=== PATIENT | female | born 1980 | race Caucasian/White ===

== ENCOUNTER → 2017-09-12 21:22 | Outpatient (CLI) | payer BC, SELFPAY ==
[2017-09-12 22:13] LABS: Thyroid Stim Hormone (TSH) 0.26 uIU/mL (0.358-3.74)
== END ==
PROVIDERS: Visit Provider Nurse Practitioner
DX: E03.9 Hypothyroidism, unspecified (principal)
CPT/HCPCS: 84443

== ENCOUNTER → 2018-08-18 13:27 | Outpatient (CLI) | payer BC, SELFPAY ==
[2018-06-23 16:24] VITALS: BMI 31.2
--- NOTE | 2018-08-18 13:36 | CT_ITS ---
STUDY: CT SOFT TISSUE NECK WITH CONTRAST REASON FOR EXAM: Female, 38 years old. Enlarged lymph nodes bilaterally. RADIATION DOSAGE (If Supplied By Facility): CTDIvol = ( 20.28 ) mGy, DLP = ( 622.89 ) mGycm TECHNIQUE: The patient was scanned in a multi-detector CT scanner. High resolution transaxial imaging was performed following intravenous administration of 75 IV Isovue 370. Sagittal and coronal images were reconstructed. Individualized dose optimization techniques were used for this CT. COMPARISON: None. FINDINGS: Normal bilateral parotid glands. Normal bilateral segmental wall installer spaces. Normal bilateral parapharyngeal spaces. Normal bilateral carotid spaces. Normal bilateral sublingual and submandibular glands and spaces. Normal visualized nasopharynx. Normal retropharyngeal space. Normal perivertebral space. Normal visualized bilateral faucial tonsils. The visualized tongue, tongue base and oropharynx are normal. Shotty anterior cervical lymph nodes. The largest anterior cervical lymph node on the left is 11 x 17 x 6 mm at the angle of the mandible. The largest right anterior cervical lymph node is 12 x 5 x 5 mm at approximately the same level. Posterior cervical lymph nodes are generally more numerous and larger on the right side the largest posterior right cervical lymph node is 16 x 6 x 6 mm. The largest cervical posterior lymph node on the left is 13 x 5 x 5 mm. Mental and submandibular lymph nodes generally less than 1 cm. Lymph nodes at the base of the neck are generally less than 1 cm in size. There multiple subcentimeter subpectoral lymph nodes of the chest wall bilaterally included in the [id number]. There does not appear to be any celso necrosis or calcifications. There is no abnormal contrast enhancement. Normal epiglottis, bilateral vallecula and hypopharynx. The pre-epiglottic and paraglottic adipose spaces are normal. Normal visualized bilateral piriform sinuses, aryepiglottic folds, vocal cords, and arytenoid-cricoid articulations. Normal subglottic trachea. Minimal or no remaining thyroid tissue. Normal visualized pulmonary apices. Normal visualized paranasal sinuses. Mild degenerative changes of the cervical spine. CT/Soft Tissue Neck WITH Contrast IMPRESSION: Generalized shotty cervical adenopathy as described above including subcentimeter bilateral lymph nodes of the subpectoral chest wall included in the biacl-oa-tecu. Negative for evidence of celso calcification, cavitation or necrosis. Negative for other mass density of the soft tissues of the neck. Little or no remaining thyroid tissue. Electronically Signed: Jessica Bedoya MD at 19:27 EDT , Service support ,
== END ==
PROVIDERS: Family Provider Nurse Practitioner; PCP Nurse Practitioner; Referring Provider Otolaryngology; Visit Provider Otolaryngology
DX: R22.1 Localized swelling, mass and lump, neck (principal)
CPT/HCPCS: 70491; Q9967

== ENCOUNTER → 2018-09-05 09:49 | Outpatient (CLI) | payer BC, SELFPAY ==
[2018-06-23 16:24] VITALS: BMI 31.2
--- NOTE | 2018-09-05 | ASPOS_PTH ---
PATIENT: NADIA PRICE LOC: [facility] U#:[id number] AGE/SX: 44/F ROOM: RE09/05/[address]: Dr. 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 AM:sp 09/11/18 COMMENT Cytometric analysis of aspirate material supports the above diagnosis. There is no evidence of lymphoma. Case has been reviewed in consultation with Dr. Simental who concurs with the above diagnosis. IDC:SJ CYTOLOGY STUDY Slides are reviewed. CYTOLOGY GROSS Received is 0.2 ml of reddish fluid labeled with the patient's name, and designated FNA right posterior neck lymph node. 1 imprints and 1 paps are made from the submitted fluid. Submitted for cytology study. /AM:cc 09/05/18 TC: 5 CPT: 48066,35937, 44982
== END ==
PROVIDERS: Family Provider Nurse Practitioner; PCP Nurse Practitioner; Referring Provider Otolaryngology; Visit Provider Otolaryngology
DX: R22.1 Localized swelling, mass and lump, neck (principal)
CPT/HCPCS: 10021; 88161; 88305

== ENCOUNTER → 2019-09-03 20:35 | Outpatient (CLI) | payer BC, SELFPAY ==
[2019-08-31 19:17] VITALS: BMI 35.6
[2019-09-03 20:56] LABS: ALB/GLOB Ratio 1.1 RATIO (0.9-2.4); AST(SGOT) 33 U/L (15-37); Alanine Aminotransfer ALT/SGPT 26 U/L (13-56); Albumin, Serum 4.3 g/dL (3.2-5.0); Alkaline Phosphatase 68 U/L (45-117); Anion Gap 7 (5-15); BUN 9 mg/dL (7-18); BUN/Creat Ratio 8.8 RATIO (10-20); Calcium,Total 8.6 mg/dL (8.5-10.1); Chloride 107 mmol/L (98-107); Creatinine, Serum 1.02 mg/dL (0.55-1.02); EST Glomerular Filtration Rate 64 mL/min (>60); Est Glom Filt Rate - Afr Amer 77 mL/min (>60); Globulin 3.8 g/dL (2.2-4.2); Glucose 88 mg/dL (74-106); Luteinizing Hormone 6.9 mIU/mL; Potassium 3.8 mmol/L (3.5-5.1); Protein, Total 8.1 g/dL (6.4-8.2); Sodium Level 138 mmol/L (136-145)
[2019-09-03 21:00] LABS: Absolute Neutrophil Count 5.3 X10^3/uL (2.0-7.7); Basophil# 0.05 X10^3/uL; Basophil% 0.6 % (0-1); Eosinophil# 0.09 X10^3/uL; Eosinophils% 1.2 % (0-5); Hematocrit 34.7 % (37-47); Hemoglobin 11.2 g/dL (12.0-15.0); Lymphocyte % 24.3 % (19-41); Mean Corp Hgb Conc 32.3 g/dL (32-36); Mean Corpuscular Hgb 28.3 pg (27.0-32.0); Mean Corpuscular Volume 87.6 fL (81-99); Mean Platelet Vol. 10.9 fl (6.2-12.0); Monocyte# 0.44 X10^3/uL; Monocyte% 5.6 % (0-10); NRBC Flagged by Analyzer 0 % (0-5); Neutrophil # 5.27 X10^3/uL (2.7-7.7); Neutrophil % 67.4 % (47-70); Platelet Count 334 K/mm3 (150-450); RBC Distribution Width SD 60.7 fl (35.1-43.9); Red Blood Count 3.96 M/mm3 (4.2-5.4); White Blood Count 7.8 K/mm3 (4.4-11.0)
== END ==
PROVIDERS: PCP Nurse Practitioner; Referring Provider Nurse Practitioner; Visit Provider Nurse Practitioner
DX: N93.9 Abnormal uterine and vaginal bleeding, unspecified (principal)
CPT/HCPCS: 80053; 83001; 83002; 85025

== ENCOUNTER → 2020-12-02 | Outpatient (CLI) | payer BC, SELFPAY ==
[2020-12-02 22:34] LABS: Absolute Lymphocyte Count 2.16 X10^3/uL (0.83-4.51); Absolute Neutrophil Count 6.2 X10^3/uL (2.0-7.7); Basophil# 0.04 X10^3/uL; Basophil% 0.4 % (0-1); Eosinophil# 0.11 X10^3/uL; Eosinophils% 1.2 % (0-5); Hematocrit 36.8 % (37-47); Lymphocyte # 2.16 X10^3/ul (0.83-4.51); Lymphocyte % 23.8 % (19-41); Mean Corp Hgb Conc 32.6 g/dL (32-36); Mean Corpuscular Hgb 27.6 pg (27.0-32.0); Mean Corpuscular Volume 84.6 fL (81-99); Mean Platelet Vol. 12.2 fl (6.2-12.0); Monocyte# 0.51 X10^3/uL; Monocyte% 5.6 % (0-10); NRBC Flagged by Analyzer 0 % (0-5); Neutrophil # 6.23 X10^3/uL (2.7-7.7); Neutrophil % 68.8 % (47-70); Platelet Count 341 K/mm3 (150-450); RBC Distribution Width SD 46.3 fl (35.1-43.9); Red Blood Count 4.35 M/mm3 (4.2-5.4); White Blood Count 9.1 K/mm3 (4.4-11.0)
== END | disposition home or self-care (01) ==
PROVIDERS: Visit Provider Nurse Practitioner
DX: K46.0 Unspecified abdominal hernia with obstruction, without gangrene (principal)
CPT/HCPCS: 85025

== ENCOUNTER → 2021-11-06 | Outpatient (CLI) | payer BC, SELFPAY ==
[2021-11-06 21:40] LABS: Absolute Lymphocyte Count 1.13 X10^3/uL (0.83-4.51); Absolute Neutrophil Count 4.9 X10^3/uL (2.0-7.7); Basophil# 0.03 X10^3/uL; Basophil% 0.4 % (0-1); Eosinophils% 1.5 % (0-5); Hematocrit 39.3 % (37-47); Hemoglobin 13.2 g/dL (12.0-15.0); Lymphocyte # 1.13 X10^3/ul (0.83-4.51); Lymphocyte % 16.9 % (19-41); Mean Corp Hgb Conc 33.6 g/dL (32-36); Mean Corpuscular Hgb 27.9 pg (27.0-32.0); Mean Corpuscular Volume 83.1 fL (81-99); Mean Platelet Vol. 11.4 fl (6.2-12.0); Monocyte# 0.51 X10^3/uL; Monocyte% 7.6 % (0-10); NRBC Flagged by Analyzer 0 % (0-5); Neutrophil # 4.89 X10^3/uL (2.7-7.7); Neutrophil % 73.5 % (47-70); Platelet Count 304 K/mm3 (150-450); RBC Distribution Width CV 16.3 % (11.6-14.6); RBC Distribution Width SD 49.3 fl (35.1-43.9); Red Blood Count 4.73 M/mm3 (4.2-5.4); White Blood Count 6.7 K/mm3 (4.4-11.0)
[2021-11-06 22:08] LABS: ALB/GLOB Ratio 0.8 RATIO (0.9-2.4); AST(SGOT) 15 U/L (15-37); Alanine Aminotransfer ALT/SGPT 20 U/L (13-56); Albumin, Serum 3.8 g/dL (3.2-5.0); Alkaline Phosphatase 78 U/L (45-117); Anion Gap 10 (5-15); BUN 12 mg/dL (7-18); BUN/Creat Ratio 13.2 RATIO (10-20); Calcium,Total 9.4 mg/dL (8.5-10.1); Chloride 102 mmol/L (98-107); Cholesterol 208 mg/dL (200); Creatinine, Serum 0.91 mg/dL (0.55-1.02); EST Glomerular Filtration Rate 72 mL/min (>60); Est Glom Filt Rate - Afr Amer 87 mL/min (>60); Globulin 4.5 g/dL (2.2-4.2); Glucose 122 mg/dL (74-106); High Density Lipoprotein 47 mg/dL; Potassium 3.1 mmol/L (3.5-5.1); Protein, Total 8.3 g/dL (6.4-8.2); Sodium Level 136 mmol/L (136-145); Thyroid Stim Hormone (TSH) 0.35 uIU/mL (0.358-3.74); Triglycerides 111 mg/dL; Very Low Density Lipoprotein 22 mg/dL (5-40)
== END | disposition home or self-care (01) ==
PROVIDERS: Referring Provider Nurse Practitioner; Visit Provider Nurse Practitioner
DX: I10 Essential (primary) hypertension (principal); E03.9 Hypothyroidism, unspecified
CPT/HCPCS: 80053; 80061; 84443; 85025

== ENCOUNTER → 2022-09-01 | Outpatient (CLI) | payer BC, SELFPAY ==
[2022-09-01 21:15] LABS: Absolute Lymphocyte Count 1.82 X10^3/uL (0.83-4.51); Absolute Neutrophil Count 4.3 X10^3/uL (2.0-7.7); Basophil# 0.06 X10^3/uL; Basophil% 0.9 % (0-1); Eosinophil# 0.13 X10^3/uL; Eosinophils% 1.9 % (0-5); Lymphocyte # 1.82 X10^3/ul (0.83-4.51); Lymphocyte % 26.6 % (19-41); Mean Corp Hgb Conc 32.4 g/dL (32-36); Mean Corpuscular Hgb 26.8 pg (27.0-32.0); Mean Corpuscular Volume 82.6 fL (81-99); Mean Platelet Vol. 11.2 fl (6.2-12.0); Monocyte# 0.51 X10^3/uL; Monocyte% 7.4 % (0-10); NRBC Flagged by Analyzer 0 % (0-5); Neutrophil # 4.31 X10^3/uL (2.7-7.7); Neutrophil % 62.9 % (47-70); Platelet Count 337 K/mm3 (150-450); RBC Distribution Width CV 15.8 % (11.6-14.6); RBC Distribution Width SD 47.7 fl (35.1-43.9); Red Blood Count 4.48 M/mm3 (4.2-5.4); White Blood Count 6.9 K/mm3 (4.4-11.0)
[2022-09-01 21:36] LABS: ALB/GLOB Ratio 0.9 RATIO (0.9-2.4); AST(SGOT) 16 U/L (15-37); Alanine Aminotransfer ALT/SGPT 22 U/L (13-56); Albumin, Serum 3.6 g/dL (3.2-5.0); Alkaline Phosphatase 77 U/L (45-117); Anion Gap 8 (5-15); BUN 9 mg/dL (7-18); BUN/Creat Ratio 10.7 RATIO (10-20); CRP, High Sensitivity Cardiac 7.85 mg/L; Calcium,Total 8.8 mg/dL (8.5-10.1); Chloride 104 mmol/L (98-107); Cholesterol 193 mg/dL (200); Creatinine, Serum 0.84 mg/dL (0.55-1.02); EST Glomerular Filtration Rate 79 mL/min (>60); Est Glom Filt Rate - Afr Amer 95 mL/min (>60); Globulin 4.2 g/dL (2.2-4.2); Glucose 89 mg/dL (74-106); High Density Lipoprotein 51 mg/dL; Potassium 3.2 mmol/L (3.5-5.1); Protein, Total 7.8 g/dL (6.4-8.2); Sodium Level 138 mmol/L (136-145); T4 Free Direct 1.31 ng/dL (0.76-1.46); Thyroid Stim Hormone (TSH) 1.24 uIU/mL (0.358-3.74); Triglycerides 162 mg/dL; Very Low Density Lipoprotein 32 mg/dL (5-40)
[2022-09-01 21:55] LABS: Hemoglobin A1c 5.7 % (3.8-5.6)
== END | disposition home or self-care (01) ==
PROVIDERS: Visit Provider Nurse Practitioner
DX: I10 Essential (primary) hypertension (principal); F32.A Depression, unspecified; E03.9 Hypothyroidism, unspecified; R51.9 Headache, unspecified; R07.9 Chest pain, unspecified
CPT/HCPCS: 80053; 80061; 83036; 84439; 84443; 85025; 86141

== ENCOUNTER → 2022-11-03 | Outpatient (CLI) | payer BC, SELFPAY | END | disposition home or self-care (01) | PROVIDERS: Visit Provider Nurse Practitioner | DX: N30.90 Cystitis, unspecified without hematuria (principal); R10.9 Unspecified abdominal pain | CPT/HCPCS: 87077; 87086; 87088; 87186 ==

== ENCOUNTER → 2023-02-23 | Outpatient (CLI) | payer BC, SELFPAY ==
--- OUTSIDE RECORDS SUMMARY | 2023-02-23 22:14 | XMS RPT_ITS | CCD ---
Author Name Unknown Address [address] [place] [address] Organization [facility] Care Team Providers Care Brand Representative Name Role Phone Reddy VILLEGAS, Alessandro Murillo Unavailable [phone] Dawson Dougherty Primary Care Provider Samuel Sánchez Primary Care Provider Esdras Morton Primary Care Provider Dawson Dougherty Primary Care Provider [phone] Personal Health Record, Admin Unavailable Unavailable Sylvia Simpson Unavailable Unavailable Update Needed Unavailable Unavailable Ladonna Dawson Primary Care Provider LADONNA DAWSON Primary Care Unavailable DOUGHERTY, DAWSON Primary Care Unavailable DOUGHERTY, DAWSON Primary Care Unavailable DOUGHERTY, DAWSON Primary Care Unavailable Dougherty EDGER MACHINE OPERATOR.Dawson HOWE L Primary Care Provide r Ladonna Dawson Primary Care Provider NATALY CISNEROS Attending Unavailable TOY BURCH Referring Unavailable DOUGHERTY, DAWSON Primary Care Unavailable NATALY CISNEROS Attending Unavailable TOY BURCH Referring Unavailable DOUGHERTY, DAWSON Primary Care Unavailable TOY BURCH Attending Unavailable BERONICA TOY Referring Unavailable DOUGHERTY, DAWSON Primary Care Unavailable TOY BURCH Attending Unavailable BERONICA TOY Referring Unavailable DOUGHERTY, DAWSON Primary Care Unavailable TOY BURCH Attending Unavailable DOUGHERTY, DAWSON Primary Care Unavailable Allergies Allergy Classification Reported Allergen(s) Allergy Type Date of Onset Reaction(s) Facility (1 source) gabapentin Drug Allergy 4 [facility] Work Phone: (2 sources) Seasonal allergy; Translations: [SEASONAL] allergy to substance 4 [facility] Work Phone: (13 sources) gabapentin; Translations: [GABAPENTIN] Drug Allergy 4 Nausea And Vomiting, Dermatitis, Dizziness, Headache, Nausea Only, Other: See Comments, [facility] [place] [facility] topiramate; Translations: [TOPIRAMATE] Drug Allergy 8 Intolerance [place], [place] (3 sources) Acetaminophen / HYDROcodone [facility] (6 sources) Topiramate Allergy to substance 8 [facility] Medications Current Medications Medication Drug Class(es) Dates Sig (Normalized) Sig (Original) amitriptyline hydrochloride 50 mg oral tablet (1 source) Tricyclic Antidepressant Start: 08-03-2016 take 1 tablet by mouth once daily amitriptyline (ELAVIL) 50 MG tablet Take 1 tablet by mouth nightly 30 tablet 3 08/03/2016 Active amphetamine aspartate 7.5 mg / amphetamine sulfate 7.5 mg / dextroamphetamine saccharate 7.5 mg / dextroamphetamine sulfate 7.5 mg oral tablet (1 source) Central Nervous System Stimulant amphetamine-dextr oamphetamine (ADDERALL, 30MG,) 30 MG tablet Take 30 mg by mouth daily.. 0 Active 24 hr buPROPion hydrochloride 300 mg extended release oral tablet (13 sources) Aminoketone Start: 08-03-2016 take 1 tablet by mouth once daily buPROPion (WELLBUTRIN XL) 150 MG extended release tablet TAKE ONE TABLET BY MOUTH ONCE DAILY 12 08/03/2016 Active Completed/Discontinued Medications Medication Drug Class(es) Dates Sig (Normalized) Sig (Original) acetaminophen 250 mg / aspirin 250 mg / caffeine 65 mg oral tablet (3 sources) Platelet Aggregation Inhibitor, Nonsteroidal Anti-inflammatory Drug, Central Nervous System Stimulant, Methylxanthine Start: 08-08-2002 EXCEDRIN TABLET as directed 0 08/08/2002 Active Problems Active Problems Problem Classification Problem Date Documented Da te Episodic/Chronic Complication of device; implant or graft (1 source) Pain due to any device, implant AND/OR graft; Translations: [Pain due to internal orthopedic prosthetic devices, implants and grafts, initial encounter] Onset: 12-19-2017 12-19-2017 Episodic Headache; including migraine (6 sources) Migraine with aura; Translations: [Migraine with aura] Onset: 08-08-2002 09-13-2005 Chronic Mood disorders (6 sources) Dysthymia; Translations: [Dysthymic disorder] Onset: 03-04-2003 06-03-2003 Chronic Other and unspecified benign neoplasm (1 source) Neuroma; Translations: [Benign neoplasm of peripheral nerves and autonomic nervous system, unspecified] Onset: 12-19-2017 12-19-2017 Episodic Other bone disease and musculoskeletal deformities (1 source) Somatic dysfunction of sacroiliac joint; Translations: [Somatic dysfunction of sacroiliac joint] Episodic Other female genital disorders (6 sources) Vulvodynia; Translations: [Vulvodynia, unspecified] Onset: 08-03-2016 11-19-2021 Chronic Other lower respiratory disease (1 source) Cough; Translations: [Cough] Episodic Other non-traumatic joint disorders (1 source) Sacroiliac disorder; Translations: [Sacroiliac strain] Episodic Other screening for suspected conditions (not mental disorders or infectious disease) (7 sources) Patient encounter status; Translations: [Encounter for other screening for genetic and chromosomal anomalies] Onset: 05-21-2022 Episodic Residual codes; unclassified (3 sources) Family history of breast cancer; Translations: [Family history of malignant neoplasm of breast] Episodic Residual codes; unclassified (2 sources) Family history of malignant neoplasm of ovary; Translations: [Family history of malignant neoplasm of ovary] Episodic Residual codes; unclassified (1 source) Family history of prostate cancer; Translations: [Family history of malignant neoplasm of prostate] 12-13-2022 Episodic Spondylosis; intervertebral disc disorders; other back problems (1 source) Cervicalgia; Translations: [Cervicalgia] Onset: 06-08-2022 Episodic Thyroid disorders (7 sources) Hypothyroidism; Translations: [Hypothyroidism, unspecified] Onset: 01-27-2010 01-27-2010 Chronic Past or Other Problems Problem Classification Problem Date Documented Da te Episodic/Chronic Abdominal pain (8 sources) Left lower quadrant pain; Translations: [Left flank pain] Onset: 10-22-2019 11-19-2021 Episodic Gastritis and duodenitis (6 sources) Acute gastritis; Translations: [Acute gastritis] Onset: 08-08-2002 06-03-2003 Episodic Nonmalignant breast conditions (8 sources) Mastodynia; Translations: [Mastodynia] Onset: 05-21-2022 Episodic Other female genital disorders (2 sources) Vulvodynia; Translations: [Vulvodynia] Onset: 06-15-2016 08-03-2016 Episodic Other non-traumatic joint disorders (1 source) Disorder of wrist joint; Translations: [Other specified joint disorders, right wrist] Onset: 12-20-2016 12-20-2016 Episodic Other non-traumatic joint disorders (1 source) Pain in wrist; Translations: [Pain in right wrist] Onset: 12-20-2016 12-20-2016 Episodic Residual codes; unclassified (2 sources) Family history of malignant neoplasm of breast; Translations: [Family history of malignant neoplasm of breast] Onset: 05-21-2022 Episodic Residual codes; unclassified (2 sources) Family history of malignant neoplasm of ovary; Translations: [Family history of malignant neoplasm of ovary] Onset: 05-21-2022 Episodic Unclassified (1 source) Problem Results Test Name Value Interpretation Reference Range Facil ity Vital Signs Date Time Vital Sign Value Performing Clinician Faci lity 12-13-2022 14:03-0500 Body height 162.6 cm Nataly Brunson CNP Work Phone: [facility] 12-13-2022 14:03-0500 Body mass index (BMI) [Ratio] 32.44 kg/m2 Nataly Brunson CNP Work Phone: [facility] 12-13-2022 14:03-0500 Body temperature 98.01 [degF] Nataly Brunson CNP Work Phone: [facility] 12-13-2022 14:03-0500 Body weight 85.73 kg Nataly Brunson CNP Work Phone: [facility] 12-13-2022 14:03-0500 Diastolic blood pressure 90 mm[Hg] Nataly Brunson CNP Work Phone: [facility] 12-13-2022 14:03-0500 Heart rate 83 /min Nataly Brunson CNP Work Phone: [facility] 12-13-2022 14:03-0500 Respiratory rate 12 /min Nataly Cisneros EDGER MACHINE OPERATOR - [employer] Work Phone: [facility] 12-13-2022 14:03-0500 Systolic blood pressure 141 mm[Hg] Nataly Cisneros EDGER MACHINE OPERATOR - [employer] Work Phone: [facility] 05-21-2022 14:55-0400 Diastolic blood pressure 93 mm[Hg] Nataly Cisneros EDGER MACHINE OPERATOR - [employer] Work Phone: [facility] 05-21-2022 14:55-0400 Systolic blood pressure 141 mm[Hg] Nataly Cisneros EDGER MACHINE OPERATOR - [employer] Work Phone: [facility] 05-21-2022 14:04-0400 Body height 162.6 cm Nataly Cisneros EDGER MACHINE OPERATOR - [employer] Work Phone: [facility] 05-21-2022 14:04-0400 Body mass index (BMI) [Ratio] 33.81 kg/m2 Nataly Cisneros EDGER MACHINE OPERATOR - [employer] Work Phone: [facility] 05-21-2022 14:04-0400 Body temperature 98.6 [degF] Nataly Cisneros EDGER MACHINE OPERATOR - [employer] Work Phone: [facility] 05-21-2022 14:04-0400 Body weight 89.36 kg Nataly Cisneros EDGER MACHINE OPERATOR - [employer] Work Phone: [facility] 05-21-2022 14:04-0400 Heart rate 89 /min Natalypuneet Cisneros EDGER MACHINE OPERATOR - [employer] Work Phone: [facility] 05-21-2022 14:04-0400 Respiratory rate 12 /min Nataly Bernabew EDGER MACHINE OPERATOR - [employer] Work Phone: [facility] 04-27-2022 11:20-0400 Body height 162.6 cm Toy Burch MD Work Phone: [facility] 04-27-2022 11:20-0400 Body mass index (BMI) [Ratio] 33.64 kg/m2 Toy Burch MD Work Phone: [facility] 04-27-2022 11:20-0400 Body weight 88.91 kg Toy Burch MD Work Phone: [facility] 04-27-2022 11:20-0400 Diastolic blood pressure 110 mm[Hg] Toy Burch MD Work Phone: [facility] 04-27-2022 11:20-0400 Systolic blood pressure 160 mm[Hg] Toy Burch MD Work Phone: [facility] 01-01-2020 19:15-0500 BMI (Body Mass Index) 37.12 kg/m2 Admin Personal Health Record [facility] Work Phone: 01-01-2020 19:15-0500 Body Temperature 98.1 [degF] Admin Personal Health Record [facility] Work Phone: 01-01-2020 19:15-0500 Body weight 98.1 kg Admin Personal Health Record [facility] Work Phone: 01-01-2020 19:15-0500 BP Diastolic 99 mm[Hg] Admin Personal Health Record [facility] Work Phone: 01-01-2020 19:15-0500 BP Systolic 144 mm[Hg] Admin Personal Health Record [facility] Work Phone: 01-01-2020 19:15-0500 BSA (Body Surface Area) 2.02 m2 Admin Personal Health Record [facility] Work Phone: 01-01-2020 19:15-0500 Height 162.56 cm Admin Personal Health Record [facility] Work Phone: 01-01-2020 19:15-0500 Pulse (Heart Rate) 92 /min Admin Personal Health Record [facility] Work Phone: 01-01-2020 19:15-0500 Pulse Oximetry 97 % Admin Personal Health Record [facility] Work Phone: 01-01-2020 19:15-0500 Respiratory Rate 16 /min Admin Personal Health Record [facility] Work Phone: 01-01-2020 19:15-0500 5 1 Admin Personal Health Record [facility] Work Phone: Encounters Encounter Date Encounter Type Care Provider Facility Start: 12-13-2022 End: 12-13-2022 ambulatory NATALYPUNEET BERNABEW [facility] Start: 12-13-2022 End: 12-13-2022 Office outpatient visit 15 minutes Nataly Cisneros EDGER MACHINE OPERATOR - [employer] Work Phone: [facility] [place] Procedures Date Procedure Procedure Detail Performing Clinician Start: 06-08-2022 Radex spine cervical 2 or 3 views Dawson Dougherty EDGER MACHINE OPERATOR.[employer] Work Phone: Start: 05-17-2022 Us breast uni real t odin with image limited Toy Burch MD Work Phone: Start: 05-17-2022 End: 05-17-2022 Diagnostic mammography computer-aided detcj bi Toy Burch MD Work Phone: Start: 02-26-2022 Thyrotropin [Units/v olume] in Serum or Plasma Toy Burch MD Work Phone: Start: 01-01-2020 Follow-up visit Start: 01-01-2020 Coronavirus 2019 RNA by PCR, Symptomatic Admin Personal Health Record Start: 09-07-2019 Us abdominal real ti me w/image documentation Dawson Dougherty Work Phone: Start: 09-07-2019 Us pelvic nonobstetr ic real-time image complete Dawson Dougherty Work Phone: Start: 02-08-2018 End: 02-08-2018 Blood pressure outside of normal parameters - follow-up documented Alessandro Blakely MD Work Phone: Start: 02-08-2018 End: 02-08-2018 BMI documented as above normal parameters - follow-up documented Alessandro Blakely MD Work Phone: Start: 02-08-2018 End: 02-08-2018 Documentation of current medications Alessandro Blakely MD Work Phone: Start: 02-08-2018 End: 02-08-2018 Pain assessment documented as positive - follow-up documented Alessandro Blakely MD Work Phone: Start: 02-08-2018 End: 02-08-2018 Pt tobacco screen rcvd tlk Alessandro simmons MD Work Phone: Start: 02-08-2018 End: 02-08-2018 Radex wrist complete minimum 3 views Alessandro Blakely MD Work Phone: Start: 07-12-2011 CONVERTED SURGICAL PATHOLOGY Zaina Powell Work Phone: Start: 02-25-2009 CONVERTED SURGICAL PATHOLOGY Samuel Geovanni Ralph Work Phone: Start: 07-18-2007 CONVERTED SURGICAL PATHOLOGY Héctor Finch Work Phone: Plan of Treatment Date Care Activity Detail Author Start: 2029 Zoster Vaccines (1 o f 2) Zoster Vaccines (1 of 2) [facility] Start: 12-13-2023 End: 12-13-2023 Patient encounter procedure 12/13/2023 10:30 AM EST Office Visit [facility] [address] [place] [address] Nataly Cisneros, EDGER MACHINE OPERATOR - [employer] [address] [place], [place] [id number] [facility] Start: 06-13-2023 End: 02-13-2024 DBT Breast - bilateral screening Bilateral screening mammogram with tomosynthesis Imaging Routine Encounter for screening mammogram for breast cancer Expected: 06/13/2023 (Approximate), Expires: 02/13/2024 [facility] Work Phone: Immunizations Immunization Date Immunization Notes Care Provider Fa cilihari 02-10-2021 Pfizer SARS-CoV-2 Vaccination Toy Burch MD Work Phone: [facility] 06-07-2020 Pfizer SARS-CoV-2 Vaccination Toy Burch MD Work Phone: [facility] 05-17-2020 Pfizer SARS-CoV-2 Vaccination Toy Burch MD Work Phone: [facility] 05-10-2005 hepatitis B vaccine, adult dosage [facility] 05-10-2005 hepatitis B vaccine, unspecified formulation [facility] 11-18-2004 hepatitis B vaccine, adult dosage [facility] 08-07-1997 tetanus and diphther ia toxoids, adsorbed, preservative free, for adult use (2 Lf of tetanus toxoid and 2 Lf of diphtheria toxoid) [facility] No information available. Iona Brenner BALLISTICIAN [facility] Work Phone: Payers Date Payer Category Payer Unknown [id number] 2022 Unknown [id number] 2016 Unknown BCBS [place] PO [id number] 2016-Present [address] [place] [address] [id number] 2016 Unknown [place] PO [id number] 2016-Present [address] [place] [address] [id number] 2001 Unknown MMO [employer] SU[employer] PLUS [id number] 2001-2018 PPO [id number] 2001 Unknown MMO ZZZM[employer] SUPER MED PLUS [id number] 2001-2017 PPO [id number] Social History Date Type Detail Facility Start: 02-08-2018 End: 02-08-2018 Assertion Unknown if ever smoked [facility] Work Phone: Start: 08-30-2017 End: 12-05-2020 Tobacco smoking status [facility] Current every day smoker [facility] History of tobacco use Cigarette Smoker [place] Start: 08-30-2017 End: 05-21-2022 Cigarettes smoked current (pack per day) - Reported [place] Start: 08-30-2017 End: 12-05-2020 Tobacco use and exposure Never used [place] Start: 08-30-2017 End: 12-13-2022 Alcohol intake Current drinker of alcohol (finding) [place] Start: 04-27-2016 Alcohol Comment rarely [place], [place] Sex Assigned At Not on file [place] Start: 05-07-2022 End: 05-21-2022 Exposure to SARS-CoV-2 (event) Not sure [place], [place] Start: 1980 Sex Assigned At Female [facility] Start: 05-21-2022 Alcohol Comment occ [facility] Start: 05-21-2022 Tobacco use panel [facility] Start: 11-26-2021 Gender identity Identifies as female gender (finding) [facility] Start: 11-26-2021 Sexual orientation Heterosexual (fin ding) [facility] NEGATED: Highlighted rowStart: 02-08-2018 End: 02-08-2018 Tobacco use and exposure Smokes tobacco daily (finding) [facility] Work Phone: NEGATED: Highlighted row - - [facility] Work Phone: Functional Status Date Assessment Result Facility NEGATED: Highlighted row Functional performance Functional status health issues are not documented Disease [facility] Work Phone: Mental Status Date Assessment Result Facility NEGATED: Highlighted row Cognitive function [Interpretation] Cognitive status health issues are not documented Disease [facility] Work Phone: History of Present illness Narrative 12-13-2022 Nataly Cisneros, EDGER MACHINE OPERATOR - [employer] - 12/13/2022 2:00 PM EST Note Date & Type Note Facility 12-13-2022 History of Presen t illness Narrative Formatting of this note is different fro m the original. Images from the original note were not included. Chief Complaint Patient presents with 6 Month Follow-up Still having left breast pain. Describes it as an achy feeling. Feeling it in a new spot to the left of the nipple. 2/10 pain that comes and goes. HPI: Nadia Gonzalez is a 42 y.o. female who presents for follow up left breast pain. She was first seen here at the breast center 05/21/2022 for left breast pain that she noted approximately 1 month prior. At this visit, she noted no prior breast trauma but did note a medication change from Adderall to Focalin about 1 month before the breast pain started. Bilateral diagnostic mammogram and left breast ultrasound 05/17/2022 were negative (BI-RADS 1). At this visit, we discussed conservative measures for breast pain including OTC analgesics, heat/ice, and wearing a supportive bra. Today, she still notes intermittent left breast pain. She does not feel it is cyclic in nature. She describes the pain as twinges that last for a short time. We again reviewed different etiologies for breast pain. We did discuss re-imaging the left breast versus monitoring this area. Patient is comfortable with monitoring the area since the pain comes and goes and has not changed. We discussed she should call with any new/worsening symptoms. We also again reviewed conservative measures for breast pain including OTC analgesics, heat/ice, and wearing a supportive bra. She has a history of a left breast biopsy 5-6 years ago. These results are unavailable to me today but she states that this was benign. She has no additional breast history. She does have a significant family history of cancer. See family history section of this note. She had [employer] [facility] panel genetic testing 05/2022 which was negative for deleterious mutation. Results scanned into media dated 06/01/2022. Her lifetime risk of breast cancer estimated by Tyrer-Cuzick V8 model (recalculated, adding in negative genetic testing) is 11.28%. Today, she notes she forgot to mention at her last visit that her father has metastatic prostate cancer. Risk Factors Menarche: 11 Age of first : 24; Menopause: Pre; She had hysterectomy age 32 but retains both ovaries Smoking: Current; 1/2 PPD. No interest in quitting at this time ETOH: Rare Breast Imaging: Bilateral diagnostic mammogram/left breast ultrasound 05/17/2022 Tissue Density: BIRADS B - There are scattered fibroglandular densities. Images were reviewed with CAD. Presentation: The patient presents for intermittent left nipple pain for the past month. Baseline mammogram. Findings: No suspicious masses, architectural distortions or suspiciously clustered microcalcifications are identified bilaterally. BREAST ULTRASOUND: Findings: Ultrasound imaging of the left breast was performed by a registered line decorator with Doppler. Extensive scanning of the subareolar region of the left breast demonstrates no focal abnormality or suspicious findings. IMPRESSION: No mammographic or targeted sonographic correlate for patient's left breast pain. Clinical follow-up is recommended. No mammographic evidence of malignancy in either breast. Patient to return to annual screening. Markings on images: BB's = Nipples; skin lesions Open zuni = Palpable Line = Scar ASSESSMENT: Category 1 Negative RECOMMENDATION: Clinical correlation Left Routine screening mammogram in 1 year. Bilateral Family history includes: Father with metastatic prostate cancer Maternal grandmother with colon cancer age 70 and breast cancer Maternal aunt with ovarian cancer age 44 Maternal great aunt with breast cancer age 35 Maternal great aunt with breast cancer age 39 Maternal great aunt with breast cancer age 60 Maternal great aunt with breast cancer age 65 Maternal great uncle with lung cancer age 40 Maternal great uncle with lung cancer age 45 Past Medical History: Diagnosis Date Depression High blood pressure Hypothyroidism IBS (irritable bowel syndrome) Migraines Vulvodynia Past Surgical History: Procedure Laterality Date APPENDECTOMY 06/2012 ARM SURGERY (HISTORICAL) 2013 BREAST BIOPSY Left 2012 benign HYSTERECTOMY 04/19/2012 adenomyosis Robotic LAVH Allergies Allergen Reactions Gabapentin Dermatitis, Dizziness, Headache, Nausea And Vomiting and Nausea Only Other reaction(s): causes h/a, Intolerance, Other: See Comments Topiramate Other reaction(s): Intolerance, Other, totally out of it Other reaction(s): totally out of it Other reaction(s): totally out of it Current Outpatient Medications on File Prior to Visit Medication Sig Dispense Refill buPROPion XL (Wellbutrin XL) 300 MG 24 hr tablet daily. kchrgkawmz-dlxvhkzrpgeku-ydmkxipa (Fioricet) 50-300-40 MG capsule TAKE 1 CAPSULE BY MOUTH EVERY 4 HOURS NEEDED for headaches clonazePAM (KlonoPIN) 0.5 MG tablet Take 0.5 mg by mouth 2 times daily. dexmethylphenidate (Focalin) 5 MG tablet hydroCHLOROthiazide (HYDRODiuril) 25 MG tablet Take 25 mg by mouth every morning. levothyroxine (Synthroid, Levoxyl) 175 MCG tablet Take 175 mcg by mouth in the morning. metFORMIN (Glucophage) 500 MG tablet Take 500 mg by mouth 2 times daily. risperiDONE (RisperDAL) 1 MG tablet tiZANidine (Zanaflex) 4 MG tablet Take 4 mg by mouth every 8 hours as needed. No current facility-administered medications on file prior to visit. Review of Systems: Review of Systems Constitutional: Negative. HENT: Negative. Eyes: Negative. Respiratory: Negative. Cardiovascular: Negative. Gastrointestinal: Negative. Endocrine: Negative. Genitourinary: Negative. Musculoskeletal: Negative. Skin: Negative. Allergic/Immunologic: Negative. Neurological: Negative. Hematological: Negative. Psychiatric/Behavioral: Negative. BP (!) 141/90 (BP Location: Left arm, Patient Position: Sitting) Pulse 83 Temp 36.7 C (98 F) (Temporal) Resp 12 Ht 5' 4 (1.626 m) Wt 189 lb (85.7 kg) BMI 32.44 kg/m Physical Exam Constitutional: General: She is not in acute distress. Appearance: Normal appearance. She is obese. She is not ill-appearing. HENT: Head: Normocephalic and atraumatic. Pulmonary: Effort: Pulmonary effort is normal. No respiratory distress. Chest: Breasts: Breasts are symmetrical. Right: No inverted nipple, mass, nipple discharge, skin change or tenderness. Left: Tenderness present. No inverted nipple, mass, nipple discharge or skin change. Abdominal: Palpations: Abdomen is soft. Musculoskeletal: Cervical back: Normal range of motion and neck supple. Lymphadenopathy: Cervical: No cervical adenopathy. Upper Body: Right upper body: No axillary adenopathy. Left upper body: No axillary adenopathy. Skin: General: Skin is warm and dry. Neurological: General: No focal deficit present. Mental Status: She is alert and oriented to person, place, and time. Psychiatric: Mood and Affect: Mood normal. Behavior: Behavior normal. Assessment/Plan: 1. Encounter for screening mammogram for breast cancer - Bilateral screening mammogram with tomosynthesis; Future -Due 05/2023 -She would prefer to follow here at the breast center for annual clinical breast exams 2. Breast pain, left -She has had negative diagnostic imaging -We reviewed conservative measures for breast pain including OTC analgesics, heat/ice, and wearing a supportive bra -Follow-up 1 year or sooner with any new/worsening symptoms 3. Family history of breast cancer -She has had negative genetic testing 4. Family history of prostate cancer She has had negative genetic testing Call with any breast concerns or questions TRUNG Hampton CNP Please disregard any typographical errors. This note was dictated using voice recognition software. documented in this encounter [facility] History of Present illness Narrative 05-21-2022 TRUNG Hampton CNP - 05/21/2022 2:00 PM EDT Note Date & Type Note Facility 05-21-2022 History of Presen t illness Narrative Formatting of this note is different fro m the original. Images from the original note were not included. Chief Complaint Patient presents with New Patient Left breast, denies any swelling or nipple discharge. HPI: Nadia Gonzalez is a 42 y.o. female who presents for left breast pain. She first noted this left breast pain approximately 1 month ago. The pain is located behind her left nipple. The pain comes and goes. Sometimes, wearing a bra aggravates the pain. She has taken Advil and used heat at this area which did help with the pain. She denies recent breast trauma. She did have a medication change approximately 2 months ago. She switched from Adderall to Focalin. She had a hysterectomy at age 32 but retains her ovaries. She did have a bilateral diagnostic mammogram and left breast ultrasound 05/17/2022 which was negative (BI-RADS 1). We discussed conservative measures for breast pain including OTC analgesics, heat/ice, and wearing a supportive bra. We also discussed short-term follow-up to reassess and she is agreeable. We also discussed today the difference between chest pain and breast pain. We discussed that if she experiences any chest pain/pressure, she should go to the Emergency Department immediately. We also discussed following up with her primary care provider given her breast imaging was negative, and her blood pressure was mildly elevated today (it did come down on recheck). She will call her primary care provider to make an appointment. She has a history of a left breast biopsy 5-6 years ago. These results are unavailable to me today but she states that this was benign. She has no additional breast history. She has no additional breast concerns today. She denies breast mass, skin change, nipple change, nipple discharge. No prior breast surgery. Breast Imaging: Bilateral diagnostic mammogram/left breast ultrasound 05/17/2022 Tissue Density: BIRADS B - There are scattered fibroglandular densities. Images were reviewed with CAD. Presentation: The patient presents for intermittent left nipple pain for the past month. Baseline mammogram. Findings: No suspicious masses, architectural distortions or suspiciously clustered microcalcifications are identified bilaterally. BREAST ULTRASOUND: Findings: Ultrasound imaging of the left breast was performed by a registered line decorator with Doppler. Extensive scanning of the subareolar region of the left breast demonstrates no focal abnormality or suspicious findings. IMPRESSION: No mammographic or targeted sonographic correlate for patient's left breast pain. Clinical follow-up is recommended. No mammographic evidence of malignancy in either breast. Patient to return to annual screening. Markings on images: BB's = Nipples; skin lesions Open zuni = Palpable Line = Scar ASSESSMENT: Category 1 Negative RECOMMENDATION: Clinical correlation Left Routine screening mammogram in 1 year. Bilateral Risk Factors Menarche: 11 Age of first : 24; Menopause: Pre; She had hysterectomy age 32 but retains both ovaries Smoking: Current; 1/2 PPD. No interest in quitting at this time ETOH: Rare Family history includes: Maternal grandmother with colon cancer age 70 and breast cancer Maternal aunt with ovarian cancer age 44 Maternal great aunt with breast cancer age 35 Maternal great aunt with breast cancer age 39 Maternal great aunt with breast cancer age 60 Maternal great aunt with breast cancer age 65 Maternal great uncle with lung cancer age 40 Maternal great uncle with lung cancer age 45 The lifetime risk of breast cancer estimated by the Tyrer Cuzick v8 model is 11.28%. The estimated risk of a BRCA 1/2 mutation predicted by BRCAPRO is 19.24%. The estimated risk of a mutation in an HNPCC related gene is 0.26%. The patient does meet NCCN criteria for genetic testing for hereditary cancer. An extended visit was carried out for analysis of family history, pedigree construction, discussion of genetic principles and familial cancer patterns. We discussed the risks, benefits, and limitations of genetic analysis. We reviewed options for management of increased cancer risk including high risk surveillance, surgical intervention, and chemo prevention options. We discussed the process of testing, which genes are tested, possible results and their implications for management, [place] law, notifying relatives if a pathogenic mutation is found, cascade testing for blood relatives, and post counseling if a pathogenic mutation was found. We discussed that the maximum out of pocket cost for genetic testing done here at [facility] through [facility] is $250. [facility] will reach out to patient if out of pocket cost is more than $100. Patient verbalized understanding. The patient expressed understanding of the information provided and decided to proceed with genetic testing. She signed consent for genetic testing. Her blood was drawn from her left antecubital vein using a 23-gauge butterfly needle. Gauze and Coban was applied. She tolerated well. Past Medical History: Diagnosis Date Depression High blood pressure Hypothyroidism IBS (irritable bowel syndrome) Migraines Vulvodynia Past Surgical History: Procedure Laterality Date APPENDECTOMY 06/2012 ARM SURGERY (HISTORICAL) 2012 BREAST BIOPSY Left 2012 benign HYSTERECTOMY 04/19/2012 adenomyosis Robotic LAVH Allergies Allergen Reactions Gabapentin Dermatitis, Dizziness, Headache, Nausea And Vomiting and Nausea Only Other reaction(s): causes h/a, Intolerance, Other: See Comments Topiramate Other reaction(s): Intolerance, Other, totally out of it Other reaction(s): totally out of it Other reaction(s): totally out of it Current Outpatient Medications on File Prior to Visit Medication Sig Dispense Refill buPROPion XL (Wellbutrin XL) 300 MG 24 hr tablet daily. txvpamwjul-zimnncframxsa-liwxuwcx (Fioricet) 50-300-40 MG capsule TAKE 1 CAPSULE BY MOUTH EVERY 4 HOURS NEEDED for headaches dexmethylphenidate (Focalin) 5 MG tablet hydroCHLOROthiazide (HYDRODiuril) 25 MG tablet Take 25 mg by mouth every morning. levothyroxine (Synthroid, Levoxyl) 175 MCG tablet Take 175 mcg by mouth in the morning. tiZANidine (Zanaflex) 4 MG tablet Take 4 mg by mouth every 8 hours as needed. No current facility-administered medications on file prior to visit. Review of Systems: Review of Systems Constitutional: Negative. HENT: Negative. Eyes: Negative. Respiratory: Negative. Cardiovascular: Negative. Gastrointestinal: Negative. Endocrine: Negative. Genitourinary: Negative. Musculoskeletal: Negative. Skin: Negative. Allergic/Immunologic: Negative. Neurological: Negative. Hematological: Negative. Psychiatric/Behavioral: Negative. BP (!) 144/97 (BP Location: Left arm, Patient Position: Sitting, BP Cuff Size: Adult) Pulse 89 Temp 37 C (98.6 F) Resp 12 Ht 5' 4 (1.626 m) Wt 197 lb (89.4 kg) BMI 33.81 kg/m Physical Exam Constitutional: General: She is not in acute distress. Appearance: Normal appearance. She is obese. She is not ill-appearing. HENT: Head: Normocephalic and atraumatic. Pulmonary: Effort: Pulmonary effort is normal. No respiratory distress. Chest: Breasts: Breasts are symmetrical. Right: No inverted nipple, mass, nipple discharge, skin change or tenderness. Left: No inverted nipple, mass, nipple discharge, skin change or tenderness. Abdominal: Palpations: Abdomen is soft. Musculoskeletal: Cervical back: Normal range of motion and neck supple. Lymphadenopathy: Cervical: No cervical adenopathy. Upper Body: Right upper body: No axillary adenopathy. Left upper body: No axillary adenopathy. Skin: General: Skin is warm and dry. Neurological: General: No focal deficit present. Mental Status: She is alert and oriented to person, place, and time. Psychiatric: Mood and Affect: Mood normal. Behavior: Behavior normal. Assessment/Plan: 1. Breast pain, left -Negative diagnostic imaging -We discussed conservative measures for breast pain including OTC analgesics, heat/ice, and wearing a supportive bra. -Follow-up 6 months or sooner with any new/worsening symptoms. 2. Family history of breast cancer -Her blood was drawn today for genetic testing -Call with results 3. Family history of ovarian cancer -Her blood was drawn today for genetic testing -Call with results 4. Genetic testing -Call with results Call with any breast concerns or questions TRUNG Hampton CNP Please disregard any typographical errors. This note was dictated using voice recognition software. documented in this encounter [facility] History of Present illness Narrative 04-27-2022 Shyam Stallworth MA - 04/27/2022 11:30 AM Roula Burch MD - 04/27/2022 11:30 AM EDT Note Date & Type Note Facility 04-27-2022 History of Presen t illness Narrative A pipe coverer and insulator was offered to be present during her exam. The patient: declined Nadia Gonzalez 42 y.o. HPI Pt c/o L breast pain x 1mo. BP (!) 160/110 Ht 5' 4 (1.626 m) Wt 196 lb (88.9 kg) BMI 33.64 kg/m Past Medical History: Diagnosis Date Depression High blood pressure Hypothyroidism IBS (irritable bowel syndrome) Migraines Vulvodynia Past Surgical History: Procedure Laterality Date APPENDECTOMY 06/2012 ARM SURGERY (HISTORICAL) 2012 HYSTERECTOMY 04/19/2012 adenomyosis Robotic LAVH Review of Systems Constitutional: - fever and - unexpected weight change. Respiratory: - for shortness of breath. Cardiovascular: - for chest pain. Gastrointestinal: - abdominal pain, - constipation and - diarrhea. Endocrine: - cold intolerance - heat intolerance. Genitourinary: - dyspareunia, - dysuria, - flank pain, - frequency, - menstrual problem, - pelvic pain, - vaginal discharge, - incontinence Musculoskeletal: - or back pain. Neurological: - for weakness. Psychiatric/Behavioral: - for sleep disturbance. Objective: Physical Exam Constitutional: She is oriented to person, place, and time. She appears well-developed and well-nourished. Head: Normocephalic and atraumatic. Neck: Neck supple. No thyromegaly present. Cardiovascular: Normal rate. Pulmonary/Chest: Effort normal. Right breast exhibits no inverted nipple, no mass, no nipple discharge, no skin change and no tenderness. Left breast exhibits no inverted nipple, no mass, no nipple discharge, no skin change and + tenderness just beneath the nipple. . Breasts are symmetrical. Abdominal: Soft. She exhibits no distension and no mass. There is no hepatosplenomegaly. There is no tenderness. No hernia. Genitourinary: Right Labia: There is no rash or lesion. Left Labia: There is no rash or lesion. Vagina normal. Cervix: Sugically Absent. Uterus: Surgically Absent. Right Adnexum displays no mass, no tenderness and no fullness. Left Adnexum displays no mass, no tenderness and no fullness. Urethral Meatus: Normal in appearance. Urerthra: Nontender. Bladder: Nontender. Anus and Perineum: Normal in appearance No lesions. Rectal: shows no external hemorrhoid. Musculoskeletal: Right lower leg: She exhibits no swelling and no edema. Left lower leg: She exhibits no swelling and no edema. Cervical Lymph Nodes: No adenopathy present. Right Axillary Lymph Nodes: No adenopathy present. Left Axillary Lymph Nodes: No adenopathy present. Right Inguinal Lymph Nodes: No adenopathy present. Left Inguinal Lymph Nodes: No adenopathy present. Neurological: She is alert and oriented to person, place, and time. Skin: Skin is warm and dry. Psychiatric: She has a normal mood and affect. Her speech is normal and behavior is normal. Assessment: Diagnosis Plan 1. Encounter for gynecological examination without abnormal finding 2. Breast pain, left Bilateral diagnostic mammogram Left breast US limited Ambulatory referral to Breast Clinic Plan: 1. Perform monthly self breast exam. Exercise at least 30min three times per week. Take a daily multivitamin or 1000 Units of Vit D. 2. Get Dx Mammogram and US. Referral placed. documented in this encounter [facility] Progress note 12-31-2020 Note Date & Type Note Facility 12-31-2020 Note HNO ID: [id number] Author: Jayden Lassiter MD Service: ? Author Type: Physician Type: Progress Notes Filed: 12/31/2020 1:31 PM Note Text: PROGRESS NOTES PATIENT NAME: Nadia Gonzalez Assessment ASSESSMENT AND PLAN The patient is a 40-year-old female status post a recent umbilical hernia repair surgery. She is doing well postoperatively. Follow-up will be as needed. SUBJECTIVE CHIEF COMPLAINT: Patient presents with: Post Op Follow Up: Umbilical hernia repair. INTERVAL HISTORY OF PRESENT ILLNESS: The patient is a 40-year-old female who presents today for evaluation after a recent umbilical hernia repair. She states that overall she is doing well. She denies any significant issues or complaints. HISTORIES: PAST MEDICAL HISTORY Diagnosis Date - Acute gastritis - Migraine with aura PAST SURGICAL HISTORY Procedure Laterality Date - APPENDECTOMY 2012 - LIGATE FALLOPIAN TUBE 2010 - PAST SURGICAL HISTORY OF 2006 bladder repair, and sling removed in 2007 - PAST SURGICAL HISTORY OF 2013 incisional hernia repair - PAST SURGICAL HISTORY OF Right 2013 radius and ulna and in 2018 hardware removed - TOOTH EXTRACTION wisdom teeth - TOTAL ABDOM HYSTERECTOMY 2012 - UMBILICAL HERNIA REPAIR 5 OR OLDER 12/16/2020 Dr. Lassiter ALLERGIES: Gabapentin and Topiramate MEDICATIONS: Current Outpatient Medications Medication Sig - levothyroxine (SYNTHROID) 175 mcg tablet Take 175 mcg by mouth once daily. - tiZANidine (ZANAFLEX) 4 mg tablet Take 4 mg by mouth three times daily as needed. Take 4 mg by mouth three times daily as needed. - SUMAtriptan (IMITREX) 100 mg tablet TAKE 1 TABLET BY MOUTH at onset of headache, if no relief may repeat in 2 (TWO) HOURS. - ibuprofen (MOTRIN) 800 mg tablet Take by mouth as directed. - FLUoxetine HCl (PROZAC) 40 mg capsule once daily. - hydroCHLOROthiazide (HYDRODIURIL, ESIDRIX) 25 mg tablet Take 25 mg by mouth every morning. - acetaminophen 300 mg-caffeine 40 mg-butalbital 50 mg (FIORICET) per capsule TAKE 1 CAPSULE BY MOUTH EVERY 4 HOURS NEEDED for headaches - buPROPion XL (WELLBUTRIN XL) 300 mg 24 hr tablet once daily. No current facility-administered medications for this visit. FAMILY HISTORY Problem Relation Age of Onset - Hypertension Mother - Thyroid Mother Overactive thyroid - GI Sister Social History Tobacco Use - Smoking status: Current Every Day Smoker Packs/day: 0.50 Years: 6.00 Pack years: 3.00 - Smokeless tobacco: Never Used - Tobacco comment: Pt advised to quit Vaping Use - Vaping Use: Never used Substance Use Topics - Alcohol use: Yes Comment: A couple of drinks per month - Drug use: No OBJECTIVE PHYSICAL EXAM: There were no vitals taken for this visit. GENERAL: Alert, no distress, cooperative SKIN: Incision is healing well. No signs of erythema or infection. DATA: Diagnostic tests reviewed for today's visit: No new labs Jayden Lassiter MD [facility] Progress note 12-05-2020 Note Date & Type Note Facility 12-05-2020 Note HNO ID: [id number] Author: Jayden Lassiter MD Service: ? Author Type: Physician Type: Progress Notes Filed: 12/05/2020 3:37 PM Note Text: PROGRESS NOTES PATIENT NAME: Nadia Gonzalez Assessment ASSESSMENT AND PLAN The patient is a 40-year-old female with an umbilical hernia. I recommended open repair. I recommended that she try to obtain the operative record to determine if mesh was indeed placed at that time. We discussed details of the planned procedure and she wishes to proceed. This will be scheduled in a timely manner. SUBJECTIVE CHIEF COMPLAINT: Patient presents with: Consult: abdominal pains (worsened over past week) INTERVAL HISTORY OF PRESENT ILLNESS: The patient is a 40-year-old female who is being seen today for a possible umbilical hernia. She has been having pain for some time however this is gotten worse in the past week. She states she had a previous surgery back in 2012 in which her appendix as well as umbilical hernia was repaired. She believes that this repair was performed with mesh but she is not certain of this. There is no operative record to review to determine this as of today's visit. She states that she notices her umbilicus is less deep as it usually is. She notices pain with manipulation. GENERAL:No weight loss, malaise or fevers., See HPI HEENT:Negative for frequent or significant headaches, No changes in hearing or vision, no nose bleeds or other nasal problems CARDIOVASCULAR: Negative for chest pain, Negative for leg swelling, Negative for palpitaions SKIN:Negative for lesions, rash, and itching. RESPIRATORY: Negative for cough, wheezing or shortness of breath . GASTROINTESTINAL: Positive for:, Nausea or vomiting and Abdominal pain GENITOURINARY: Postivie for:,stress Incontinence ENDOCRINE: Positive for:, Hormone problem and Heat/cold intolerance MUSCULOSKELETAL: Positive for:, back pain NEUROLOGIC:Negative for focal numbness or weakness, headaches and dizziness or syncope. HEMATOLOGIC/LYMPHATIC/IMMUNOLOGIC:Positiv e for:, Bleeding or bruising tendancy, Past transfussion and swollen lymph nodes I have reviewed and agree with the Review of Systems. Jayden Lassiter MD HISTORIES: PAST MEDICAL HISTORY Diagnosis Date - ACUTE GASTRITIS - CLASSICAL MIGRAINE No past surgical history on file. ALLERGIES: Gabapentin and Topiramate MEDICATIONS: Current Outpatient Medications Medication Sig - ibuprofen (MOTRIN) 800 mg tablet Take by mouth as directed. - levothyroxine (SYNTHROID) 175 mcg tablet Take 175 mcg by mouth once daily. - tiZANidine (ZANAFLEX) 4 mg tablet Take 4 mg by mouth three times daily as needed. Take 4 mg by mouth three times daily as needed. - SUMAtriptan (IMITREX) 100 mg tablet TAKE 1 TABLET BY MOUTH at onset of headache, if no relief may repeat in 2 (TWO) HOURS. - FLUoxetine HCl (PROZAC) 40 mg capsule once daily. - hydroCHLOROthiazide (HYDRODIURIL, ESIDRIX) 25 mg tablet Take 25 mg by mouth every morning. - acetaminophen 300 mg-caffeine 40 mg-butalbital 50 mg (FIORICET) per capsule TAKE 1 CAPSULE BY MOUTH EVERY 4 HOURS NEEDED for headaches - buPROPion XL (WELLBUTRIN XL) 300 mg 24 hr tablet once daily. No current facility-administered medications for this visit. FAMILY HISTORY Problem Relation Age of Onset - Hypertension Mother - GI Sister - Thyroid Mother Overactive thyroid Social History Tobacco Use - Smoking status: Current Every Day Smoker Packs/day: 0.50 Years: 6.00 Pack years: 3.00 - Tobacco comment: Pt advised to quit Substance Use Topics - Alcohol use: Yes Comment: A couple of drinks per month - Drug use: No OBJECTIVE PHYSICAL EXAM: There were no vitals taken for this visit. GENERAL: Alert, no distress, cooperative EYES: PERRLA, EOMI LUNGS: Lungs clear to auscultation, Good diaphragmatic excursion CARDIAC: Normal S1 and S2; no rubs, murmurs, or gallops ABDOMEN: Abdomen soft, non-tender, BS normal, No masses or organomegaly examination of the umbilical region does reveal what seems to be a small umbilical hernia just above the umbilicus. Palpation does reproduce her pain DATA: Diagnostic tests reviewed for today's visit: Most recent labs and imaging results. Jayden Lassiter MD [facility] Evaluation note Note Date & Type Note Facility documented in this encounter [facility] Evaluation note Note Date & Type Note Facility documented in this encounter [facility] Evaluation note Note Date & Type Note Facility documented in this encounter [facility] Evaluation note Note Date & Type Note Facility documented in this encounter [facility] Reason for referral (narrative) Consultation (Routine) - Pending Review Note Date & Type Note Facility Referral ID Status Reason Start Date Expiration Date Visits Requested Visits Authorized [id number] Pending Review Specialty Services Required 04/27/2022 04/27/2023 1 1 [facility] Chief Complaint Chief Complaint Description Start Date right wrist post Removal of hardware and right forearm ulnar shortening osteotomy hardware on 01/27/2018 Preliminary chief co mplaint data, not yet signed by the author as of Instructions Instruction Description Start Date Please follow-up with Primar y Care Physician or Investigator Fraud for treatment or adjustment of medication regarding elevated blood pressure.Patient advised to follow-up with Primary Care Physician for BMI management. Name Dates Details Instructions not documented Advance Directives No Advanced Directives Records FoundDocuments on File Type Date Recorded Patient Revenue Cycle Manager Expl anation Advance Directives and Living Will Power of Floor Broker Documents on File Type Date Recorded Patient Revenue Cycle Manager Expl anation ACP-Advance Directive ACP-Power of Floor Broker Assessments Diagnosis LLQ pain Abdominal pain, left lower quadrant Lt flank pain Abdominal pain, unspecified site Review of System There may be information available, but it has not been provided by the sender. Family History There may be information available, but it has not been provided by the sender.No Family History Records FoundNo Family History Records FoundNo Family History Records FoundNo Family History Records FoundNo Family History Records FoundNo Family History Records FoundNo Family History Records FoundNo Family History Records FoundNo Family History Records Found History of Present Illness There may be information available, but it has not been provided by the sender. Summary Purpose Reason for Referral Status Reason Specialty Diagnoses / Procedures Referred By Contact Referred To Contact Not Required - [facility] Diagnoses LLQ pain Lt flank pain Procedures CT Abdomen Pelvis Wo Contrast Toy Burch MD [facility] [address] [place] [address] Additional Source Comments Reason for Visit (unrecogniz ed section and content) Reason Comments Gynecologic Exam Reason Comments New Patient Left breast, denies any swelling or nipple discharge. Specialty Diagnoses / Procedures Referred By Contac t Referred To Contact Breast Surgery / Breast Clinic / Breast Center Diagnoses Breast pain, left Procedures [place] OFFICE/OUTPATIENT NEW HIGH MDM 60-74 MINUTES Toy Burch MD [facility] [address] [place] [address] [facility] [address] [place] [address] Referral ID Status Reason Start Date Expiration Date Visits Requested Visits Authorized [id number] Pending Review Specialty Services Required 04/27/2022 04/27/2023 1 1 Reason Comments 6 Month Follow-up Still having left br east pain. Describes it as an achy feeling. Feeling it in a new spot to the left of the nipple. 2/10 pain that comes and goes. INFORMATION SOURCE (unrecogn ized section and content) DATE CREATED AUTHOR AUTHOR'S ORGANIZ ATION 09/12/2019 [facility] DATE CREATED AUTHOR AUTHOR'S ORGANIZ ATION 10/04/2019 [facility] [employer] DATE CREATED AUTHOR AUTHOR'S ORGANIZ ATION 01/02/2020 [facility] DATE CREATED AUTHOR AUTHOR'S ORGANIZ ATION 01/02/2020 [employer] DATE CREATED AUTHOR AUTHOR'S ORGANIZ ATION 12/19/2020 [facility] DATE CREATED AUTHOR AUTHOR'S ORGANIZ ATION 03/03/[address] [facility] DATE CREATED AUTHOR AUTHOR'S ORGANIZ ATION 06/09/2022 [facility] DATE CREATED AUTHOR AUTHOR'S ORGANIZ ATION 12/14/2022 [facility] [employer] Source Comments (unrecognize d section and content) In the event this informatio n is protected by the Federal Confidentiality of Alcohol and Drug Abuse Patient Records regulations: The Federal rules restrict any use of the information to criminally investigate or prosecute any alcohol or drug abuse patient.[facility] Hospital[facility] the event this information is protected by the Federal Confidentiality of Alcohol and Drug Abuse Patient Records regulations: The Federal rules restrict any use of the information to criminally investigate or prosecute any alcohol or drug abuse patient.[facility] Hospital[facility] the event this information is protected by the Federal Confidentiality of Alcohol and Drug Abuse Patient Records regulations: The Federal rules restrict any use of the information to criminally investigate or prosecute any alcohol or drug abuse patient.[facility] Hospital[facility] the event this information is protected by the Federal Confidentiality of Alcohol and Drug Abuse Patient Records regulations: The Federal rules restrict any use of the information to criminally investigate or prosecute any alcohol or drug abuse patient.[facility] Care Teams (unrecognized sec tion and content) Brand Representative Relationship Specialty Start Date End Date Dawson Dougherty [address] [place], [place] [id number] PCP - General 01/14/15 Brand Representative Relationship Specialty Start Date End Date Dawson Dougherty [address] [place], [place] [phone] PCP - [facility] 01/14/15 Brand Representative Relationship Specialty Start Date End Date Dawson Dougherty [place], EDGER MACHINE OPERATOR[employer] [address] [place], [place] [id number] PCP - [facility] Family Medicine 06/28/18 Brand Representative Relationship Specialty Start Date End Date Guicho Doughertyisrael Haque EDGER MACHINE OPERATOR[employer] [address] [place] [address] PCP - General Family Medicine 06/28/18 Brand Representative Relationship Specialty Start Date End Date Dawson Dougherty [address] [place], [place] [phone] [facility] 01/14/15 FOR RECORDS PERTAINING TO PATIENTS WHO ARE OR HAVE BEEN ENROLLED IN A CHEMICAL DEPENDENCY/SUBSTANCEABUSE PROGRAM, SOME INFORMATION MAY BE OMITTED. This clinical summary was aggregated from multiple sources. Caution should be exercised in using it in the provision of clinical care. This summary normalizes information from multiple sources, and as a consequence, information in this document may materially change the coding, format and clinical context of patient data. In addition, data may be omitted in some cases. CLINICAL DECISIONS SHOULD BE BASED ON THE PRIMARY CLINICAL RECORDS. [facility] [employer] [facility]. provides no warranty or guarantee of the accuracy or completeness of information in this document.
[2023-02-23 22:48] LABS: ALB/GLOB Ratio 0.9 RATIO (0.9-2.4); AST(SGOT) 24 U/L (15-37); Alanine Aminotransfer ALT/SGPT 25 U/L (13-56); Albumin, Serum 3.7 g/dL (3.2-5.0); Alkaline Phosphatase 74 U/L (45-117); Anion Gap 8 (5-15); BUN 9 mg/dL (7-18); BUN/Creat Ratio 11.3 RATIO (10-20); CRP, High Sensitivity Cardiac 4.68 mg/L; Chloride 106 mmol/L (98-107); EST Glomerular Filtration Rate 83 mL/min (>60); Est Glom Filt Rate - Afr Amer 100 mL/min (>60); Globulin 3.9 g/dL (2.2-4.2); Glucose 118 mg/dL (74-106); Protein, Total 7.6 g/dL (6.4-8.2); Sodium Level 138 mmol/L (136-145); Thyroid Stim Hormone (TSH) 2.31 uIU/mL (0.358-3.74)
== END | disposition home or self-care (01) ==
PROVIDERS: PCP Nurse Practitioner; Visit Provider Nurse Practitioner
DX: R73.9 Hyperglycemia, unspecified (principal); I10 Essential (primary) hypertension; E03.9 Hypothyroidism, unspecified
CPT/HCPCS: 80053; 83036; 84443; 86141

== ENCOUNTER → 2023-08-24 | Outpatient (CLI) | payer BC, SELFPAY ==
[2023-08-24 22:25] LABS: Absolute Lymphocyte Count 1.83 X10^3/uL (0.83-4.51); Absolute Neutrophil Count 3.5 X10^3/uL (2.0-7.7); Basophil# 0.03 X10^3/uL; Basophil% 0.5 % (0-1); Eosinophil# 0.09 X10^3/uL; Eosinophils% 1.5 % (0-5); Hematocrit 35.4 % (37-47); Hemoglobin 11.8 g/dL (12.0-15.0); Lymphocyte # 1.83 X10^3/ul (0.83-4.51); Lymphocyte % 30.6 % (19-41); Mean Corp Hgb Conc 33.3 g/dL (32-36); Mean Corpuscular Hgb 27.2 pg (27.0-32.0); Mean Corpuscular Volume 81.6 fL (81-99); Mean Platelet Vol. 11.2 fl (6.2-12.0); Monocyte# 0.51 X10^3/uL; Monocyte% 8.5 % (0-10); NRBC Flagged by Analyzer 0 % (0-5); Neutrophil % 58.6 % (47-70); Platelet Count 325 K/mm3 (150-450); RBC Distribution Width CV 16.7 % (11.6-14.6); RBC Distribution Width SD 49.5 fl (35.1-43.9); Red Blood Count 4.34 M/mm3 (4.2-5.4)
[2023-08-24 22:51] LABS: ALB/GLOB Ratio 0.9 RATIO (0.9-2.4); AST(SGOT) 15 U/L (15-37); Alanine Aminotransfer ALT/SGPT 19 U/L (13-56); Albumin, Serum 3.6 g/dL (3.2-5.0); Alkaline Phosphatase 63 U/L (45-117); Anion Gap 7 (5-15); BUN 9 mg/dL (7-18); BUN/Creat Ratio 13.1 RATIO (10-20); Calcium,Total 8.8 mg/dL (8.5-10.1); Chloride 102 mmol/L (98-107); Cholesterol 184 mg/dL (200); Creatinine, Serum 0.69 mg/dL (0.55-1.02); EST Glomerular Filtration Rate 98 mL/min (>60); Est Glom Filt Rate - Afr Amer 119 mL/min (>60); Globulin 3.9 g/dL (2.2-4.2); Glucose 91 mg/dL (74-106); High Density Lipoprotein 53 mg/dL; Potassium 3.1 mmol/L (3.5-5.1); Protein, Total 7.5 g/dL (6.4-8.2); Sodium Level 135 mmol/L (136-145); Thyroid Stim Hormone (TSH) 0.47 uIU/mL (0.358-3.74); Triglycerides 105 mg/dL; Very Low Density Lipoprotein 21 mg/dL (5-40)
[2023-08-24 22:52] LABS: Hemoglobin A1c 5.1 % (3.8-5.6)
== END | disposition home or self-care (01) ==
PROVIDERS: PCP Nurse Practitioner; Referring Provider Nurse Practitioner; Visit Provider Nurse Practitioner
DX: E11.65 Type 2 diabetes mellitus with hyperglycemia (principal); I10 Essential (primary) hypertension; E03.9 Hypothyroidism, unspecified; R51.9 Headache, unspecified
CPT/HCPCS: 80053; 80061; 83036; 84443; 85025

== ENCOUNTER → 2024-05-24 | Outpatient (CLI) | payer BC, SELFPAY ==
[2024-05-24 22:53] LABS: Absolute Lymphocyte Count 1.85 X10^3/uL (0.83-4.51); Absolute Neutrophil Count 3.6 X10^3/uL (2.0-7.7); Basophil# 0.04 X10^3/uL; Basophil% 0.7 % (0-1); Eosinophil# 0.14 X10^3/uL; Eosinophils% 2.3 % (0-5); Hematocrit 31.2 % (37-47); Hemoglobin 10.7 g/dL (12.0-15.0); Lymphocyte # 1.85 X10^3/ul (0.83-4.51); Lymphocyte % 30.1 % (19-41); Mean Corp Hgb Conc 34.3 g/dL (32-36); Mean Corpuscular Hgb 28.4 pg (27.0-32.0); Mean Corpuscular Volume 82.8 fL (81-99); Mean Platelet Vol. 11.2 fl (6.2-12.0); Monocyte# 0.52 X10^3/uL; Monocyte% 8.5 % (0-10); NRBC Flagged by Analyzer 0 % (0-5); Neutrophil # 3.58 X10^3/uL (2.7-7.7); Neutrophil % 58.1 % (47-70); Platelet Count 323 K/mm3 (150-450); RBC Distribution Width CV 15.3 % (11.6-14.6); RBC Distribution Width SD 46.4 fl (35.1-43.9); Red Blood Count 3.77 M/mm3 (4.2-5.4); White Blood Count 6.2 K/mm3 (4.4-11.0)
[2024-05-24 23:22] LABS: ALB/GLOB Ratio 1.4 RATIO (0.9-2.4); AST(SGOT) 18 U/L (<=31); Alanine Aminotransfer ALT/SGPT 12 U/L (<=34); Albumin, Serum 4.1 g/dL (3.5-5.0); Alkaline Phosphatase 68 U/L (35-104); Anion Gap 13 (5-15); BUN 13 mg/dL (4-19); BUN/Creat Ratio 16.8 RATIO (10-20); Calcium,Total 9.3 mg/dL (7.6-11.0); Chloride 101 mmol/L (98-108); Creatinine, Serum 0.76 mg/dL (0.70-1.20); EST Glomerular Filtration Rate 98 (>60); Globulin 2.9 g/dL (2.2-4.2); Glucose 73 mg/dL (70-99); Potassium 3.3 mmol/L (3.3-5.1); Sodium Level 136 mmol/L (133-145); Total Bilirubin < 0.15 mg/dL (0.00-1.30)
[2024-05-24 23:41] LABS: Hemoglobin A1c 5.4 % (<=5.6)
[2024-05-29 07:07] LABS: Deamidated Gliadin IgA 3 units (0-19); Deamidated Gliadin IgG <1 units (0-19); Endomysial Antibody IgA Negative (Negative); Immunoglobulin A 246 mg/dL (87-352); t-Transglutaminase IgA <2 U/mL (0-3)
== END | disposition home or self-care (01) ==
PROVIDERS: PCP Nurse Practitioner; Referring Provider Nurse Practitioner; Visit Provider Nurse Practitioner
DX: R19.7 Diarrhea, unspecified (principal); E11.65 Type 2 diabetes mellitus with hyperglycemia; R74.8 Abnormal levels of other serum enzymes; R73.9 Hyperglycemia, unspecified; E03.9 Hypothyroidism, unspecified
CPT/HCPCS: 80053; 82784; 83036; 83516; 84443; 85025; 86255

== ENCOUNTER → 2024-11-27 | Outpatient (CLI) | payer BC, SELFPAY ==
--- OUTSIDE RECORDS SUMMARY | 2024-11-27 21:32 | XMS RPT_ITS | CCD ---
Author Organization [facility] Care Team Providers Care Manager Lighting Name Role Phone Reddy VILLEGAS, Alessandro Murillo Unavailable Dawson Luciano Primary Care Provider Jennifer Sánchez Primary Care Provider [phone] Esdras Morton Primary Care Provider [phone] Dawson Luciano Primary Care Provider [phone] Personal Health Record, Admin Unavailable Unavailable Sylvia Simpson Unavailable Unavailable Update Needed Unavailable Unavailable Mustapha Dawson Primary Care Provider [phone] Luciano DESK SERGEANT.TRACK WELDER Dawson L Primary Care Provide r Mustapha Dawson Primary Care Provider [phone] Luciano DESK SERGEANT.TRACK WELDER, Dawson L Primary Care Provide r Luciano SAP 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-C, Dawson Primary Care Provider [phone] Luciano SAP 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-C, Dawson Attending Provider Luciano SAP 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-C, Dawson Referring Provider Luciano SAP 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, Dawson Referring Unavailable Luciano SAP 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, Dawson Primary Care Unavailable Luciano SAP 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, Dawson Attending Unavailable Luciano SAP 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, Dawson Referring Unavailable Luciano SAP 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, Dawson Primary Care Unavailable Luciano SAP 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, Dawson Attending Unavailable TOY BURCH Referring Unavailable NATALY CISNEROS Attending Unavailable LUCIANO, DAWSON Primary Care Unavailable LUNDBERG, ABEL Referring Unavailable LUNDBERG, ABEL Attending Unavailable LUCIANO, DAWSON Primary Care Unavailable LUNDBERG, ABEL Attending Unavailable LUNDBERG, ABEL Referring Unavailable LUCIANO, DAWSON Primary Care Unavailable LUCIANO, DAWSON Primary Care Unavailable NATALY CISNEROS Attending Unavailable NATALY CISNEROS Referring Unavailable FINELLI, ELIZABETH C Referring Unavailable LUCIANO, DAWSON L Primary Care Unavailable FINELLI, ELIZABETH C Referring Unavailable LUCIANO, DAWSON L Primary Care Unavailable FINELLI, ELIZABETH C Admitting Unavailable FINELLI, ELIZABETH C Attending Unavailable LUCIANO, DAWSON L Primary Care Unavailable FINELLI, ELIZABETH C Admitting Unavailable FINELLI, ELIZABETH C Attending Unavailable LUCIANO, DAWSON L Primary Care Unavailable FINELLI, ELIZABETH C Attending Unavailable LUCIANO, DAWSON L Primary Care Unavailable FINELLI, ELIZABETH C Attending Unavailable LUCIANO, DAWSON L Primary Care Unavailable FINELLI, ELIZABETH C Attending Unavailable LUCIANO, DAWSON L Primary Care Unavailable FINELLI, ELIZABETH C Attending Unavailable LUCIANO, DAWSON L Primary Care Unavailable FINELLI, ELIZABETH C Attending Unavailable LUCIANO, DAWSON L Primary Care Unavailable FINELLI, ELIZABETH C Attending Unavailable LUCIANO, DAWSON L Primary Care Unavailable FINELLI, ELIZABETH C Attending Unavailable LUCIANO, DAWSON L Primary Care Unavailable LUCIANO, DAWSON L Primary Care Unavailable FINELLI, ELIZABETH C Referring Unavailable LUCIANO, DAWSON L Primary Care Unavailable LI ORR Attending Unavailable LUCIANO, DAWSON L Primary Care Unavailable FINELLI, ELIZABETH C Attending Unavailable LUCIANO, DAWSON L Primary Care Unavailable FINELLI, ELIZABETH C Referring Unavailable LUCIANO, DAWSON L Primary Care Unavailable LUCIANO, DAWSON L Primary Care Unavailable LUCIANO, DAWSON L Referring Unavailable LUCIANO, DAWSON L Primary Care Unavailable LUCIANO, DAWSON L Referring Unavailable LUCIANO, DAWSON L Primary Care Unavailable LUCIANO, DAWSON L Primary Care Unavailable ROSEMARIE DEL RIO Referring Unavailable Allergies Allergy Classification Reported Allergen(s) Allergy Type Date of Onset Reaction(s) Facility (1 source) gabapentin Drug Allergy 4 [facility] Work Phone: (4 sources) Seasonal allergy; Translations: [SEASONAL] allergy to substance 4 [facility] Work Phone: (20 sources) gabapentin; Translations: [GABAPENTIN] Drug Allergy 4 Nausea And Vomiting, Dermatitis, Dizziness, Headache, Nausea Only, Other: See Comments, [facility]; Translations: [TOPIRAMATE] Drug All[facility] Comment on above: TOTALLY OUT OF IT (3 sources) Acetaminophen / HYDROcodone Drug Allergy 7 [facility] (18 sources) Topiramate Allergy to substance 8 [facility] (1 source) gabapentin Drug Allergy 8 [facility] (1 source) topiramate Drug Allergy 2 [facility] Medications Current Medications Medication Drug Class(es) Dates Sig (Normalized) Sig (Original) acetaminophen 500 mg oral tablet (6 sources) take 2 tablets by mouth every eight hours as needed acetaminophen (TYLENOL EXTRA STRENGTH) 500 mg tablet Take 1,000 mg by mouth every 8 hours as needed. Active acetaminophen 300 mg / butalbital 50 mg / caffeine 40 mg oral capsule (20 sources) Barbiturate, Central Nervous System Stimulant, Methylxanthine Start: 07-01-2016 take 1 tablet by mouth twice daily as needed butalbital-acetami nophen-caffeine (FIORICET, ESGIC) 50-325-40 MG per tablet Take 1 Tablet by mouth 2 times a day as needed 1 07/01/2016 Active Start: 09-12-2013 FIORICET 50-30 0-40 MG CAPS 1 tablet at the onset of headache [id number] Alessandro Blakely MD Start: 07-14-2009 End: 01-30-2024 take 1 capsule by mouth every four hours as needed for headache acetaminophen 300 mg-caffeine 40 mg-butalbital 50 mg (FIORICET) per capsule TAKE 1 CAPSULE BY MOUTH EVERY 4 HOURS NEEDED for headaches 11/25/2020 Active Fioricet 50-325- 40 MG TABS Refills: 0 Active Comment on above: TAKE 1 CAPSULE BY MO [facility] EVERY 4 HOURS NEEDED for headaches amitriptyline hydrochloride 50 mg oral tablet (1 source) Tricyclic Antidepressant Start: 017 take 1 tablet by mouth once daily amitriptyline (ELAVIL) 50 MG tablet Take 1 tablet by mouth nightly 30 tablet 3 08/03/2016 Active amphetamine aspartate 7.5 mg / amphetamine sulfate 7.5 mg / dextroamphetamine saccharate 7.5 mg / dextroamphetamine sulfate 7.5 mg oral tablet (1 source) Central Nervous System Stimulant amphetamine-dextroa mphetamine (ADDERALL, 30MG,) 30 MG tablet Take 30 mg by mouth daily.. 0 Active baclofen 5 mg oral tablet (17 sources) gamma-Aminobutyric Acid-ergic Agonist Start: 022 End: Baclofen 5 mg tablet Active 5 mg PO THREE TIMES A DAY as needed for muscle spasm May 24, 2024 6:16pm 1-2 up to 3 x a day 24 hr buPROPion hydrochloride 300 mg extended release oral tablet (20 sources) Aminoketone Start: 017 End: 019 take 1 tablet by mouth once daily in the morning Bupropion Hcl (Wellbutrin Xl) 150 mg tablet extended release 24 hr Discontinued 150 mg PO EVERY MORNING September 20, 2017 1:47pm October 30, 2018 3:10pm Start: 09-12-2013 End: 11-06-2021 buPROPion XL (WELLBUTRIN XL) 300 mg 24 hr tablet once daily. 12/02/2020 Active take 1 tablet by lily th every twenty-four hours Wellbutrin XL 300 MG Oral Tablet Extended Release 24 Hour Refills: 0 Active Comment on above: once daily. CBD (4 sources) Start: 2020 CBD Active PO December 04, 2020 12:00am chlordiazePOXIDE hydrochloride 5 mg / clidinium bromide 2.5 mg oral capsule (1 source) Anticholinergic, Benzodiazepine Start: 2016 chlordiazePOXIDE-clidin ium (LIBRAX) 5-2.5 MG per capsule clonazePAM 0.5 mg oral tablet (20 sources) Benzodiazepine take 1 tablet by mouth every twelve hours as needed clonazePAM (KLONOPIN) 0.5 mg tablet Take 0.5 mg by mouth two times a day as needed. Active 24 hr dexmethylphenidate hydrochloride 20 mg extended release oral capsule (20 sources) Central Nervous System Stimulant Start: 2023 Dexmethylphenidate (Focalin Xr) 20 mg capsule,ER biphasic 50-50 Active 20 mg PO DAILY August 24, 2023 12:00am Start: 06-02-2022 End: 08-24-2023 Dexmethylphenidate (Focalin Xr) 15 mg capsule,ER biphasic 50-50 Discontinued 15 mg PO DAILY June 02, 2022 12:00am August 24, 2023 3:08pm Start: 02-24-2022 dexmethylpheni date (Focalin) 5 MG tablet 02/24/2022 Active dicyclomine hydrochloride 20 mg oral tablet (20 sources) Anticholinergic Start: 05-24-2024 take 1 tablet by mouth three times daily Dicyclomine 20 mg tablet Active 20 mg PO THREE TIMES A DAY 90 May 24, 2024 12:00am Start: 09-12-2017 End: 04-11-2019 take 1 tablet by mouth four times daily Dicyclomine 20 mg tablet Discontinued 20 mg PO .qid 120 March 01, 2018 6:23pm April 11, 2019 4:34pm Start: 09-12-2013 End: 03-01-2018 Dicyclomine 20 mg tablet Discontinued 20 mg PO .four September 12, 2017 12:00am March 01, 2018 6:25pm take 2 capsules by m out once daily in the morning dicyclomine (BENTYL) 20 mg tablet Take 20 mg by mouth before meals and at bedtime. Take 2 cap. In PM & AM daily Active take 1 tablet by lily th every six hours dicyclomine (BENTYL) 20 MG tablet Take 20 mg by mouth every 6 hours 0 Active hydroCHLOROthiazide 25 mg oral tablet (20 sources) Thiazide Diuretic Start: 03-16-2018 End: 08-24-2023 take 1 tablet by mouth once daily in the morning hydroCHLOROthiazide (HYDRODIURIL, ESIDRIX) 25 mg tablet Take 25 mg by mouth every morning. 11/25/2020 Active Comment on above: Take 25 mg by mouth every morning. levothyroxine sodium 0.175 mg oral tablet (20 sources) l-Thyroxine Start: 03-16-2016 End: 01-30-2024 take 1 tablet by mouth once daily levothyroxine (SYNTHROID) 175 mcg tablet Take 175 mcg by mouth once daily. 11/25/2020 Active Start: 09-12-2013 take 1 tablet by lily th once daily SYNTHROID 175 MCG ORAL TABLET (LEVOTHYROXINE SODIUM) once daily Alessandro Blakely MD Start: 05-11-2010 take 2 tablets by mo [facility] once daily levothyroxine 112 mcg ORAL tablet Indications: Hypothyroidism Take 2 tablets by mouth once daily. None on Sundays. 180 tablet 3 05/11/2010 Active Synthroid 200 MC G Oral Tablet Refills: 0 Active Comment on above: Take 2 tablets by mo uth once daily. None on Sundays. Take 175 mcg by mout h once daily. lidocaine 0.05 mg/mg topical ointment (1 source) Antiarrhythmic, Amide Local Anesthetic Start: 7 lidocaine (XYLOCAINE) 5 % ointment Indications: Vulvodynia Apply topically as needed; or, 30 minutes prior to intercourse using a cotton tipped applicator 30 g 0 06/15/2016 Active metFORMIN hydrochloride 500 mg oral tablet (20 sources) Biguanide Start: 3 End: 4 take 1 tablet by mouth twice daily metFORMIN (Glucophage) 500 MG tablet Take 500 mg by mouth 2 times daily. 11/28/2022 Active omeprazole 40 mg delayed release oral capsule (13 sources) Proton Pump Inhibitor take 1 capsule by mouth once daily omeprazole (PRILOSEC) 40 mg capsule Take 40 mg by mouth once daily. Active ondansetron 8 mg oral tablet (18 sources) Serotonin-3 Receptor Antagonist Start: 5 take 1 tablet by mouth every eight hours Ondansetron Hcl 8 mg tablet Active 8 mg PO Q8H 60 May 24, 2024 12:00am Start: 02-10-2024 End: 03-22-2024 take 1 tablet by mouth every eight hours as needed for nausea ondansetron (ZOFRAN) 4 mg tablet Indications: Post-operative nausea and vomiting Take 1 tablet by mouth every 8 hours as needed for nausea/vomiting. 20 tablet 03/22/2024 Active oxyCODONE hydrochloride 5 mg oral tablet (4 sources) Opioid Agonist Start: 08-07-2024 End: 08-18-2024 take 1 tablet by mouth every six hours as needed oxyCODONE IR (ROXICODONE) 5 mg immediate release tablet Indications: Acute post-operative pain Take 1 tablet by mouth every 6 hours as needed for up to 5 days. 15 tablet 08/13/2024 08/18/2024 Active Start: 03-29-2024 End: 04-08-2024 take 1 tablet by mouth at bedtime as needed for pain oxyCODONE IR (ROXICODONE) 5 mg immediate release tablet Indications: Acute post-operative pain Take 1 tablet by mouth at bedtime as needed for pain for up to 10 days. 10 tablet 03/29/2024 04/08/2024 Active Start: 03-22-2024 End: 03-27-2024 take 1 tablet by mouth every six hours as needed for pain oxyCODONE IR (ROXICODONE) 5 mg immediate release tablet Indications: S/P laparoscopic cholecystectomy Take 1 tablet by mouth every 6 hours as needed for pain for up to 5 days. 10 tablet 03/22/2024 03/27/2024 Active potassium chloride 20 meq extended release oral tablet (3 sources) Start: 05-24-2024 take 1 tablet by mouth once daily Potassium Chloride 20 mEq tablet extended release Active 20 meq PO daily May 24, 2024 12:00am Start: 02-24-2023 End: 08-24-2023 take 20 mEq by mouth once daily Potassium Chloride 20 mEq packet Active 20 meq PO DAILY August 24, 2023 3:12pm promethazine hydrochloride 12.5 mg oral tablet (4 sources) Phenothiazine Start: 01-30-2024 take 1 tablet by mouth three times daily as needed for nausea and vomiting Promethazine 12.5 mg tablet Active 12.5 mg PO THREE TIMES A DAY as needed for nausea and vomiting 45 January 30, 2024 1:00am Start: 05-10-2005 PHENERGAN 25 M G TAB Indications: Migraine with aura Take one (1) tablet three(3) times daily as needed. 30 0 05/10/2005 Active Comment on above: Take one (1) tablet three(3) times daily as needed. propranolol hydrochloride 40 mg oral tablet (1 source) beta-Adrenergic Renee take 1 tablet by mouth three times daily propranolol (INDERAL) 40 MG tablet Take 40 mg by mouth 3 times daily 0 Active risperiDONE 1 mg oral tablet (20 sources) Atypical Antipsychotic Start: 05-25-19 take 0.5 mg by mouth once daily Risperidone (Risperdal) 1 mg tablet Active 0.5 mg PO DAILY May 24, 2024 6:17pm Start: 06-02-2022 End: 05-24-2024 risperiDONE (RisperDAL) 1 MG tablet 10/20/2022 Active SUMAtriptan 100 mg oral tablet (20 sources) Serotonin-1b and Serotonin-1d Receptor Agonist Start: 11-25-2020 take 1 tablet by mouth every two hours SUMAtriptan (IMITREX) 100 mg tablet TAKE 1 TABLET BY MOUTH at onset of headache, if no relief may repeat in 2 (TWO) HOURS. 11/25/2020 Active Start: 04-20-2018 End: 11-03-2022 take 1 tablet by mouth every hour Sumatriptan Succinate 100 mg tablet Discontinued 0 PO .COMPLEX September 30, 2021 5:24pm November 03, 2022 8:15pm take 1 tab at onset of headache; if no relief may repeat 1 tab in 2hr; max = 2 tabs/24 hrs PO Comment on above: TAKE 1 TABLET BY LILY TH at onset of headache, if no relief may repeat in 2 (TWO) HOURS. tiZANidine 4 mg oral tablet (20 sources) Central alpha-2 Adrenergic Agonist Start: 09-30-2021 End: 11-03-2022 take 1 tablet by mouth twice daily as needed Tizanidine 4 mg tablet Active 4 mg PO TWICE A DAY as needed for muscle spasticity 60 November 03, 2022 8:14pm Start: 11-25-2020 take 1 tablet by lily th every eight hours as needed tiZANidine (Zanaflex) 4 MG tablet Take 4 mg by mouth every 8 hours as needed. 11/25/2020 Active Start: 08-13-2020 End: 09-30-2021 take 1 tablet by mouth every eight hours as needed tiZANidine (ZANAFLEX) 4 mg tablet Take 4 mg by mouth three times daily as needed. Take 4 mg by mouth three times daily as needed. 11/25/2020 Active Start: 09-12-2017 End: 09-03-2019 take 1 capsule by mouth three times daily as needed Tizanidine 4 mg capsule Discontinued 4 mg PO THREE TIMES A DAY as needed for muscle spasticity 90 October 30, 2018 3:20pm September 03, 2019 5:10pm Start: 08-03-2016 take 1 tablet by lily th four times daily as needed tiZANidine (ZANAFLEX) 4 MG tablet TAKE ONE TABLET BY MOUTH FOUR TIMES DAILY NEEDED 6 08/03/2016 Active Comment on above: Take 4 mg by mouth t hree times daily as needed. Take 4 mg by mouth three times daily as needed. Completed/Discontinued Medications Medication Drug Class(es) Dates Sig (Normalized) Sig (Original) acetaminophen 250 mg / aspirin 250 mg / caffeine 65 mg oral tablet (3 sources) Platelet Aggregation Inhibitor, Nonsteroidal Anti-inflammatory Drug, Central Nervous System Stimulant, Methylxanthine Start: 08-08-2002 EXCEDRIN TABLET as directed 0 08/08/2002 Active Comment on above: as directed acetaminophen 325 mg / dichloralphenazone 100 mg / isometheptene 65 mg oral capsule (3 sources) Start: 05-10-2005 MIDRIN 325 MG-65 MG-100 MG CAP Indications: Migraine with aura 1 - 2 every 4 hrs as necessary 30 2 05/10/2005 Active Comment on above: 1 - 2 every 4 hrs as necessary acetaminophen 325 mg / HYDROcodone bitartrate 5 mg oral tablet (1 source) Opioid Agonist [place] 5-325 MG Oral Tablet Refills: 0 Active acetaminophen 325 mg / oxyCODONE hydrochloride 5 mg oral tablet (2 sources) Opioid Agonist Start: 02-08-2018 End: 02-14-2018 take 1 tablet by mouth every four to six hours as needed for pain PERCOCET 5-325 MG TABS Take 1 tablet by mouth every 4 - 6 hours as needed for pain OXYCODONE-ACETAM INOPHEN [id number] Alessandro Blakely MD Start: 02-08-2018 PERCOCET 5-325 MG TABS one tablet 2-3 times daily as needed OXYCODONE-ACETAMINOPHEN [id number] Alessandro Blakely MD 200 actuat albuterol 0.09 mg/actuat metered dose inhaler (2 sources) beta2-Adrenergic Agonist Start: 01-01-2020 Neela stan HFA 108 (90 Base) MCG/ACT Inhalation Aerosol Solution 2 puffs 3-4 times a day for the next 3 days THEN Q4HR NEEDED FOR PERSISTENT COUGH, SOB OR WHEEZE Quantity: 1 Refills: 0 Simpson DO, Sylvia Start : 01-Jan-2020 Active 18 GM Inhaler Start: 04-23-2016 PROAIR HFA 108 (90 BASE) MCG/ACT inhaler amoxicillin 875 mg / clavulanate 125 mg oral tablet (12 sources) Penicillin-class Antibacterial Start: 08-13-2020 End: 04-24-2021 Amoxicillin-Pot Clavulanate 875-125 mg tablet Discontinued 1 {tbl} PO TWICE A DAY August 13, 2020 3:36pm April 24, 2021 4:59pm Start: 08-13-2020 End: 04-24-2021 take 1 tablet by mouth twice daily Amoxicillin-Pot Clavulanate Discontinued 1 TABLET PO TWICE A DAY August 13, 2020 3:36pm April 24, 2021 4:59pm Start: 02-09-2019 End: 09-03-2019 Amoxicillin-Pot Clavulanate 875-125 mg tablet Discontinued 1 {tbl} PO TWICE A DAY April 11, 2019 1:00am September 03, 2019 5:10pm Start: 02-09-2019 End: 09-03-2019 take 1 tablet by mouth twice daily Amoxicillin-Pot Clavulanate Discontinued 1 TABLET PO TWICE A DAY April 11, 2019 1:00am September 03, 2019 5:10pm cetirizine hydrochloride 10 mg oral capsule (5 sources) Histamine-1 Receptor Antagonist Start: 09-12-2017 End: 10-30-2018 take 1 capsule by mouth once daily Cetirizine (Zyrtec) 10 mg capsule Discontinued 10 mg PO daily September 12, 2017 12:00am October 30, 2018 3:10pm Start: 09-12-2013 ZYRTEC ALLERGY CAPS daily CETIRIZINE HCL CAPS [id number] Alessandro Blakely MD ciprofloxacin 500 mg oral tablet (2 sources) Quinolone Antimicrobial Start: 11-03-2022 End: 08-24-2023 take 1 tablet by mouth twice daily Ciprofloxacin Hcl (Cipro) 500 mg tablet Discontinued 500 mg PO TWICE A DAY November 03, 2022 12:00am August 24, 2023 3:07pm cyclobenzaprine hydrochloride 10 mg oral tablet (1 source) Muscle Relaxant Cyclobenzaprine HCl - 10 MG Oral Tablet Refills: 0 Active diazePAM 5 mg oral tablet (5 sources) Benzodiazepine Start: 09-24-2024 End: 10-01-2024 take 1 tablet by mouth every six hours as needed for pain diazePAM (VALIUM) 5 mg tablet Indications: Acute post-operative pain , Muscle spasm Take 1 tablet by mouth every 6 hours as needed for muscle spasm or pain for up to 7 days. Patient should start on September 24, 2024. 20 tablet 09/24/2024 10/01/2024 Start: 09-13-2024 End: 09-20-2024 take 1 tablet by mouth every six hours as needed for pain diazePAM (VALIUM) 5 mg tablet Indications: Acute post-operative pain , Muscle spasm Take 1 tablet by mouth every 6 hours as needed for muscle spasm or pain for up to 10 days. 20 tablet 09/13/2024 09/20/2024 Discontinued Start: 08-07-2024 End: 08-21-2024 take 1 tablet by mouth every twelve hours as needed for pain diazePAM (VALIUM) 5 mg tablet Indications: Acute post-operative pain , Muscle spasm Take 1 tablet by mouth every 12 hours as needed for muscle spasm or pain for up to 14 days. 28 tablet 08/07/2024 10:02 AM EDT 08/07/2024 08/21/2024 Active fluconazole 150 mg oral tablet (6 sources) Azole Antifungal Start: 11-03-2022 End: 08-24-2023 Fluconazole 150 mg tablet Discontinued 150 mg PO Every 3 Days 2 0 November 03, 2022 8:12pm August 24, 2023 3:08pm may repeat second dose 72 hrs after first dose if symptoms persist Start: 04-11-2019 End: 09-03-2019 Fluconazole 150 mg tablet Di scontinued 150 mg PO Every 3 Days 2 0 April 11, 2019 1:00am September 03, 2019 5:10pm may repeat second dose 72 hrs after first dose if symptoms persist FLUoxetine 40 mg oral capsule (17 sources) Serotonin Reuptake Inhibitor Start: 08-13-2020 End: 04-05-2024 take 1 capsule by mouth once daily Fluoxetine 40 mg capsule Discontinued 40 mg PO DAILY December 02, 2020 5:25pm September 30, 2021 5:22pm take 1 capsule by mouth once juanita ly FLUoxetine (PROZAC) 10 MG capsule Take 10 mg by mouth daily 0 Active Comment on above: once daily. 1 ml galcanezumab-gnlm 120 mg/ml auto-injector (4 sources) Start: 10-30-2018 End: 02-09-2019 Galcanezumab-Gnlm (Emgality Pen) 120 mg/mL pen injector Discontinued 120 mg SC EVERY MONTH October 30, 2018 12:00am February 09, 2019 5:59pm ibuprofen 800 mg oral tablet (10 sources) Nonsteroidal Anti-inflammatory Drug Start: 09-12-2013 End: 04-05-2024 ibuprofen (MOTRIN) 800 mg tablet Take by mouth as directed. 09/12/2013 04/05/2024 Discontinued (Discontinued by Patient) Start: 09-12-2013 IBUPROFEN 800 MG TABS three times daily IBUPROFEN [id number] Graciela Ulrich Comment on above: Take by mouth as dir ected. iv contrast (will be provided with radiology test) (2 sources) Start: 09-20-2024 End: 09-21-2024 iv contrast (will be provided with radiology test) CT ABD/PEL -Inject, intravenously, once for 1 dose.No IV access, insert saline lock prior to the beginning of sedation, infusion, injection of imaging exam. Discontinue saline lock post exam. If Pt. has a central line or IVAD, may access for administration according to line specific nursing protocol. Once exam is complete flush line and de-access according to line specific nursing protocol in the CT contrast administration guidelines link. 1 each 09/20/2024 09/21/2024 Start: 06-14-2024 End: 06-15-2024 iv contrast (will be provide d with radiology test) CT ABD/PEL -Inject, intravenously, once for 1 dose.No IV access, insert saline lock prior to the beginning of sedation, infusion, injection of imaging exam. Discontinue saline lock post exam. If Pt. has a central line or IVAD, may access for administration according to line specific nursing protocol. Once exam is complete flush line and de-access according to line specific nursing protocol in the CT contrast administration guidelines link. 1 each 06/14/2024 06/15/2024 Active ketorolac tromethamine 10 mg oral tablet (2 sources) Nonsteroidal Anti-inflammatory Drug, Cyclooxygenase Inhibitor Start: 09-13-2024 End: 09-18-2024 take 1 tablet by mouth every six hours as needed for pain keTORolac (TORADOL) 10 mg tablet Indications: Acute post-operative pain Take 1 tablet by mouth every 6 hours as needed for pain for up to 5 days. 20 tablet 09/13/2024 09/18/2024 Start: 03-29-2024 End: 04-08-2024 take 1 tablet by mouth every six hours as needed for pain keTORolac (TORADOL) 10 mg tablet Indications: Acute post-operative pain Take 1 tablet by mouth every 6 hours as needed for pain for up to 10 days. 20 tablet 1 03/29/2024 04/08/2024 Active MULTIVITAMIN TABLET (3 sources) Start: 08-08-2002 MULTIVITAMIN TABLET Take one(1) tablet daily. 0 08/08/2002 Active Comment on above: Take one(1) tablet d aily. nabumetone 500 mg oral tablet (4 sources) Nonsteroidal Anti-inflammatory Drug Start: 09-03-2019 End: 08-13-2020 take 1 tablet by mouth twice daily Nabumetone 500 mg tablet Discontinued 500 mg PO TWICE A DAY 60 September 03, 2019 12:00am August 13, 2020 3:27pm predniSONE 20 mg oral tablet (8 sources) Start: 04-24-2021 End: 09-30-2021 take 2 tablets by mouth once daily Prednisone 20 mg tablet Discontinued 40 mg PO DAILY April 24, 2021 12:00am September 30, 2021 5:22pm Start: 04-24-2021 End: 09-30-2021 take 40 mg by mouth once daily Prednisone Discontinued 40 MG PO DAILY April 24, 2021 12:00am September 30, 2021 5:22pm Start: 03-01-2018 End: 03-08-2018 take 2 tablets by mouth once daily Prednisone 10 mg tablet Discontinued 20 mg PO DAILY 14 7 March 01, 2018 1:00am March 07, 2018 1:00am March 08, 2018 1:07am Start: 03-01-2018 End: 03-08-2018 take 20 mg by mouth once daily Prednisone Discontinued 20 MG PO DAILY 14 March 01, 2018 1:00am March 08, 2018 1:07am pregabalin 75 mg oral capsule (1 source) Lyrica 75 MG Ora l Capsule Refills: 0 Active rizatriptan 10 mg oral tablet (3 sources) Serotonin-1b and Serotonin-1d Receptor Agonist Start: 05-10-2005 MAXALT 10 MG TAB Indications: Migraine with aura take one at onset of AMATO, can repeat in 2 hrs if no better 6 1 05/10/2005 Active Comment on above: take one at onset of AMATO, can repeat in 2 hrs if no better sertraline 50 mg oral tablet (3 sources) Serotonin Reuptake Inhibitor Start: 02-08-2006 ZOLOFT 50 MG TAB Indications: Dysthymic disorder Take one(1) tablet daily. 90 1 02/08/2006 Active Comment on above: Take one(1) tablet d aily. sincalide (Kinevac) 1.6 mcg in sodium chloride 0.9 % 100 mL infusion (2 sources) Start: 01-26-2024 End: 01-26-2024 1.6 mcg (rounded from 1.632 mcg = 0.02 mcg/kg 81.6 kg Order-specific weight), IntraVENous, at 200 mL/hr, Administer over 30 Minutes, Once, On Roya 01/26/24 at 1215, For 1 dose Spacer for Metered Dose Inhaler (1 source) Start: 01-01-2020 Spacer for Metered Dose Inhaler Use with inhaler to get the medication down into your lungs. Pharmacy: Please have patient demonstrate appropriate use. Thx. Quantity: 1 Refills: 0 Simpson DO, Sylvia Start : 01-Jan-2020 Active technetium Tc-99m mebrofenin (Choletec) radio-isotope injection 3.1 millicurie (2 sources) Start: 01-26-2024 End: 01-26-2024 3.1 millicurie, IntraVENous, Once, On Roya 01/26/24 at 1115, For 1 dose Problems Active Problems Problem Classification Problem Date Documented Da te Episodic/Chronic Abdominal pain (20 sources) Left lower quadrant pain; Translations: [Left flank pain] Onset: 0 11-19-2021 Episodic Anal and rectal conditions (1 source) Anal spasm; Translations: [Anal spasm] Onset: 5 Episodic Anxiety disorders (9 sources) Mixed anxiety and depressive disorder; Translations: [Anxiety disorder, unspecified] Onset: 5 07-30-2024 Chronic Attention-deficit, conduct, and disruptive behavior disorders (8 sources) Attention deficit hyperactivity disorder; Translations: [Attention-deficit hyperactivity disorder, unspecified type] Onset: 5 07-30-2024 Chronic Attention-deficit, conduct, and disruptive behavior disorders (1 source) Attention-deficit hyperactivity disorder, unspecified type; Translations: [Attention deficit hyperactivity disorder (ADHD), unspecified ADHD type] Onset: 5 Chronic Chronic obstructive pulmonary disease and bronchiectasis (4 sources) Bronchitis; Translations: [Bronchitis, not specified as acute or chronic] 02-09-2019 Episodic Complication of device; implant or graft (1 source) Pain due to any device, implant AND/OR graft; Translations: [Pain due to internal orthopedic prosthetic devices, implants and grafts, initial encounter] Onset: 8 12-19-2017 Episodic Diabetes mellitus with complications (2 sources) Hyperglycemia due to type 2 diabetes mellitus; Translations: [Type 2 diabetes mellitus with hyperglycemia] Onset: 4 08-28-2023 Chronic Diabetes mellitus without complication (10 sources) Hyperglycemia; Translations: [Hyperglycemia, unspecified] Onset: 5 02-23-2023 Episodic Esophageal disorders (9 sources) Gastroesophageal reflux disease; Translations: [Gastro-esophageal reflux disease without esophagitis] Onset: 5 07-30-2024 Chronic Essential hypertension (13 sources) Hypertensive disorder; Translations: [Essential (primary) hypertension] Onset: 5 09-01-2022 Chronic Fever of unknown origin (4 sources) Fever; Translations: [Fever, unspecified] 04-11-2019 Episodic Headache; including migraine (20 sources) Migraine with aura; Translations: [Tension-type headache] Onset: 3 09-13-2005 Chronic Headache; including migraine (4 sources) Frequent headache; Translations: [Frequent headaches] 09-12-2017 Episodic Lymphadenitis (4 sources) Cervical lymphadenopathy; Translations: [Localized enlarged lymph nodes] 06-23-2018 Episodic Malaise and fatigue (4 sources) Fatigue; Translations: [Other fatigue] 04-20-2018 Episodic Mood disorders (20 sources) Dysthymia; Translations: [Depressive disorder] Onset: 4 06-03-2003 Chronic Mood disorders (1 source) Mood disorders; Translations: [Anxiety and depression] Onset: 5 Nausea and vomiting (20 sources) Nausea and vomiting; Translations: [Nausea with vomiting, unspecified] Onset: 4 10-30-2018 Episodic Nonmalignant breast conditions (8 sources) Mastodynia; Translations: [Mastodynia] Onset: 5 Episodic Nonspecific chest pain (3 sources) Left sided chest pain; Translations: [Chest pain, unspecified] 09-01-2022 Episodic Other aftercare (2 sources) Surgical follow-up; Translations: [Encounter for surgical aftercare following surgery on the digestive system] 06-14-2024 Episodic Other and unspecified benign neoplasm (1 source) Neuroma; Translations: [Benign neoplasm of peripheral nerves and autonomic nervous system, unspecified] Onset: 8 12-19-2017 Episodic Other bone disease and musculoskeletal deformities (1 source) Somatic dysfunction of sacroiliac joint; Translations: [Somatic dysfunction of sacroiliac joint] Episodic Other connective tissue disease (2 sources) Other muscle spasm; Translations: [Muscle spasm] Onset: 5 Episodic Other connective tissue disease (2 sources) Spasm; Translations: [Other muscle spasm] 09-13-2024 Episodic Other endocrine disorders (1 source) Adrenomedullary hyperfunction; 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)] Onset: 5 Chronic Other female genital disorders (4 sources) Abnormal vaginal bleeding; Translations: [Abnormal uterine and vaginal bleeding, unspecified] 09-03-2019 Chronic Other female genital disorders (18 sources) Vulvodynia; Translations: [Vulvodynia, unspecified] Onset: 7 11-19-2021 Chronic Other gastrointestinal disorders (2 sources) Diarrhea; Translations: [Diarrhea, unspecified] 05-24-2024 Episodic Other gastrointestinal disorders (1 source) Constipation; Translations: [Constipation, unspecified] 06-14-2024 Episodic Other gastrointestinal disorders (1 source) Other specified symptoms and signs involving the digestive system and abdomen; Translations: [Other specified symptoms and signs involving the digestive system and abdomen] Onset: 5 Episodic Other gastrointestinal disorders (1 source) Full incontinence of feces; Translations: [Full incontinence of feces] Onset: 5 Episodic Other liver diseases (1 source) Elevated liver enzymes level; Translations: [Abnormal levels of other serum enzymes] 01-25-2024 Episodic Other liver diseases (1 source) Large liver; Translations: [Hepatomegaly, not elsewhere classified] 01-25-2024 Episodic Other lower respiratory disease (1 source) Cough; Translations: [Cough] Episodic Other nervous system disorders (4 sources) Acute postoperative pain; Translations: [Other acute postprocedural pain] 03-29-2024 Episodic Other nervous system disorders (2 sources) Other acute postprocedural pain; Translations: [Acute post-operative pain] Onset: 5 Episodic Other non-traumatic joint disorders (1 source) Sacroiliac disorder; Translations: [Sacroiliac strain] Episodic Other nutritional; endocrine; and metabolic disorders (3 sources) Weight gain; Translations: [Abnormal weight gain] 09-03-2019 Episodic Other nutritional; endocrine; and metabolic disorders (1 source) Weight increased; Translations: [Abnormal weight gain] 09-03-2019 Episodic Other screening for suspected conditions (not mental disorders or infectious disease) (10 sources) Patient encounter status; Translations: [Encounter for other screening for genetic and chromosomal anomalies] Onset: Episodic Other upper respiratory infections (4 sources) Maxillary sinusitis; Translations: [Chronic maxillary sinusitis] 02-09-2019 Chronic Residual codes; unclassified (3 sources) Family history of breast cancer; Translations: [Family history of malignant neoplasm of breast] Episodic Residual codes; unclassified (2 sources) Family history of malignant neoplasm of ovary; Translations: [Family history of malignant neoplasm of ovary] Episodic Residual codes; unclassified (1 source) Family history of prostate cancer; Translations: [Family history of malignant neoplasm of prostate] 12-13-2022 Episodic Residual codes; unclassified (2 sources) Family history of malignant neoplasm of breast; Translations: [Family history of malignant neoplasm of breast] Onset: Episodic Residual codes; unclassified (2 sources) Other specified postprocedural states; Translations: [Post-operative nausea and vomiting] Onset: Episodic Residual codes; unclassified (1 source) History of hernia repair; Translations: [Other specified postprocedural states] 08-25-2024 Episodic Residual codes; unclassified (1 source) Early satiety; Translations: [Early satiety] Onset: 5 Episodic Spondylosis; intervertebral disc disorders; other back problems (15 sources) Sciatica; Translations: [Sciatica, right side] 04-24-2021 Episodic Substance-related disorders (9 sources) Cigarette smoker ; Translations: [Nicotine dependence, cigarettes, uncomplicated] Onset: 5 07-30-2024 Chronic Substance-related disorders (9 sources) Marijuana user; Translations: [Cannabis use, unspecified, uncomplicated] Onset: 5 07-30-2024 Episodic Thyroid disorders (20 sources) Hypothyroidism; Translations: [Hypothyroidism, unspecified] Onset: 0 01-27-2010 Chronic Unclassified (1 source) Post-Op Visit Onset: 5 Urinary tract infections (2 sources) Cystitis; Translations: [Cystitis, unspecified without hematuria] 11-03-2022 Episodic Past or Other Problems Problem Classification Problem Date Documented Da te Episodic/Chronic Abdominal hernia (10 sources) Obstruction co-occurrent and due to internal hernia of abdomen; Translations: [Unspecified abdominal hernia with obstruction, without gangrene] Onset: 06-14-2024 12-02-2020 Episodic Biliary tract disease (3 sources) Biliary dyskinesia; Translations: [Other specified diseases of gallbladder] Onset: 03-06-2024 02-23-2024 Episodic Deficiency and other anemia (1 source) Anemia, unspecified; Translations: [Relative anemia] Onset: 08-01-2024 Episodic Gastritis and duodenitis (20 sources) Acute gastritis; Translations: [Acute gastritis] Onset: 08-08-2002 06-03-2003 Episodic Other aftercare (1 source) Encounter for surgical aftercare following surgery on the digestive system; Translations: [Encounter for surgical aftercare following surgery on the digestive system] Onset: 06-14-2024 Episodic Other female genital disorders (2 sources) Vulvodynia; Translations: [Vulvodynia] Onset: 06-15-2016 08-03-2016 Episodic Other gastrointestinal disorders (2 sources) Diarrhea, unspecified; Translations: [Diarrhea, unspecified] Onset: 05-29-2024 Episodic Other gastrointestinal disorders (1 source) Constipation, unspecified; Translations: [Constipation, unspecified constipation type] Onset: 05-08-2025 Episodic Other liver diseases (1 source) Hepatomegaly, not elsewhere classified; Translations: [Enlarged liver] Onset: 01-26-2024 Episodic Other non-traumatic joint disorders (1 source) Disorder of wrist joint; Translations: [Other specified joint disorders, right wrist] Onset: 12-20-2016 12-20-2016 Episodic Other non-traumatic joint disorders (1 source) Pain in wrist; Translations: [Pain in right wrist] Onset: 12-20-2016 12-20-2016 Episodic Unclassified (1 source) Problem Unclassified (4 sources) BLADDER SLING 09-07-2021 Unclassified (4 sources) EPISIOTOMY REPAIR 09-07-2021 Unclassified (4 sources) TOTAL ABDOMINAL HYSTERECTOMY HEAVY BLEEDING 09-07-2021 Results Test Name Value Interpretation Reference Range Facility NM GASTRIC EMPTYING SOLIDon 11-21-2024 NM GASTRIC EMPTYING SOLID * * *Final Report* * * DATE OF EXAM: Nov 21 2024 12:19PM [facility] 0017 - [place] GASTRIC EMPTYING SOLID / PROCEDURE REASON: R11.0, R10.13, R68.81, R19.8, R15.9, K59.4 * * * * Physician Interpretation * * * * EXAM: SOLID MEAL GASTRIC EMPTYING STUDY HISTORY: R11.0, R10.13, R68.81, R19.8, R15.9, K59.4 . Nausea and vomiting. Assess for abnormal gastric emptying of a solid meal. TECHNIQUE: 1.18 millicuries of Tc-99m sulfur colloid was administered PO in a meal consisting of 4 oz Egg Beaters, 2 slices of toast, and 8 oz water, consumed over 5 to 10 minutes. Planar anterior and posterior images of the gastric region were obtained at 0, 1, 2, and 4 hours after ingestion. RESULTS: Solid meal gastric retention values: * 93% retention at 1 hour (normal range, 37-90%; accelerated emptying defined as <30% at 1 hour) * 75% retention at 2 hours (normal range, 30-60%) * 53% retention at 4 hours (normal range, 0-10%) IMPRESSION: Delayed gastric emptying rate for the solid meal. Very severe gastroparesis (>50% gastric retention at 4 hours). Channel Cementer: TANISHA Transcribe Date/Time: Nov 21 2024 12:36P Dictated by : ALEXA PACHECO MD This examination was interpreted and the report reviewed and electronically signed by: ALEXA PACHECO MD on Nov 21 2024 12:37PM EST [id number] Normal [facility] CT ABD/PEL W IVCONon 025 CT ABD/PEL W IVCON * * *Final Report* * * DATE OF EXAM: Oct 05 2024 1:58PM [facility] 0530 - CT ABD/PEL W IVCON / PROCEDURE REASON: Acute abdomen * * * * Physician Interpretation * * * * EXAMINATION: CT ABDOMEN AND PELVIS WITH IV CONTRAST CLINICAL HISTORY: Postoperative pain. Patient had hernia repair approximately one month prior and is having worsening abdominal pain. TECHNIQUE: CT of the abdomen and pelvis was performed using standard technique, scanning from just above the dome of the diaphragm to the upper thighs. Contrast: IV: 100 ml of Omnipaque 350 CT Radiation dose: Integrated Dose-length product (DLP) for this visit = 557.76 mGy*cm. CT Dose Reduction Employed: Automated exposure control(AEC) and iterative recon COMPARISON: CT abdomen pelvis 07/06/2024 FINDINGS: LOWER CHEST: No significant abnormality. HEPATOBILIARY: The liver is normal in appearance. The gallbladder is absent. No biliary ductal dilatation. SPLEEN, PANCREAS, ADRENAL GLANDS: Stable 12 mm left adrenal nodule. Otherwise, within normal limits. KIDNEYS, URETERS, BLADDER: Symmetric parenchymal enhancement with no obstructing calculus or hydronephrosis. Ureters and bladder within normal limits. UTERUS, ADNEXA: The uterus is absent. No adnexal mass. BOWEL: No evidence of obstruction. PERITONEAL/EXTRAPERITONEA L SPACE: No free air or free fluid. LYMPH NODES: No adenopathy. A 10 mm left external iliac chain node is stable and likely reactive. VASCULAR: Grossly unremarkable. ABDOMINAL WALL: Postsurgical changes from interval hernia repair of the anterior abdominal wall are noted. No acute abnormality or recurrent hernia seen. MUSCULOSKELETAL: No acute osseous abnormality. IMPRESSION: Interval ventral hernia repair. No recurrent hernia or other acute abnormality in the abdomen or pelvis is seen Channel Cementer: TANISHA Transcribe Date/Time: Oct 11 2024 5:41P Dictated by : NORBERTO VILLEGAS MD This examination was interpreted and the report reviewed and electronically signed by: NORBERTO VILLEGAS MD on Oct 11 2024 5:49PM EST [id number] [facility] Creatinine and Glomerular fi ltration rate.predicted panel (S/P/Bld)on 10-05-2024 Creatinine [Mass/Vol] 0.71 mg/dL Normal 0.58-0.96 [facility] Comment on above: Order Comment: Speci men Type: BLOOD SPECIMEN Ordering Facility: [facility] Address: [address] [place] [address] Performed By: #### [id number] #### [facility] CLIA [id number] [address] [place], [place] [id number] [facility] eGFRcr SerPlBld CKD-EPI 2020 107 mL/min/1.73m??? Normal >=60 [facility] Comment on above: Order Comment: Specashley zuñiga Type: BLOOD SPECIMEN Ordering Facility: [facility] Address: [address] [place] [address] Result Comment: Mary mated Glomerular Filtration Rate (eGFR) is calculated using the 2020 CKD-EPI creatinine equation. This equation utilizes serum creatinine, sex, and age as parameters. The creatinine assay has traceable calibration to isotope dilution-mass spectrometry. Refer to KDIGO guidelines for clinical interpretation. In patients with unstable renal function, e.g. those with acute kidney injury, the eGFR may not accurately reflect actual GFR. Performed By: #### 4 [id number] #### [facility] CLIA [id number] [address] [id number] [facility] CNOVjaylan 09-13-2024 CNOV Office Visit (GENSME ) ----- NADIA GONZALEZ ([id number]) 1980 F Date Time Provider Department 09/13/24 1:15 PM ELIZABETH RICHARDSON During your visit today, we recorded the following information about you: Elizabeth Richardson DO 09/13/2024 1:30 PM Signed We discussed your post-operative abdominal pain following laparoscopic incisional hernia repair with mesh placement: - Your pain is likely due to post-operative inflammation and the healing process, which is normal for this type of surgery. The mesh needs time to incorporate into the tissues, and the dissection area is still inflamed. - I did not find any signs of hernia recurrence or other concerning issues during the exam. - If your pain persists or worsens in the next two weeks, we will consider ordering a CT scan to evaluate further. - Muscle spasms may also be contributing to your discomfort. I have prescribed Valium, which can help with both muscle spasms and sleep. This has been sent to your preferred pharmacy. - I have also prescribed a 5-day course of Toradol to help with pain and inflammation. Please take this as directed and do not exceed the 5-day course, as prolonged use can stress the kidneys. Follow-up instructions: - If your pain continues next week, please call our office to discuss further. At that time, we can decide whether to proceed with a CT scan. - We can schedule a follow-up appointment or phone call next week to check on your progress. Medications: - Valium: Take as prescribed to help with muscle spasms and sleep. - Toradol: Take as prescribed for 5 days to manage pain and inflammation. Do not exceed the 5-day course. Your prescriptions have been sent to your preferred pharmacy at [facility]. Please let us know if you have any questions or concerns. Elizabeth Richardson DO 09/25/2024 8:18 AM Signed GENERAL SURGERY FOLLOW UP Recording using [employer] software for draft documentation of the visit was discussed with the patient/authorized insurance service representative; all questions welcomed and answered. Patient/authorized insurance service representative agreed to proceed Nadia Gonzalez is a 44-year-old female presenting for follow-up due to worsening abdominal pain following a laparoscopic incisional hernia repair with mesh placement on 08/18/24. Nadia was seen on 08/24/24 for a routine post-operative follow-up, during which she reported incisional discomfort and a sensation of feeling raw internally. She was advised that she could return to normal activities with lifting restrictions for an additional 2 weeks. Yesterday, she contacted the office reporting increasing pain over the past few days, which has been waking her up at night. Today, she describes the pain as worsening and localized primarily above the umbilicus. She denies pain at the external incision sites. She reports a decrease in appetite and occasional nausea, particularly when the pain intensifies. She denies any changes in bowel habits and reports normal stools. She has been taking Zanaflex, initially prescribed for headaches, occasionally for the pain but does not notice much difference. She notes that it helps her fall asleep at night. She has previously taken Valium post-operatively, which provided some relief, and has also tried Flexeril for headaches, which she reports as ineffective. Constitutional: (+) sleep disturbance Gastrointestinal: (+) abdominal pain zakiya-umbilical, (+) decreased appetite, (+) nausea, (-) change in bowel habits Skin: (-) incisional site pain 10 point review of systems completed and is otherwise negative On exam: There were no vitals filed for this visit. Gen: NAD, well-nourished Lungs: unlabored breathing, bilateral chest rise Abd: Postoperative incisions with some firmness, tenderness to palpation above the umbilicus, evidence of inflammation, no signs of hernia recurrence. Assessment ASSESSMENT Acute post-operative pain (primary encounter diagnosis) Muscle spasm RECOMMENDATION 1. Acute post-operative pain (G89.18) 2. Muscle spasm (M62.838) - Worsening abdominal pain and muscle spasm following laparoscopic incisional hernia repair with mesh placement on 08/07/24; seen for routine post-op follow-up on 08/24/24. - Exam reveals post-op inflammation and fluid around the incision and dissection site; no evidence of hernia recurrence. - Start Toradol PO for 5 days for pain and inflammation. - Start Valium for muscle spasms and to aid sleep. - Educated patient on expected post-op pain duration and inflammation; advised to call if pain persists or worsens in 2 weeks. - Follow-up next week via in-person appointment or phone call; if pain persists, will order CT scan. Elizabeth Richardson DO September 25, 2024 8:17 AM Allergies As of Date: 09/13/2024 Noted Allergy Reaction GABAPENTIN 09/12/2013 14 - Other: See (more content not included)... Normal [facility] CNOVon 08-24-2024 CNOV Office Visit (GENSME ) ----- NADIA GONZALEZ ([id number]) 1980 F Date Time Provider Department 08/24/24 2:00 PM LI ORR During your visit today, we recorded the following information about you: Li Orr APRN.CNP 08/25/2024 9:34 AM Signed IMPRESSION: Patient is s/p Laparoscopic incisional hernia repair with intraperitoneal mesh placement Laparoscopic bilateral transversus abdominus plane block. PLAN: Post-op patient instructions were reviewed with the patient. I have explained to Ms. Gonzalez that she may return to normal activity with the following restrictions: no lifting over 20 lbs, no pulling, and no pushing. I have encouraged her to contact me at any time with any questions or concerns that may arise. Follow up: PRN SUBJECTIVE: On 08/07/2024 she underwent Laparoscopic incisional hernia repair with intraperitoneal mesh placement Laparoscopic bilateral transversus abdominus plane block with Dr. Elizabeth Richardson. Patient presents now for follow up. Patient complaints: having incisional discomfort - she states sometimes raw feeling inside - Patient denies: Nausea, Vomiting, Diarrhea, Constipation, Fever, Chills, Redness around wound, Drainage from incision/s, and Bulges or mass OBJECTIVE: General Appearance: alert, oriented and in no acute distress Abdomen: soft and non-tender Li Orr APRN.TRACK WELDER 08/24/2024 Allergies As of Date: 08/24/2024 Noted Allergy Reaction GABAPENTIN 09/12/2013 14 - Other: See Comments 5 - Intolerance TOPIRAMATE 09/12/2017 5 - Intolerance Comments: Other reaction(s): totally out of it Date Reviewed: 08/24/2024 Reviewed by: Leah Griffin MA - Fully Assessed Reason for Visit: Post-Op Visit [1236] Cmt: 01JUL Incarcerated hernia repair w/ mesh by Dr. Richardson Primary Visit Diagnosis:S/P hernia repair [Z98.890, Z87.19] Prescriptions as of 08/25/2024 - acetaminophen (TYLENOL EXTRA STRENGTH) 500 mg tablet Take 1,000 mg by mouth every 8 hours as needed. - dicyclomine (BENTYL) 20 mg tablet Take 20 mg by mouth before meals and at bedtime. Take 2 cap. In PM AND AM daily - ondansetron (ZOFRAN) 4 mg tablet Take 1 tablet by mouth every 8 hours as needed for nausea/vomiting. - metFORMIN (GLUCOPHAGE) 500 mg tablet Take 500 mg by mouth two times a day. - clonazePAM (KLONOPIN) 0.5 mg tablet Take 0.5 mg by mouth two times a day as needed. - risperiDONE (RISPERDAL) 1 mg tablet Take 1 mg by mouth once daily. - omeprazole (PRILOSEC) 40 mg capsule Take 40 mg by mouth once daily. - dexmethylphenidate HCl (FOCALIN) 5 mg tablet Take 5 mg by mouth once daily. - levothyroxine (SYNTHROID) 175 mcg tablet Take [...] may repeat in 2 (TWO) HOURS. - hydroCHLOROthiazide (HYDRODIURIL, ESIDRIX) 25 mg tablet Take 25 mg by mouth every morning. - acetaminophen 300 mg-caffeine 40 mg-butalbital 50 mg (FIORICET) per capsule TAKE 1 CAPSULE BY MOUTH EVERY 4 HOURS NEEDED for headaches - buPROPion XL (WELLBUTRIN XL) 300 mg 24 hr tablet once daily. Problem List As Of Date 08/24/2024 Noted Resolved Migraine [G43.909] 08/08/2002 ACUTE GASTRITIS [535.0] 08/08/2002 NEUROTIC DEPRESSION [F34.1] 03/04/2003 Hypothyroidism [E03.9] 01/27/2010 Cigarette smoker [F17.210] 07/30/2024 Marijuana use [F12.90] 07/30/2024 Anxiety and depression [F41.9, F32.A] 07/30/2024 ADHD [F90.9] 07/30/2024 Primary hypertension [I10] 07/30/2024 GERD (gastroesophageal reflux disease) [K21.9] 07/30/2024 Prediabetes [R73.03] 07/30/2024 PONV (postoperative nausea and vomiting) [R11.2*07/30/2024 Encounter Status:Closed by LI ORR on 08/25/24 Normal [facility] ANES POSTPROC EVALon 025 ANES POSTPROC EVAL HNO ID: [id number] Author: CYNTHIA ELLIS MD Service: Anesthesiology Author Type: Anesthesiologist Type: Anesthesia Postprocedure Evaluation Filed: 08/07/2024 10:32 Note Text: POST ANESTHESIA EVALUATION NOTE : 1980 Procedure Summary Date: 08/07/24 Room / Location: [place] [address] / [place] Anesthesia Start: 732 Anesthesia Stop: 950 Procedure: LAPAROSCOPIC HERNIA REPAIR INCISIONAL INITIAL REDUCIBLE W/MESH 3cm-10cm, supraumbilical incisional hernia (Abdomen) Diagnosis: Incisional hernia, without obstruction or gangrene (Incisional hernia, without obstruction or gangrene [K43.2]) Surgeons: Elizabeth Richardson DO Responsible Provider: Cynthia Ellis MD Anesthesia Type: general ASA Status: 2 Anesthesia Type: general Airway Type: ETT Last Vitals Vitals Value Taken Time BP 123/74 08/07/24 1015 Temp 36.3 ?C (97.3 ?F) 08/07/24 0948 Pulse 79 08/07/24 1017 Resp 13 08/07/24 1017 SpO2 99 % 08/07/24 1017 Vitals shown include unfiled device data. Post Anesthesia Patient Status Patient Evaluation: PACU. PACU/ICU Patient Condition: stable. Anticipated Disposition: phase 2 then home. Neurological Status: aware and responsive. Pulmonary Status: breathing comfortably on room air Airway Control: returned to baseline unsupported. Cardiovascular Status: stable. Pain Management: clinically adequate - multimodal analgesia pain management approach Postoperative Hydration: acceptable. Intraoperative Events: no significant anesthesia events Post Operative Nausea/Vomiting Status: no significant post operative nausea or vomiting Recommendation: continue current plan of care. Anesthesia Observations No Documentation SIGNATURE: Cynthia Ellis MD PATIENT NAME: Nadia Gonzalez DATE: August 07, 2024 TIME: 10:32 AM CSN: [id number] [facility] ANES PRE-OPon 08-07-2024 ANES PRE-OP HNO ID: [id number] Author: CYNTHIA ELLIS MD Service: Anesthesiology Author Type: Anesthesiologist Type: Anesthesia Preprocedure Evaluation Filed: 08/07/2024 06:54 Note Text: ANESTHESIOLOGY DAY OF SURGERY NOTE : 1980 Procedure Information Date/Time: 08/07/24729 Procedure: LAPAROSCOPIC HERNIA REPAIR INCISIONAL INITIAL REDUCIBLE W/MESH 3cm-10cm, supraumbilical incisional hernia (Abdomen) - LAPAROSCOPIC HERNIA REPAIR INCISIONAL INITIAL REDUCIBLE W/MESH 3cm-10cm, supraumbilical incisional hernia Location: [place]01 [place] Surgeons: Elizabeth Richardson DO Estimated body mass index is 27.46 kg/m? as calculated from the following: Height as of this encounter: 162.6 cm (5' 4). Weight as of this encounter: 72.6 kg (160 lb). Most recent hematocrit and potassium results: Hematocrit 39.5 08/01/2024 Potassium 4.0 08/01/2024 Relevant Problems ANESTHESIA (+) PONV (postoperative nausea and vomiting) CARDIO (+) Migraine (+) Primary hypertension ENDO (+) Hypothyroidism GI (+) GERD (gastroesophageal reflux disease) NEURO-PSYCH (+) Migraine I - PHYSICAL EVALUATION AIRWAY Patient intubated: No. Tracheostomy tube not present Mallampati: II. TM distance: >3 FB. Neck ROM: full ROM without neurological symptoms. Mouth opening: adequate. Short neck: no. Thick neck: no DENTAL Dental findings: teeth intact. Additional exam findings: yes. CARDIOVASCULAR Rhythm: regular Rate: normal PULMONARY Breath sounds clear to auscultation. II - ANESTHESIA PLAN ASA Score: 2 Anesthetic Plan: general Airway type: ETT The patient is a current smoker. NPO Status: adequate Beta Renee Monitoring Plan Monitoring plan: Standard ASA. Post Procedure Analgesic Plan Postoperative analgesic plan: parenteral or oral opioids and multimodal analgesia. Informed Consent Anesthetic risks, benefits, alternatives, personnel and consent discussed: yes. Patient / Responsible Democrat agrees to proceed: yes Patient / Surrogate agrees to blood products: yes DNR status not reviewed with patient and/or family prior to surgery. Significant changes in the patient condition since the History and Physical, not otherwise documented in primary service progress note: no. Potential Anesthesia issues that may suggest increased risk of complications or contraindication to planned procedure: none. Vitals Value Taken Time BP 134/86 08/07/2440 Pulse 81 08/07/24639 Resp 16 08/07/24639 Temp 36.6 ?C (97.9 ?F) 08/07/24639 SpO2 100 % 08/07/24639 Facility-Administered Medications as of 08/07/2024 Medication Dose Route Frequency lidocaine (PF) 10 mg/mL (1 %) 1-2 mg injection (XYLOCAINE) 0.1-0.2 mL INTRADERMAL PRN lactated ringers iv infusion 5-30 mL/hr INTRAVENOUS CONTINUOUS NaCl 0.9% iv flush bag 20 mL INTRAVENOUS PRN ceFAZolin iv piggyback 2 g in D5W (iso-osmotic) 100 mL (ANCEF) 2 g INTRAVENOUS Pre-Op Once acetaminophen 1,000 mg tab(s) (TYLENOL) 1,000 mg ORAL Pre-Op Once promethazine 12.5 mg tab(s) (PHENERGAN) 12.5 mg ORAL Pre-Op Once lactated ringers iv infusion 30 mL/hr INTRAVENOUS CONTINUOUS scopolamine (delivers 1 mg over 3 days) 1 patch (TRANSDERM-SCOP) 1 patch TRANSDERMAL ONCE scopolamine - VERIFY patch OTHER q 8 H [START ON 08/08/2024] scopolamine - REMOVE PATCH OTHER ONCE famotidine 20 mg injection (PEPCID) 20 mg INTRAVENOUS ONCE Outpatient Medications as of 08/07/2024 Medication Sig acetaminophen (TYLENOL EXTRA STRENGTH) 500 mg tablet Take 1,000 mg by mouth every 8 hours as needed. dicyclomine (BENTYL) 20 mg tablet Take 20 mg by mouth before meals and at bedtime. Take 2 cap. In PM AND AM daily metFORMIN (GLUCOPHAGE) 500 mg tablet Take 500 mg by mouth two times a day. clonazePAM (KLONOPIN) 0.5 mg tablet Take 0.5 mg by mouth two times a day as needed. risperiDONE (RISPERDAL) 1 mg tablet Take 1 mg by mouth once daily. omeprazole (PRILOSEC) 40 mg capsule Take 40 mg by mouth once daily. dexmethylphenidate HCl (FOCALIN) 5 mg tablet Take 5 mg by mouth once daily. levothyroxine (SYNTHROID) 175 mcg tablet Take 175 mcg by mouth once daily. hydroCHLOROthiazide (HYDRODIURIL, ESIDRIX) 25 mg tablet Take 25 mg by mouth every morning. buPROPion XL (WELLBUTRIN XL) 300 mg 24 hr tablet once daily. ondansetron (ZOFRAN) 4 mg tablet Take 1 tablet by mouth every 8 hours as needed for nausea/vomiting. tiZANidine (ZANAFLEX) 4 mg tablet Take 4 mg by mouth three times daily as needed. Take 4 mg by mouth three times daily as needed. SUMAtriptan (IMITREX) 100 mg tablet TAKE 1 TABLET BY MOUTH at onset of headache, if no relief may repeat in 2 (TWO) HOURS. acetaminophen 300 mg-caffeine 40 mg-butalbital 50 mg (FIORICET) per capsule TAKE 1 CAPSULE BY MOUTH EVERY 4 HOURS NEEDED for headaches I have interviewed and examined the patient. I have reviewed the medical record and/or the pre-anesthesia evaluation, pertinent labs, and test results. This contains updat (more content not included)... [facility] OPERATIVE NOon 08-07-2024 OPERATIVE NO HNO ID: [id number] Author: ELIZABETH RICHARDSON DO Service: General Surgery Author Type: Physician Type: Operative Report Filed: 08/10/2024 22:53 Note Text: OPERATIVE/PROCEDURE REPORT LOG ID: [id number] SURGERY/PROCEDURE DATE: 08/07/2024 INCISION/PROCEDURE START TIME: 8:04 AM INCISION CLOSE/PROCEDURE END TIME: 9:36 AM SURGEON(S)/PROCEDURALIST( S) AND HAND MODEL(S): Surgeons and Role: * Elizabeth Richardson DO - Primary Physician Patternmaker Bench: Rosemarie Garnica PA-C SURGERY/PROCEDURE(S): Laparoscopic incisional hernia repair with intraperitoneal mesh placement Laparoscopic bilateral transversus abdominus plane block ANESTHESIA: General INDICATION: 44 year old female with a history of multiple umbilical hernia repairs presented to office on 06/14/24 with intermittent pain around her umbilical incision site. She had undergone a laparoscopic cholecystectomy on 03/06. Prior umbilical hernia repairs included a primary repair in 2012 in combination with a hysterectomy and a primary repair in 2020. A CT Ab/P was obtained which showed a recurrent incisional hernia at the umbilical incision site with associated diastasis recti. We discussed laparoscopic repair with mesh placement and she presents today for surgery. SURGERY/PROCEDURE DETAILS: The patient was identified in the pre-operative area and informed consent was obtained for a laparoscopic incisional hernia repair with mesh placement. A sign [facility] was performed. The patient was transported to the operating room and transferred to the OR table in the supine position. General anesthesia was induced without difficulty. The abdomen was prepped and draped in usual sterile fashion. A final timeout was performed. We began by placing a 5 mm port in the left upper quadrant at Su's point via an Optiview approach. The abdomen was insufflated to 15 mmHg and well-tolerated. There were no injuries identified upon entry. A bilateral laparoscopic transversus abdominis plane block was performed with 20 cc of Exparel mixed with 20 cc of 0.25% bupivacaine with epinephrine. 2 additional 5 mm ports were placed under visualization; 1 in the left lower quadrant and 1 in the mid right abdomen. There is a small amount of omentum that was adherent to the hernia sac and this was sharply lysed with hot scissors. The fascial defect measured approximately 8 cm x 6 cm. Therefore a 12 cm round parietene coated surgical mesh was chosen for the laparoscopic repair. The mesh was inserted into the peritoneal cavity. and transfascial sutures were used to secure the mesh to the anterior abdominal wall in 4 quadrants peripherally and from 1 central transfascial suture. The fascial defect was then approximated using 0 Vicryl suture in multiple ewekns-bc-rbvyu interrupted fashion utilizing a laparoscopic suture passer. The transfascial sutures were then secured and the mesh laid flat and nicely approximated to the anterior abdominal wall. It was further secured in a double crown formation using absorbable tacks. The abdomen was desufflated and the incisions were closed in layers with 3-0 Vicryl and 5-0 Vicryl and dressed with skin glue. An abdominal binder was placed. Patient awoken general anesthesia difficulty was transported the PACU in stable condition All instrument, needle, and sponge counts were correct. PRE-OP/PRE-PROCEDURE DIAGNOSIS: Incisional hernia POST-OP/POST-PROCEDURE DIAGNOSIS: Same as Preop ESTIMATED BLOOD LOSS: 5 mls SPECIMENS: None IMPLANTABLE DEVICES: Implant Name Type Inv. Item Serial No. Plant Operations Worker Lot No. LRB No. Used Action MESH SURGICAL PARIETENE DS 12CM ROUND - [id number] Mesh MESH SURGICAL PARIETENE DS 12CM ROUND [employer] [id number] N/A 1 Implanted DRAINS: None COMPLICATIONS: None CLOSURE TECHNIQUE: Primary PARTICIPATION IN SURGERY/PROCEDURE: I/primary surgeon/proceduralist performed the procedure with assistance from Rosemarie Garnica PA-C who assisted with retraction, camera driving, and wound closure. No qualified resident/fellow was available. SIGNATURE: Elizabeth Richardson DO PATIENT NAME: Nadia Gonzalez DATE: August 07, 2024 TIME: 9:27 AM Normal [facility] CBC W Auto Differential pane l (Bld)on 08-01-2024 Basophils (Bld) [#/Vol] 0.03 10*3/uL Normal <0.11 [facility] Comment on above: Order Comment: Speci men Type: BLOOD SPECIMEN Ordering Facility: [facility] Address: [address] [place] [address] Performed By: #### 5 7021-8 #### [facility] [place] [facility] CLIA [id number] [address] [place] [address] STATES [facility] Basophils/100 WBC (Bld) 0.4 % Normal [facility] Comment on above: Order Comment: Speci men Type: BLOOD SPECIMEN Ordering Facility: [facility] Address: [address] [place] [address] Performed By: #### 5 7021-8 #### [facility] [place] [facility] CLIA [id number] [address] [place] [id number] [place] [facility] Differential cell count method Nom (Bld) Auto Normal [facility] Comment on above: Order Comment: Speci men Type: BLOOD SPECIMEN Ordering Facility: [facility] Address: [address] [place] [address] Performed By: #### 5 7021-8 #### [facility] [place] [facility] CLIA [id number] [address] [place] [address] [place] Eosinophils (Bld) [#/Vol] 0.09 10*3/uL Normal <0.46 [facility] Comment on above: Order Comment: Speci men Type: BLOOD SPECIMEN Ordering Facility: [facility] Address: [address] [place] [address] Performed By: #### 5 7021-8 #### [facility] [place] [facility] CLIA [id number] [address] [place] [address] [place] Eosinophils/100 WBC (Bld) 1.3 % Normal [facility] Comment on above: Order Comment: Speci men Type: BLOOD SPECIMEN Ordering Facility: [facility] Address: [address] [place] [address] Performed By: #### 5 7021-8 #### [facility] [place] [facility] CLIA [id number] [address] [place] [address] [place] Erythrocyte distribution width (RBC) [Ratio] 15.6 % High 11.5-15.0 [facility] Comment on above: Order Comment: Speci men Type: BLOOD SPECIMEN Ordering Facility: [facility] Address: [address] [place] [address] Performed By: #### 5 7021-8 #### [facility] [place] [facility] CLIA [id number] [address] [place] [id number] [place] Hematocrit (Bld) [Volume fraction] 39.5 % Normal 36.0-46.0 [facility] Comment on above: Order Comment: Speci men Type: BLOOD SPECIMEN Ordering Facility: [facility] Address: [address] [place] [address] Performed By: #### 5 7021-8 #### [facility] [place] [facility] CLIA [id number] [address] [place] [id number] [place] Hemoglobin (Bld) [Mass/Vol] 12.9 g/dL Normal 11.5-15.5 [facility] Comment on above: Order Comment: Speci men Type: BLOOD SPECIMEN Ordering Facility: [facility] Address: [address] [place] [address] Performed By: #### 5 7021-8 #### [facility] [place] [facility] CLIA [id number] [address] [place] [address] [place] Immature granulocytes (Bld) [#/Vol] 10*3/uL Normal <0.10 [facility] Comment on above: Order Comment: Speci men Type: BLOOD SPECIMEN Ordering Facility: [facility] Address: [address] [place] [address] Performed By: #### 5 7021-8 #### [facility] [place] [facility] CLIA [id number] [address] [place] [address] [place] Immature granulocytes/100 WBC (Bld) 0.3 % Normal [facility] Comment on above: Order Comment: Speci men Type: BLOOD SPECIMEN Ordering Facility: [facility] Address: [address] [place] [address] Performed By: #### 5 7021-8 #### [facility] [place] [facility] CLIA [id number] [address] [place] [address] [place] Lymphocytes (Bld) [#/Vol] 1.66 10*3/uL Normal 1.00-4.00 [facility] Comment on above: Order Comment: Speci men Type: BLOOD SPECIMEN Ordering Facility: [facility] Address: [address] [place] [address] Performed By: #### 5 7021-8 #### [facility] [place] [facility] CLIA [id number] [address] [place] [address] [place] Lymphocytes/100 WBC (Bld) 23.7 % Normal [facility] Comment on above: Order Comment: Speci men Type: BLOOD SPECIMEN Ordering Facility: [facility] Address: [address] [place] [address] Performed By: #### 5 7021-8 #### [facility] [place] [facility] CLIA [id number] [address] [place] [address] [place] MCH (RBC) [Entitic mass] 28.7 pg Normal 26.0-34.0 [facility] Comment on above: Order Comment: Speci men Type: BLOOD SPECIMEN Ordering Facility: [facility] Address: [address] [place] [address] Performed By: #### 5 7021-8 #### [facility] [place] [facility] CLIA [id number] [address] [place], [place] [id number] [place] [address] MCHC (RBC) [Mass/Vol] 32.7 g/dL Normal 30.5-36.0 [facility] Comment on above: Order Comment: Speci men Type: BLOOD SPECIMEN Ordering Facility: [facility] Address: [address] [place] [address] Performed By: #### 5 7021-8 #### [facility] [place] [facility] CLIA [id number] [address] [place] MCV (RBC) [Entitic vol] 88.0 fL Normal 80.0-100.0 [facility] Comment on above: Order Comment: Speci men Type: BLOOD SPECIMEN Ordering Facility: [facility] Address: [address] [place] [address] Performed By: #### 5 7021-8 #### [facility] [place] [facility] CLIA [id number] [address] Monocytes (Bld) [#/Vol] 0.66 10*3/uL Normal <0.87 [facility] Comment on above: Order Comment: Speci men Type: BLOOD SPECIMEN Ordering Facility: [facility] Address: [address] [place] [address] Performed By: #### 5 7021-8 #### [facility] [place] [facility] CLIA [id number] [address] Monocytes/100 WBC (Bld) 9.4 % Normal [facility] Comment on above: Order Comment: Speci men Type: BLOOD SPECIMEN Ordering Facility: [facility] Address: [address] [place] [address] Performed By: #### 5 7021-8 #### [facility] [place] [facility] CLIA [id number] [address] [place] [address] [place] Neutrophils (Bld) [#/Vol] 4.53 10*3/uL Normal 1.45-7.50 [facility] Comment on above: Order Comment: Speci men Type: BLOOD SPECIMEN Ordering Facility: [facility] Address: [address] [place] [address] Performed By: #### 5 7021-8 #### [facility] [place] [facility] CLIA [id number] [address] [place] [address] [place] Neutrophils/100 WBC (Bld) 64.9 % Normal [facility] Comment on above: Order Comment: Speci men Type: BLOOD SPECIMEN Ordering Facility: [facility] Address: [address] [place] [address] Performed By: #### 5 7021-8 #### [facility] [place] [facility] CLIA [id number] [address] [place] [address] [place] Nucleated RBC (Bld) [#/Vol] Normal [facility] Comment on above: Order Comment: Speci men Type: BLOOD SPECIMEN Ordering Facility: [facility] Address: [address] [place] [address] Performed By: #### 5 7021-8 #### [facility] [place] [facility] CLIA [id number] [address] [place] [address] [place] Nucleated RBC/100 WBC (Bld) [Ratio] Normal [facility] Comment on above: Order Comment: Speci men Type: BLOOD SPECIMEN Ordering Facility: [facility] Address: [address] [place] [address] Performed By: #### 5 7021-8 #### [facility] [place] [facility] CLIA [id number] [address] [place] [address] [place] Platelet mean volume (Bld) [Entitic vol] 10.8 fL Normal 9.0-12.7 [facility] Comment on above: Order Comment: Speci men Type: BLOOD SPECIMEN Ordering Facility: [facility] Address: [address] [place] [address] Performed By: #### 5 7021-8 #### [facility] [place] [facility] CLIA [id number] [address] [facility] [place] [address] [place] Platelets (Bld) [#/Vol] 352 10*3/uL Normal 150-400 [facility] Comment on above: Order Comment: Speci men Type: BLOOD SPECIMEN Ordering Facility: [facility] Address: [address] [place] [address] Performed By: #### 5 7021-8 #### [facility] [place] [facility] CLIA [id number] [address] [place] [address] [place] RBC (Bld) [#/Vol] 4.49 10*6/uL Normal 3.90-5.20 [facility] Comment on above: Order Comment: Speci men Type: BLOOD SPECIMEN Ordering Facility: [facility] Address: [address] [place] [address] Performed By: #### 5 7021-8 #### [facility] [place] [facility] CLIA [id number] [address] [place], [place] [address] [place] [address] [place] [facility] WBC (Bld) [#/Vol] 6.99 10*3/uL Normal 3.70-11.00 [facility] Comment on above: Order Comment: Speci men Type: BLOOD SPECIMEN Ordering Facility: [facility] Address: [address] [place] [address] Performed By: #### 5 7021-8 #### [facility] [place] [facility] CLIA [id number] [address] [place] [address] [facility] Comprehensive metabolic 2000 panelon 08-01-2024 Albumin [Mass/Vol] 4.6 g/dL Normal 3.9-4.9 [facility] Comment on above: Order Comment: Speci men Type: BLOOD SPECIMEN Ordering Facility: [facility] Address: [address] [place] [address] Performed By: #### 3 016-3, 31090-9 #### [facility] [place] [facility] CLIA [id number] [address] [place] [address] [place] ALP [Catalytic activity/Vol] 69 U/L Normal 34-123 [facility] Comment on above: Order Comment: Speci men Type: BLOOD SPECIMEN Ordering Facility: [facility] Address: [address] [place] [address] Performed By: #### 3 016-3, #### [facility] [place] [facility] CLIA [id number] [address] [place] [address] [place] [facility] ALT With P-5'-P [Catalytic activity/Vol] 10 U/L Normal 7-38 [facility] Comment on above: Order Comment: Speci men Type: BLOOD SPECIMEN Ordering Facility: [facility] Address: [address] [place] [address] Performed By: #### 3 016-3, #### [facility] [place] [facility] CLIA [id number] [address] [place] [address] [facility] [place] Anion gap [Moles/Vol] 12 mmol/L Normal 8-15 [facility] Comment on above: Order Comment: Speci men Type: BLOOD SPECIMEN Ordering Facility: [facility] Address: [address] [place] [address] Performed By: #### 3 016-3, 37328-8 #### [facility] [place] [facility] CLIA [id number] [address] [place] [address] [facility] [place] AST With P-5'-P [Catalytic activity/Vol] 15 U/L Normal 13-35 [facility] Comment on above: Order Comment: Speci men Type: BLOOD SPECIMEN Ordering Facility: [facility] Address: [address] [place] [address] Performed By: #### 3 016-3, 97221-6 #### [facility] [place] [facility] CLIA [id number] [address] [place] [address] [place] Bilirubin [Mass/Vol] mg/dL Low 0.2-1.3 [facility] Comment on above: Order Comment: Speci men Type: BLOOD SPECIMEN Ordering Facility: [facility] Address: [address] [place] [address] Performed By: #### 3 016-3, 19581-1 #### [facility] [place] [facility] CLIA [id number] [address] [facility] [place] [address] [place] Calcium [Mass/Vol] 9.8 mg/dL Normal 8.5-10.2 [facility] Comment on above: Order Comment: Speci men Type: BLOOD SPECIMEN Ordering Facility: [facility] Address: [address] [place] [address] Performed By: #### 3 016-3, 17687-7 #### [facility] [place] [facility] CLIA [id number] [address] [facility] [place] [address] [place] Chloride [Moles/Vol] 100 mmol/L Normal 98-107 [facility] Comment on above: Order Comment: Speci men Type: BLOOD SPECIMEN Ordering Facility: [facility] Address: [address] [place] [address] Performed By: #### 3 016-3, 04520-9 #### [facility] [place] [facility] CLIA [id number] [address] [place] [address] [place] CO2 [Moles/Vol] 25 mmol/L Normal 22-30 [facility] Comment on above: Order Comment: Speci men Type: BLOOD SPECIMEN Ordering Facility: [facility] Address: [address] [place] [address] Performed By: #### 3 016-3, 16922-0 #### [facility] [place] [facility] CLIA [id number] [address] [place] [address] [place] Creatinine [Mass/Vol] 0.74 mg/dL Normal 0.58-0.96 [facility] Comment on above: Order Comment: Speci men Type: BLOOD SPECIMEN Ordering Facility: [facility] Address: [address] [place] [address] Performed By: #### 3 016-3, 78565-0 #### [facility] [place] [facility] CLIA [id number] [address] [place] [address] [place] Creatinine and Glomerular filtration rate.predicted panel (S/P/Bld) 102 mL/min/1.73m??? Normal >=60 [facility] Comment on above: Order Comment: Livan zuñiga Type: BLOOD SPECIMEN [facility] [facility] Address: [address] [place] [address] Result Comment: Mary mated Glomerular Filtration Rate (eGFR) is calculated using the 2020 CKD-EPI creatinine equation. This equation utilizes serum creatinine, sex, and age as parameters. The creatinine assay has traceable calibration to isotope dilution-mass spectrometry. Refer to KDIGO guidelines for clinical interpretation. In patients with unstable renal function, e.g. those with acute kidney injury, the eGFR may not accurately reflect actual GFR. Performed By: #### 3 016-3, 23397-8 #### [facility] CLIA [id number] [address] [place] [address] [place] Glucose [Mass/Vol] 96 mg/dL Normal 74-99 [facility] Comment on above: Order Comment: Livan zuñiga Type: BLOOD SPECIMEN Ordering Facility: [facility] Address: [address] [place] [address] Result Comment: The [place] Diabetes Association (ADA) provides guidance for cutoff values for fasting glucose and random glucose. The ADA defines fasting as no caloric intake for at least 8 hours. Fasting plasma glucose results between 100 to 125 mg/dL indicate increased risk for diabetes (prediabetes). Fasting plasma glucose results greater than or equal to 126 mg/dL meet the criteria for diagnosis of diabetes. In the absence of unequivocal hyperglycemia, results should be confirmed by repeat testing. In a patient with classic symptoms of hyperglycemia or hyperglycemic crisis, random plasma glucose results greater than or equal to 200 mg/dL meet the criteria for diagnosis of diabetes. Reference: Standards of Medical Care in Diabetes 2016, [place] Diabetes Association. Diabetes Care. 2016.39(Suppl 1). Performed By: #### 3 016-3, 73479-6 #### [facility] CLIA [id number] [address] [place] [address] [place] Potassium [Moles/Vol] 4.0 mmol/L Normal 3.7-5.1 [facility] Comment on above: Order Comment: Livan zuñiga Type: BLOOD SPECIMEN Ordering Facility: [facility] Address: [address] [place] [address] Performed By: #### 3 016-3, 82570-7 #### [facility] CLIA [id number] [address] [place] [address] [place] Protein [Mass/Vol] 7.9 g/dL Normal 6.3-8.0 [facility] Comment on above: Order Comment: Speci men Type: BLOOD SPECIMEN Ordering Facility: [facility] Address: [address] [place] [address] Performed By: #### 3 016-3, 77905-5 #### [facility] CLIA [id number] [address] [place] [address] [place] Sodium [Moles/Vol] 137 mmol/L Normal 136-144 [facility] Comment on above: Order Comment: Speci men Type: BLOOD SPECIMEN Ordering Facility: [facility] Address: [address] [place] [address] Performed By: #### 3 016-3, 62944-4 #### [facility] CLIA [id number] [address] [place] [id number] [place] Urea nitrogen [Mass/Vol] 10 mg/dL Normal 7-21 [facility] Comment on above: Order Comment: Speci men Type: BLOOD SPECIMEN Ordering Facility: [facility] Address: [address] [place] [address] Performed By: #### 3 016-3, 03920-6 #### [facility] CLIA [id number] [address] [place] [address] [place] Cortjake Hornl-Jeffreyon 08-02-19 25 Cortisol [Mass/Vol] 8.1 ug/dL Normal 4.8-19.5 [facility] Comment on above: Order Comment: Speci men Type: BLOOD SPECIMEN Ordering Facility: [facility] Address: [address] [place], [place] [id number] Result Comment: Prov ided reference range is from 6-10 AM sample collection time. Cortisol Reference Range: 6-10 AM = 4.8-19.5 ug/dL, 4-8 PM = 2.5-11.9 ug/dL Performed By: #### 2 143-6 #### [facility] CLIA [id number] [address] [place] Ferritin SerPl-mCncon 2024 Ferritin [Mass/Vol] 28.3 ng/mL Normal 14.7-205.1 [facility] Comment on above: Order Comment: Speci men Type: BLOOD SPECIMEN Ordering Facility: [facility] Address: [address] [place] [address] Performed By: #### 2 276-4, 37153-9, 3033-6 #### [facility] CLIA [id number] [address] [place] Iron and Iron binding capaci ty panelon 08-01-2024 Iron [Mass/Vol] 73 ug/dL Normal 41-186 [facility] Comment on above: Order Comment: Speci men Type: BLOOD SPECIMEN Ordering Facility: [facility] Address: [address] [place] [address] Performed By: #### 2 276-4, 11648-6, 3033-6 #### [facility] CLIA [id number] [address] Iron binding capacity [Mass/Vol] 339 ug/dL Normal 232-386 [facility] Comment on above: Order Comment: Speci men Type: BLOOD SPECIMEN Ordering Facility: [facility] Address: [address] [place] [address] Performed By: #### 2 276-4, 62792-2, 3033-6 #### [facility] CLIA [id number] [address] Iron saturation [Mass fraction] 21.5 % Normal 15.0-57.0 [facility] Comment on above: Order Comment: Speci men Type: BLOOD SPECIMEN Ordering Facility: [facility] Address: [address] [place] [address] Performed By: #### 2 276-4, 75300-4, 3033-6 #### [facility] CLIA [id number] [address] [place] TSH SerPl-aCncon 08-01-2024 TSH Qn 2.920 m[IU]/L Normal 0.270-4.20 0 [facility] Comment on above: Order Comment: Livan zuñiga Type: BLOOD SPECIMEN Ordering Facility: [facility] Address: [address] [place] [address] Result Comment: If t he patient is , TSH reference range varies by gestational period: First Trimester (weeks 9-12): 0.180-2.990 mIU/L Second Trimester: 0.110-3.980 mIU/L Third Trimester: 0.480-4.710 mIU/L Peter Haque et al. A Practical Approach for the Verifications and Determination of Site- and Trimester-Specific Reference Intervals for Thyroid Function tests in . Thyroid, 2019:29:3:412-420. Manohar Schmitz, et al. 2017 Guidelines of the [place] Thyroid Association for the Diagnosis and Management of Thyroid Disease during and the . Thyroid, 2017:27:3:315-389. Performed By: #### 3 016-3, 02476-6 #### [facility] CLIA [id number] [address] [place] [address] [place] Transferrin SerPl-ncon Transferrin [Mass/Vol] 295 mg/dL Normal 200-360 [facility] Comment on above: Order Comment: Livan zuñiga Type: BLOOD SPECIMEN Ordering Facility: [facility] Address: [address] [place] [address] Performed By: #### 2 276-4, 18184-1, 3034-6 #### [facility] CLIA [id number] [address] [facility] HISTORY PHYSICALon HISTORY PHYSICAL HNO ID: [id number] Author: ARELY MCGOWAN APRN.CNP Service: ? Author Type: Nurse Practitioner Type: H&P Filed: 08/02/2024 07:13 Note Text: [facility] HISTORY AND PHYSICAL EXAMINATION SERVICE DATE: 07/30/2024 SERVICE TIME: 7:13 AM PRIMARY CARE PHYSICIAN: Dawson Luciano APRN.TRACK WELDER Assessment Patient has the following medical conditions which may affect zakiya-operative course: Cigarette smoker Assessment: - Smoking 0.5ppd - Encouraged cessation Marijuana use Assessment: - Taking gummies BID - Advised to avoid prior to surgery Anxiety and depression Assessment: - Follows with psychiatry - Stable with current Rx ADHD Assessment: - Managed with Focalin Primary hypertension Assessment: - Managed on HCTZ - Follows with PCP - Last 3 Encounter BP Readings: Date: BP: 06/14/2024 119/82 03/06/2024 178/100 02/23/2024 136/85 Migraine Assessment: - Managed with prn Imitrex and Fioricet GERD (gastroesophageal reflux disease) Assessment: - Managed with Omeprazole Prediabetes Assessment: - On Metformin Hypothyroidism Assessment: - Managed with Synthroid - Follows with PCP TSH Date Value Ref Range Status 01/26/2024 2.340 0.270 - 4.200 mIU/L Final Comment: If the patient is , TSH reference range varies by gestational period: First Trimester (weeks 9-12): 0.180-2.990 mIU/L Second Trimester: 0.110-3.980 mIU/L Third Trimester: 0.480-4.710 mIU/L Peter Haque et al. A Practical Approach for the Verifications and Determination of Site- and Trimester-Specific Reference Intervals for Thyroid Function tests in . Thyroid, 2019:29:3:412-420. Manohar Schmitz, et al. 2017 Guidelines of the [place] Thyroid Association for the Diagnosis and Management of Thyroid Disease during and the . Thyroid, 2017:27:3:315-389. PONV (postoperative nausea and vomiting) Assessment: . ANESTHESIA FINDINGS: Intubation History: No history of difficult intubation Significant Anesthesia Considerations: potential postop nausea/vomiting Airway History: No history of difficult airway Laura Activity Status Index: METS: Walk indoors, such as around the house (1.75 METs) Do light work around the house, such as dusting or washing dishes (2.70 METs) Take care of self; that is eating, dressing, bathing, using the toilet (2.75 METs) Walk a block or two on level ground (2.75 METs) Do moderate work around the house, such as vacuuming, sweeping floors, or carrying in groceries (3.50 METs) Do yardwork, such as raking leaves, weeding, or pushing a power mower (4.50 METs) Climb a flight of stairs or walk up a hill (5.50 METs) Do heavy work around the house, such as scrubbing floors, lifting or moving heavy furniture (8.00 METs) DASI Score: 31.45 Patient denies any chest pain or undue shortness of breath with the above physical activity. Clinical Frailty Scale: 3. Well, with treated comorbid disease STOP-Bang Score: Snores loudly Has or is being treated for high blood pressure Denies feeling tired, fatigued, or sleepy during the daytime Has not been observed to stop breathing or choking/gasping during sleep BMI less than or equal to 35 kg/m2 Patient 50 years old or younger Does not have a large neck Non-male patient STOP-Bang Score: 2 I - PHYSICAL EVALUATION AIRWAY Patient intubated: No. Tracheostomy tube not present Mallampati: III. TM distance: >3 FB. Neck ROM: full ROM without neurological symptoms. Mouth opening: adequate. Short neck: no. Thick neck: no Lip Bite Test: II Microretrognathia/Microna gthia/Recessed Chin: No DENTAL Dental findings: teeth intact. Additional comments: +crowns . II - ANESTHESIA PLAN Anesthetic plan additional comments: *PACC/TCI - anesthesia choice. Beta Renee Monitoring Plan Post Procedure Analgesic Plan Prepared for Surgery: optimally prepared for surgery. EKG not indicated for scheduled procedure. Labs pending. ---ADDENDUM August 02, 2024 : Labs reviewed and accepted. CONSULTS: Patient does not require consults for optimization at this time Planned Anesthetic: anesthesia choice The Following Tests/Procedures Have Been Initiated: Orders Placed This Encounter Complete Blood Count and Differential Standing Status: Future Number of Occurrences: 1 Expected Date: 07/30/2024 Expiration Date: 10/29/2024 CMP Standing Status: Future Number of Occurrences: 1 Expected Date: 07/30/2024 Expiration Date: 10/29/2024 This is a virtual visit using [facility] video visit. It required patient-provider interaction for the medical decision making as documented below. REASON FOR VISIT: Nadia Gonzalez is a 44 year old female who is scheduled for Procedure(s) with comments: LAPAROSCOPIC HERNIA REPAIR INCISIONAL INITIAL REDUCIBLE W/MESH 3cm-10cm, supraumbilical incisional hernia (N/A) - LAPAROSCOPI (more content not included)... [facility] HNO ID: [id number] Author: DEE ALFARO CT Service: Radiology Author Type: Technologist Type: Allied Health Filed: 07/06/2024 13:38 Note Text: Radiology Service Progress Note PATIENT NAME: Nadia Gonzalez DATE OF SERVICE: July 06, 2024 TIME: 1:37 PM PATIENT IDENTITY VERIFICATION COMPLETED USING TWO (2) IDENTIFIERS: Name and Date of confirmed by patient verbally. FALL SCREENING: Has the patient had 2 falls in the last year or 1 fall with injury or currently using an Ambulatory Assistive Device (Walker, Cane, Wheelchair, Crutches, etc.)? No PATIENT GENDER DATA: Assigned female at . status: : No status: NO. PATIENT RELEVANT IMPLANT DATA REVIEWED: Not Applicable PATIENT PRESENTS WITH AN IMPLANTABLE OR ATTACHED DANCE DIRECTOR: No RADIOLOGY DEPARTMENT: CT; Exam(s) Completed: Abdomen/Pelvis PERIPHERAL IV DATA: Site assessment: Clean,Dry and Intact, Site disposition Discontinued SIGNED BY: SILVIA Cheung July 06, 2024 1:[address] [facility] [address] ABD/PEL W IVCONon 025 CT ABD/PEL W IVCON * * *Final Report* * * DATE OF EXAM: Jul 06 2024 1:39PM [facility] 529 - CT ABD/PEL W IVCON / PROCEDURE REASON: K43.2-Incisional hernia, without obstruction or gangrene * * * * Physician Interpretation * * * * EXAMINATION: CT ABDOMEN AND PELVIS WITH IV CONTRAST CLINICAL HISTORY: Incisional hernia. TECHNIQUE: CT of the abdomen and pelvis was performed using standard technique, scanning from just above the dome of the diaphragm to the symphysis pubis. MQ: CTAP_3 Contrast: IV: 100 ml of Omnipaque 350 CT Radiation dose: Integrated Dose-length product (DLP) for this visit = 254 mGy*cm. CT Dose Reduction Employed: Automated exposure control(AEC) and iterative recon RESULT: Liver: Focal fatty change is seen within liver, adjacent to the falciform ligament. There is no focal discrete hepatic mass. Biliary: Patient is status post cholecystectomy. No biliary dilation. Spleen: No mass. No splenomegaly. Pancreas: There is no obvious focal discrete pancreatic mass or pancreatic ductal dilation. Adrenals: The right adrenal gland is normal. There is an approximately 1.1 cm left adrenal nodule (series 2, image #28). Kidneys: There is no hydronephrosis or perinephric fluid collection. GI tract: Nonspecific wall thickening of the stomach likely relates to underdistention. There is wall thickening seen involving multiple loops of colon, most likely related to underdistention; however, colitis cannot be completely excluded on this examination. There is colonic diverticulosis. Lymph nodes: There are prominent, less than 1 cm abdominal lymph nodes, likely reactive. Mesentery/Peritoneum: No abdominal ascites. Retroperitoneum: No mass. Vasculature: There is no abdominal aortic aneurysm. Atherosclerotic disease. Pelvis: Although urinary bladder wall thickening may relate to underdistention, cystitis is not excluded on this examination. Phleboliths are seen within the pelvis. There are prominent, less than 1 cm pelvic lymph nodes, likely reactive. There is no pelvic mass or pelvic ascites. Bones/Soft Tissues: There is a small supraumbilical ventral hernia, containing omental fat. Opening for this hernia measures approximately 1.7 cm (series 2, image #60). Diastases of the rectus abdominis musculature. Vacuum phenomena is seen involving the sacroiliac joint spaces, bilaterally. No destructive bony lesion. Lower thorax: Lung bases are grossly clear. IMPRESSION: Small supraumbilical ventral hernia, containing omental fat. Diastases of the rectus abdominis musculature. Incidentally noted is an approximately 1.1 cm left adrenal nodule. Wall thickening is seen involving multiple loops of colon, most likely related to underdistention; however, colitis cannot be completely excluded on this examination. Colonic diverticulosis. Although urinary bladder wall thickening may relate to underdistention, cystitis is not excluded. Channel Cementer: PSCB Transcribe Date/Time: Jul 07 2024 9:11A Dictated by : KORI JADE MD This examination was interpreted and the report reviewed and electronically signed by: KORI JADE MD on Jul 07 2024 9:20AM EST [id number] [facility] NURSING PROGon 07-06-2024 NURSING PROG HNO ID: [id number] Author: SUMAYA LOONEY RN Service: Radiology Author Type: Registered Nurse Type: Nursing Progress Note Filed: 07/06/2024 13:28 Note Text: Radiology Service Progress Note DATE OF SERVICE: July 06, 2024 TIME: 1:27 PM PATIENT WEIGHT: 136LBS PATIENT IDENTITY VERIFICATION COMPLETED USING TWO (2) STANDARD IDENTIFIERS: Name and Date of confirmed by patient verbally and Name and Date of confirmed by identification band. FALL SCREENING: Has the patient had 2 falls in the last year or 1 fall with injury or currently using an Ambulatory Assistive Device (Walker, Cane, Wheelchair, Crutches, etc.)? No PATIENT GENDER DATA: ALLERGIES: Reviewed and unchanged CONTRAST ALLERGY: No EXAM: CT -CONTRAST INDUCED NEPHROPATHY RISK FACTORS: Not applicable CREATININE: Creatinine Date Value Ref Range Status 01/26/2024 0.70 0.58 - 0.96 mg/dL Final 07/25/2012 0.56 0.51 - 0.95 mg/dL Final Estimated Glomerular Filtration Rate Date Value Ref Range Status 01/26/2024 110 >=60 mL/min/1.73m? Final Comment: Estimated Glomerular Filtration Rate (eGFR) is calculated using the 2020 CKD-EPI creatinine equation. This equation utilizes serum creatinine, sex, and age as parameters. The creatinine assay has traceable calibration to isotope dilution-mass spectrometry. Refer to KDIGO guidelines for clinical interpretation. In patients with unstable renal function, e.g. those with acute kidney injury, the eGFR may not accurately reflect actual GFR. P.O.C.T. RESULTS: N/A July 06, 2024 TREATMENT: N/A IV SITE: Ambulatory: A peripheral IV was started in the Right with a Angio cath: 22 gauge. IV SITE APPEARANCE: Clean,Dry and Intact SIGNATURE: Sumaya Looney RN PATIENT NAME: Nadia Gonzalez DATE: July 06, 2024 TIME: 1:27 PM Normal [facility] Office Visiton 06-29-2024 Follow-up visit [id number] Christine Gonzalez 1980 F Date Provider Department Center 06/29/2024 [id number] [facility] BRS None Family History Problem Relation Age of Onset High Blood Pressure Mother Prostate cancer Father 63 Ovarian cancer Mother's Sister 44 Colon cancer Maternal Grandmother 70 Breast cancer Maternal Grandmother 70 Family Status - Relation Status Age at Mother Alive Father Alive Mother's Sister Maternal Grandmother Level of Service:27956 [place] OFFICE/OUTPATIENT ESTABLISHED LOW MDM 20 MIN Reason for Visit and Comments: 1 Year Follow-up [670] - HR follow up [facility] Progress Noteon 06-29-2024 Progress Note Chief Complaint Patient presents with 1 Year Follow-up HR follow up HPI: Nadia Gonzalez is a 44 y.o. female who presents for annual clinical breast exam. Breast history: -05/17/2022: Bilateral diagnostic mammogram/left breast ultrasound negative (BIRADS 1) -05/21/2022: She was seen at the breast center for left breast pain. Conservative measures for breast pain discussed -12/13/2022: She was seen for follow up at the breast center, still noting intermittent left breast pain. -06/13/2023: Screening mammogram benign (BIRADS 2) -06/25/2024: Screening mammogram negative (BIRADS 1) She has a history of a left breast biopsy 10+ years ago. These results are unavailable to me today but she states that this was benign. She has no additional breast history. Today, she still notes intermittent left breast pain. She does think this is cyclic because even though she does not have menstrual cycles due to having a hysterectomy, she notices the pain typically follows a pattern. The pain has been unchanged for her a few years now. We did discuss if she notices a change to the pain or has any new symptoms, she should call to evaluated. No additional concerns today. She denies breast mass, skin change, nipple change, nipple discharge. No prior breast surgery. She does have a significant family history of cancer. See family history section of this note. She had [employer] expanded panel genetic testing 05/2022 which was negative for deleterious mutation. Results scanned into media dated 06/01/2022. Her lifetime risk of breast cancer estimated by Tyrer-Cuzick V8 model (recalculated, adding in negative genetic testing) is 11.28%. Given her risk score and breast density, breast MRI not indicated at this time per NCCN guidelines. Risk Factors: Menarche: 11 Age of first : 24; Menopause: Pre; She had hysterectomy age 32 but retains both ovaries Physical Activity: She walks. We discussed the [place] Cancer Society recommends that adults get at least 150 minutes of moderate intensity or 75 minutes of vigorous intensity activity each week Nutrition: She tries to follow a healthy diet with plenty of fruits and vegetables. We discussed a plant based diet and limiting added hormones in her meat and dairy. Weight: BMI 26.78 Smoking: Current; 1/2 PPD. We did discuss smoking cessation modalities ETOH: Rare Breast Imaging: Screening mammogram 06/25/2024 TISSUE DENSITY: BIRADS B - There are scattered areas of fibroglandular density. FINDINGS: No suspicious masses, architectural distortions or suspiciously clustered microcalcifications are identified. There is no evidence of skin thickening or nipple retraction. There are no significant changes when compared with prior studies. IMPRESSION: No mammographic evidence of malignancy. ASSESSMENT: Category 1 Negative RECOMMENDATION: Routine screening mammogram in 1 year. Bilateral Family Cancer history includes: Father with metastatic prostate cancer [...] great uncle with lung cancer age 45 Medical History[1] Surgical History[2] Allergies[3] Current Medications[4] Review of Systems: Review of Systems Constitutional: Negative. HENT: Negative. Eyes: Negative. Respiratory: Negative. Cardiovascular: Negative. Gastrointestinal: Negative. Endocrine: Negative. Genitourinary: Negative. Musculoskeletal: Negative. Skin: Negative. Allergic/Immunologic: Negative. Neurological: Negative. Hematological: Negative. Psychiatric/Behavioral: Negative. BP 125/83 (BP Location: Left arm, Patient Position: Sitting) Pulse 92 Temp 36.6 ?C (97.9 ?F) Resp 20 Ht 5' 4 (1.626 m) Wt 156 lb (70.8 kg) BMI 26.78 kg/m? Physical Exam: Physical Exam Constitutional: General: She is not in acute distress. Appearance: Normal appearance. She is not ill-appearing. HENT: Head: Normocephalic [...] and oriented to person, place, and time. (more content not included)... Normal [facility] DBT Breast - bilateral scree katringon 06-25-2024 No mammographic evid ence of malignancy. ASSESSMENT: Category 1 Negative RECOMMENDATION: Routine screening mammogram in 1 year. Bilateral CANCER RISK ASSESSMENT: This risk assessment is based on patient provided information collected in a risk survey taken at the time of this examination. LIFETIME BREAST CANCER RISK: Marialuisa 8: 11.07% - If greater than or equal to 20%, consider annual mammogram and annual screening Breast MRI or follow up in high risk clinic. Is the patient at elevated risk based on the HBOC criteria? Yes (Hereditary Breast and Ovarian Cancer) - If Yes, consider genetic counseling and testing with high risk follow up Is the patient at elevated risk based on the Colvin Syndrome criteria? Yes - If Yes, consider genetic counseling and testing with high risk follow up. Report Dictated on Electronically Signed By: Gerardo Fisher MD Electronically Signed Date/Time: 06/25/2024 3:10 PM [facility] Patient Name: NADIA GONZALEZ : 1980 [facility]#: [id number] Exam Date/Time: 06/25/2024 11:17 Procedure: BI MAMMOGRAM SCREENING TOMOSYNTHESIS BILATERAL Ordering Provider: CISNREOS ELIZABETH Reason For Exam: This exam was performed at [address] [facility] [address] RISK ALERT: The Cancer Risk Assessment scores below the recommendation of this report contain an outcome above the normal risk range. PATIENT CANCER HISTORY: No Personal History of Cancer FAMILY CANCER HISTORY: Father Prostate Cancer age 63 Maternal Grandmother Breast Cancer age 70, Colon Cancer age 70 Maternal Aunt Ovarian Carcinoma age 44 Image views: 2D Bilateral CC and MLO views were acquired. 3D Bilateral CC and MLO views were acquired. Images were reviewed with CAD. Markings on images: BB's = Nipples; skin lesions Open inupiat = Palpable Line = Scar COMPARISON: 06/13/2023 and 05/17/2022 TISSUE DENSITY: BIRADS B - There are scattered areas of fibroglandular density. FINDINGS: No suspicious masses, architectural distortions or suspiciously clustered microcalcifications are identified. There is no evidence of skin thickening or nipple retraction. There are no significant changes when compared with prior studies. [facility] Gerardo Fisher MD - 06/25/2024 Patient Name: NADIA GONZALEZ : 1980 Exam Date/Time: 06/25/2024 11:17 Procedure: BI MAMMOGRAM SCREENING TOMOSYNTHESIS BILATERAL Ordering Provider: CISNEROS ELIZABETH Reason For Exam: This exam was performed at [address] [address] RISK ALERT: The Cancer Risk Assessment scores below the recommendation of this report contain an outcome above the normal risk range. PATIENT CANCER HISTORY: No Personal History of Cancer FAMILY CANCER HISTORY: Father Prostate Cancer age 63 Maternal Grandmother Breast Cancer age 70, Colon Cancer age 70 Maternal Aunt Ovarian Carcinoma age 44 Image views: 2D Bilateral CC and MLO views were acquired. 3D Bilateral CC and MLO views were acquired. Images were reviewed with CAD. Markings on images: BB's = Nipples; skin lesions Open inupiat = Palpable Line = Scar COMPARISON: 06/13/2023 and 05/17/2022 TISSUE DENSITY: BIRADS B - There are scattered areas of fibroglandular density. FINDINGS: No suspicious masses, architectural distortions or suspiciously clustered microcalcifications are identified. There is no evidence of skin thickening or nipple retraction. There are no significant changes when compared with prior studies. IMPRESSION: No mammographic evidence of malignancy. ASSESSMENT: Category 1 Negative RECOMMENDATION: Routine screening mammogram in 1 year. Bilateral CANCER RISK ASSESSMENT: This risk assessment is based on patient provided information collected in a risk survey taken at the time of this examination. LIFETIME BREAST CANCER RISK: Marialuisa 8: 11.07% - If greater than or equal to 20%, consider annual mammogram and annual screening Breast MRI or follow up in high risk clinic. Is the patient at elevated risk based on the HBOC criteria? Yes (Hereditary Breast and Ovarian Cancer) - If Yes, consider genetic counseling and testing with high risk follow up Is the patient at elevated risk based on the Colvin Syndrome criteria? Yes - If Yes, consider genetic counseling and testing with high risk follow up. Report Dictated on Electronically Signed By: Gerardo Fisher MD Electronically Signed Date/Time: 06/25/2024 3:10 PM EDT [facility] Study observation (narrative) [facility] DBT Breast - bilateral scree ningOrdered By: Gerardo Fisher on 06-25-2024 [facility] Work Phone: CNOVon 06-14-2024 [facility] Office Visit (GENSME ) ----- NADIA GONZALEZ ([id number]) 1980 F Date Time Provider Department 06/14/24 1:30 PM ELIZABETH RICHARDSON During your visit today, we recorded the following information about you: Pulse Blood pressure Weight Height 89/minute 119/82 73.2 kg 1.626 m Elizabeth Richardson DO 06/14/2024 1:51 PM Signed We discussed your incisional hernia: - You have a recurrence of an incisional hernia along the linea alba. This was confirmed during the physical exam, where I felt a small hernia approximately 1.5 to 2 finger-breadths in size. - I recommend a CT scan of your abdomen to better assess the size and location of the hernia and to help plan the best surgical approach. This will also help determine whether a laparoscopic or open repair is more appropriate and whether mesh will be needed. - You do not need oral contrast for the CT scan. The supervisor front staff will assist you with scheduling this test. - For now, you may continue wearing your abdominal binder, especially during activities that involve standing for long periods, lifting, or traveling. This can help reduce discomfort and provide support. If needed, I can provide a prescription for a new binder, though they are also available over the counter. - If the hernia becomes hard, firm, or you notice bruising over the area, this could indicate that the tissue is stuck (incarcerated or strangulated), and you should seek urgent medical attention. We discussed your upcoming surgery: - After the CT scan, I will review the results and contact you to discuss the best surgical plan. We can do this over the phone unless you prefer an in-person visit. - Following surgery, you should plan to take at least 4-5 days off work (e.g., Tuesday through Tuesday) if your job involves sitting at a desk. You can return to work the following week as tolerated, but avoid heavy lifting or strenuous activities. We discussed your symptoms of abdominal cramping and diarrhea: - You are currently taking Bentyl, which appears to be helping with your symptoms. Continue this medication as prescribed. - If your symptoms worsen or do not improve, please let me know. Follow-Up: - Schedule your CT scan of the abdomen as soon as possible. - I will contact you after the CT scan to discuss the results and next steps. - If you have any questions or concerns in the meantime, please call our office. Elizabeth Richardson DO 06/14/2024 2:12 PM Signed GENERAL SURGERY FOLLOW UP Nadia is a 44-year-old female presenting for evaluation of a suspected recurrent umbilical/incisional hernia. Nadia has a history of multiple umbilical hernia repairs. The first repair was in 2012 in combination with a hysterectomy. She then underwent a primary repair of recurrent umbilical/incisional hernia with Dr. Lassiter in 2020. Most recently, she underwent a laparoscopic cholecystectomy with on 03/06/2024 for biliary dyskinesia. She reports intermittent pain around the umbilical incision site since the most recent surgery, but has not noticed a bulge until approximately 2 weeks ago. At that time, she began experiencing significant pressure and pain at the site, which has worsened over the past 2 weeks. The pain is exacerbated by prolonged standing and sitting, and is relieved by lying down. She also notes that wearing regular pants increases her discomfort, and she prefers to avoid them when possible. Nadia has been using an abdominal binder, which provides some relief, especially when she is bloated. She has a history of a reaction to mesh used in a previous bladder surgery in 2006, which caused pain and discomfort due to tissue ingrowth. Additionally, she reports experiencing large intestine cramping and intermittent diarrhea since her cholecystectomy. She was prescribed Bentyl by her nurse practitioner, which initially caused constipation but has since improved her symptoms. She denies pain when sleeping on her back or stomach. 10 point review of systems completed and is otherwise negative On exam: 06/14/24 1331 BP: 119/82 BP Site: Left Arm BP Position: Sitting BP Cuff Size: Large Adult Pulse: 89 SpO2: 100% Weight: 73.2 kg (161 lb 4.8 oz) Height: 162.6 cm (5' 4) Gen: NAD, well-nourished Lungs: unlabored breathing, bilateral chest rise Abd: Supraumbilical incision well healed. There is a reducible incisional hernia present on exam with a palpable fascial defect measuring approximately 1.5-2cm in greatest diameter. There are no overlying skin changes. No signs of incarceration or strangulation. Area is ttp. Participation of a fellow, resident, medical student, or advanced practice provider student in performing the sensitive examination was discussed with the patient or authorized insurance service representative. The patient or authorized insurance service representative has agreed to proceed (more content not included)... Normal [facility] ANTIGLIADIN IGA 3 units Normal 0-19 [facility] Comment on above: Result Comment: Nega tive 0 - 19 Weak Positive 20 - 30 Moderate to Strong Positive >30 Performed By: #### L 501.9520, L3410.2350, L100.0100, L500.4050, L501.9985 #### [facility] [address] [place], [address] ANTIGLIADIN IGG <1 Normal 0-19 [facility] Comment on above: Result Comment: Nega tive 0 - 19 Weak Positive 20 - 30 Moderate to Strong Positive >30 Performed By: #### L [id number], L3410.2350, L100.0100, L500.4050, [id number] #### [facility] [address] [place], [place], [id number] ENDOMYSIAL IGA Negative Normal Negative [facility] Comment on above: Performed By: #### L [id number], L3410.2350, L100.0100, L500.4050, [id number] #### [facility] [address] [place], [place], [id number] IMMUNOGLOB A QN 246 mg/dL Normal 87-352 [facility] Comment on above: Result Comment: Perf ormed at: [facility] [id number] [employer] Dump Driver: Jhoan Steel PhD, Phone: [phone] Performed By: #### L [id number], L3410.2350, L100.0100, L500.4050, [id number] #### [facility] [address] [place], [address] tTG IGA <2 Normal 0-3 [facility] Comment on above: Result Comment: Nega tive 0 - 3 Weak Positive 4 - 10 Positive >10 Tissue Transglutaminase (tTG) has been identified as the endomysial antigen. Studies have demonstr- ated that endomysial IgA antibodies have over 99% specificity for gluten sensitive enteropathy. Performed By: #### L 501.9520, L3410.2350, L100.0100, L500.4050, L501.9985 #### [facility] [address] [place], [place], [id number] tTG IGG 2 U/mL Normal 0-5 [facility] Comment on above: Result Comment: Nega tive 0 - 5 Weak Positive 6 - 9 Positive >9 Performed By: #### L [id number], L3410.2350, L100.0100, L500.4050, L501.9985 #### [facility] [address] [place], [address] Absolute neutrophil countOrd ered By: Dawson Luciano on 05-24-2024 Neutrophils (Bld) [#/Vol] 3.6 10*3/uL 2.0-7.7 [facility] Anion gap in Serum or Plasma Ordered By: Dawson Luciano on 05-24-2024 Anion gap [Moles/Vol] 13 mmol/L - [facility] BUN/creatinine ratioOrdered By: Dawson Luciano on 05-24-2024 Urea nitrogen/Creatinine [Mass ratio] 16.8 mg/mg - [facility] Basophil percentageOrdered B y: Dawson Luciano on 05-24-2024 Basophils/100 WBC (Bld) 0.7 % 0-1 [facility] Bilirubin, totalOrdered By: Dawson Luciano on 05-24-2024 Bilirubin [Mass/Vol] mg/dL 0.00-1.30 [facility] CBC W/Diff, Automatedon 05-08 Absolute Lymph 1.85 X10 3/uL Normal 0.83-4.51 [facility] Comment on above: Performed By: #### L 501.9520, L3410.2350, L100.0100, L500.4050, L501.9985 #### [facility] [address] [place], [address] Absolute Neut 3.6 X10 3/uL Normal 2.0-7.7 [facility] Comment on above: Performed By: #### L [id number], L3410.2350, L100.0100, L500.4050, L501.9985 #### [facility] [address] [place], [address] Basophils/100 WBC (Bld) 0.7 % Normal 0-1 [facility] Comment on above: Performed By: #### L 501.9520, L3410.2350, L100.0100, L500.4050, L501.9985 #### [facility] [address] [place], [address] Eosinophils/100 WBC (Bld) 2.3 % Normal 0-5 [facility] Comment on above: Performed By: #### L 501.9520, L3410.2350, L100.0100, L500.4050, L501.9985 #### [facility] [address] [place], [address] Erythrocyte distribution width (RBC) [Ratio] 15.3 % High 11.6-14.6 [facility] Comment on above: Performed By: #### L 501.9520, L3410.2350, L100.0100, L500.4050, L501.9985 #### [facility] [address] [place], [address] Hematocrit (Bld) [Volume fraction] 31.2 % Low 37-47 [facility] Comment on above: Performed By: #### L 501.9520, L3410.2350, L100.0100, L500.4050, L501.9985 #### [facility] [address] [place], [address] Hemoglobin (Bld) [Mass/Vol] 10.7 g/dL Low 12.0-15.0 [facility] Comment on above: Performed By: #### L 501.9520, L3410.2350, L100.0100, L500.4050, L501.9985 #### [facility] [address] [place], [address] IG% 0.300 Normal 0.0-0.9 [facility] Comment on above: Result Comment: IG% - Immature Granulocytes (promyelocytes, myelocytes and metamyelocytes) > 1% indicates that a LEFT SHIFT is Present. Performed By: #### L 501.9520, L3410.2350, L100.0100, L500.4050, L501.9985 #### [facility] [address] [place], [address] Lymphocytes/100 WBC (Bld) 30.1 % Normal 19-41 [facility] Comment on above: Performed By: #### L 501.9520, L3410.2350, L100.0100, L500.4050, L501.9985 #### [facility] [address] [place], [address] MCH (RBC) [Entitic mass] 28.4 pg Normal 27.0-32.0 [facility] Comment on above: Performed By: #### L 501.9520, L3410.2350, L100.0100, L500.4050, L501.9985 #### [facility] [address] [place], [address] MCHC (RBC) [Mass/Vol] 34.3 g/dL Normal 32-36 [facility] Comment on above: Performed By: #### L 501.9520, L3410.2350, L100.0100, L500.4050, L501.9985 #### [facility] [address] [place], [address] MCV (RBC) [Entitic vol] 82.8 fL Normal 81-99 [facility] Comment on above: Performed By: #### L 501.9520, L3410.2350, L100.0100, L500.4050, L501.9985 #### [facility] [address] [place], [address] Monocytes/100 WBC (Bld) 8.5 % Normal 0-10 [facility] Comment on above: Performed By: #### L 501.9520, L3410.2350, L100.0100, L500.4050, L501.9985 #### [facility] [address] [place], [address] Neutrophils/100 WBC (Bld) 58.1 % Normal 47-70 [facility] Comment on above: Performed By: #### L 501.9520, L3410.2350, L100.0100, L500.4050, L501.9985 #### [facility] [address] [place], [address] Nucleated RBC (Bld) [#/Vol] 0 10*3/uL Normal 0-5 [facility] Comment on above: Performed By: #### L 501.9520, L3410.2350, L100.0100, L500.4050, L501.9985 #### [facility] [address] [place], [address] Platelet mean volume (Bld) [Entitic vol] 11.2 fL Normal 6.2-12.0 [facility] Comment on above: Performed By: #### L 501.9520, L3410.2350, L100.0100, L500.4050, L501.9985 #### [facility] [address] [place], [address] Platelets (Bld) [#/Vol] 323 10*3/uL Normal 150-450 [facility] Comment on above: Performed By: #### L 501.9520, L3410.2350, L100.0100, L500.4050, L501.9985 #### [facility] [address] [place], [address] RBC (Bld) [#/Vol] 3.77 10*6/uL Low 4.2-5.4 [facility] Comment on above: Performed By: #### L 501.9520, L3410.2350, L100.0100, L500.4050, L501.9985 #### [facility] [address] [place], [address] RDW SD 46.4 fl High 35.1-43.9 [facility] Comment on above: Performed By: #### L 501.9520, L3410.2350, L100.0100, L500.4050, L501.9985 #### [facility] [address] [place], [address] WBC (Bld) [#/Vol] 6.2 10*3/uL Normal 4.4-11.0 [facility] Comment on above: Performed By: #### L 501.9520, L3410.2350, L100.0100, L500.4050, L501.9985 #### [facility] [address] [place], [address] Carbon dioxide, total [Moles /volume] in Central venous bloodOrdered By: Dawson Luciano on 05-24-2024 CO2 [Moles/Vol] 22.0 mmol/L 21.0-32.0 [facility] Chloride assayOrdered By: Do ra Luciano on 05-24-2024 Chloride [Moles/Vol] 101 mmol/L 98-108 [facility] Comprehensive Metabolic Prof ilon 05-24-2024 Albumin [Mass/Vol] 4.1 g/dL Normal 3.5-5.0 [facility] Comment on above: Performed By: #### L 501.9520, L3410.2350, L100.0100, L500.4050, L501.9985 #### [facility] [address] [place], [address] Albumin/Globulin [Mass ratio] 1.4 {ratio} Normal 0.9-2.4 [facility] Comment on above: Performed By: #### L 501.9520, L3410.2350, L100.0100, L500.4050, L501.9985 #### [facility] [address] [place], [address] ALK PHOS 68 U/L Normal 35-104 [facility] Comment on above: Performed By: #### L 501.9520, L3410.2350, L100.0100, L500.4050, L501.9985 #### [facility] [address] [place], [address] ALT [Catalytic activity/Vol] 12 U/L Normal <=34 [facility] Comment on above: Performed By: #### L 501.9520, L3410.2350, L100.0100, L500.4050, L501.9985 #### [facility] [address] [place], [address] AST [Catalytic activity/Vol] 18 U/L Normal <=31 [facility] Comment on above: Performed By: #### L 501.9520, L3410.2350, L100.0100, L500.4050, L501.9985 #### [facility] [address] [place], [address] BUN/CRE 16.8 RATIO Normal 10-20 [facility] Comment on above: Performed By: #### L 501.9520, L3410.2350, L100.0100, L500.4050, L501.9985 #### [facility] [address] [place], [address] Calcium [Mass/Vol] 9.3 mg/dL Normal 7.6-11.0 [facility] Comment on above: Performed By: #### L 501.9520, L3410.2350, L100.0100, L500.4050, L501.9985 #### [facility] [address] [place], [address] Chloride [Moles/Vol] 101 mmol/L Normal 98-108 [facility] Comment on above: Performed By: #### L 501.9520, L3410.2350, L100.0100, L500.4050, L501.9985 #### [facility] [address] [place], [address] CO2 [Moles/Vol] 22.0 mmol/L Normal 21.0-32.0 [facility] Comment on above: Performed By: #### L 501.9520, L3410.2350, L100.0100, L500.4050, L501.9985 #### [facility] [address] [place], [address] Creatinine [Mass/Vol] 0.76 mg/dL Normal 0.70-1.20 [facility] Comment on above: Performed By: #### L 501.9520, L3410.2350, L100.0100, L500.4050, L501.9985 #### [facility] [address] [place], [address] GAP 13 Normal 5-15 [facility] Comment on above: Performed By: #### L 501.9520, L3410.2350, L100.0100, L500.4050, L501.9985 #### [facility] [address] [place], [address] GFR/1.73 sq M.predicted among non-blacks MDRD (S/P/Bld) [Vol rate/Area] 98 mL/min/{1.73_m2} Normal >60 [facility] Comment on above: Result Comment: mL/m in/1.73m2 CKD-EPI Creatinine Equation (2020) Performed By: #### L 501.9520, L3410.2350, L100.0100, L500.4050, L501.9985 #### [facility] [address] [place], [address] Globulin (S) [Mass/Vol] 2.9 g/dL Normal 2.2-4.2 [facility] Comment on above: Performed By: #### L 501.9520, L3410.2350, L100.0100, L500.4050, L501.9985 #### [facility] [address] [place], [address] Glucose [Mass/Vol] 73 mg/dL Normal 70-99 [facility] Comment on above: Performed By: #### L 501.9520, L3410.2350, L100.0100, L500.4050, L501.9985 #### [facility] [address] [place], [address] Potassium [Moles/Vol] 3.3 mmol/L Normal 3.3-5.1 [facility] Comment on above: Performed By: #### L 501.9520, L3410.2350, L100.0100, L500.4050, L501.9985 #### [facility] [address] [place], [address] Sodium [Moles/Vol] 136 mmol/L Normal 133-145 [facility] Comment on above: Performed By: #### L 501.9520, L3410.2350, L100.0100, L500.4050, L501.9985 #### [facility] [address] [place], [address] T BILI < 0.15 Normal 0.00-1.30 [facility] Comment on above: Performed By: #### L 501.9520, L3410.2350, L100.0100, L500.4050, L501.9985 #### [facility] [address] [place], [address] T PROT 7.0 g/dL Normal 5.9-8.4 [facility] Comment on above: Performed By: #### L 501.9520, L3410.2350, L100.0100, L500.4050, L501.9985 #### [facility] [address] [place], [place], [id number] Urea nitrogen [Mass/Vol] 13 mg/dL Normal 4-19 [facility] Comment on above: Performed By: #### L 501.9520, L3410.2350, L100.0100, L500.4050, L501.9968 #### [facility] [address] [place], [place], [address] Deamidated gliadin IgA antib rowdy assayOrdered By: Dawson Luciano on 05-24-2024 Anti-Gliadin IgA Antibody 3 units 0-19 [facility] Comment on above: Negative 0 - 19 Weak Positive 20 - 30 Moderate to Strong Positive >30 Deamidated gliadin IgG antib rowdy assayOrdered By: Dawson Luciano on 05-24-2024 Anti-Gliadin IgG Antibody <1 units 0-19 [facility] Comment on above: Negative 0 - 19 Weak Positive 20 - 30 Moderate to Strong Positive >30 Endomysial IgA antibody assa yOrdered By: Dawson Luciano on 05-24-2024 Endomysial IgA Antibody Negative Negative [facility] Eosinophil percentageOrdered By: Dawson Luciano on 05-24-2024 Eosinophils/100 WBC (Bld) 2.3 % 0-5 [facility] Erythrocyte distribution wid th (RBC) [Ratio]Ordered By: Dawson Luciano on 05-24-2024 Erythrocyte distribution width (RBC) [Entitic vol] 46.4 fL High 35.1-43.9 [facility] Erythrocyte distribution wid th ratioOrdered By: Dawson Luciano on 05-24-2024 Erythrocyte distribution width (RBC) [Ratio] 15.3 % High 11.6-14.6 [facility] GFR/1.73 sq M.predicted stefani g non-blacks MDRD (S/P/Bld) [Vol rate/Area]Ordered By: Dawson Luciano on 05-24-2024 Estimated GFR (MDRD) Non-Af Amer 98 >60 [facility] Comment on above: mL/min/1.73m2 CKD-EP I Creatinine Equation (2020) Hematocrit Auto (Bld) [Volum e fraction]Ordered By: Dawson Luciano on 05-24-2024 Hematocrit (Bld) [Volume fraction] 31.2 % Low 37-47 [facility] Hemoglobin A1con 05-24-2024 HbA1c (Bld) [Mass fraction] 5.4 % Normal <=5.6 [facility] Comment on above: Result Comment: Norm al < 5.7 % Prediabetic 5.7 - 6.4 % Diabetic >or= 6.5 % Please note range changes. Performed By: #### L 501.9520, L3410.2350, L100.0100, L500.4050, L501.9985 #### [facility] [address] [place], [place], [id number] Hemoglobin A1c percentageOrd ered By: Dawson Luciano on 05-24-2024 HbA1c (Bld) [Mass fraction] 5.4 % <5.7 [facility] Comment on above: Normal < 5.7 % Predi abetic 5.7 - 6.4 % Diabetic >or= 6.5 % Please note range changes. Hemoglobin measurementOrdere d By: Dawson Luciano on 05-24-2024 Hemoglobin (Bld) [Mass/Vol] 10.7 g/dL Low 12.0-15.0 [facility] Immature granulocytes/100 WB C Auto (Bld)Ordered By: Dawson Luciano on 05-24-2024 Immature granulocytes/100 WBC (Bld) 0.300 % 0.0-0.9 [facility] Comment on above: IG% - Immature Granu locytes (promyelocytes, myelocytes and metamyelocytes) > 1% indicates that a LEFT SHIFT is Present. Laboratory - Chemistry and C hemistry - challengeOrdered By: Dawsno Luciano on 05-24-2024 AST [Catalytic activity/Vol] 18 U/L <32 [facility] Lymphocytes Auto (Unsp spec) [#/Vol]Ordered By: Dawson Luciano on 05-24-2024 Lymphocytes (Bld) [#/Vol] 1.85 10*3/uL 0.83-4.51 [facility] Lymphocytes/100 WBC Auto (Un sp spec)Ordered By: Dawson Luciano on 05-24-2024 Lymphocytes/100 WBC (Bld) 30.1 % 19-41 [facility] MCV (mean corpuscular volume ) determinationOrdered By: Dawson Luciano on 05-24-2024 MCV (RBC) [Entitic vol] 82.8 fL 81-99 [facility] Mean corpuscular hemoglobin (MCH) determinationOrdered By: Dawson Luciano on 05-24-2024 MCH (RBC) [Entitic mass] 28.4 pg 27.0-32.0 [facility] Mean corpuscular hemoglobin concentration (MCHC) determinationOrdered By: Dawson Luciano on 05-24-2024 MCHC (RBC) [Mass/Vol] 34.3 g/dL 32-36 [facility] Mean platelet volume determi nationOrdered By: Dawson Luciano on 05-24-2024 Platelet mean volume (Bld) [Entitic vol] 11.2 fL 6.2-12.0 [facility] Monocyte percentageOrdered B y: Dawson Luciano on 05-24-2024 Monocytes/100 WBC (Bld) 8.5 % 0-10 [facility] Neutrophil percentageOrdered By: Dawson Luciano on 05-24-2024 Neutrophils/100 WBC (Bld) 58.1 % 47-70 [facility] No Panel InformationOrdered By: Dawson Luciano on 05-24-2024 Tissue Transglutaminase IgG Ab 2 U/mL 0-5 [facility] Comment on above: Negative 0 - 5 Weak Positive 6 - 9 Positive >9 Nucleated red blood cell per centageOrdered By: Dawson Luciano on 05-24-2024 Nucleated RBC/100 WBC (Bld) [Ratio] 0 % 0-5 [facility] Platelet countOrdered By: Do ra Luciano on 05-24-2024 Platelets (Bld) [#/Vol] 323 10*3/uL 150-450 [facility] Potassium (Unsp spec) [Mass/ Vol]Ordered By: Dawson Luciano on 05-24-2024 Potassium [Moles/Vol] 3.3 mmol/L 3.3-5.1 [facility] RBC Auto (Bld) [#/Vol]Ordere d By: Dawson Luciano on 05-24-2024 RBC (Bld) [#/Vol] 3.77 10*6/uL Low 4.2-5.4 [facility] Serum creatinine measurement (mass/volume)Ordered By: Dawson Luciano on 05-24-2024 Creatinine [Mass/Vol] 0.76 mg/dL 0.70-1.20 [facility] Serum globulin measurementOr dered By: Dawson Luciano on 05-24-2024 Globulin (S) [Mass/Vol] 2.9 g/dL 2.2-4.2 [facility] Serum glucose measurement (m ass/volume)Ordered By: Dawson Luciano on 05-24-2024 Glucose [Mass/Vol] 73 mg/dL 70-99 [facility] Serum immunoglobulin A measu rementOrdered By: Dawson Luciano on 05-24-2024 Immunoglobulin A 246 mg/dL 87-352 [facility] Comment on above: Performed at: [place] [id number] Director: Jhoan Steel PhD, Phone: [phone] Serum or plasma alanine olvera otransferase (ALT) measurementOrdered By: Dawson Luciano on 05-24-2024 ALT [Catalytic activity/Vol] 12 U/L <35 [facility] Serum or plasma albumin gil urement (mass/volume)Ordered By: Dawson Luciano on 05-24-2024 Albumin [Mass/Vol] 4.1 g/dL 3.5-5.0 [facility] Serum or plasma albumin/glob ulin mass ratioOrdered By: Dawson Luciano on 05-24-2024 Albumin/Globulin [Mass ratio] 1.4 {ratio} 0.9-2.4 [facility] Serum or plasma alkaline tiarra sphatase measurementOrdered By: Dawson Luciano on 05-24-2024 ALP [Catalytic activity/Vol] 68 U/L 35-104 [facility] Serum or plasma calcium gil urement (mass/volume)Ordered By: Dawson Luciano on 05-24-2024 Calcium [Mass/Vol] 9.3 mg/dL 7.6-11.0 [facility] Serum or plasma urea nitroge n measurement (mass/volume)Ordered By: Dawson Luciano on 05-24-2024 Urea nitrogen [Mass/Vol] 13 mg/dL 4-19 [facility] Sodium levelOrdered By: Dawson Luciano on 05-24-2024 Sodium [Moles/Vol] 136 mmol/L 133-145 [facility] TSH DL <= 0.005 mIU/L QnOrde red By: Dawson Luciano on 05-24-2024 Thyroid Stimulating Hormone (TSH) 1.790 uIU/mL 0.300-4.20 0 [facility] Thyroid Stim Hormone (TSH)on 05-24-2024 TSH 1.790 uIU/mL Normal 0.300-4.20 0 [facility] Comment on above: Performed By: #### L [id number], L3410.2350, L100.0100, L500.4050, L501.9985 #### [facility] [address] [place], [address] Total proteinOrdered By: Guicho Luciano on 05-24-2024 Protein [Mass/Vol] 7.0 g/dL 5.9-8.4 [facility] White blood cell (WBC) count Ordered By: Dawson Luciano on 05-24-2024 WBC (Bld) [#/Vol] 6.2 10*3/uL 4.4-11.0 [facility] tTG IgA Qn (S)Ordered By: Do ra Luciano on 05-24-2024 Tissue Transglutaminase IgA Ab <2 U/mL 0-3 [facility] Comment on above: Negative 0 - 3 Weak Positive 4 - 10 Positive >10 Tissue Transglutaminase (tTG) has been identified as the endomysial antigen. Studies have demonstr- ated that endomysial IgA antibodies have over 99% specificity for gluten sensitive enteropathy. CNOVon 03-29-2024 CNOV Office Visit (GENNadir ) ----- NADIA GONZALEZ ([id number]) 1980 F Date Time Provider Department 03/29/24 1:00 PM ELIZABETH RICHARDSONNadir During your visit today, we recorded the following information about you: Elizabeth Richardson, 04/05/2024 12:54 PM Signed GENERAL SURGERY POST OP FOLLOW UP Patient seen and examined in the clinic for post-operative evaluation following laparoscopic cholecystectomy with intraoperative cholangiogram on 03/06/2024. She was seen in office by Gerardo Lobo PA-C on 03/22/24 for routine post-op follow up. At that time, she reported that her 105lb dog had jumped on her the day prior and it caused significant pain at the umbilical incision. She was also having nausea and diarrhea. She was adjusting her diet to see what foods triggered the diarrhea and avoiding or limiting those foods. Since office visit, she is still having pain at the incision sites. 10 point review of systems completed and is otherwise negative On exam: There were no vitals filed for this visit. Gen: NAD, well-nourished Lungs: unlabored breathing, bilateral chest rise Abd: Soft, non-distended, incisions healing well. No palpable incisional hernia. Ttp in periumbilical region Participation of a fellow, resident, medical student, or advanced practice provider student in performing the sensitive examination was discussed with the patient or authorized insurance service representative. The patient or authorized insurance service representative has agreed to proceed with the sensitive examination. (Sensitive examination includes inspection and/or palpation of the breasts, pelvis, prostate and anorectal regions) Pathology: Component FINAL DIAGNOSIS Gallbladder, cholecystectomy: - Cholesterolosis. Gross Description A. Gallbladder Received in formalin, labeled as gallbladder is a partially collapsed gallbladder measuring 6.3 x 3.5 x 2.5 cm. No defects are noted. The serosa is pink-purple carbajal, smooth and glistening. Nguyen-brown viscous bile is present in the lumen. No calculi are noted, the cystic duct is not impacted. The mucosa is nguyen-brown and velvety in appearance. The wall averages 0.3 cm in thickness. [place] [employer] sections to include gallbladder wall and cystic duct margin are submitted in cassette A1. CG March 06, 2024 4:06 PM Gross examination performed at [facility], [address] [place] [id number] Assessment ASSESSMENT Acute post-operative pain (primary encounter diagnosis) Cholesterolosis of gallbladder S/p laparoscopic cholecystectomy RECOMMENDATION -Prescribed PRN pain regimen for continued post-op pain -Recommend avoiding fatty/greasy meals -Continue with weight restrictions (no lifting, pushing, pulling, or squatting >20lbs) for 4 weeks after surgery -Return to clinic in ~3 weeks if symptoms have not improved Elizabeth Richardson DO April 05, 2024 12:53 PM Allergies As of Date: 03/29/2024 Noted Allergy Reaction GABAPENTIN 09/12/2013 14 - Other: See Comments 5 - Intolerance TOPIRAMATE 09/12/2017 5 - Intolerance Comments: Other reaction(s): totally out of it Date Reviewed: 03/29/2024 Reviewed by: Valerie Enrique MA - Fully Assessed Reason for Visit: Post-Op Visit [1236] Cmt: 1-2 week follow up Primary Visit Diagnosis:Acute post-operative pain [G89.18] Other Visit Diagnoses: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 - oxyCODONE IR (ROXICODONE) 5 mg immediate release tablet Take 1 tablet by mouth at bedtime as needed for pain for up to 10 days. - ondansetron (ZOFRAN) 4 mg tablet Take 1 tablet by mouth every 8 hours as needed for nausea/vomiting. - metFORMIN (GLUCOPHAGE) 500 mg tablet Take 500 mg by mouth two times a day. - clonazePAM (KLONOPIN) 0.5 mg tablet Take 0.5 mg by mouth two times a day as needed. - risperiDONE (RISPERDAL) 1 mg tablet Take 1 mg by mouth once daily. - omeprazole (PRILOSEC) 40 mg capsule Take 40 mg by mouth once daily. - dexmethylphenidate HCl (FOCALIN) 5 mg tablet Take 5 mg by mouth once daily. - levothyroxine (SYNTHROID) 175 mcg tablet Take 175 mcg by mouth once daily. - tiZANidine (ZANAFLEX) 4 mg tablet Take 4 mg by mouth three times daily as needed. Take 4 mg by mouth three times daily as needed. - SUMAtriptan (IMITREX) 100 mg tablet TAKE 1 TABLET BY MOUTH at onset of headache, if no relief may repeat in 2 (more content not included)... Normal [facility] CNOVon 03-22-2024 CNOV Office Visit (BRANDON ) ----- NADIA GONZALEZ ([id number]) 1980 F Date Time Provider Department 03/22/24 1:15 PM GERARDO LOBO During your visit today, we recorded the following information about you: Li Orr APRN.[facility] 03/22/2024 1:44 PM Signed IMPRESSION: PLAN: Patient seen with Gerardo ARAMBULA. Plan: Post-op patient instructions were reviewed with the patient. I have explained to Ms. Gonzalez that she may return to normal activity with the following restrictions: no lifting over 20 lbs, no soaking in tub, pool or hot tub, no pulling, and no pushing. I have encouraged her to contact me at any time with any questions or concerns that may arise. Follow up:1-2 weeks SUBJECTIVE: On 03/06/2024 she underwent Laparoscopic cholecystectomy with intraoperative cholangiogram Laparoscopic bilateral transversus abdominus plane block with Dr. Elizabeth Richardson. Patient presents now for follow up. Patient complaints: Nausea, Diarrhea. She is watching what she eats and eating smaller meals. Has noticed diarrhea occurring after fatty meals. Pain periumbilical after 105lb dog jumped on her yesterday. Reports pain 5/10 using ibuprofen 800mg still having discomfort. Patient denies: Vomiting, Constipation, Fever, Chills, Redness around wound, Drainage from incision/s, and Bulges or mass OBJECTIVE: General Appearance: alert, oriented and in no acute distress, well nourished, cooperative Abdomen: soft and tender periumbilical area Surgical Pathology FINAL DIAGNOSIS Gallbladder, cholecystectomy: - Cholesterolosis. Li Orr APRN.[employer] 03/22/2024 Allergies As of Date: 03/22/2024 Noted Allergy Reaction GABAPENTIN 09/12/2013 14 - Other: See Comments 5 - Intolerance TOPIRAMATE 09/12/2017 5 - Intolerance Comments: Other reaction(s): totally out of it Date Reviewed: 03/22/2024 Reviewed by: Valerie Enrique MA - Fully Assessed Reason for Visit: Post-Op Visit [1236] Cmt: 03/06 CF LC w/C Primary Visit Diagnosis:S/P laparoscopic cholecystectomy [Z90.49] Other Visit Diagnosis:Post-operative nausea and vomiting [R11.2, Z98.890] Order(s):ondansetron (ZOFRAN) 4 mg tabletTake 1 tablet by mouth every 8 hours as needed for nausea/vomiting.Disp: 20 tabletRfl: 0 oxyCODONE IR (ROXICODONE) 5 mg immediate release tabletTake 1 tablet by mouth every 6 hours as needed for pain for up to 5 days.Disp: 10 tabletRfl: 0 Prescriptions as of 03/22/2024 - ondansetron (ZOFRAN) 4 mg tablet Take 1 tablet by mouth every 8 hours as needed for nausea/vomiting. - oxyCODONE IR (ROXICODONE) 5 mg immediate release tablet Take 1 tablet by mouth every 6 hours as needed for pain for up to 5 days. - metFORMIN (GLUCOPHAGE) 500 mg tablet Take 500 mg by mouth two times a day. - clonazePAM (KLONOPIN) 0.5 mg tablet Take 0.5 mg by mouth two times a day as needed. - risperiDONE (RISPERDAL) 1 mg tablet Take 1 mg by mouth once daily. - omeprazole (PRILOSEC) 40 mg capsule Take 40 mg by mouth once daily. - dexmethylphenidate HCl (FOCALIN) 5 mg tablet Take 5 mg by mouth once daily. - levothyroxine (SYNTHROID) 175 mcg tablet Take [...] 300 mg 24 hr tablet once daily. Problem List As Of Date 03/22/2024 Noted Resolved CLASSICAL MIGRAINE [346.0] 08/08/2002 ACUTE GASTRITIS [535.0] 08/08/2002 NEUROTIC DEPRESSION [F34.1] 03/04/2003 Hypothyroidism [E03.9] 01/27/2010 Prescriptions ordered this encounter Disp Refills Start End ONDANSETRON HCL 4 MG TABLET 20 t* 0 03/22/2024 Route: ORAL Sig: Take 1 tablet by mouth every 8 hours as needed for nausea/vomiting. OXYCODONE 5 MG TABLET 10 t* 0 03/22/2024 03/27/2024 Route: ORAL Sig: Take 1 tablet by mouth every 6 hours as needed for pain for up to 5 days. Medications Discontinued During This Encounter Prescriptions - ondansetron (ZOFRAN) 4 mg tablet (Discontinued) Take 1 tablet by mouth every 8 hours as needed for nausea/vomiting. Disposition: Return in about 1 week (around 03/29/2024). Follow-up and Disposition History for Encounter Date Provider Department Center 03/22/20[id number] Encounter Status:Closed by LI ORR on 03/22/24 [facility] ANES POSTPROC EVALon 025 ANES POSTPROC EVAL HNO ID: [id number] Author: SUPA OTTO MD Service: Anesthesiology Author Type: Anesthesiologist Type: Anesthesia Postprocedure Evaluation Filed: 03/06/2024 10:33 Note Text: POST ANESTHESIA EVALUATION NOTE : 1980 Procedure Summary Date: 03/06/24 Room / Location: [place] [address] / [place] Anesthesia Start: 824 Anesthesia Stop: 100 Procedure: LAPAROSCOPIC CHOLECYSTECTOMY WITH GRAMS (Abdomen) Diagnosis: Biliary dyskinesia (Biliary dyskinesia [K82.8]) Surgeons: Elizabeth Richardson DO Responsible Provider: Supa Otto MD Anesthesia Type: general ASA Status: 2 Anesthesia Type: general Airway Type: ETT Last Vitals Vitals Value Taken Time BP 140/81 03/06/24 1030 Temp 36.2 ?C (97.2 ?F) 03/06/24 1007 Pulse 83 03/06/24 1031 Resp 12 03/06/24 1031 SpO2 97 % 03/06/24 1031 Vitals shown include unfiled device data. Post Anesthesia Patient Status Patient Evaluation: bedside. Anticipated Disposition: phase 2 then home. Neurological Status: aware and responsive. Pulmonary Status: breathing comfortably on room air Airway Control: returned to baseline unsupported. Cardiovascular Status: stable. Pain Management: clinically adequate Postoperative Hydration: acceptable. Intraoperative Events: no significant anesthesia events Post Operative Nausea/Vomiting Status: no significant post operative nausea or vomiting Recommendation: continue current plan of care. Anesthesia Observations No Documentation SIGNATURE: Supa Otto MD PATIENT NAME: Nadia Gonzalez DATE: March 06, 2024 TIME: 10:33 AM CSN: [id number] [facility] ANES PRE-OPon 03-06-2024 ANES PRE-OP HNO ID: [id number] Author: SUPA OTTO MD Service: Anesthesiology Author Type: Anesthesiologist Type: Anesthesia Preprocedure Evaluation Filed: 03/06/2024 08:19 Note Text: ANESTHESIOLOGY DAY OF SURGERY NOTE : 1980 Procedure Information Date/Time: 03/06/24 0935 Procedure: LAPAROSCOPIC CHOLECYSTECTOMY WITH GRAMS (Abdomen) - LAPAROSCOPIC CHOLECYSTECTOMY WITH GRAMS [2390] Location: [place] [address] / [place] Surgeons: Finelli, Elizabeth C, DO Estimated body mass index is 29.18 kg/m? as calculated from the following: Height as of this encounter: 162.6 cm (5' 4). Weight as of this encounter: 77.1 kg (170 lb). Most recent hematocrit and potassium results: Hematocrit 41.2 11/18/2004 Potassium 3.5 01/26/2024 Relevant Problems CARDIO (+) Migraine with aura ENDO (+) Hypothyroidism NEURO-PSYCH (+) Migraine with aura I - PHYSICAL EVALUATION AIRWAY Patient intubated: No. Tracheostomy tube not present Mallampati: I. TM distance: >3 FB. Neck ROM: full ROM without neurological symptoms. Mouth opening: adequate. Short neck: no. Thick neck: no DENTAL Normal dental observations. Dental findings: poor dentition. Additional comments: Pt c/o soft teeth and states that they break easily. . Additional exam findings: yes. CARDIOVASCULAR Normal cardiovascular observations. Rhythm: regular Rate: normal PULMONARY Normal pulmonary observations. Breath sounds clear to auscultation. ABDOMINAL Normal abdominal observations. Abdomen: soft. Bowel sounds: normal. II - ANESTHESIA PLAN ASA Score: 2 Anesthetic Plan: general Airway type: ETT The patient is not a current smoker. NPO Status: adequate Beta Renee Monitoring Plan Monitoring plan: standard ASA. Post Procedure Analgesic Plan Postoperative analgesic plan: parenteral or oral opioids and multimodal analgesia. Informed Consent Anesthetic risks, benefits, alternatives, personnel and consent discussed: yes. Patient / Responsible Democrat agrees to proceed: yes Patient / Surrogate agrees to blood products: blood products not planned DNR status not reviewed with patient and/or family prior to surgery. Significant changes in the patient condition since the History and Physical, not otherwise documented in primary service progress note: no. Potential Anesthesia issues that may suggest increased risk of complications or contraindication to planned procedure: none. Discussed the possibility of lip / dental damage: yes Vitals Value Taken Time BP 150/86 03/06/24 0759 Pulse 94 03/06/24 0759 Resp 16 03/06/24 075 Temp 36.7 ?C (98.1 ?F) 03/06/24 0759 SpO2 100 % 03/06/24 0759 Facility-Administered Medications as of 03/06/2024 Medication Dose Route Frequency lidocaine (PF) 10 mg/mL (1 %) 1-2 mg injection (XYLOCAINE) 0.1-0.2 mL INTRADERMAL PRN NaCl 0.9% iv flush bag 20 mL INTRAVENOUS PRN ceFAZolin iv piggyback 2 g in D5W (iso-osmotic) 100 mL (ANCEF) 2 g INTRAVENOUS Pre-Op Once [COMPLETED] acetaminophen 1,000 mg tab(s) (TYLENOL) 1,000 mg ORAL Pre-Op Once [COMPLETED] promethazine 12.5 mg tab(s) (PHENERGAN) 12.5 mg ORAL Pre-Op Once scopolamine (delivers 1 mg over 3 days) 1 Patch (TRANSDERM-SCOP) 1 Patch TRANSDERMAL ONCE scopolamine - VERIFY patch OTHER q 8 H [START ON 03/07/2024] scopolamine - REMOVE PATCH OTHER ONCE Outpatient Medications as of 03/06/2024 Medication Sig levothyroxine (SYNTHROID) 175 mcg tablet Take 175 mcg by mouth once daily. tiZANidine (ZANAFLEX) 4 mg tablet Take 4 mg by mouth three times daily as needed. Take 4 mg by mouth three times daily as needed. hydroCHLOROthiazide (HYDRODIURIL, ESIDRIX) 25 mg tablet Take 25 mg by mouth every morning. buPROPion XL (WELLBUTRIN XL) 300 mg 24 hr tablet once daily. metFORMIN (GLUCOPHAGE) 500 mg tablet Take 500 mg by mouth two times a day. clonazePAM (KLONOPIN) 0.5 mg tablet Take 0.5 mg by mouth two times a day as needed. risperiDONE (RISPERDAL) 1 mg tablet Take 1 mg by mouth once daily. omeprazole (PRILOSEC) 40 mg capsule Take 40 mg by mouth once daily. dexmethylphenidate HCl (FOCALIN) 5 mg tablet Take 5 mg by mouth once daily. oxyCODONE IR (ROXICODONE) 5 mg immediate release tablet Take 1 tablet by mouth every 6 hours as needed for pain for up to 5 days. ondansetron (ZOFRAN) 4 mg tablet Take 1 tablet by mouth every 8 hours as needed for nausea/vomiting. SUMAtriptan (IMITREX) 100 mg tablet TAKE 1 TABLET BY MOUTH at onset of headache, if no relief may repeat in 2 (TWO) HOURS. ibuprofen (MOTRIN) 800 mg tablet Take by mouth as directed. FLUoxetine HCl (PROZAC) 40 mg capsule once daily. acetaminophen 300 mg-caffeine 40 mg-butalbital 50 mg (FIORICET) per capsule TAKE 1 CAPSULE BY MOUTH EVERY 4 HOURS NEEDED for headaches I have interviewed and examined the patient. I have reviewed the medical record and/or the pre-anesthesia evaluation, pertinent labs, and test results. This contains updated information obtained (more content not included)... Normal [facility] NURSING PROGon 03-06-2024 NURSING PROG HNO ID: [id number] Author: BETTY SHELTON, RN Service: ? Author Type: Registered Nurse Type: Nursing Progress Note Filed: 03/06/2024 11:24 Note Text: Dr otto notified and viewed rash to right hand and right groin. Pt denies itching or burning. Pt and of with discharge with rash and to follow up if gets worse or shortness of breath occurs Normal [facility] OPERATIVE NOon 03-06-2024 OPERATIVE NO HNO ID: [id number] Author: ELIZABETH RICHARDSON DO Service: General Surgery Author Type: Physician Type: Operative Report Filed: 03/06/2024 10:17 Note Text: OPERATIVE/PROCEDURE REPORT LOG ID: [id number] SURGERY/PROCEDURE DATE: 03/06/2024 INCISION/PROCEDURE START TIME: 8:47 AM INCISION CLOSE/PROCEDURE END TIME: 9:58 AM SURGEON(S)/PROCEDURALIST( S) AND HAND MODEL(S): Surgeons and Role: * Elizabeth Richardson DO - Primary Physician Patternmaker Bench: Sarah Schuster PA-C SURGERY/PROCEDURE(S): Laparoscopic cholecystectomy with intraoperative cholangiogram Laparoscopic bilateral transversus abdominus plane block ANESTHESIA: General INDICATION: 44 year old female presented to clinic on 02/10/24 for right upper quadrant pain, nausea, and vomiting. She had a RUQ US that showed hepatomegaly with no acute gallbladder pathology. A HIDA scan was normal. She had an upper endoscopy performed at an outside clinic which was also normal. We discussed gallbladder dyskinesia and she elected to proceed with laparoscopic cholecystectomy with intraoperative cholangiogram. All risks, benefits, alternatives, and possible complications were discussed with the patient and she provided consent to proceed with the operation. SURGERY/PROCEDURE DETAILS: The patient was seen and examined in the pre-operative area. The risks, benefits, and alternatives to the procedure were discussed with the patient and informed consent was documented. The patient was brought to the operating room and transferred to the operating table in supine position. General anesthesia was induced without difficulty. The patient was prepped and draped in the usual sterile manner. A final time out was performed. The skin was anesthetized and a supraumbilical incision was subsequently made. Access to the intra-abdominal cavity was achieved using the Nghia technique. A finger sweep confirmed location within the intra-abdominal cavity, and there were some infraumbilical omental adhesions to the anterior abdominal wall.The abdomen was insufflated without incident and the pressure not allowed to exceed 15 mmHg. A bilateral laparoscopic transversus abdominus plane block was performed with a mixture of Exparel and 0.25% bupivicaine with epinephrine. The gallbladder was identified and noted to be contracted. Three 5mm ports were placed under direct visualization, one in the epigastric region and two in the right upper quadrant. The gallbladder hilum was dissected using electrocautery until the critical view of safety was fully exposed. The cystic artery was clipped as was the cystic duct. Endoshears were used to make a partial incision across the cystic duct and a cholangiogram catheter was placed into the cystic duct. An intra-operative cholangiogram was completed under fluoroscopy and there was contrast noted to be in the right hepatic, left hepatic, common hepatic, and common bile ducts as well as flowing into the duodenum. The cholangiogram equipment was removed. 3 additional clips were applied to the cystic duct. The cystic duct and cystic artery were then transected. Electrocautery was utilized to dissect the gallbladder free from the liver bed in a top down approach due to the contraction of tissue in the hilum. There was a posterior cystic artery branch, which was clipped and divided. Hemostasis was achieved. There was no spillage of gallstones nor bile. The gallbladder was removed via the supraumbilical incision in endocatch bag. The ports were removed under direct visualization. The supra-umbilical port fascia was closed using 0 vicryl in a figure-of-8 fashion with two interrupted sutures. Care was taken to not damage intra-abdominal contents through the use of protective S retractors. Local anesthetic was injected to all port sites. The skin of the incision was closed using 3-0 and 4-0 vicryl and dressed using Exofin skin glue. The patient was reversed from anesthesia without difficulty and transported to PACU in stable condition. All instrument, needle, and sponge counts were correct. Intraoperative cholangiogram: Fluoro time: 00:06 (min:sec) Air kerma: 2.59 mGy Patient position: Supine Number of images saved: 1 Contrast used: 50:50 isovue contrast:saline was injected by the surgeon Findings: Contrast flowed through the cystic duct and opacified a normal caliber common bile duct. The duodenum filled rapidly without any filling defects. The bilateral intrahepatic bile ducts were well visualized. Impression: Normal cholangiogram Read by: Elizabeth Richardson DO PRE-OP/PRE-PROCEDURE DIAGNOSIS: Biliary dyskinesia POST-OP/POST-PROCEDURE DIAGNOSIS: Same as Preop ESTIMATED BLOOD LOSS: 10 mls SPECIMENS: ID Type Source Tests Collected by Time Destination A : Tissue Gallbladder SURGICAL PATHOLOGY Elizabeth Richardson DO 03/06/2024 8:55 AM IMPLANTABLE DEVICES: NONE DRAINS: None COMPLICATIONS: None CLOSURE TECHNIQUE: Pr (more content not included)... Normal [facility] SURGICAL PATHOLOGYon 025 CASE REPORT Normal [facility] Comment on above: Order Comment: Livan zuñiga Type: TISSUE SPECIMENOrdering Facility: [facility] Address: [address] [place] [address] Result Comment: Surg ica Pathology Report Case: [id number] Authorizing Provider: Elizabeth Richardson DO Collected: 03/06/2024 08:55 AM Ordering Location: [facility] Surgery Received: 03/06/2024 11:27 AM Pathologist: Simba Noble MD Specimen: Gallbladder Performed By: #### S ####[facility] LABCLIA [id number] [place] [address] [place] CLINICAL HISTORY Normal [facility] Comment on above: Order Comment: Livan zuñiga Type: TISSUE SPECIMENOrdering Facility: [facility] Address: [address] [place] [address] Result Comment: Pre- op diagnosis: Biliary dyskinesia [K82.8] Performed By: #### S ####[facility] LABCLIA [id number] [place] [address] [place] FINAL DIAGNOSIS Normal [facility] Comment on above: Order Comment: Livan zuñiga Type: TISSUE SPECIMENOrdering Facility: [facility] Address: [address] [place] [address] Result Comment: Gall bladder, cholecystectomy: - Cholesterolosis. Performed By: #### S ####[facility] LABCLIA [id number] [place] [address] [place] FINAL PERFORMING LAB Normal [facility] Comment on above: Order Comment: Speci men Type: TISSUE SPECIMENOrdering Facility: [facility] Address: [address] [place] [address] Result Comment: Diag nostic interpretation performed at: [facility], [address] [place] [address] CLIA# [id number] Law Professor: Randell Romero MD Performed By: #### S ####[facility] LABCLIA [id number] [place] [address] [place] GROSS DESCRIPTION A. Gallbladder Normal [facility] Comment on above: Order Comment: Speci men Type: TISSUE SPECIMENOrdering Facility: [facility] Address: [address] [place] [address] Result Comment: Rece ived in formalin, labeled as gallbladder is a partially collapsed gallbladder measuring 6.3 x 3.5 x 2.5 cm. No defects are noted. The serosa is pink-purple carbajal, smooth and glistening. Nguyen-brown viscous bile is present in the lumen. No calculi are noted, the cystic duct is not impacted. The mucosa is nguyen-brown and velvety in appearance. The wall averages 0.3 cm in thickness. Limehouse Worker sections to include gallbladder wall and cystic duct margin are submitted in cassette A1. CG March 06, 2024 4:06 PM Gross examination performed at [facility], [address] [place] [address] Performed By: #### S ####[facility] LABCLIA [id number] [place] [address] [place] HISTORY PHYSICALon HISTORY PHYSICAL HNO ID: [id number] Author: ELIZABETH RICHARDSON, DO Service: ? Author Type: Physician Type: H&P Filed: 03/04/2024 23:07 Note Text: General Surgery New Patient REASON FOR VISIT Nadia Gonzalez is a 44 year old female who is scheduled for a consult at the request of Self for Consult (follow up 01/25 [facility] RUQ pain N/V 01/03 US ABD COMPLETE 01/25 [facility]/). My final recommendations will be communicated back to the requesting physician by the way of the shared medical record, fax, or via US Mail History of Present Illness: Nadia Gonzalez is a 44 year old female with contributing past medical and surgical history significant for migraine, hypothyroidism, gastritis, and dysthymic disorder. The patient presents as ED follow-up for RUQ pain, N/V. She had a RUQ US completed in December which showed no acute process and hepatomegaly. Gallbladder appeared normal. No bile duct dilation. HIDA scan obtained in January showed no evidence of acute cholecystitis or CBD obstruction. There was a normal gallbladder ejection fraction at 75% following administration of CCK. Of note, there was enterogastric reflux noted. She takes Zofran PRN. She underwent EGD at OSH and results were normal with no significant signs of gastritis. She continues to have some RUQ pain. PAST MEDICAL HISTORY Diagnosis Date Acute gastritis BRCA1 negative BRCA2 negative Chronic pelvic pain in female Depression High blood pressure Hypothyroidism IBS (irritable bowel syndrome) Migraine with aura Migraines Vulvodynia PAST SURGICAL HISTORY Procedure Laterality Date APPENDECTOMY 2012 BX OF BREAST; INCISIONAL benign LIGATE FALLOPIAN TUBE 2010 PAST SURGICAL HISTORY OF 2006 bladder repair, and sling removed in 2007 PAST SURGICAL HISTORY OF 2013 incisional hernia repair PAST SURGICAL HISTORY OF Right 2013 radius and ulna and in 2019 hardware removed TOOTH EXTRACTION wisdom teeth TOTAL ABDOM HYSTERECTOMY 2013 adenomyosis Robotic LAVH/partial UMBILICAL HERNIA REPAIR 5 OR OLDER 12/16/2020 Dr. Lassiter FAMILY HISTORY Problem Relation Age of Onset Hypertension Mother Thyroid Mother Overactive thyroid GI Sister Social History Tobacco Use Smoking status: Every Day Current packs/day: 0.50 Average packs/day: 0.5 packs/day for 6.0 years (3.0 ttl pk-yrs) Types: Cigarettes Smokeless tobacco: Never Tobacco comments: Pt advised to quit Vaping Use Vaping status: Never Used Substance Use Topics Alcohol use: Yes Comment: A couple of drinks per month Drug use: Yes Types: Marijuana The patient has the following: Problem List Noted Noted By Resolved Resolved By Hypothyroidism 01/27/2010 Jose Juarez MD No Dysthymic disorder 03/04/2003 Jennifer Sánchez No Migraine with aura 08/08/2002 Jennifer Sánchez No Acute gastritis 08/08/2002 Jennifer Sánchez No MEDICATIONS Current Outpatient Medications Medication Sig Dispense Refill ondansetron (ZOFRAN) 4 mg tablet Take 1 tablet by mouth every 8 hours as needed for nausea/vomiting. 30 tablet 0 levothyroxine (SYNTHROID) 175 mcg tablet Take 175 mcg by mouth once daily. tiZANidine (ZANAFLEX) 4 mg tablet Take 4 mg by mouth three times daily as needed. Take 4 mg by mouth three times daily as needed. SUMAtriptan (IMITREX) 100 mg tablet TAKE 1 TABLET BY MOUTH at onset of headache, if no relief may repeat in 2 (TWO) HOURS. ibuprofen (MOTRIN) 800 mg tablet Take by mouth as directed. FLUoxetine HCl (PROZAC) 40 mg capsule once daily. hydroCHLOROthiazide (HYDRODIURIL, ESIDRIX) 25 mg tablet Take 25 mg by mouth every morning. acetaminophen 300 mg-caffeine 40 mg-butalbital 50 mg (FIORICET) per capsule TAKE 1 CAPSULE BY MOUTH EVERY 4 HOURS NEEDED for headaches buPROPion XL (WELLBUTRIN XL) 300 mg 24 hr tablet once daily. No current facility-administered medications for this visit. CURRENT ALLERGIES ALLERGIES Allergen Reactions Gabapentin Other: See Comments, Intolerance Topiramate Intolerance Other reaction(s): totally out of it REVIEW OF SYSTEMS PAIN ASSESSMENT: Pain Pain Level: 2 Pain Location: Abdomen-Right Upper Quadrant Description: Sharp, Dull, Aching Duration Amount of Time: 6 Duration Units: Months Frequency: Intermittent Intervention/Comfort measure: Medication, Reposition, Distractions, Emotional Support/Reassurance, Heat GENERAL: No weight loss, malaise or fevers. RESPIRATORY: Negative for cough, wheezing, or shortness of breath. CARDIOVASCULAR: Negative for chest pain, leg swelling, or palpitations. GI: Abdominal pain as detailed above. Some nausea and vomiting. No diarrhea or constipation. PHYSICAL EXAMINATION BP 133/85 Pulse 92 Ht 5' 4 (1.63m) Wt 170 lb 4.8 oz (77.2kg) SpO2 100% BMI 29.22 kg/(m2). General Appearance: Well appearing, alert, in no acute distress, well-hydrated, well nourished. Lungs: Lungs clear to auscultation. No wheezing, rhonchi, rales Heart: RRR without mur (more content not included)... Normal [facility] ----- NADIA GONZALEZ ([id number]) 1980 F Date Time Provider Department 02/24/24 ELIZABETH RICHARDSON During your visit today, we recorded the following information about you: Allergies As of Date: 02/24/2024 Noted Allergy Reaction GABAPENTIN 09/12/2013 14 - Other: See Comments 5 - Intolerance TOPIRAMATE 09/12/2017 5 - Intolerance Comments: Other reaction(s): totally out of it Date Reviewed: 02/23/2024 Reviewed by: Valerie Enrique MA - Fully Assessed Prescriptions as of 05/16/2024 - ondansetron (ZOFRAN) 4 mg tablet Take 1 tablet by mouth every 8 hours as needed for nausea/vomiting. - metFORMIN (GLUCOPHAGE) 500 mg tablet Take 500 mg by mouth two times a day. - clonazePAM (KLONOPIN) 0.5 mg tablet Take 0.5 mg by mouth two times a day as needed. - risperiDONE (RISPERDAL) 1 mg tablet Take 1 mg by mouth once daily. - omeprazole (PRILOSEC) 40 mg capsule Take 40 mg by mouth once daily. - dexmethylphenidate HCl (FOCALIN) 5 mg tablet Take 5 mg by mouth once daily. - levothyroxine (SYNTHROID) 175 mcg tablet Take [...] may repeat in 2 (TWO) HOURS. - hydroCHLOROthiazide (HYDRODIURIL, ESIDRIX) 25 mg tablet Take 25 mg by mouth every morning. - acetaminophen 300 mg-caffeine 40 mg-butalbital 50 mg (FIORICET) per capsule TAKE 1 CAPSULE BY MOUTH EVERY 4 HOURS NEEDED for headaches - buPROPion XL (WELLBUTRIN XL) 300 mg 24 hr tablet once daily. Problem List As Of Date 02/24/2024 Noted Resolved CLASSICAL MIGRAINE [346.0] 08/08/2002 ACUTE GASTRITIS [535.0] 08/08/2002 NEUROTIC DEPRESSION [F34.1] 03/04/2003 Hypothyroidism [E03.9] 01/27/2010 Encounter Status:Closed by SAWYER TATUM on 05/16/24 [facility] CNOVon 02-23-2024 [facility] Office Visit ([facility] ) ----- NADIA GONZALEZ ([id number]) 1980 F Date Time Provider Department 02/23/24 1:00 PM ELIZABETH RICHARDSON During your visit today, we recorded the following information about you: Pulse Blood pressure Weight Height 92/minute 133/85 77.2 kg 1.626 m Elizabeth Richardson DO 03/04/2024 11:07 PM Signed General Surgery New Patient REASON FOR VISIT Nadia Gonzalez is a 44 year old female who is scheduled for a consult at the request of Self for Consult (follow up 01/25 [facility] RUQ pain N/V 01/03 US ABD COMPLETE 01/25 [facility]/). My final recommendations will be communicated back to the requesting physician by the way of the shared medical record, fax, or via US Mail History of Present Illness: Nadia Gonzalez is a 44 year old female with contributing past medical and surgical history significant for migraine, hypothyroidism, gastritis, and dysthymic disorder. The patient presents as ED follow-up for RUQ pain, N/V. She had a RUQ US completed in December which showed no acute process and hepatomegaly. Gallbladder appeared normal. No bile duct dilation. HIDA scan obtained in January showed no evidence of acute cholecystitis or CBD obstruction. There was a normal gallbladder ejection fraction at 75% following administration of CCK. Of note, there was enterogastric reflux noted. She takes Zofran PRN. She underwent EGD at OSH and results were normal with no significant signs of gastritis. She continues to have some RUQ pain. PAST MEDICAL HISTORY Diagnosis Date Acute gastritis BRCA1 negative BRCA2 negative Chronic pelvic pain in female Depression High blood pressure Hypothyroidism IBS (irritable bowel syndrome) Migraine with aura Migraines Vulvodynia PAST SURGICAL HISTORY Procedure Laterality Date APPENDECTOMY 2012 BX OF BREAST; INCISIONAL benign LIGATE FALLOPIAN TUBE 2010 PAST SURGICAL HISTORY OF 2006 bladder repair, and sling removed in 2007 PAST SURGICAL HISTORY OF 2013 incisional hernia repair PAST SURGICAL HISTORY OF Right 2013 radius and ulna and in 2019 hardware removed TOOTH EXTRACTION wisdom teeth TOTAL ABDOM HYSTERECTOMY 2013 adenomyosis Robotic LAVH/partial UMBILICAL HERNIA REPAIR 5 OR OLDER 12/16/2020 Dr. Lassiter FAMILY HISTORY Problem Relation Age of Onset Hypertension Mother Thyroid Mother Overactive thyroid GI Sister Social History Tobacco Use Smoking status: Every Day Current packs/day: 0.50 Average packs/day: 0.5 packs/day for 6.0 years (3.0 ttl pk-yrs) Types: Cigarettes Smokeless tobacco: Never Tobacco comments: Pt advised to quit Vaping Use Vaping status: Never Used Substance Use Topics Alcohol use: Yes Comment: A couple of drinks per month Drug use: Yes Types: Marijuana The patient has the following: Problem List Noted Noted By Resolved Resolved By Hypothyroidism 01/27/2010 Jose Juarez MD No Dysthymic disorder 03/04/2003 Jennifer Sánchez No Migraine with aura 08/08/2002 Jennifer Sánchez No Acute gastritis 08/08/2002 Jennifer Sánchez No MEDICATIONS Current Outpatient Medications Medication Sig Dispense Refill ondansetron (ZOFRAN) 4 mg tablet Take 1 tablet by mouth every 8 hours as needed for nausea/vomiting. 30 tablet 0 levothyroxine (SYNTHROID) 175 mcg tablet Take 175 mcg by mouth once daily. tiZANidine (ZANAFLEX) 4 mg tablet Take 4 mg by mouth three times daily as needed. Take 4 mg by mouth three times daily as needed. SUMAtriptan (IMITREX) 100 mg tablet TAKE 1 TABLET BY MOUTH at onset of headache, if no relief may repeat in 2 (TWO) HOURS. ibuprofen (MOTRIN) 800 mg tablet Take by mouth as directed. FLUoxetine HCl (PROZAC) 40 mg capsule once daily. hydroCHLOROthiazide (HYDRODIURIL, ESIDRIX) 25 mg tablet Take 25 mg by mouth every morning. acetaminophen 300 mg-caffeine 40 mg-butalbital 50 mg (FIORICET) per capsule TAKE 1 CAPSULE BY MOUTH EVERY 4 HOURS NEEDED for headaches buPROPion XL (WELLBUTRIN XL) 300 mg 24 hr tablet once daily. No current facility-administered medications for this visit. CURRENT ALLERGIES ALLERGIES Allergen Reactions Gabapentin Other: See Comments, Intolerance Topiramate Intolerance Other reaction(s): totally out of it REVIEW OF SYSTEMS PAIN ASSESSMENT: Pain Pain Level: 2 Pain Location: Abdomen-Right Upper Quadrant Description: Sharp, Dull, Aching Duration Amount of Time: 6 Duration Units: Months Frequency: Intermittent Intervention/Comfort measure: Medication, Reposition, Distractions, Emotional Support/Reassurance, Heat GENERAL: No weight loss, malaise or fevers. RESPIRATORY: Negative for cough, wheezing, or shortness of breath. CARDIOVASCULAR: Negative for chest pain, leg swelling, or palpitations. GI: Abdominal pain as detailed above. Some nausea and vomiting. No diarrhea or constipation. PHYSICAL EXAMINATION BP 133/85 (more content not included)... Normal [facility] HISTORY PHYSICALon HISTORY PHYSICAL HNO ID: [id number] Author: ELIZABETH RICHARDSON, DO Service: ? Author Type: Physician Type: H&P Filed: 02/19/2024 22:16 Note Text: General Surgery New Patient REASON FOR VISIT Nadia Gonzalez is a 44 year old female who is scheduled for a consult at the request of self for Consult (Gallbladder 01/25 [facility] RUQ pain N/V 01/03 US ABD COMPLETE 01/25 [facility]/). My final recommendations will be communicated back to the requesting physician by the way of the shared medical record, fax, or via US Mail History of Present Illness: Nadia Gonzalez is a 44 year old female with contributing past medical and surgical history significant for hypothyroidism, migraine, dysthymic disorder, and gastritis. The patient presents with right upper quadrant pain, nausea, and vomiting. She reports that these symptoms started around Thanksgiving and has been intermittent since. Since completing the US in December and the HIDA scan in January she has implemented various lifestyle and diet changes and the pain has improved but not completely resolved. PAST MEDICAL HISTORY Diagnosis Date Acute gastritis Migraine with aura PAST SURGICAL HISTORY Procedure Laterality Date APPENDECTOMY 2012 LIGATE FALLOPIAN TUBE 2010 PAST SURGICAL HISTORY OF 2006 bladder repair, and sling removed in 2007 PAST SURGICAL HISTORY OF 2013 incisional hernia repair PAST SURGICAL HISTORY OF Right 2013 radius and ulna and in 2018 hardware removed TOOTH EXTRACTION wisdom teeth TOTAL ABDOM HYSTERECTOMY 2013 UMBILICAL HERNIA REPAIR 5 OR OLDER 12/16/2020 Dr. Lassiter FAMILY HISTORY Problem Relation Age of Onset Hypertension Mother Thyroid Mother Overactive thyroid GI Sister Social History Tobacco Use Smoking status: Every Day Current packs/day: 0.50 Average packs/day: 0.5 packs/day for 6.0 years (3.0 ttl pk-yrs) Types: Cigarettes Smokeless tobacco: Never Tobacco comments: Pt advised to quit Vaping Use Vaping status: Never Used Substance Use Topics Alcohol use: Yes Comment: A couple of drinks per month Drug use: Yes Types: Marijuana The patient has the following: Problem List Noted Noted By Resolved Resolved By Hypothyroidism 01/27/2010 Jose Juarez MD No Dysthymic disorder 03/04/2003 Jennifer Sánchez No Migraine with aura 08/08/2002 Jennifer Sánchez No Acute gastritis 08/08/2002 Jennifer Sánchez No MEDICATIONS Current Outpatient Medications Medication Sig Dispense Refill ondansetron (ZOFRAN) 4 mg tablet Take 1 tablet by mouth every 8 hours as needed for nausea/vomiting. 30 tablet 0 levothyroxine (SYNTHROID) 175 mcg tablet Take 175 mcg by mouth once daily. tiZANidine (ZANAFLEX) 4 mg tablet Take 4 mg by mouth three times daily as needed. Take 4 mg by mouth three times daily as needed. SUMAtriptan (IMITREX) 100 mg tablet TAKE 1 TABLET BY MOUTH at onset of headache, if no relief may repeat in 2 (TWO) HOURS. ibuprofen (MOTRIN) 800 mg tablet Take by mouth as directed. FLUoxetine HCl (PROZAC) 40 mg capsule once daily. hydroCHLOROthiazide (HYDRODIURIL, ESIDRIX) 25 mg tablet Take 25 mg by mouth every morning. acetaminophen 300 mg-caffeine 40 mg-butalbital 50 mg (FIORICET) per capsule TAKE 1 CAPSULE BY MOUTH EVERY 4 HOURS NEEDED for headaches buPROPion XL (WELLBUTRIN XL) 300 mg 24 hr tablet once daily. No current facility-administered medications for this visit. CURRENT ALLERGIES ALLERGIES Allergen Reactions Gabapentin Other: See Comments, Intolerance Topiramate Intolerance Other reaction(s): totally out of it REVIEW OF SYSTEMS PAIN ASSESSMENT: Pain Pain Level: 4 Pain Location: Abdomen-Right Upper Quadrant Description: Sharp (twisting) Duration Amount of Time: 10 Duration Units: Years Frequency: Intermittent Intervention/Comfort measure: Medication, Reposition, Distractions, Heat, Positioning GENERAL: No weight loss, malaise or fevers. RESPIRATORY: Negative for cough, wheezing, or shortness of breath. CARDIOVASCULAR: Negative for chest pain, leg swelling, or palpitations. GI:mild right upper quadrant pain, no current nausea, vomiting, diarrhea, or constipation. PHYSICAL EXAMINATION BP 125/84 Pulse 88 Ht 5' 4 (1.63m) Wt 170 lb 3.2 oz (77.2kg) SpO2 100% BMI 29.20 kg/(m2). General Appearance: Well appearing, alert, in no acute distress, well-hydrated, well nourished. Lungs: Lungs clear to auscultation. No wheezing, rhonchi, rales Heart: RRR without murmur, gallop, or rubs. No ectopy Abdomen: Abdomen soft, non-tender. Bowel sounds normal. No masses, organomegaly The sensitive examination was discussed with the Patient or Patient's Authorized Limehouse Worker. As applicable, any other physician, advance practice provider, medical student, or other health professional student that will be observing or involved in the sensitive examination for educational or training purposes was discussed with the Patient or Authorized Limehouse Worker. Th (more content not included)... Normal [facility] CNOVon 02-10-2024 CNOV Office Visit ([facility] ) ----- NADIA GONZALEZ ([id number]) 1980 F Date Time Provider Department 02/10/24 1:00 PM ELIZABETH RICHARDSON During your visit today, we recorded the following information about you: Pulse Blood pressure Weight Height 88/minute 125/84 77.2 kg 1.626 m Elizabeth Richardson DO 02/19/2024 10:16 PM Signed General Surgery New Patient REASON FOR VISIT Nadia Gonzalez is a 44 year old female who is scheduled for a consult at the request of self for Consult (Gallbladder 01/25 [facility] [employer] RUQ pain N/V 01/03 US ABD COMPLETE 01/25 [facility]/). My final recommendations will be communicated back to the requesting physician by the way of the shared medical record, fax, or via US Mail History of Present Illness: Nadia Gonzalez is a 44 year old female with contributing past medical and surgical history significant for hypothyroidism, migraine, dysthymic disorder, and gastritis. The patient presents with right upper quadrant pain, nausea, and vomiting. She reports that these symptoms started around Thanksgiving and has been intermittent since. Since completing the US in December and the HIDA scan in January she has implemented various lifestyle and diet changes and the pain has improved but not completely resolved. PAST MEDICAL HISTORY Diagnosis Date Acute gastritis Migraine with aura PAST SURGICAL HISTORY Procedure Laterality Date APPENDECTOMY 2013 LIGATE FALLOPIAN TUBE 2010 PAST SURGICAL HISTORY OF 2006 bladder repair, and sling removed in 2007 PAST SURGICAL HISTORY OF 2013 incisional hernia repair PAST SURGICAL HISTORY OF Right 2013 radius and ulna and in 2019 hardware removed TOOTH EXTRACTION wisdom teeth TOTAL ABDOM HYSTERECTOMY 2013 UMBILICAL HERNIA REPAIR 5 OR OLDER 12/16/2020 Dr. Lassiter FAMILY HISTORY Problem Relation Age of Onset Hypertension Mother Thyroid Mother Overactive thyroid GI Sister Social History Tobacco Use Smoking status: Every Day Current packs/day: 0.50 Average packs/day: 0.5 packs/day for 6.0 years (3.0 ttl pk-yrs) Types: Cigarettes Smokeless tobacco: Never Tobacco comments: Pt advised to quit Vaping Use Vaping status: Never Used Substance Use Topics Alcohol use: Yes Comment: A couple of drinks per month Drug use: Yes Types: Marijuana The patient has the following: Problem List Noted Noted By Resolved Resolved By Hypothyroidism 01/27/2010 Jose Juarez MD No Dysthymic disorder 03/04/2003 Jennifer Sánchez No Migraine with aura 08/08/2002 Jennifer Sánchez No Acute gastritis 08/08/2002 Jennifer Sánchez No MEDICATIONS Current Outpatient Medications Medication Sig Dispense Refill ondansetron (ZOFRAN) 4 mg tablet Take 1 tablet by mouth every 8 hours as needed for nausea/vomiting. 30 tablet 0 levothyroxine (SYNTHROID) 175 mcg tablet Take 175 mcg by mouth once daily. tiZANidine (ZANAFLEX) 4 mg tablet Take 4 mg by mouth three times daily as needed. Take 4 mg by mouth three times daily as needed. SUMAtriptan (IMITREX) 100 mg tablet TAKE 1 TABLET BY MOUTH at onset of headache, if no relief may repeat in 2 (TWO) HOURS. ibuprofen (MOTRIN) 800 mg tablet Take by mouth as directed. FLUoxetine HCl (PROZAC) 40 mg capsule once daily. hydroCHLOROthiazide (HYDRODIURIL, ESIDRIX) 25 mg tablet Take 25 mg by mouth every morning. acetaminophen 300 mg-caffeine 40 mg-butalbital 50 mg (FIORICET) per capsule TAKE 1 CAPSULE BY MOUTH EVERY 4 HOURS NEEDED for headaches buPROPion XL (WELLBUTRIN XL) 300 mg 24 hr tablet once daily. No current facility-administered medications for this visit. CURRENT ALLERGIES ALLERGIES Allergen Reactions Gabapentin Other: See Comments, Intolerance Topiramate Intolerance Other reaction(s): totally out of it REVIEW OF SYSTEMS PAIN ASSESSMENT: Pain Pain Level: 4 Pain Location: Abdomen-Right Upper Quadrant Description: Sharp (twisting) Duration Amount of Time: 10 Duration Units: Years Frequency: Intermittent Intervention/Comfort measure: Medication, Reposition, Distractions, Heat, Positioning GENERAL: No weight loss, malaise or fevers. RESPIRATORY: Negative for cough, wheezing, or shortness of breath. CARDIOVASCULAR: Negative for chest pain, leg swelling, or palpitations. GI:mild right upper quadrant pain, no current nausea, vomiting, diarrhea, or constipation. PHYSICAL EXAMINATION BP 125/84 Pulse 88 Ht 5' 4 (1.63m) Wt 170 lb 3.2 oz (77.2kg) SpO2 100% BMI 29.20 kg/(m2). General Appearance: Well appearing, alert, in no acute distress, well-hydrated, well nourished. Lungs: Lungs clear to auscultation. No wheezing, rhonchi, rales Heart: RRR without murmur, gallop, or rubs. No ectopy Abdomen: Abdomen soft, non-tender. Bowel sounds normal. No masses, organomegaly The sensitive examination was discussed with the Patient or Patient's Authorized Limehouse Worker. As appl (more content not included)... Normal [facility] metabolic 2000 panelon 01-26-2024 Albumin [Mass/Vol] 4.3 g/dL Normal 3.9-4.9 [facility] Comment on above: Order Comment: Speci yogesh Type: BLOOD SPECIMENOrdering Facility: [facility] Address: [address] [place] [address] Performed By: #### 2 4323-8, 3016-3 ####[facility] LABCLIA [id number] [place] [address] [place] ALP [Catalytic activity/Vol] 70 U/L Normal 34-123 [facility] Comment on above: Order Comment: Livan zuñiga Type: BLOOD SPECIMENOrdering Facility: [facility] Address: [address] [place] [address] Performed By: #### 2 4323-8, 3016-3 ####[facility] LABCLIA [id number] [place] [address] [place] ALT With P-5'-P [Catalytic activity/Vol] 12 U/L Normal 7-38 [facility] Comment on above: Order Comment: Livan zuñiga Type: BLOOD SPECIMENOrdering Facility: [facility] Address: [address] [place] [address] Performed By: #### 2 4323-8, 3016-3 ####[facility] LABCLIA [id number] [place] [address] [place] Anion gap [Moles/Vol] 10 mmol/L Normal 8-15 [facility] Comment on above: Order Comment: Speci men Type: BLOOD SPECIMENOrdering Facility: [facility] Address: [address] [place] [address] Performed By: #### 2 4323-8, 3016-3 ####[facility] [place] LABCLIA [id number] [facility] [place] [address] [place] AST With P-5'-P [Catalytic activity/Vol] 17 U/L Normal 13-35 [facility] Comment on above: Order Comment: Speci men Type: BLOOD SPECIMENOrdering Facility: [facility] Address: [address] [place] [address] Performed By: #### 2 4323-8, 3016-3 ####[facility] [place] LABCLIA [id number] [place] [address] [place] Bilirubin [Mass/Vol] 0.2 mg/dL Normal 0.2-1.3 [facility] Comment on above: Order Comment: Speci men Type: BLOOD SPECIMENOrdering Facility: [facility] Address: [address] [place] [address] Performed By: #### 2 4323-8, 6-3 ####[facility] [place] LABCLIA [id number] [place] [address] [place] Calcium [Mass/Vol] 9.7 mg/dL Normal 8.5-10.2 [facility] Comment on above: Order Comment: Speci men Type: BLOOD SPECIMENOrdering Facility: [facility] Address: [address] [place] [address] Performed By: #### 2 4323-8, 3016-3 ####[facility] [place] LABCLIA [id number] [place] [address] [place] Chloride [Moles/Vol] 99 mmol/L Normal 98-107 [facility] Comment on above: Order Comment: Speci men Type: BLOOD SPECIMENOrdering Facility: [facility] Address: [address] [place] [address] Performed By: #### 2 4323-8, 3015-3 ####[facility] LABCLIA [id number] [place] [address] [place] CO2 [Moles/Vol] 28 mmol/L Normal 22-30 [facility] Comment on above: Order Comment: Speci men Type: BLOOD SPECIMENOrdering Facility: [facility] Address: [address] [place] [address] Performed By: #### 2 4323-8, 3015-3 ####[facility] LABCLIA [id number] [place] [address] [place] [facility] Creatinine [Mass/Vol] 0.70 mg/dL Normal 0.58-0.96 [facility] Comment on above: Order Comment: Speci men Type: BLOOD SPECIMENOrdering Facility: [facility] Address: [address] [place] [address] Performed By: #### 2 4323-8, 3015-3 ####[facility] LABCLIA [id number] [place] [address] [facility] Creatinine and Glomerular filtration rate.predicted panel (S/P/Bld) 110 mL/min/1.73m??? Normal >=60 [facility] Comment on above: Order Comment: Speci men Type: BLOOD SPECIMENOrdering Facility: [facility] Address: [address] [place] [address] Result Comment: Mary mated Glomerular Filtration Rate (eGFR) is calculated using the 2020 CKD-EPI creatinine equation. This equation utilizes serum creatinine, sex, and age as parameters. The creatinine assay has traceable calibration to isotope dilution-mass spectrometry. Refer to KDIGO guidelines for clinical interpretation. In patients with unstable renal function, e.g. those with acute kidney injury, the eGFR may not accurately reflect actual GFR. Performed By: #### 2 4323-8, 3015-3 ####[facility] LABCLIA [id number] [place] [address] [place] Glucose [Mass/Vol] 112 mg/dL High 74-99 [facility] Comment on above: Order Comment: Speci men Type: BLOOD SPECIMENOrdering Facility: [facility] Address: [address] [place] [address] Result Comment: The [place] Diabetes Association (ADA) provides guidance for cutoff values for fasting glucose and random glucose. The ADA defines fasting as no caloric intake for at least 8 hours. Fasting plasma glucose results between 100 to 125 mg/dL indicate increased risk for diabetes (prediabetes). Fasting plasma glucose results greater than or equal to 126 mg/dL meet the criteria for diagnosis of diabetes. In the absence of unequivocal hyperglycemia, results should be confirmed by repeat testing. In a patient with classic symptoms of hyperglycemia or hyperglycemic crisis, random plasma glucose results greater than or equal to 200 mg/dL meet the criteria for diagnosis of diabetes. Reference: Standards of Medical Care in Diabetes 2016, [place] Diabetes Association. Diabetes Care. 2016.39(Suppl 1). Performed By: #### 2 4323-8, 6-3 ####[facility] LABCLIA [id number] [place] [address] [place] Potassium [Moles/Vol] 3.5 mmol/L Low 3.7-5.1 [facility] Comment on above: Order Comment: Livan zuñiga Type: BLOOD SPECIMENOrdering Facility: [facility] Address: [address] [place] [address] Performed By: #### 2 4323-8, 3015-3 ####[facility] LABCLIA [id number] [place] [address] [place] Protein [Mass/Vol] 7.3 g/dL Normal 6.3-8.0 [facility] Comment on above: Order Comment: Livan zuñiga Type: BLOOD SPECIMENOrdering Facility: [facility] Address: [address] [place], [place] [id number] Performed By: #### 2 4323-8, 6-3 ####[facility] [place] LABCLIA [id number] [place] [address] [place] Sodium [Moles/Vol] 137 mmol/L Normal 136-144 [facility] Comment on above: Order Comment: Livan men Type: BLOOD SPECIMENOrdering Facility: [facility] Address: [address] [place] [address] Performed By: #### 2 4323-8, 3016-3 ####[facility] [place] LABCLIA [id number] [place] [address] [place] Urea nitrogen [Mass/Vol] 9 mg/dL Normal 7-21 [facility] Comment on above: Order Comment: Speci men Type: BLOOD SPECIMENOrdering Facility: [facility] Address: [address] [place] [address] Performed By: #### 2 4323-8, 3016-3 ####[facility] [place] LABCLIA [id number] [place] [address] [place] NM Gallbladder Views W carlin cystokinin and W radionuclide Naima 01-26-2024 No evidence of acute cholecystitis or common bile duct obstruction. Normal gallbladder ejection fraction following CCK administration. Enterogastric reflux is noted. Report Dictated on Electronically Signed By: Radhames Coffman MD Electronically Signed Date/Time: 01/26/2024 1:07 PM [facility] [employer] Patient Name: NADIA GONZALEZ : 1980 Exam Date/Time: 01/26/2024 11:01 Procedure: NM HEPATOBILIARY SCAN WITH PHARM AGENT W/CCK Ordering Provider: LUNDBERG ERIN Reason For Exam: nausea with vomiting, abdominal pain ruq HEPATOBILIARY SCAN WITH CCK CLINICAL INDICATION: Abdominal pain Following the intravenous administration of 3.1 mCi Tc-99m Choletec a hepatobiliary study was performed. Images were then acquired over the abdomen in the anterior projection for approximately one hour. Subsequently, the patient was given 1.6 mcg of CCK. Dynamic images with TASHI over the gallbladder was used to calculate the gallbladder ejection fraction. COMPARISON: 03/04/2015 FINDINGS: Normal radiopharmaceutical uptake is demonstrated within the liver, with excretion into the biliary tree. Activity is demonstrated within the gallbladder within 45 minutes. Tracer also passes into the small bowel. Enterogastric reflux is noted. Using TASHI activity, the gallbladder ejection fraction was calculated at 75 percent following CCK administration (normal above 35%). [employer] Radhames Coffman MD - 01/26/2024 Patient Name: NADIA [facility]ALEZ : 1980 [id number] Exam Date/Time: 01/26/2024 11:01 Procedure: NM HEPATOBILIARY SCAN WITH PHARM AGENT W/CCK Ordering Provider: LUNDBERG ERIN Reason For Exam: nausea with vomiting, abdominal pain ruq HEPATOBILIARY SCAN WITH CCK CLINICAL INDICATION: Abdominal pain Following the intravenous administration of 3.1 mCi Tc-99m Choletec a hepatobiliary study was performed. Images were then acquired over the abdomen in the anterior projection for approximately one hour. Subsequently, the patient was given 1.6 mcg of CCK. Dynamic images with TASHI over the gallbladder was used to calculate the gallbladder ejection fraction. COMPARISON: 03/04/2015 FINDINGS: Normal radiopharmaceutical uptake is demonstrated within the liver, with excretion into the biliary tree. Activity is demonstrated within the gallbladder within 45 minutes. Tracer also passes into the small bowel. Enterogastric reflux is noted. Using TASHI activity, the gallbladder ejection fraction was calculated at 75 percent following CCK administration (normal above 35%). IMPRESSION: No evidence of acute cholecystitis or common bile duct obstruction. Normal gallbladder ejection fraction following CCK administration. Enterogastric reflux is noted. Report Dictated on Electronically Signed By: Radhames Coffman MD Electronically Signed Date/Time: 01/26/2024 1:07 PM EST [facility] Radiology Study observation (narrative) [facility] NM Gallbladder Views W carlin cystokinin and W radionuclide IVOrdered By: Radhames Coffman on 01-26-2024 [facility] TSH SerPl-aCncon 01-26-2024 TSH Qn 2.340 m[IU]/L Normal 0.270-4.20 0 [facility] Comment on above: Order Comment: Speci men Type: BLOOD SPECIMENOrdering Facility: [facility] Address: [address] [place] [address] Result Comment: If t he patient is , TSH reference range varies by gestational period: First Trimester (weeks 9-12): 0.180-2.990 mIU/L Second Trimester: 0.110-3.980 mIU/L Third Trimester: 0.480-4.710 mIU/L Peter Haque et al. A Practical Approach for the Verifications and Determination of Site- and Trimester-Specific Reference Intervals for Thyroid Function tests in . Thyroid, 2019:29:3:412-420. Manohar Schmitz, et al. 2017 Guidelines of the [place] Thyroid Association for the Diagnosis and Management of Thyroid Disease during and the . Thyroid, 2017:27:3:315-389. Performed By: #### 2 4323-8, 3016-3 ####[facility] LABIA [id number] [place] [address] [facility] US ABDOMEN COMPLETEon 2023 US ABDOMEN COMPLETE Patient Name: NADIA GONZALEZ : 1980 Exam Date/Time: 01/04/2024 08:05 Procedure: US ABDOMEN COMPLETE Ordering Provider: LUNDBERG ERIN Reason For Exam: r10.11 r11.2 ULTRASOUND ABDOMEN COMPLETE EXAM DATE AND TIME: 01/04/2024 8:05 AM EST INDICATION: 43 years Female with right upper quadrant pain COMPARISON: 09/28/2019 TECHNIQUE: Complete ultrasound of abdomen FINDINGS: Pancreas: The visualized portions of the pancreatic head and body are unremarkable. The remainder of the pancreas is obscured by bowel gas Liver: Normal echogenicity and contours but mildly enlarged. No focal lesion identified. Gallbladder: Normal. Per the ambulatory technologist, the sonographic Botello's sign was negative. Bile ducts: No intrahepatic and extrahepatic biliary dilatation Common bile duct: 2 mm Right kidney: Normal size measuring 10.1 cm. Normal parenchymal echogenicity without solid mass or hydronephrosis. Left kidney: Normal size measuring 11.3 cm. Normal parenchymal echogenicity without solid mass or hydronephrosis. Spleen: Normal size measuring 8.5 x 4.2 x 7.1 cm. Normal echogenicity without a lesion. Aorta and Inferior vena cava: Visualized portions are normal Ascites: None IMPRESSION: 1. No acute process. 2. Hepatomegaly. Report Dictated on Electronically Signed By: Supa Bolaños MD Electronically Signed Date/Time: 01/06/2024 10:41 AM EST [facility] US Abdomenon 01-06-2024 1. No acute process. 2. Hepatomegaly. Report Dictated on Electronically Signed By: Supa Bolaños MD Electronically Signed Date/Time: 01/06/2024 10:41 AM [facility] Patient Name: NADIA GONZALEZ : 1980 Exam Date/Time: 01/04/2024 08:05 Procedure: US ABDOMEN COMPLETE Ordering Provider: LUNDBERG ERIN Reason For Exam: r10.11 r11.2 ULTRASOUND ABDOMEN COMPLETE EXAM DATE AND TIME: 01/04/2024 8:05 AM EST INDICATION: 43 years Female with right upper quadrant pain COMPARISON: 09/28/2019 TECHNIQUE: Complete ultrasound of abdomen FINDINGS: Pancreas: The visualized portions of the pancreatic head and body are unremarkable. The remainder of the pancreas is obscured by bowel gas Liver: Normal echogenicity and contours but mildly enlarged. No focal lesion identified. Gallbladder: Normal. Per the ambulatory technologist, the sonographic Botello's sign was negative. Bile ducts: No intrahepatic and extrahepatic biliary dilatation Common bile duct: 2 mm Right kidney: Normal size measuring 10.1 cm. Normal parenchymal echogenicity without solid mass or hydronephrosis. Left kidney: Normal size measuring 11.3 cm. Normal parenchymal echogenicity without solid mass or hydronephrosis. Spleen: Normal size measuring 8.5 x 4.2 x 7.1 cm. Normal echogenicity without a lesion. Aorta and Inferior vena cava: Visualized portions are normal Ascites: None [facility] Supa Bolaños MD - 01/06/2024 Patient Name: NADIA GONZALEZ : 1980 Exam Date/Time: 01/04/2024 08:05 Procedure: US ABDOMEN COMPLETE Ordering Provider: LUNDBERG ERIN Reason For Exam: r10.11 r11.2 ULTRASOUND ABDOMEN COMPLETE EXAM DATE AND TIME: 01/04/2024 8:05 AM EST INDICATION: 43 years Female with right upper quadrant pain COMPARISON: 09/28/2019 TECHNIQUE: Complete ultrasound of abdomen FINDINGS: Pancreas: The visualized portions of the pancreatic head and body are unremarkable. The remainder of the pancreas is obscured by bowel gas Liver: Normal echogenicity and contours but mildly enlarged. No focal lesion identified. Gallbladder: Normal. Per the ambulatory technologist, the sonographic Botello's sign was negative. Bile ducts: No intrahepatic and extrahepatic biliary dilatation Common bile duct: 2 mm Right kidney: Normal size measuring 10.1 cm. Normal parenchymal echogenicity without solid mass or hydronephrosis. Left kidney: Normal size measuring 11.3 cm. Normal parenchymal echogenicity without solid mass or hydronephrosis. Spleen: Normal size measuring 8.5 x 4.2 x 7.1 cm. Normal echogenicity without a lesion. Aorta and Inferior vena cava: Visualized portions are normal Ascites: None IMPRESSION: 1. No acute process. 2. Hepatomegaly. Report Dictated on Electronically Signed By: Supa Bolaños MD Electronically Signed Date/Time: 01/06/2024 10:41 AM EST [facility] [employer] US AbdomenOrdered By: Lauren Bolaños on 01-06-2024 [facility] Work Phone: US Abdomenon 01-04-2024 Radiology Study observation (narrative) [facility] CBC W/Diff, Automatedon - Absolute Lymph 1.83 X10 3/uL Normal 0.83-4.51 [facility] Comment on above: Performed By: #### L 501.9985, L501.9520, L500.4100, L100.0100, L500.4050 #### [facility] [address] [place], [address] Absolute Neut 3.5 X10 3/uL Normal 2.0-7.7 [facility] Comment on above: Performed By: #### L 501.9985, L501.9520, L500.4100, L100.0100, L500.4050 #### [facility] [address] [place], [address] Basophils/100 WBC (Bld) 0.5 % Normal 0-1 [facility] Comment on above: Performed By: #### L 501.9985, L501.9520, L500.4100, L100.0100, L500.4050 #### [facility] [address] [place], [address] Eosinophils/100 WBC (Bld) 1.5 % Normal 0-5 [facility] Comment on above: Performed By: #### L 501.9985, L501.9520, L500.4100, L100.0100, L500.4050 #### [facility] [address] [place], [address] Erythrocyte distribution width (RBC) [Ratio] 16.7 % High 11.6-14.6 [facility] Comment on above: Performed By: #### L 501.9985, L501.9520, L500.4100, L100.0100, L500.4050 #### [facility] [address] [place], [address] Hematocrit (Bld) [Volume fraction] 35.4 % Low 37-47 [facility] Comment on above: Performed By: #### L 501.9985, L501.9520, L500.4100, L100.0100, L500.4050 #### [facility] [address] [place], [address] Hemoglobin (Bld) [Mass/Vol] 11.8 g/dL Low 12.0-15.0 [facility] Comment on above: Performed By: #### L 501.9985, L501.9520, L500.4100, L100.0100, L500.4050 #### [facility] [address] [place], [address] IG% 0.300 Normal 0.0-0.9 [facility] Comment on above: Result Comment: IG% - Immature Granulocytes (promyelocytes, myelocytes and metamyelocytes) > 1% indicates that a LEFT SHIFT is Present. Performed By: #### L 501.9985, L501.9520, L500.4100, L100.0100, L500.4050 #### [facility] [address] [place], [address] Lymphocytes/100 WBC (Bld) 30.6 % Normal 19-41 [facility] Comment on above: Performed By: #### L 501.9985, L501.9520, L500.4100, L100.0100, L500.4050 #### [facility] [address] [place], [address] MCH (RBC) [Entitic mass] 27.2 pg Normal 27.0-32.0 [facility] Comment on above: Performed By: #### L 501.9985, L501.9520, L500.4100, L100.0100, L500.4050 #### [facility] [address] [place], [address] MCHC (RBC) [Mass/Vol] 33.3 g/dL Normal 32-36 [facility] Comment on above: Performed By: #### L 501.9985, L501.9520, L500.4100, L100.0100, L500.4050 #### [facility] [address] [place], [address] MCV (RBC) [Entitic vol] 81.6 fL Normal 81-99 [facility] Comment on above: Performed By: #### L 501.9985, L501.9520, L500.4100, L100.0100, L500.4050 #### [facility] [address] [place], [address] Monocytes/100 WBC (Bld) 8.5 % Normal 0-10 [facility] Comment on above: Performed By: #### L 501.9985, L501.9520, L500.4100, L100.0100, L500.4050 #### [facility] [address] [place], [address] Neutrophils/100 WBC (Bld) 58.6 % Normal 47-70 [facility] Comment on above: Performed By: #### L 501.9985, L501.9520, L500.4100, L100.0100, L500.4050 #### [facility] [address] [place], [address] Nucleated RBC (Bld) [#/Vol] 0 10*3/uL Normal 0-5 [facility] Comment on above: Performed By: #### L 501.9985, L501.9520, L500.4100, L100.0100, L500.4050 #### [facility] [address] [place], [address] Platelet mean volume (Bld) [Entitic vol] 11.2 fL Normal 6.2-12.0 [facility] Comment on above: Performed By: #### L 501.9985, L501.9520, L500.4100, L100.0100, L500.4050 #### [facility] [address] [place], [address] Platelets (Bld) [#/Vol] 325 10*3/uL Normal 150-450 [facility] Comment on above: Performed By: #### L 501.9985, L501.9520, L500.4100, L100.0100, L500.4050 #### [facility] [address] [place], [address] RBC (Bld) [#/Vol] 4.34 10*6/uL Normal 4.2-5.4 [facility] Comment on above: Performed By: #### L 501.9985, L501.9520, L500.4100, L100.0100, L500.4050 #### [facility] [address] [place], [address] RDW SD 49.5 fl High 35.1-43.9 [facility] Comment on above: Performed By: #### L 501.9985, L501.9520, L500.4100, L100.0100, L500.4050 #### [facility] [address] [place], [address] WBC (Bld) [#/Vol] 6.0 10*3/uL Normal 4.4-11.0 [facility] Comment on above: Performed By: #### L 501.9985, L501.9520, L500.4100, L100.0100, L500.4050 #### [facility] [address] [place], [address] Comprehensive Metabolic [facility] 08-24-2023 Albumin [Mass/Vol] 3.6 g/dL Normal 3.2-5.0 [facility] Comment on above: Performed By: #### L 501.9985, L501.9520, L500.4100, L100.0100, L500.4050 #### [facility] [address] [place], [address] Albumin/Globulin [Mass ratio] 0.9 {ratio} Normal 0.9-2.4 [facility] Comment on above: Performed By: #### L 501.9985, L501.9520, L500.4100, L100.0100, L500.4050 #### [facility] [address] [place], [address] ALK P 63 U/L Normal 45-117 [facility] Comment on above: Performed By: #### L 501.9985, L501.9520, L500.4100, L100.0100, L500.4050 #### [facility] [address] [place], [address] ALT [Catalytic activity/Vol] 19 U/L Normal 13-56 [facility] Comment on above: Performed By: #### L 501.9985, L501.9520, L500.4100, L100.0100, L500.4050 #### [facility] [address] [place], [address] AST [Catalytic activity/Vol] 15 U/L Normal 15-37 [facility] Comment on above: Performed By: #### L 501.9985, L501.9520, L500.4100, L100.0100, L500.4050 #### [facility] [address] [place], [address] Bilirubin [Mass/Vol] 0.20 mg/dL Normal 0.20-1.00 [facility] Comment on above: Result Comment: For patients on eltrombopag therapy, use of Dimension Mclean TBIL is not recommended. Performed By: #### L 501.9985, L501.9520, L500.4100, L100.0100, L500.4050 #### [facility] [address] [place], [address] BUN/CRE 13.1 RATIO Normal 10-20 [facility] Comment on above: Performed By: #### L 501.9985, L501.9520, L500.4100, L100.0100, L500.4050 #### [facility] [address] [place], [address] CA,Total 8.8 mg/dL Normal 8.5-10.1 [facility] Comment on above: Performed By: #### L 501.9985, L501.9520, L500.4100, L100.0100, L500.4050 #### [facility] [address] [place], [address] Chloride [Moles/Vol] 102 mmol/L Normal 98-107 [facility] Comment on above: Performed By: #### L 501.9985, L501.9520, L500.4100, L100.0100, L500.4050 #### [facility] [address] [place], [address] CO2 [Moles/Vol] 26.0 mmol/L Normal 21.0-32.0 [facility] Comment on above: Performed By: #### L 501.9985, L501.9520, L500.4100, L100.0100, L500.4050 #### [facility] [address] [place], [address] Creatinine [Mass/Vol] 0.69 mg/dL Normal 0.55-1.02 [facility] Comment on above: Result Comment: The validity of the calculated GFR GFRAA in patients over 70 years has not been determined. Clinical correlation is essential. Performed By: #### L 501.9985, L501.9520, L500.4100, L100.0100, L500.4050 #### [facility] [address] [place], [address] EST GFR - AA 119 mL/min Normal >60 [facility] Comment on above: Result Comment: Afri can [place] GFR Calc Performed By: #### L 501.9985, L501.9520, L500.4100, L100.0100, L500.4050 #### [facility] [address] [place], [address] GAP 7 Normal 5-15 [facility] Comment on above: Performed By: #### L 501.9985, L501.9520, L500.4100, L100.0100, L500.4050 #### [facility] [address] [place], [address] GFR/1.73 sq M.predicted among non-blacks MDRD (S/P/Bld) [Vol rate/Area] 98 mL/min/{1.73_m2} Normal >60 [facility] Comment on above: Result Comment: Non- GFR Calc Performed By: #### L 501.9985, L501.9520, L500.4100, L100.0100, L500.4050 #### [facility] [address] [place], [address] Globulin (S) [Mass/Vol] 3.9 g/dL Normal 2.2-4.2 [facility] Comment on above: Performed By: #### L 501.9985, L501.9520, L500.4100, L100.0100, L500.4050 #### [facility] [address] [place], [address] Glucose [Mass/Vol] 91 mg/dL Normal 74-106 [facility] Comment on above: Performed By: #### L 501.9985, L501.9520, L500.4100, L100.0100, L500.4050 #### [facility] [address] [place], [address] Potassium [Moles/Vol] 3.1 mmol/L Low 3.5-5.1 [facility] Comment on above: Performed By: #### L 501.9985, L501.9520, L500.4100, L100.0100, L500.4050 #### [facility] [address] [place], [address] Sodium [Moles/Vol] 135 mmol/L Low 136-145 [facility] Comment on above: Performed By: #### L 501.9985, L501.9520, L500.4100, L100.0100, L500.4050 #### [facility] [address] [place], [address] T PROT 7.5 g/dL Normal 6.4-8.2 [facility] Comment on above: Performed By: #### L 501.9985, L501.9520, L500.4100, L100.0100, L500.4050 #### [facility] [address] [place], [address] Urea nitrogen [Mass/Vol] 9 mg/dL Normal 7-18 [facility] Comment on above: Performed By: #### L 501.9985, L501.9520, L500.4100, L100.0100, L500.4050 #### [facility] [address] [place], [address] Hemoglobin A1con 08-24-2023 HbA1c (Bld) [Mass fraction] 5.1 % Normal 3.8-5.6 [facility] Comment on above: Result Comment: Norm al < 5.7 % Prediabetic 5.7 - 6.4 % Diabetic >or= 6.5 % Please note range changes. Performed By: #### L 501.9985, L501.9520, L500.4100, L100.0100, L500.4050 #### [facility] [address] [place], [address] Lipid Profileon 08-24-2023 Cholesterol [Mass/Vol] 184 mg/dL Normal 200 [facility] Comment on above: Result Comment: <200 mg/dL Desirable 200-240 mg/dL Borderline >240 mg/dL High Risk Performed By: #### L 501.9985, L501.9520, L500.4100, L100.0100, L500.4050 #### [facility] [address] [place], [address] Cholesterol in HDL [Mass/Vol] 53 mg/dL Normal [facility] Comment on above: Result Comment: The drugs N-Acetylcysteine and Metamizole may falsely depress this assay. Reference Range HDL <40 mg/dL Low HDL Cholesterol HDL >or= 60 mg/dL High HDL Cholesterol Performed By: #### L 501.9985, L501.9520, L500.4100, L100.0100, L500.4050 #### [facility] [address] [place], [address] Cholesterol in LDL [Mass/Vol] 110 mg/dL Normal 0-130 [facility] Comment on above: Performed By: #### L [id number], [id number], L500.4100, L100.0100, L500.4050 #### [facility] [address] [place], [address] Cholesterol in VLDL [Mass/Vol] 21 mg/dL Normal 5-40 [facility] Comment on above: Performed By: #### L 501.9985, L501.9520, L500.4100, L100.0100, L500.4050 #### [facility] [address] [place], [address] Triglyceride [Mass/Vol] 105 mg/dL Normal [facility] Comment on above: Result Comment: The drugs N-Acetylcysteine and Metamizole may falsely depress this assay. Serum Triglycerides Reference Interval Normal <150 mg/dL Borderline high 150 - 199 mg/dL High 200 - 499 mg/dL Very High > or = 500 mg/dL Performed By: #### L 501.9985, L501.9520, L500.4100, L100.0100, L500.4050 #### [facility] [address] [place], [address] Thyroid Stim Hormone (TSH)on 08-24-2023 TSH 0.47 uIU/mL Normal 0.358-3.74 [facility] Comment on above: Performed By: #### L 501.9985, [id number], L500.4100, L100.0100, L500.4050 #### [facility] [address] [place], [address] DBT Breast - bilateral scree quintin 06-13-2023 No mammographic evid ence of malignancy. ASSESSMENT: Category 2 Benign RECOMMENDATION: Routine screening mammogram in 1 year. Bilateral CANCER RISK ASSESSMENT: This risk assessment is based on patient provided information collected in a risk survey taken at the time of this examination. LIFETIME BREAST CANCER RISK: Marialuisa: 12.42% - If greater than or equal to 20%, consider annual mammogram and annual screening Breast MRI or follow up in high risk clinic. Is the patient at elevated risk based on the HBOC criteria? Yes (Hereditary Breast and Ovarian Cancer) - If Yes, consider genetic counseling and testing with high risk follow up. Is the patient at elevated risk based on the Colvin Syndrome criteria? Yes - If Yes, consider genetic counseling and testing with high risk follow up. Report Dictated on Electronically Signed By: Gerardo Fisher MD Electronically Signed Date/Time: 06/13/2023 12:41 PM EDT [facility] Patient Name: NADIA GONZALEZ : 1980 Exam Date/Time: 06/13/2023 10:49 Procedure: BI MAMMOGRAM SCREENING TOMOSYNTHESIS BILATERAL Ordering Provider: CISNEROS ELIZABETH Reason For Exam: screening Image views: 2D Bilateral CC and MLO views were acquired. 3D Bilateral CC and MLO views were acquired. Images were reviewed with CAD. Markings on images: BB's = Nipples; skin lesions Open inupiat = Palpable Line = Scar COMPARISON: 05/17/2022 TISSUE DENSITY: BIRADS B - There are scattered fibroglandular densities. FINDINGS: No suspicious masses, architectural distortions or suspiciously clustered microcalcifications are identified. There is no evidence of skin thickening or nipple retraction. There are stable prominent left axillary lymph nodes. There are no significant changes when compared with prior studies. [facility] Gerardo Fisher MD - 06/13/2023 Patient Name: NADIA GONZALEZ : 1980 Exam Date/Time: 06/13/2023 10:49 Procedure: BI MAMMOGRAM SCREENING TOMOSYNTHESIS BILATERAL Ordering Provider: CISNEROS ELIZABETH Reason For Exam: screening Image views: 2D Bilateral CC and MLO views were acquired. 3D Bilateral CC and MLO views were acquired. Images were reviewed with CAD. Markings on images: BB's = Nipples; skin lesions Open inupiat = Palpable Line = Scar COMPARISON: 05/17/2022 TISSUE DENSITY: BIRADS B - There are scattered fibroglandular densities. FINDINGS: No suspicious masses, architectural distortions or suspiciously clustered microcalcifications are identified. There is no evidence of skin thickening or nipple retraction. There are stable prominent left axillary lymph nodes. There are no significant changes when compared with prior studies. IMPRESSION: No mammographic evidence of malignancy. ASSESSMENT: Category 2 Benign RECOMMENDATION: Routine screening mammogram in 1 year. Bilateral CANCER RISK ASSESSMENT: This risk assessment is based on patient provided information collected in a risk survey taken at the time of this examination. LIFETIME BREAST CANCER RISK: Marialuisa: 12.42% - If greater than or equal to 20%, consider annual mammogram and annual screening Breast MRI or follow up in high risk clinic. Is the patient at elevated risk based on the HBOC criteria? Yes (Hereditary Breast and Ovarian Cancer) - If Yes, consider genetic counseling and testing with high risk follow up. Is the patient at elevated risk based on the Colvin Syndrome criteria? Yes - If Yes, consider genetic counseling and testing with high risk follow up. Report Dictated on Electronically Signed By: Gerardo Fisher MD Electronically Signed Date/Time: 06/13/2023 12:41 PM EDT [facility] Radiology Study observation (narrative) [facility] DBT Breast - bilateral scree ningOrdered By: Gerardo Fisher on 06-13-2023 [facility] Culture, urineOrdered By: Do ra Luciano on 11-03-2022 Bacteria identified Cx Nom (U) Escherichia coli [facility] - Chemistry and C hemistry - challengeon 11-03-2022 Bilirubin Ql (U) Negative [facility] Glucose Ql (U) Negative [facility] Ketones Ql (U) Negative [facility] pH (U) 6.5 [pH] [facility] Specific gravity (U) [Rel density] 1.015 [facility] Urobilinogen (U) [Mass/Vol] 0.2106514 mg/dL [facility] - Hematology and Cell countson 11-03-2022 Hemoglobin Ql (U) Large [facility] - Specimen inform ationon 11-03-2022 Clarity (U) Clear [facility] Color (U) STRAW [facility] - Urinalysison Nitrite Ql (U) Negative [facility] Protein Ql (U) 2+ [facility] No Panel Informationon 11-03 Urine Leukocytes Positive [facility] Urine Non-Hemolyzed Blood [facility] Absolute lymphocyte countOrd ered By: Dawson Luciano on 09-01-2022 Lymphocytes Auto (Unsp spec) [#/Vol] 1.82 10*3/uL 0.83-4.51 [facility] Basophil percentageOrdered B y: Dawson Luciano on 09-01-2022 Basophils/100 WBC (Bld) 0.9 % 0-1 [facility] Bilirubin [Mass/Vol] 0.10 mg/dL 0.20-1.00 [facility] Comment on above: For patients on eltr ombopag therapy, use of Dimension Mclean TBIL is not recommended. Chloride [Moles/Vol] 104 mmol/L 98-107 [facility] Cholesterol [Mass/Vol] 193 mg/dL <200 [facility] Comment on above: <200 mg/dL Desirable 200-240 mg/dL Borderline >240 mg/dL High Risk Eosinophils/100 WBC (Bld) 1.9 % 0-5 [facility] Glucose [Mass/Vol] 89 mg/dL 74-106 [facility] Neutrophils (Bld) [#/Vol] 4.3 10*3/uL 2.0-7.7 [facility] Neutrophils/100 WBC (Bld) 62.9 % 47-70 [facility] Potassium [Moles/Vol] 3.2 mmol/L 3.5-5.1 [facility] Protein [Mass/Vol] 7.8 g/dL 6.4-8.2 [facility] Sodium [Moles/Vol] 138 mmol/L 136-145 [facility] Triglyceride [Mass/Vol] 162 mg/dL <199 [facility] Comment on above: The drugs N-Acetylcy steine and Metamizole may falsely depress this assay.Serum Triglycerides Reference Interval Normal <150 mg/dL Borderline high 150 - 199 mg/dL High 200 - 499 mg/dL Very High > or = 500 mg/dL WBC (Bld) [#/Vol] 6.9 10*3/uL 4.4-11.0 [facility] Blood erythrocytes count (nu mber/volume)Ordered By: Dawson Luciano on 09-01-2022 RBC (Bld) [#/Vol] 4.48 10*6/uL 4.2-5.4 [facility] Blood hemoglobin measurement (mass/volume)Ordered By: Dawson Luciano on 09-01-2022 Hemoglobin (Bld) [Mass/Vol] 12.0 g/dL 12.0-15.0 [facility] Blood lymphocytes/100 leukoc ytesOrdered By: Dawson Luciano on 09-01-2022 Lymphocytes/100 WBC (Bld) 26.6 % 19-41 [facility] Blood monocytes/100 leukocyt esOrdered By: Dawson Luciano on 09-01-2022 Monocytes/100 WBC (Bld) 7.4 % 0-10 [facility] Blood platelet mean volumeOr dered By: Dawson Luciano on 09-01-2022 Platelet mean volume (Bld) [Entitic vol] 11.2 fL 6.2-12.0 [facility] Determination of erythrocyte mean corpuscular volume (MCV)Ordered By: Dawson Luciano on 09-01-2022 MCV (RBC) [Entitic vol] 82.6 fL 81-99 [facility] Hematocrit Auto (Bld) [Volum e fraction]Ordered By: Dawson Luciano on 09-01-2022 Hematocrit (Bld) [Volume fraction] 37.0 % 37-47 [facility] - Chemistry and C hemistry - challengeOrdered By: Dawson Luciano on 09-01-2022 ALP [Catalytic activity/Vol] 77 U/L 45-117 [facility] ALT [Catalytic activity/Vol] 22 U/L 13-56 [facility] CO2 [Moles/Vol] 26.0 mmol/L 21.0-32.0 [facility] Free T4 [Mass/Vol] 1.31 ng/dL 0.76-1.46 [facility] Globulin (S) [Mass/Vol] 4.2 g/dL 2.2-4.2 [facility] Urea nitrogen/Creatinine [Mass ratio] 10.7 mg/mg 10-20 [facility] - Hematology and Cell countsOrdered By: Dawson Luciano on 09-01-2022 Erythrocyte distribution width (RBC) [Entitic vol] 47.7 fL 35.1-43.9 [facility] Erythrocyte distribution width (RBC) [Ratio] 15.8 % 11.6-14.6 [facility] Immature granulocytes/100 WBC (Bld) 0.300 % 0.0-0.9 [facility] Comment on above: IG% - Immature Granu locytes (promyelocytes, myelocytes and metamyelocytes) > 1% indicates that a LEFT SHIFT is Present. MCH (RBC) [Entitic mass] 26.8 pg 27.0-32.0 [facility] Nucleated RBC/100 WBC (Bld) [Ratio] 0 % 0-5 [facility] MCHC Auto (RBC) [Mass/Vol]Or dered By: Dawson Luciano on 09-01-2022 MCHC (RBC) [Mass/Vol] 32.4 g/dL 32-36 [facility] No Panel InformationOrdered By: Dawson Luciano on 09-01-2022 C-Reactive Protein High Sensitivity 7.85 mg/L <3.00 [facility] Comment on above: Low Relative Risk of CVD <1.0 mg/L Average Relative Risk of CVD 1.0 - 3.0 mg/L High Relative Risk of CVD >3.0 mg/L Estimated GFR (MDRD) Amer 95 mL/min >60 [facility] Comment on above: GFR Calc Estimated GFR (MDRD) Non-Af Amer 79 mL/min >60 [facility] Comment on above: Non- GFR Calc Thyroid Stimulating Hormone (TSH) 1.24 uIU/mL 0.358-3.74 [facility] Platelets bldOrdered By: Guicho Luciano on 09-01-2022 Platelets (Bld) [#/Vol] 337 10*3/uL 150-450 [facility] Serum or plasma albumin gil urement (mass/volume)Ordered By: Dawson Luciano on 09-01-2022 Albumin [Mass/Vol] 3.6 g/dL 3.2-5.0 [facility] Serum or plasma albumin/glob ulin mass ratioOrdered By: Dawson Luciano on 09-01-2022 Albumin/Globulin [Mass ratio] 0.9 {ratio} 0.9-2.4 [facility] Serum or plasma calcium gil urement (mass/volume)Ordered By: Dawson Luciano on 09-01-2022 Calcium [Mass/Vol] 8.8 mg/dL 8.5-10.1 [facility] Serum or plasma cholesterol in HDL measurement (mass/volume)Ordered By: Dawson Luciano on 09-01-2022 Cholesterol in HDL [Mass/Vol] 51 mg/dL >40 [facility] Comment on above: The drugs N-Acetylcy steine and Metamizole may falsely depress this assay. Reference Range HDL <40 mg/dL Low HDL Cholesterol HDL >or= 60 mg/dL High HDL Cholesterol Serum or plasma cholesterol in VLDL measurement (mass/volume)Ordered By: Dawson Luciano on 09-01-2022 Cholesterol in VLDL [Mass/Vol] 32 mg/dL 5-40 [facility] Serum or plasma creatinine m easurement (mass/volume)Ordered By: Dawson Luciano on 09-01-2022 Creatinine [Mass/Vol] 0.84 mg/dL 0.55-1.02 [facility] Comment on above: The validity of the calculated GFR & GFRAA in patients over 70 years has not been determined. Clinical correlation is essential. Serum or plasma low density lipoprotein (LDL) cholesterol measurement (mass/volume)Ordered By: Dawson Luciano on 09-01-2022 Cholesterol in LDL [Mass/Vol] 110 mg/dL 0-130 [facility] Serum or plasma urea nitroge n measurement (mass/volume)Ordered By: Dawson Luciano on 09-01-2022 Urea nitrogen [Mass/Vol] 9 mg/dL 7-18 [facility] Thin prep Papanicolaou smear with manual screeningOrdered By: Dawson Luciano on 09-01-2022 Thin prep Papanicolaou smear with manual screening 16 U/L 15-37 [facility] Thin prep Papanicolaou smear with manual screening 8 5-15 [facility] Whole blood hemoglobin A1c/t otal hemoglobin ratio (mass fraction)Ordered By: Dawson Luciano on 09-01-2022 HbA1c (Bld) [Mass fraction] 5.7 % 3.8-5.6 [facility] Comment on above: Normal < 5.7 % Predi abetic 5.7 - 6.4 % Diabetic >or= 6.5 % Please note range changes. No Panel Informationon 06-08 [facility] DBT Breast - bilateral diagn osticon 05-17-2022 Patient Name: NADIA GONZALEZ : 1980 Exam Date/Time: 05/17/2022 09:04 Procedure: BI MAMMOGRAM DIAGNOSTIC TOMOSYNTHESIS BILATERAL Ordering Provider: BURCH THOMAS Reason For Exam: L breast pain Prior study Comparisons: There were no priors available for comparison. Image views: 2D CC and MLO views were acquired. 3D CC and MLO views were acquired. Tissue Density: BIRADS B - There are scattered fibroglandular densities. Images were reviewed with CAD. Presentation: The patient presents for intermittent left nipple pain for the past month. Baseline mammogram. Findings: No suspicious masses, architectural distortions or suspiciously clustered microcalcifications are identified bilaterally. BREAST ULTRASOUND: Findings: Ultrasound imaging of the left breast was performed by a registered detective lieutenant with Doppler. Extensive scanning of the subareolar region of the left breast demonstrates no focal abnormality or suspicious findings. [facility] Ulices Johansen MD - 05/17/2022 Patient Name: NADIA GONZALEZ : 1980 Exam Date/Time: 05/17/2022 09:04 Procedure: BI MAMMOGRAM DIAGNOSTIC TOMOSYNTHESIS BILATERAL Ordering Provider: BURCH THOMAS Reason For Exam: L breast pain Prior study Comparisons: There were no priors available for comparison. Image views: 2D CC and MLO views were acquired. 3D CC and MLO views were acquired. Tissue Density: BIRADS B - There are scattered fibroglandular densities. Images were reviewed with CAD. Presentation: The patient presents for intermittent left nipple pain for the past month. Baseline mammogram. Findings: No suspicious masses, architectural distortions or suspiciously clustered microcalcifications are identified bilaterally. BREAST ULTRASOUND: Findings: Ultrasound imaging of the left breast was performed by a registered detective lieutenant with Doppler. Extensive scanning of the subareolar region of the left breast demonstrates no focal abnormality or suspicious findings. IMPRESSION: No mammographic or targeted sonographic correlate for patient's left breast pain. Clinical follow-up is recommended. No mammographic evidence of malignancy in either breast. Patient to return to annual screening. Markings on images: BB's = Nipples; skin lesions Open inupiat = Palpable Line = Scar ASSESSMENT: Category 1 Negative RECOMMENDATION: Clinical correlation Left Routine screening mammogram in 1 year. Bilateral Report Dictated on Electronically Signed By: Ulices Johansen Electronically Signed Date/Time: 05/17/2022 9:25 AM [facility] Panel Informationon 05-17 No mammographic or targeted sonographic correlate for patient's left breast pain. Clinical follow-up is recommended. No mammographic evidence of malignancy in either breast. Patient to return to annual screening. Markings on images: BB's = Nipples; skin lesions Open inupiat = Palpable Line = Scar ASSESSMENT: Category 1 Negative RECOMMENDATION: Clinical correlation Left Routine screening mammogram in 1 year. Bilateral Report Dictated on Electronically Signed By: Ulices Johansen Electronically Signed Date/Time: 05/17/2022 9:25 AM T [facility] No Panel InformationOrdered By: Ulices Johansen on 05-17-2022 [employer] Work Phone: US Breast - left limitedon 0 05-17-2022 Patient Name: NADIA GONZALEZ : 1980 Exam Date/Time: 05/17/2022 09:14 Procedure: BI US BREAST LIMITED LEFT Ordering Provider: BURCH THOMAS Reason For Exam: L breast pain Prior study Comparisons: There were no priors available for comparison. Image views: 2D CC and MLO views were acquired. 3D CC and MLO views were acquired. Tissue Density: BIRADS B - There are scattered fibroglandular densities. Images were reviewed with CAD. Presentation: The patient presents for intermittent left nipple pain for the past month. Baseline mammogram. Findings: No suspicious masses, architectural distortions or suspiciously clustered microcalcifications are identified bilaterally. BREAST ULTRASOUND: Findings: Ultrasound imaging of the left breast was performed by a registered detective lieutenant with Doppler. Extensive scanning of the subareolar region of the left breast demonstrates no focal abnormality or suspicious findings. [facility] Ulices Johansen MD - 05/17/2022 Patient Name: NADIA GONZALEZ : 1980 Exam Date/Time: 05/17/2022 09:14 Procedure: BI US BREAST LIMITED LEFT Ordering Provider: BURCH THOMAS Reason For Exam: L breast pain Prior study Comparisons: There were no priors available for comparison. Image views: 2D CC and MLO views were acquired. 3D CC and MLO views were acquired. Tissue Density: BIRADS B - There are scattered fibroglandular densities. Images were reviewed with CAD. Presentation: The patient presents for intermittent left nipple pain for the past month. Baseline mammogram. Findings: No suspicious masses, architectural distortions or suspiciously clustered microcalcifications are identified bilaterally. BREAST ULTRASOUND: Findings: Ultrasound imaging of the left breast was performed by a registered detective lieutenant with Doppler. Extensive scanning of the subareolar region of the left breast demonstrates no focal abnormality or suspicious findings. IMPRESSION: No mammographic or targeted sonographic correlate for patient's left breast pain. Clinical follow-up is recommended. No mammographic evidence of malignancy in either breast. Patient to return to annual screening. Markings on images: BB's = Nipples; skin lesions Open inupiat = Palpable Line = Scar ASSESSMENT: Category 1 Negative RECOMMENDATION: Clinical correlation Left Routine screening mammogram in 1 year. Bilateral Report Dictated on Electronically Signed By: Ulices Johansen Electronically Signed Date/Time: 05/17/2022 9:25 AM EDT [facility] [employer] Radiology Study observation (narrative) [facility] Absolute lymphocyte counton 11-06-2021 Lymphocytes Auto (Unsp spec) [#/Vol] 1.13 10*3/uL 0.83-4.51 [facility] Work Phone: Basophil percentageon 2021 Basophils/100 WBC (Bld) 0.4 % 0-1 [facility] Work Phone: Bilirubin [Mass/Vol] 0.40 mg/dL 0.20-1.00 [facility] Work Phone: Comment on above: For patients on eltr ombopag therapy, use of Dimension Mclean TBIL is not recommended. Chloride [Moles/Vol] 102 mmol/L 98-107 [facility] Work Phone: Cholesterol [Mass/Vol] 208 mg/dL <200 [facility] Work Phone: Comment on above: <200 mg/dL Desirable 200-240 mg/dL Borderline >240 mg/dL High Risk Eosinophils/100 WBC (Bld) 1.5 % 0-5 [facility] Work Phone: Glucose [Mass/Vol] 122 mg/dL 74-106 [facility] Work Phone: Comment on above: Fasting Glucose resu lt from 100 to 125 mg/dL suggests IMPAIRED HOMEOSTASIS per A.D.A. criteria. Neutrophils (Bld) [#/Vol] 4.9 10*3/uL 2.0-7.7 [facility] Work Phone: Neutrophils/100 WBC (Bld) 73.5 % 47-70 [facility] Work Phone: Potassium [Moles/Vol] 3.1 mmol/L 3.5-5.1 [facility] Work Phone: Protein [Mass/Vol] 8.3 g/dL 6.4-8.2 [facility] Work Phone: Sodium [Moles/Vol] 136 mmol/L 136-145 [facility] Work Phone: Triglyceride [Mass/Vol] 111 mg/dL <199 [facility] Work Phone: [phone] Comment on above: The drugs N-Acetylcy steine and Metamizole may falsely depress this assay.Serum Triglycerides Reference Interval Normal <150 mg/dL Borderline high 150 - 199 mg/dL High 200 - 499 mg/dL Very High > or = 500 mg/dL WBC (Bld) [#/Vol] 6.7 10*3/uL 4.4-11.0 [facility] Work Phone: [phone] Blood erythrocytes count (nu mber/volume)on 11-06-2021 RBC (Bld) [#/Vol] 4.73 10*6/uL 4.2-5.4 [facility] Work Phone: [phone] Blood hemoglobin measurement (mass/volume)on 11-06-2021 Hemoglobin (Bld) [Mass/Vol] 13.2 g/dL 12.0-15.0 [facility] Work Phone: [phone] Blood lymphocytes/100 leukoc yteson 11-06-2021 Lymphocytes/100 WBC (Bld) 16.9 % 19-41 [facility] Work Phone: [phone] Blood monocytes/100 leukocyt eson 11-06-2021 Monocytes/100 WBC (Bld) 7.6 % 0-10 [facility] Work Phone: [phone] Blood platelet mean volumeon 11-06-2021 Platelet mean volume (Bld) [Entitic vol] 11.4 fL 6.2-12.0 [facility] Work Phone: [phone] Determination of erythrocyte mean corpuscular volume (MCV)on 11-06-2021 MCV (RBC) [Entitic vol] 83.1 fL 81-99 [facility] Work Phone: [phone] Hematocrit Auto (Bld) [Volum e fraction]on 11-06-2021 Hematocrit (Bld) [Volume fraction] 39.3 % 37-47 [facility] Work Phone: [phone] Laboratory - Chemistry and C hemistry - challengeon 11-06-2021 ALP [Catalytic activity/Vol] 78 U/L 45-117 [facility] Work Phone: [phone] ALT [Catalytic activity/Vol] 20 U/L 13-56 [facility] Work Phone: [phone] CO2 [Moles/Vol] 24.0 mmol/L 21.0-32.0 [facility] Work Phone: [phone] Globulin (S) [Mass/Vol] 4.5 g/dL 2.2-4.2 [facility] Work Phone: [phone] Urea nitrogen/Creatinine [Mass ratio] 13.2 mg/mg 10-20 [facility] Work Phone: [phone] Laboratory - Hematology and Cell countson 11-06-2021 Erythrocyte distribution width (RBC) [Entitic vol] 49.3 fL 35.1-43.9 [facility] Work Phone: [phone] Erythrocyte distribution width (RBC) [Ratio] 16.3 % 11.6-14.6 [facility] Work Phone: [phone] Immature granulocytes/100 WBC (Bld) 0.100 % 0.0-0.9 [facility] Work Phone: [phone] Comment on above: IG% - Immature Granu locytes (promyelocytes, myelocytes and metamyelocytes) > 1% indicates that a LEFT SHIFT is Present. MCH (RBC) [Entitic mass] 27.9 pg 27.0-32.0 [facility] Work Phone: [phone] Nucleated RBC/100 WBC (Bld) [Ratio] 0 % 0-5 [facility] Work Phone: [phone] MCHC Auto (RBC) [Mass/Vol]on 11-06-2021 MCHC (RBC) [Mass/Vol] 33.6 g/dL 32-36 [facility] Work Phone: [phone] Panel Informationon 11-06 Estimated GFR (MDRD) Amer 87 mL/min >60 [facility] Work Phone: [phone] Comment on above: GFR Calc Estimated GFR (MDRD) Non-Af Amer 72 mL/min >60 [facility] Work Phone: [phone] Comment on above: Non- GFR Calc Thyroid Stimulating Hormone (TSH) 0.35 uIU/mL 0.358-3.74 [facility] Work Phone: Platelets bldon 09-30-2022 Platelets (Bld) [#/Vol] 304 10*3/uL 150-450 [facility] Work Phone: Serum or plasma albumin gil urement (mass/volume)on 11-06-2021 Albumin [Mass/Vol] 3.8 g/dL 3.2-5.0 [facility] Work Phone: Serum or plasma albumin/glob ulin mass ratioon 11-06-2021 Albumin/Globulin [Mass ratio] 0.8 {ratio} 0.9-2.4 [facility] Work Phone: [phone] Serum or plasma calcium gil urement (mass/volume)on 11-06-2021 Calcium [Mass/Vol] 9.4 mg/dL 8.5-10.1 [facility] Work Phone: Serum or plasma cholesterol in HDL measurement (mass/volume)on 11-06-2021 Cholesterol in HDL [Mass/Vol] 47 mg/dL >40 [facility] Work Phone: Comment on above: The drugs N-Acetylcy steine and Metamizole may falsely depress this assay. Reference Range HDL <40 mg/dL Low HDL Cholesterol HDL >or= 60 mg/dL High HDL Cholesterol Serum or plasma cholesterol in VLDL measurement (mass/volume)on 11-06-2021 Cholesterol in VLDL [Mass/Vol] 22 mg/dL 5-40 [facility] Work Phone: Serum or plasma creatinine m easurement (mass/volume)on 11-06-2021 Creatinine [Mass/Vol] 0.91 mg/dL 0.55-1.02 [facility] Work Phone: Comment on above: The validity of the calculated GFR & GFRAA in patients over 70 years has not been determined. Clinical correlation is essential. Serum or plasma low density lipoprotein (LDL) cholesterol measurement (mass/volume)on 11-06-2021 Cholesterol in LDL [Mass/Vol] 139 mg/dL 0-130 [facility] Work Phone: Serum or plasma urea nitroge n measurement (mass/volume)on 11-06-2021 Urea nitrogen [Mass/Vol] 12 mg/dL 7-18 [facility] Work Phone: Thin prep Papanicolaou smear with manual screeningon 11-06-2021 Thin prep Papanicolaou smear with manual screening 15 U/L 15-37 [facility] Work Phone: Thin prep Papanicolaou smear with manual screening 10 5-15 [facility] Work Phone: CORONAVIRUS 2019 BY PCRon CORONAVIRUS 2019,PCR NOT DETECTED Normal Not Detected [facility] Comment on above: Result Comment: . This assay is designed to detect SARS-CoV-2 based on replication of specific regions of the RNA from the SARS-CoV-2 virus. A Not Detected result does not preclude 2019-nCoV infection since the adequacy of sample collection and/or low viral burden may result in presence of viral nucleic acids below the clinical sensitivity of this test method. Fact sheet for providers: https://www.fda.gov/media/732397/download Fact sheet for patients: https://www.fda.gov/media/642478/download This test has received FDA Emergency Use Authorization [EUA] and has been verified by [facility] ([facility]). This test is only authorized for the duration of time that circumstances exist to justify the authorization of the emergency use of in vitro diagnostic tests for the detection of SARS-CoV-2 virus and/or diagnosis of COVID-19 infection under section 564(b)(1) of the Act, 21 U.S.C. 360bbb-3(b)(1), unless the authorization is terminated or revoked sooner. [facility] is certified under CLIA-88 as qualified to perform high complexity testing. Testing is performed in the [facility] laboratories located at [address] [place] [address]. Performed By: #### C OV19 #### [address] [place] [address] DATE OF SYMPTOM ONSET [[id number]]? [id number] Normal [facility] Comment on above: Performed By: #### C OV19 #### [address] [place] [address] EMPLOYED IN HEALTHCARE? No Normal [facility] Comment on above: Performed By: #### C OV19 #### [facility] [address] [place] [address] FIRST COVID NASAL SWAB TEST? Yes Normal [facility] Comment on above: Performed By: #### C OV19 #### [facility] [address] [place] [address] HOSPITALIZED (OR PLANNED TO BE ADMITTED)? No Normal [facility] Comment on above: Performed By: #### C OV19 #### [facility] [address] [place] [address] ICU? No Normal [facility] Comment on above: Performed By: #### C OV19 #### [facility] [address] [place] [address] ? No Normal [facility] Comment on above: Performed By: #### C OV19 #### [facility] [address] [place] [address] RESIDENT IN CONGREGATE CARE SETTING? No Normal [facility] Comment on above: Performed By: #### C OV19 #### [facility] [address] [place] [address] SYMPTOMATIC DEFINED BY CDC? Yes Normal [facility] Comment on above: Performed By: #### C OV19 #### [facility] [address] [place] [address] CORONAVIRUS 2019 BY PCRon Lab Specimen Source Nasal, Nasopharyngeal Normal [facility] Comment on above: Performed By: #### C OV19 #### [facility] [address] [place] [address] Coronavirus 2019 RNA by PCR, Symptomaticon 01-01-2020 EMPLOYED IN HEALTHCARE No [facility] Work Phone: FIRST COVID NASAL SWAB TEST? Yes [facility] Work Phone: ICU? No [facility] Work Phone: Patient was hospitalized because of this condition No [facility] Work Phone: status No [facility] Work Phone: RESIDENT IN CONGREGATE CARE SETTING? No [facility] Work Phone: SYMPTOMATIC DEFINED BY CDC Yes [facility] Work Phone: When did you start to experience these symptoms [Date and time] [PhenX] [id number] [facility] Work Phone: Coronavirus 2019 RNA by PCR, Symptomatic NOT DETECTED See Below [facility] Work Phone: Comment on above: SOURCE: Nasal, Nasop haryngealReference Range: Not Detected.This assay is designed to detect SARS-CoV-2 based on replication of specific regions of the RNA from the SARS-CoV-2 virus. A Not Detected result does not preclude 2019-nCoV infection since the adequacy of sample collection and/or low viral burden may result in presence of viral nucleic acids below the clinical sensitivity of this test method. Fact sheet for providers: https://www.fda.gov/media/089034/downloadFact sheet for patients: https://www.fda.gov/media/633385/downloadThis test has received FDA Emergency Use Authorization [EUA] and has been verified by [facility] ([facility]). This test is only authorized for the duration of time that circumstances exist to justify the authorization of the emergency use of in vitro diagnostic tests for the detection of SARS-CoV-2 virus and/or diagnosis of COVID-19 infection under section 564(b)(1) of the Act, 21 U.S.C. 360bbb-3(b)(1), unless the authorization is terminated or revoked sooner. [facility] is certified under CLIA-88 as qualified to perform high complexity testing. Testing is performed in the [facility] laboratories located at [address] [place] [address]. CT Abdomen/Pelvis w/o Contra jelani 10-01-2019 CT Abdomen/Pelvis w/o Contrast Patient Name: NADIA GONZALEZ CT Exam Date/Time 09/28/2019 13:13:[address] Abdomen/Pelvis (No PO, No IV) Ordering Physician TOY BURCH Accession Number [id number] CPT4 Codes 97852 (CT Abdomen/Pelvis (No PO, No IV)) Reason For Exam LLQ pain and L flank pain Report CLINICAL HISTORY: LLQ pain and L flank pain COMPARISON: 08/30/2017 Technique: [address] images were obtained of the abdomen and pelvis without the use of intravenous contrast. Images were reformatted in coronal and sagittal projections. FINDINGS: Lung bases: The lung bases are clear. Major organs: The liver, gallbladder, spleen, pancreas, and adrenal glands are normal. The kidneys are normal in appearance with no hydronephrosis. There is no hydroureter. A tiny punctate radiopaque density is present within the left hemipelvis (2:113). This is adjacent to the path of the ureter and most like represents a small phlebolith rather than an obstructing stone. There is no associated periureteral stranding. Bowel: The bowel is of normal caliber throughout without evidence of wall thickening or obstruction. The appendix is surgically removed. Lymph nodes and Mesentery: No enlarged intra-abdominal lymph nodes or free fluid. Mesentery is normal with no free air. Vasculature: The abdominal aorta is normal in caliber without evidence of aneurysmal dilatation. Soft tissues and Osseous structures: No evidence of fracture. No suspicious osseous lesions. Pelvis: Major organs: The rectum, sigmoid colon, and bladder are normal. Lymph nodes: No enlarged intrapelvic lymph nodes or free fluid. Soft tissues and Osseous structures: No acute fracture. No suspicious osseous lesions. IMPRESSION: ABDOMEN: No acute intra-abdominal disease process. Tiny punctate density in the region of the left hemipelvis is adjacent to the ureter and most likely represents a phlebolith rather than an obstructing stone. PELVIS: No acute intrapelvic disease process. Report Dictated on Workstation: [id number] Final Dictating Physician: MD STEWARD YUN ROBERT Signed Date and Time: 10/01/2019 8:25 am Signed by: MD STEWARD YUN ROBERT Transcribed Date and Time: 10/01/2019 8:26 Normal [facility] US ABDOMEN COMPLETEon 2019 Patient Name: NADIA GONZALEZ ---Ultrasound--- Exam Date/Time 09/07/2019 11:48:52 EDT Exam US Abdomen Complete Ordering Physician SHYAM LUCIANO DORA L Accession Number [id number] CPT4 Codes 57596 () Reason For Exam R10.32 Report Indication: Diffuse abdominal pain with nausea, vomiting and bloating. Ultrasound of the abdomen was performed. Comparison was made to the right upper quadrant ultrasound dated 01/14/2015. The study is limited due to overlying bowel gas. The liver is normal in echotexture. There are no focal intrahepatic masses. The gallbladder is visualized and is without evidence of cholelithiasis. There is no intra or extrahepatic biliary ductal dilatation. The common bile duct measures 1 mm. The visualized portions of the pancreas are unremarkable. Cursory evaluation of the kidneys shows no evidence of hydronephrosis. The spleen is not enlarged. The proximal portions of the aorta and IVC are within normal limits. Impression: 1. Unremarkable limited abdominal ultrasound. Report Dictated on --- Final --- Dictated: 09/07/2019 11:58 am Dictating Physician: DO MAS ANTHONY Signed Date and Time: 09/07/2019 12:00 pm Signed by: DO MAS ANTHONY Transcribed Date and Time: 09/07/2019 11:58 [facility] Incoming Radiology Results From [facility] - 09/07/2019 12:01 PM EDT Patient Name: NADIA GONZALEZ ---Ultrasound--- Exam Date/Time 09/07/2019 11:48:52 EDT Exam US Abdomen Complete Ordering Physician SHYAM LUCIANO DORA L Accession Number [id number] CPT4 Codes 69367 () Reason For Exam R10.32 Report Indication: Diffuse abdominal pain with nausea, vomiting and bloating. Ultrasound of the abdomen was performed. Comparison was made to the right upper quadrant ultrasound dated 01/14/2015. The study is limited due to overlying bowel gas. The liver is normal in echotexture. There are no focal intrahepatic masses. The gallbladder is visualized and is without evidence of cholelithiasis. There is no intra or extrahepatic biliary ductal dilatation. The common bile duct measures 1 mm. The visualized portions of the pancreas are unremarkable. Cursory evaluation of the kidneys shows no evidence of hydronephrosis. The spleen is not enlarged. The proximal portions of the aorta and IVC are within normal limits. Impression: 1. Unremarkable limited abdominal ultrasound. Report Dictated on --- Final --- Dictated: 09/07/2019 11:58 am Dictating Physician: DO MAS ANTHONY Signed Date and Time: 09/07/2019 12:00 pm Signed by: DO MAS ANTHONY Transcribed Date and Time: 09/07/2019 11:58 [place], [place] US Abdomen Completeon 2019 US Abdomen Complete Patient Name: NADIA GONZALEZ Ultrasound Exam Date/Time 09/07/2019 11:48:52 EDT Exam US Abdomen Complete Ordering Physician SHYAM LUCIANO DORA L Accession Number [id number] CPT4 Codes 54559 () Reason For Exam R10.32 Report Indication: Diffuse abdominal pain with nausea, vomiting and bloating. Ultrasound of the abdomen was performed. Comparison was made to the right upper quadrant ultrasound dated 01/14/2015. The study is limited due to overlying bowel gas. The liver is normal in echotexture. There are no focal intrahepatic masses. The gallbladder is visualized and is without evidence of cholelithiasis. There is no intra or extrahepatic biliary ductal dilatation. The common bile duct measures 1 mm. The visualized portions of the pancreas are unremarkable. Cursory evaluation of the kidneys shows no evidence of hydronephrosis. The spleen is not enlarged. The proximal portions of the aorta and IVC are within normal limits. Impression: 1. Unremarkable limited abdominal ultrasound. Report Dictated on Final Dictated: 09/07/2019 11:58 am Dictating Physician: DO MAS ANTHONY Signed Date and Time: 09/07/2019 12:00 pm Signed by: DO MAS ANTHONY Transcribed Date and Time: 09/07/2019 11:58 Normal [facility] US PELVIS COMPLETEon Patient Name: NADIA GONZALEZ ---Ultrasound--- Exam Date/Time 09/07/2019 11:48:06 EDT Exam US Pelvis Complete Ordering Physician SHYAM LUCIANO DORA L Accession Number [id number] CPT4 Codes 62439 () Reason For Exam R10.32; LLQ pain Report Pelvic ultrasound: 09/07/2019. CLINICAL INFORMATION: Pain. Spotting. FINDINGS: Sonographic examination of the pelvis was performed transabdominally only. The urinary bladder was not fully distended and therefore, the transabdominal portion of the study is limited. The patient is status post hysterectomy. The vaginal cuff is seen. Neither ovary was identified. No free pelvic fluid or cystic pelvic masses are seen. IMPRESSION: No acute process. Report Dictated on Workstation: [employer] --- Final --- Dictated: 09/07/2019 11:59 am Dictating Physician: MD CHAPMAN RISA Signed Date and Time: 09/07/2019 12:00 pm Signed by: MD CHAPMAN RISA Transcribed Date and Time: 09/07/2019 11:59 [facility] Incoming Radiology Results From [facility] - 09/07/2019 12:02 PM EDT Patient Name: NADIA GONZALEZ ---Ultrasound--- Exam Date/Time 09/07/2019 11:48:06 EDT Exam US Pelvis Complete Ordering Physician SHYAM LUCIANO DORA L Accession Number [id number] CPT4 Codes 06549 () Reason For Exam R10.32; LLQ pain Report Pelvic ultrasound: 09/07/2019. CLINICAL INFORMATION: Pain. Spotting. FINDINGS: Sonographic examination of the pelvis was performed transabdominally only. The urinary bladder was not fully distended and therefore, the transabdominal portion of the study is limited. The patient is status post hysterectomy. The vaginal cuff is seen. Neither ovary was identified. No free pelvic fluid or cystic pelvic masses are seen. IMPRESSION: No acute process. Report Dictated on Workstation: [employer] --- Final --- Dictated: 09/07/2019 11:59 am Dictating Physician: MD CHAPMAN RISA Signed Date and Time: 09/07/2019 12:00 pm Signed by: MD CHAPMAN RISA Transcribed Date and Time: 09/07/2019 11:59 [place], [place] US Pelvis Completeon 020 US Pelvis Complete Patient Name: NADIA GONZALEZ Ultrasound Exam Date/Time 09/07/2019 11:48:06 EDT Exam US Pelvis Complete Ordering Physician SHYAM LUCIANO DORA L Accession Number [id number] CPT4 Codes 12183 () Reason For Exam R10.32; LLQ pain Report Pelvic ultrasound: 09/07/2019. CLINICAL INFORMATION: Pain. Spotting. FINDINGS: Sonographic examination of the pelvis was performed transabdominally only. The urinary bladder was not fully distended and therefore, the transabdominal portion of the study is limited. The patient is status post hysterectomy. The vaginal cuff is seen. Neither ovary was identified. No free pelvic fluid or cystic pelvic masses are seen. IMPRESSION: No acute process. Report Dictated on Workstation: [id number] Final Dictated: 09/07/2019 11:59 am Dictating Physician: MD CHAPMAN RISA Signed Date and Time: 09/07/2019 12:00 pm Signed by: MD CHAPMAN RISA Transcribed Date and Time: 09/07/2019 11:59 Normal [facility] Hepatitis Acute Panelon 07-08 HAV Ab IgM Negative Normal Negative [facility] Comment on above: Performed By: #### H EPP #### [place] [address] HB Core Ab IgM Negative Normal Negative [facility] Comment on above: Performed By: #### H EPP #### [place] [address] Hepatitis C Ab Negative Normal Negative [facility] Comment on above: Performed By: #### H EPP #### [place] [address] Hep.B Surface Ag Negative Normal Negative [facility] Comment on above: Performed By: #### H EPP #### [facility] [address] [place] [address] TSHon 07-25-2018 Thyrotropin Qn 1.92 uIU/mL Normal 0.34-4.82 [facility] Comment on above: Performed By: #### L TSH #### [place] [address] Clinical Summary: HMSPatient IDon 02-08-2018 WOP Invalid Interpretation Code [facility] Work Phone: Office Visit: Postop - 1st v isit, Rm: 2on 02-08-2018 NEGATED: Highlighted rowProtein mass conc Done Invalid Interpretation Code [facility] Work Phone: NEGATED: Highlighted rowProtein mass conc Yes Invalid Interpretation Code [facility] Work Phone: Hematologyon 07-13-2011 Lymphocytes (Bld) [#/Vol] FINAL DIAGNOSIS: LEFT AXILLARY, LYMPH NODE, CORE BIOPSY - FRAGMENTS OF BENIGN LYMPH NODE. COMMENT: Sections reviewed by Dr. Smalls. SPECIMEN: LYMPH NODE [facility] 07-13-2011 CONVERTED CLINICAL HISTORY OPERATIVE PROCEDURE: U/S-guided left axillary LN bx CLINICAL INFORMATION: Lt axillary node enlargement; obtained 10:00, formalin 10:05 [facility] CONVERTED GROSS DESCRIPTION GROSS DESCRIPTION: Four 18g cores Container labeled with the patient's name. Received in formalin are several minute strands of soft white tissue measuring 0.7 x 0.1 x 0.1 cm in aggregate. The specimen is totally submitted in a single cassette x3. SMS:hlm MICROSCOPIC DESCRIPTION: Slides reviewed. [facility] CONVERTED ORDERING PROVIDER Ordering Provider: ZAINA GOLDEN [facility] Thyroidon 07-13-2011 TSH Db PRINCE M.D., PATHOLOGIST (Electronic signature on file) Final Signed Out: 07/13/2011 15:15 [facility] Otheron 02-27-2009 CONVERTED CLINICAL HISTORY OPERATIVE PROCEDURE: Suction D&C CLINICAL INFORMATION: Missed AB [facility] CONVERTED FINAL DIAGNOSIS FINAL DIAGNOSIS: UTERUS, CURETTAGE - CHORIONIC VILLI AND DEGENERATING DECIDUA, CONSISTENT WITH INTRAUTERINE . SPECIMEN: POC [facility] CONVERTED GROSS DESCRIPTION GROSS DESCRIPTION: Products of conception The specimen is received in a container labeled products of conception. Received in a suction device are portions of membranous to feathery red-nguyen tissue and clotted blood measuring 6 x 6 x 4 cm in aggregate. tissue is not identified. [place] [employer] sample submitted in three cassettes. EDS/SMS/gpl MICROSCOPIC DESCRIPTION: Slides reviewed. SDS/gpl [facility] CONVERTED ORDERING PROVIDER Ordering Provider: JENNIFER ROSAS [facility] Thyroidon 02-27-2009 TSH Db PRINCE M.D., PATHOLOGIST (Electronic signature on file) Final Signed Out: 02/27/2009 14:26 [facility] Otheron 07-19-2007 CONVERTED ELECTRONIC SIGNATURE LINDA JENKINS M.D. (Electronic signature on file) Final Signed Out: 07/19/2007 16:41 [facility] CONVERTED FINAL DIAGNOSIS HYMENECTOMY WITH VESTIBULECTOMY - SQUAMOUS MUCOSA AND VESTIBULAR GLANDS WITH CHRONIC INFLAMMATION AND REACTIVE LYMPHOID NODULES. [facility] CONVERTED ORDERING PROVIDER Ordering Provider: JONY FINCH [facility] Vital Signs Date Time Vital Sign Value Performing Clinician Facility 07-30-2024 14:21-0400 Body height 162.6 cm [facility] Comment on above: per pt report 07-30-2024 14:21-0400 Body mass index (BMI) [Ratio] 27.46 kg/m2 [facility] 07-30-2024 14:21-0400 Body weight 72.58 kg [facility] Comment on above: per pt report 07-30-2024 14:21-0400 Heart rate 60 /min [facility] Comment on above: per pt report 06-25-2024 11:24-0400 Body height 162.6 cm Nataly Brunson CNP Work Phone: [facility] 06-25-2024 11:24-0400 Body mass index (BMI) [Ratio] 27.46 kg/m2 Nataly Brunson CNP Work Phone: [facility] 06-25-2024 11:24-0400 Body weight 72.58 kg Nataly Brunson CNP Work Phone: [facility] 06-14-2024 13:31-0400 Body height 162.6 cm Elizabeth Finelli DO Work Phone: [facility] 06-14-2024 13:31-0400 Body mass index (BMI) [Ratio] 27.69 kg/m2 Elizabeth Finelli DO Work Phone: [facility] 06-14-2024 13:31-0400 Body weight 73.17 kg Elizabeth Finelli DO Work Phone: [facility] 06-14-2024 13:31-0400 Diastolic blood pressure 82 mm[Hg] Elizabeth Finelli DO Work Phone: [facility] 06-14-2024 13:31-0400 Heart rate 89 /min Elizabeth Finelli DO Work Phone: [facility] 06-14-2024 13:31-0400 SaO2% (BldA) [Mass fraction] 100 % Elizabeth Finelli DO Work Phone: [facility] 06-14-2024 13:31-0400 Systolic blood pressure 119 mm[Hg] Elizabeth Finelli DO Work Phone: [facility] 05-24-2024 18:06-0400 Body height 162.56 cm Dawson Luciano 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C Work Phone: [facility] 05-24-2024 18:06-0400 Body mass index (BMI) [Ratio] 27.8 kg/m2 Dawson Luciano 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[employer]C Work Phone: [facility] 05-24-2024 18:06-0400 Body temperature 97.7 [degF] Dawson Luciano 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[employer]C Work Phone: [facility] 05-24-2024 18:06-0400 Body weight 73.48 kg Dawson Luciano 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[employer]C Work Phone: [facility] 05-24-2024 18:06-0400 Diastolic blood pressure 60 mm[Hg] Dawson Luciano 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-C Work Phone: [facility] 05-24-2024 18:06-0400 Heart rate 89 /min Dawson Luciano 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-C Work Phone: [facility] 05-24-2024 18:06-0400 Respiratory rate 18 /min Dawson Luciano 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[employer]C Work Phone: [facility] 05-24-2024 18:06-0400 SaO2% (BldA) [Mass fraction] 99 % Dawson Luciano 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[employer]C Work Phone: [facility] 05-24-2024 18:06-0400 Systolic blood pressure 118 mm[Hg] Dawson Luciano 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-C Work Phone: [facility] 02-23-2024 12:49-0500 Body height 162.6 cm Elizabeth Finelli DO Work Phone: [facility] 02-23-2024 12:49-0500 Body mass index (BMI) [Ratio] 29.23 kg/m2 Elizabeth Finelli DO Work Phone: [facility] 02-23-2024 12:49-0500 Body weight 77.25 kg Elizabeth Finelli DO Work Phone: [facility] 02-23-2024 12:49-0500 Diastolic blood pressure 85 mm[Hg] Elizabeth Finelli DO Work Phone: [facility] 02-23-2024 12:49-0500 Heart rate 92 /min Elizabeth Finelli DO Work Phone: [facility] 02-23-2024 12:49-0500 SaO2% (BldA) [Mass fraction] 100 % Elizabeth Finelli DO Work Phone: [facility] 02-23-2024 12:49-0500 Systolic blood pressure 133 mm[Hg] Elizabeth Finelli DO Work Phone: [facility] 02-10-2024 12:59-0500 Body height 162.6 cm Elizabeth Finelli DO Work Phone: [facility] 02-10-2024 12:59-0500 Body mass index (BMI) [Ratio] 29.21 kg/m2 Elizabeth Finelli DO Work Phone: [facility] 02-10-2024 12:59-0500 Body weight 77.2 kg Elizabeth Finelli DO Work Phone: [facility] 02-10-2024 12:59-0500 Diastolic blood pressure 84 mm[Hg] Elizabeth Finelli DO Work Phone: [facility] 02-10-2024 12:59-0500 Heart rate 88 /min Elizabeth Finelli DO Work Phone: [facility] 02-10-2024 12:59-0500 SaO2% (BldA) [Mass fraction] 100 % Elizabeth Finelli DO Work Phone: [facility] 02-10-2024 12:59-0500 Systolic blood pressure 125 mm[Hg] Elizabeth Finelli DO Work Phone: [facility] 06-13-2023 10:35-0400 Body height 162.6 cm Ach 4 [facility] [employer] 06-13-2023 10:35-0400 Body mass index (BMI) [Ratio] 30.9 kg/m2 Ach 4 [facility] [employer] 06-13-2023 10:35-0400 Body weight 81.65 kg Ach 4 [facility] [employer] 12-13-2022 14:03-0500 Body height 162.6 cm Nataly Brunson CNP Work Phone: [facility] [employer] 12-13-2022 14:03-0500 Body mass index (BMI) [Ratio] 32.44 kg/m2 Nataly Brunson CNP Work Phone: [facility] [employer] 12-13-2022 14:03-0500 Body temperature 98.01 [degF] Nataly Brunson CNP Work Phone: [facility] 12-13-2022 14:03-0500 Body weight 85.73 kg Nataly Cisneros [employer] Work Phone: [facility] 12-13-2022 14:03-0500 Diastolic blood pressure 90 mm[Hg] Nataly Cisneros DESK SERGEANT - [employer] Work Phone: [facility] 12-13-2022 14:03-0500 Heart rate 83 /min Nataly Cisneros DESK SERGEANT - TRACK WELDER Work Phone: [facility] 12-13-2022 14:03-0500 Respiratory rate 12 /min Nataly Cisneros DESK SERGEANT - TRACK WELDER Work Phone: [facility] 12-13-2022 14:03-0500 Systolic blood pressure 141 mm[Hg] Nataly Cisneros DESK SERGEANT - TRACK WELDER Work Phone: [facility] 11-03-2022 20:09-0400 Body height 162.56 cm [facility] 11-03-2022 20:09-0400 Body mass index (BMI) [Ratio] 32.9 kg/m2 [facility] 11-03-2022 20:09-0400 Body temperature 97.5 [degF] [facility] 11-03-2022 20:09-0400 Body weight 87.08 kg [facility] 11-03-2022 20:09-0400 Diastolic blood pressure 60 mm[Hg] [facility] 11-03-2022 20:09-0400 Heart rate 83 /min [facility] 11-03-2022 20:09-0400 Respiratory rate 18 /min [facility] 11-03-2022 20:09-0400 SaO2% (BldA) [Mass fraction] 96 % [facility] 11-03-2022 20:09-0400 Systolic blood pressure 100 mm[Hg] [facility] 09-01-2022 15:17-0400 Body height 162.56 cm [facility] 09-01-2022 15:17-0400 Body mass index (BMI) [Ratio] 34.1 kg/m2 [facility] 09-01-2022 15:17-0400 Body temperature 98.1 [degF] [facility] 09-01-2022 15:17-0400 Body weight 90.26 kg [facility] 09-01-2022 15:17-0400 Diastolic blood pressure 80 mm[Hg] [facility] 09-01-2022 15:17-0400 Heart rate 88 /min [facility] 09-01-2022 15:17-0400 Respiratory rate 18 /min [facility] 09-01-2022 15:17-0400 SaO2% (BldA) [Mass fraction] 97 % [facility] 09-01-2022 15:17-0400 Systolic blood pressure 120 mm[Hg] [facility] 06-02-2022 15:49-0400 Body mass index (BMI) [Ratio] 34.3 kg/m2 [facility] 06-02-2022 15:49-0400 Body temperature 98.1 [degF] [facility] 06-02-2022 15:49-0400 Body weight 90.71 kg [facility] 06-02-2022 15:49-0400 Diastolic blood pressure 80 mm[Hg] [facility] 06-02-2022 15:49-0400 Heart rate 89 /min [facility] 06-02-2022 15:49-0400 Respiratory rate 18 /min [facility] 06-02-2022 15:49-0400 SaO2% (BldA) [Mass fraction] 98 % [facility] 06-02-2022 15:49-0400 Systolic blood pressure 140 mm[Hg] [facility] 05-21-2022 14:55-0400 Diastolic blood pressure 93 mm[Hg] Nataly Brunson CNP Work Phone: [facility] 05-21-2022 14:55-0400 Systolic blood pressure 141 mm[Hg] Nataly Brunson CNP Work Phone: [facility] 05-21-2022 14:04-0400 Body height 162.6 cm Nataly Brunson CNP Work Phone: [facility] [employer] 05-21-2022 14:04-0400 Body mass index (BMI) [Ratio] 33.81 kg/m2 Nataly Cisneros DESK SERGEANT - TRACK WELDER Work Phone: [facility] [employer] 05-21-2022 14:04-0400 Body temperature 98.6 [degF] Nataly Cisneros DESK SERGEANT - TRACK WELDER Work Phone: [facility] [employer] 05-21-2022 14:04-0400 Body weight 89.36 kg Nataly Cisneros DESK SERGEANT - TRACK WELDER Work Phone: [facility] [employer] 05-21-2022 14:04-0400 Heart rate 89 /min Nataly Cisneros APRN - TRACK WELDER Work Phone: [facility] [employer] 05-21-2022 14:04-0400 Respiratory rate 12 /min Nataly Cisneros APRN - TRACK WELDER Work Phone: [facility] [employer] 04-27-2022 11:20-0400 Body height 162.6 cm Toy Burch MD Work Phone: [facility] [employer] 04-27-2022 11:20-0400 Body mass index (BMI) [Ratio] 33.64 kg/m2 Toy Burch MD Work Phone: [facility] [employer] 04-27-2022 11:20-0400 Body weight 88.91 kg Toy Burch MD Work Phone: [facility] [employer] 04-27-2022 11:20-0400 Diastolic blood pressure 110 mm[Hg] Toy Burch MD Work Phone: [facility] [employer] 04-27-2022 11:20-0400 Systolic blood pressure 160 mm[Hg] Toy Burch MD Work Phone: [facility] [employer] 11-06-2021 15:00-0400 Body height 162.56 cm [facility] Work Phone: 11-06-2021 15:00-0400 Body mass index (BMI) [Ratio] 32.8 kg/m2 [facility] Work Phone: 11-06-2021 15:00-0400 Body temperature 97.9 [degF] [facility] Work Phone: 11-06-2021 15:00-0400 Body weight 86.63 kg [facility] Work Phone: 11-06-2021 15:00-0400 Diastolic blood pressure 80 mm[Hg] [facility] Work Phone: 11-06-2021 15:00-0400 Heart rate 104 /min [facility] Work Phone: 11-06-2021 15:00-0400 Respiratory rate 18 /min [facility] Work Phone: 11-06-2021 15:00-0400 SaO2% (BldA) [Mass fraction] 97 % [facility] Work Phone: 11-06-2021 15:00-0400 Systolic blood pressure 136 mm[Hg] [facility] Work Phone: 09-30-2021 14:43-0400 Body mass index (BMI) [Ratio] 34 kg/m2 [facility] Work Phone: 09-30-2021 14:43-0400 Body temperature 97.9 [degF] [facility] Work Phone: 09-30-2021 14:43-0400 Body weight 89.81 kg [facility] Work Phone: 09-30-2021 14:43-0400 Diastolic blood pressure 80 mm[Hg] [facility] Work Phone: 09-30-2021 14:43-0400 Heart rate 94 /min [facility] Work Phone: 09-30-2021 14:43-0400 Respiratory rate 18 /min [facility] Work Phone: 09-30-2021 14:43-0400 SaO2% (BldA) [Mass fraction] 98 % [facility] Work Phone: 09-30-2021 14:43-0400 Systolic blood pressure 138 mm[Hg] [facility] Work Phone: 01-01-2020 19:15-0500 BMI (Body Mass Index) 37.12 kg/m2 [facility] Work Phone: 01-01-2020 19:15-0500 Body Temperature 98.1 [degF] [facility] Work Phone: 01-01-2020 19:15-0500 Body weight 98.1 kg [facility] Work Phone: 01-01-2020 19:15-0500 BP Diastolic 99 mm[Hg] [facility] Work Phone: 01-01-2020 19:15-0500 BP Systolic 144 mm[Hg] [facility] Work Phone: 01-01-2020 19:15-0500 BSA (Body Surface Area) 2.02 m2 [facility] Work Phone: 01-01-2020 19:15-0500 Height 162.56 cm [facility] Work Phone: 01-01-2020 19:15-0500 Pulse (Heart Rate) 92 /min [facility] Work Phone: 01-01-2020 19:15-0500 Pulse Oximetry 97 % [facility] Work Phone: 01-01-2020 19:15-0500 Respiratory Rate 16 /min [facility] Work Phone: 01-01-2020 19:15-0500 5 1 [facility] Work Phone: Comment on above: Pain Scale NEGATED: Highlighted [id number] 13:49-0500 BMI (Body Mass Index) 28.77 kg/m2 Iona Brenner LPN [facility] Work Phone: NEGATED: Highlighted [id number] 13:49-0500 BP Diastolic 90 mm[Hg] Iona Brenner LPN [facility] Work Phone: NEGATED: Highlighted [id number] 13:49-0500 BP Systolic 153 mm[Hg] Iona Brenner CLERICAL METHODS ANALYST [facility] Work Phone: NEGATED: Highlighted [id number] 13:49-0500 BP Systolic 150 mm[Hg] Iona Brenner CLERICAL METHODS ANALYST [facility] Work Phone: NEGATED: Highlighted [id number] 13:49-0500 Height 162.56 cm Iona Brenner LPN [facility] Work Phone: NEGATED: Highlighted [id number] 13:49-0500 Height 163 cm Iona Elidia LIANGN [facility] Work Phone: NEGATED: Highlighted [id number] 13:49-0500 Pulse (Heart Rate) 87 /min [facility] Work Phone: NEGATED: Highlighted [id number] 13:49-0500 Weight 75.75 kg Iona Brenner LPN [facility] Work Phone: NEGATED: Highlighted [id number] 13:49-0500 Weight 76 kg Iona Brenner CLERICAL METHODS ANALYST [facility] Work Phone: Encounters Encounter Date Encounter Type Care Provider Facility Start: 11-21-2024 ambulatory DAWSON Ly [facility] Start: 10-05-2024 End: 10-05-2024 Subsequent hospital visit by physician [facility] Work Phone: [facility] Comment on above: Acute abdomen [R10.0 ] Start: 10-05-2024 End: 10-05-2024 ambulatory DAWSON LUCIANO Facility:[facility] Start: 10-05-2024 Encounter for preprocedural laboratory examination ELIZABETH RICHARDSON [facility] Start: 09-20-2024 End: 09-20-2024 Postop follow up visit related to original px Elizabeth C Finelli DO Work Phone: General Surgery Comment on above: Acute abdomen (Prima ry Dx); Acute post-operative pain; Muscle spasm; Encounter for surgical aftercare following surgery on the digestive system Start: 09-20-2024 End: 09-20-2024 ambulatory ELIZABETH Michel IBARRAI Facility:[facility] Start: 09-13-2024 End: 09-13-2024 Office outpatient visit 15 minutes Elizabeth C Nicolettelli DO Work Phone: General Surgery Comment on above: Acute post-operative pain (Primary Dx); Muscle spasm Start: 09-13-2024 End: 09-13-2024 ambulatory ELIZABETH C NICOLETTELLI Facility:[facility] Start: 08-24-2024 End: 08-24-2024 Patient encounter procedure Li Orr APRN.TRACK WELDER Work Phone: General Surgery Comment on above: S/P hernia repair (P rimary Dx) Start: 08-24-2024 End: 08-24-2024 ambulatory LI ORR Facility:[facility] Start: 08-13-2024 End: 08-13-2024 Refill Elizabeth C Finelli DO Work Phone: [facility] Start: 08-09-2024 End: 08-13-2024 Admission to same day surgery center Elizabeth C Nicolettelli DO Work Phone: General Surgery Comment on above: Post Op Questions Start: 08-09-2024 End: 08-13-2024 ambulatory Elizabeth C Finelli DO Work Phone: General Surgery Start: 08-07-2024 End: 08-07-2024 ambulatory ELIZABETH RICHARDSON Facility:[facility] Start: 08-01-2024 End: 08-01-2024 ambulatory DAWSONThais LUCIANO Facility:[facility] Start: 08-01-2024 Encounter for other preprocedural examination ELIZABETH RICHARDSON [facility] Start: 07-30-2024 End: 07-30-2024 Preprocedural examination done [facility] Work Phone: Start: 07-30-2024 Encounter for other preprocedural examination ELIZABETH RICHARDSON [facility] Start: 07-30-2024 End: 07-30-2024 PAT [facility] Pre Anesthesia Comment on above: Pre-op evaluation (P rimary Dx); Cigarette smoker; Marijuana use; Anxiety and depression; Attention deficit hyperactivity disorder (ADHD), unspecified ADHD type; Primary hypertension; Intractable migraine without status migrainosus, unspecified migraine type; Gastroesophageal reflux disease, unspecified whether esophagitis present; Prediabetes; Hypothyroidism, unspecified type; PONV (postoperative nausea and vomiting) Start: 07-13-2024 End: 07-13-2024 ambulatory DAWSON LUCIANO Facility:[facility] Start: 07-11-2024 End: 07-11-2024 ambulatory ELIZABETH RICHARDSON Facility:[facility] Start: 07-11-2024 End: 07-11-2024 Admission to same day surgery center Elizabeth Richardson DO Work Phone: General Surgery Comment on above: Incisional hernia, w ithout obstruction or gangrene (Primary Dx) Start: 07-11-2024 End: 07-11-2024 Telemedicine consultation with patient Elizabeth Richardson DO Work Phone: General Surgery Start: 07-06-2024 ambulatory ELIZABETH RICHARDSON Facil ity:[facility] Start: 07-06-2024 End: 07-06-2024 Subsequent hospital visit by physician [facility] Comment on above: Incisional hernia, w ithout obstruction or gangrene [K43.2] Start: 06-29-2024 End: 06-29-2024 ambulatory TOY BURCH [facility] Start: 06-25-2024 End: 08-25-2024 Follow-up encounter Nataly Brunson CNP Work Phone: [facility] Comment on above: Bilateral screening mammogram with tomosynthesis Start: 06-25-2024 End: 06-25-2024 Subsequent hospital visit by physician Nataly Brunson CNP Work Phone: [facility] Comment on above: Encounter for screen ing mammogram for malignant neoplasm of breast Start: 06-25-2024 End: 06-25-2024 ambulatory DAWSON LUCIANO [facility] Start: 06-18-2024 End: 09-17-2024 Transcribe Orders Nataly Brunson CNP Work Phone: [facility] Central Scheduling Comment on above: Encounter for screen ing mammogram for malignant neoplasm of breast (Primary Dx) Start: 06-14-2024 End: 06-14-2024 Office outpatient visit 25 minutes Elizabeth Richardson DO Work Phone: General Surgery Comment on above: Incisional hernia, w ithout obstruction or gangrene (Primary Dx); Diarrhea, unspecified type; Encounter for surgical aftercare following surgery on the digestive system; Constipation, unspecified constipation type Start: 06-14-2024 End: 06-14-2024 ambulatory ELIZABETH RICHARDSON Facility:[facility] Start: 05-24-2024 End: 05-24-2024 ambulatory Dawson Luciano SAP 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-C Work Phone: [facility] Work Phone: Start: 05-24-2024 End: 05-24-2024 Patient encounter procedure Dawson Luciano NP-C -Laboratory, Specimen Work Phone: Start: 05-24-2024 End: 05-24-2024 ambulatory Dawson Luciano NP Facility:[facility] Start: 03-29-2024 End: 03-29-2024 ambulatory ELIZABETHDONOVAN RICHARDSON Facility:[facility] Start: 03-29-2024 End: 03-29-2024 Postop follow up visit related to original px Elizabeth C Finelli DO Work Phone: General Surgery Comment on above: Acute post-operative pain (Primary Dx); Cholesterolosis of gallbladder; S/P laparoscopic cholecystectomy Start: 03-22-2024 End: 03-22-2024 ambulatory ELIZABETH C FINELLI Facility:[facility] Start: 03-22-2024 End: 03-22-2024 Patient encounter procedure Gerardo Lobo PA-C Work Phone: General Surgery Comment on above: S/P laparoscopic cho lecystectomy (Primary Dx); Post-operative nausea and vomiting Start: 03-06-2024 End: 03-06-2024 ambulatory ELIZABETH C FINELLI Facility:[facility] Start: 02-24-2024 End: 05-16-2024 Telephone encounter Elizabeth C Finelli DO Work Phone: Pre Anesthesia Start: 02-23-2024 End: 02-23-2024 ambulatory ELIZABETH C FINELLI Facility:[facility] Start: 02-23-2024 End: 02-23-2024 Office outpatient visit 10 minutes Elizabeth C Finelli DO Work Phone: General Surgery Comment on above: Biliary dyskinesia ( Primary Dx) Start: 02-10-2024 End: 02-10-2024 ambulatory ELIZABETH C FINELLI Facility:[facility] Start: 02-10-2024 End: 02-10-2024 Office outpatient new 30 minutes Elizabeth C Finelli DO Work Phone: General Surgery Comment on above: RUQ pain (Primary Dx ); Nausea Start: 01-26-2024 End: 01-26-2024 ambulatory DAWSON LUCIANO Facility:[facility] Start: 01-26-2024 End: 01-26-2024 Subsequent hospital visit by physician Abel Lundberg DESK SERGEANT - TRACK WELDER Work Phone: [facility] Nuclear Medicine Comment on above: Nausea & vomiting; RUQ abdominal pain Start: 01-26-2024 End: 01-26-2024 ambulatory ABEL [facility] Start: 01-20-2024 End: 04-20-2024 Transcribe Orders Abel Lundberg DESK SERGEANT - TRACK WELDER Work Phone: [facility] Comment on above: Nausea & vomiting (P rimary Dx); RUQ abdominal pain Start: 01-04-2024 End: 01-04-2024 Subsequent hospital visit by physician Abel Lundberg DESK SERGEANT - TRACK WELDER Work Phone: [facility] Comment on above: Right upper quadrant pain; Nausea with vomiting, unspecified Start: 01-04-2024 End: 01-04-2024 ambulatory ABEL LUNDBERG [facility] Start: 12-30-2023 End: 03-30-2024 Transcribe Orders Abel Lundberg DESK SERGEANT - TRACK WELDER Work Phone: [facility] Scheduling Comment on above: Right upper quadrant pain (Primary Dx); Nausea with vomiting, unspecified Start: 08-24-2023 End: 08-24-2023 ambulatory Dawson Luciano [employer] 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 Facility:[facility] Start: 06-13-2023 End: 06-13-2023 Subsequent hospital visit by physician Agata Exam Room 4 [facility] Comment on above: Encounter for screen ing mammogram for breast cancer Start: 12-13-2022 End: 12-13-2022 Office outpatient visit 15 minutes Nataly Cisneros APRN - TRACK WELDER Work Phone: [facility] [place] Comment on above: Encounter for screen ing mammogram for breast cancer (Primary Dx); Breast pain, left; Family history of breast cancer; Family history of prostate cancer Start: 11-03-2022 End: 11-03-2022 ambulatory [facility] Work Phone: Start: 11-03-2022 End: 11-03-2022 Patient encounter procedure [facility]-Laboratory, Specimen Work Phone: Start: 09-01-2022 End: 09-01-2022 ambulatory [facility] Work Phone: Start: 09-01-2022 End: 09-01-2022 Patient encounter procedure [facility]-Laboratory, Specimen Work Phone: Start: 06-08-2022 End: 06-08-2022 Subsequent hospital visit by physician [facility] Comment on above: Cervicalgia [M54.2] Start: 05-21-2022 End: 05-21-2022 Office outpatient new 30 minutes Nataly Cisneros DESK SERGEANT - TRACK WELDER Work Phone: [facility] Comment on above: Family history of br east cancer (Primary Dx); Breast pain, left; Family history of ovarian cancer; Genetic testing Start: 05-17-2022 End: 05-17-2022 Subsequent hospital visit by physician Toy Burch MD Work Phone: [facility] Comment on above: Breast pain, left Start: 04-27-2022 End: 04-27-2022 Patient encounter status Toy Burch MD Work Phone: [facility] Start: 04-27-2022 End: 04-27-2022 Periodic preventive med est patient 40-64yrs Toy Burch MD Work Phone: [facility] Comment on above: Encounter for gyneco logical examination without abnormal finding (Primary Dx); Breast pain, left Start: 11-06-2021 End: 11-06-2021 ambulatory [facility] Work Phone: Start: 11-06-2021 End: 11-06-2021 Patient encounter procedure [facility]-Laboratory, Specimen Start: 09-28-2019 End: 09-28-2019 Subsequent hospital visit by physician Toy Burch Work Phone: [facility] Comment on above: LLQ pain; Lt flank pain Start: 09-07-2019 End: 09-07-2019 Subsequent hospital visit by physician Dawson Luciano Work Phone: [facility] Comment on above: Arrived Start: 02-08-2018 End: 02-08-2018 Patient encounter procedure Alessandro Blakely MD Work Phone: [facility] Work Phone: Start: 07-12-2011 End: 07-12-2011 Patient encounter procedure Zaina Golden Work Phone: [facility] Start: 07-12-2011 Results Only Zaina Mic Mikey harper Work Phone: [facility] Start: 02-25-2009 End: 02-25-2009 Patient encounter procedure Jennifer Rosas Work Phone: [facility] Start: 02-25-2009 Results Only Jennifer joseph Work Phone: [facility] Start: 07-18-2007 End: 07-18-2007 Patient encounter procedure Jony Finch Work Phone: [facility] Start: 07-18-2007 Results Only Jony rahman Work Phone: [facility] Procedures Date Procedure Procedure Detail Performing Clinician Start: 06-25-2024 End: 06-25-2024 Screening digital breast tomosynthesis bi Nataly Cisneros DESK SERGEANT - TRACK WELDER Work Phone: Start: 01-26-2024 Hepatobil syst imag inc gb w/pharma intervenj Abel Lundberg DESK SERGEANT - TRACK WELDER Work Phone: Start: 01-26-2024 Thyrotropin [Units/volume] in Serum or Plasma Abel Lundberg DESK SERGEANT - TRACK WELDER Work Phone: Start: 06-13-2023 End: 06-13-2023 Screening digital breast tomosynthesis bi Nataly Cisneros DESK SERGEANT - TRACK WELDER Work Phone: Start: 11-03-2022 Urine culture Start: 06-08-2022 Radex spine cervical 2 or 3 views Dawson Luciano DESK SERGEANT.TRACK WELDER Work Phone: Start: 05-17-2022 Us breast uni real time with image limited Toy Burch MD Work Phone: Start: 05-17-2022 End: 05-17-2022 Diagnostic mammography computer-aided detcj bi Toy Burch MD Work Phone: Start: 02-26-2022 Thyrotropin [Units/volume] in Serum or Plasma Toy Burch MD Work Phone: Start: 01-01-2020 Follow-up visit Start: 01-01-2020 Coronavirus 2019 RNA by PCR, Symptomatic Admin [facility] Start: 09-07-2019 Us abdominal real time w/image documentation Dawson Luciano Work Phone: Start: 09-07-2019 Us pelvic nonobstetric real-time image complete Dawson Luciano Work Phone: Start: 02-08-2018 End: 02-08-2018 Blood [...] 02-08-2018 Pt tobacco screen rcvd tlk Alessandro Blakely MD Work Phone: Start: 02-08-2018 End: 02-08-2018 Radex wrist complete minimum 3 views Alessandro Blakely MD Work Phone: Start: 07-12-2011 CONVERTED SURGICAL PATHOLOGY Zaina Golden Work Phone: Start: 02-25-2009 CONVERTED SURGICAL PATHOLOGY Jennifer Rosas Work Phone: Start: 07-18-2007 CONVERTED SURGICAL PATHOLOGY Jony Finch Work Phone: History of cholecystectomy S/P laparoscopic cholecystectomy Gerardo Lobo PA-C Work Phone: History of cholecystectomy S/P laparoscopic cholecystectomy Elizabeth Richardson DO Work Phone: Plan of Treatment Date Care Activity Detail Author Start: 2054 RSV Immunization for Adults (1 - 1-dose 75+ series) RSV Immunization for Adults (1 - 1-dose 75+ series) [facility] Start: 2039 RSV Immunization age d 60 or older (1 - 1-dose 60+ series) RSV Immunization aged 60 or older (1 - 1-dose 60+ series) [facility] Start: 2029 Zoster Vaccines (1 of 2) Zoster Vacc nasim (1 of 2) [facility] Start: 08-02-2027 [facility]: 01-25-2027 [facility] Start: 06-28-2025 End: 06-28-2025 Patient encounter procedure [facility] Start: 06-25-2025 Screening for malign ant neoplasm of breast [facility] Start: 01-25-2025 Diabetes: Estimated Glomerular Filtration Rate for [facility]ney Health Diabetes: Estimated Glomerular Filtration Rate for [facility] Start: 01-25-2025 Thyroid stimulating hormone measurement TSH Level [facility] Start: 10-08-2024 Influenza vaccination [facility] Start: 10-05-2024 End: 10-05-2024 Patient encounter procedure 10/05/2024 2:00 PM EDT Appointment [facility] [address] [place] [id number] Acute abdomen [R10.0] [facility] Comment on above: Acute abdomen [R10.0 ] Start: 08-24-2024 End: 08-24-2024 Patient encounter procedure 08/24/2024 2:00 PM EDT Office Visit General Surgery [address] [address] Li Orr, DESK SERGEANT.TRACK WELDER [address] [address] Follow up LAPAROSCOPIC HERNIA REPAIR INCISIONAL INITIAL REDUCIBLE W/MESH 3cm-10cm, supraumbilical incisional hernia 08/07 General Surgery Comment on above: Follow up LAPAROSCOP IC HERNIA REPAIR INCISIONAL INITIAL REDUCIBLE W/MESH 3cm-10cm, supraumbilical incisional hernia 08/07 Start: 08-07-2024 End: 08-07-2024 Admission to same day surgery center 08/07/2024 9:21 AM EDT - 08/07/2024 12:32 PM EDT Surgery [facility] Surgery [address] [place] [id number] Elizabeth Richardson, DO [address] [place] [address] LAPAROSCOPIC HERNIA REPAIR INCISIONAL INITIAL REDUCIBLE W/MESH 3cm-10cm, supraumbilical incisional hernia [facility] Surgery Comment on above: LAPAROSCOPIC HERNIA REPAIR INCISIONAL INITIAL REDUCIBLE W/MESH 3cm-10cm, supraumbilical incisional hernia Start: 08-07-2024 End: 08-07-2024 LAPAROSCOPIC HERNIA REPAIR INCISIONAL INITIAL REDUCIBLE W/MESH 3cm-10cm LAPAROSCOPIC HERNIA REPAIR INCISIONAL INITIAL REDUCIBLE W/MESH 3cm-10cm Incisional hernia, without obstruction or gangrene 08/07/2024 9:21 AM EDT ME OR Start: 08-07-2024 Subsequent hospital visit by physician 08/07/2024 9:21 AM EDT Hospital Encounter [facility] Surgery [address] [place] [address] Elizabeth Richardson, DO [address] [place] [address] Incisional hernia, without obstruction or gangrene [K43.2] [facility] Surgery Comment on above: Incisional hernia, w ithout obstruction or gangrene [K43.2] Start: 07-30-2024 End: 07-30-2024 Anesthesia consultation 07/30/2024 2:30 PM EDT PAT Pre Anesthesia [id number] [id number] DOS: 08/07/2024 DR DYLAN CHESTER Pre Anesthesia Comment on above: DOS: 08/07/2024 DR Rl CHESTER Start: 07-30-2024 End: 10-29-2024 CBC W Auto Differential panel - Blood COMPLETE BLOOD COUNT AND DIFFERENTIAL Lab Routine Pre-op evaluation Expected: 07/30/2024, Expires: 10/29/2024 [facility] Work Phone: Comment on above: Expected: 07/30/2024 , Expires: 10/29/2024 Start: 07-30-2024 End: 10-29-2024 Comprehensive metabolic 2000 panel - Serum or Plasma COMPREHENSIVE METABOLIC PANEL Lab Routine Pre-op evaluation Expected: 07/30/2024, Expires: 10/29/2024 [facility] Comment on above: Expected: 07/30/2024 , Expires: 10/29/2024 Start: 07-11-2024 End: 07-11-2024 Telephone follow-up 07/11/2024 3:30 PM EDT [facility] General Surgery [address] [address] Elizabeth Richardson, DO [address], [place] [id number] follow up from CT and surg plan ok to be phone visit per Dr. Richardson General Surgery Comment on above: follow up from CT an d surg plan ok to be phone visit per Dr. Richardson Start: 07-06-2024 End: 07-06-2024 Patient encounter procedure Radiology Comment on above: Dx: Incisional herni a, without obstruction or gangrene [K43.2] Start: 06-29-2024 End: 06-29-2024 Patient encounter procedure 06/29/2024 1:00 PM EDT Office Visit [facility] [place] [address] [place] [phone] Nataly Cisneros, TRUNG - TRACK WELDER [address] [place] [address] [facility] [place] Start: 06-12-2024 Screening for malign ant neoplasm of breast [facility] Start: 03-29-2024 End: 03-29-2024 Patient encounter procedure 03/29/2024 1:00 PM EST Office Visit General Surgery [address] [address] Elizabeth Richardson, DO [address] [place] [address] 1-2 week follow up General Surgery Comment on above: 1-2 week follow up Start: 03-22-2024 End: 03-22-2024 Patient encounter procedure 03/22/2024 1:15 PM EST Office Visit General Surgery [address] [address] Elizabeth Richardson, DO [address] [place] [address] LAPAROSCOPIC CHOLECYSTECTOMY WITH GRAMS [2390] General Surgery Comment on above: LAPAROSCOPIC CHOLECY STECTOMY WITH GRAMS [2390] Start: 03-06-2024 End: 03-06-2024 Admission to same day surgery center 03/06/2024 9:35 AM EST - 03/06/2024 11:54 AM EST Surgery [facility] Surgery [address] [place] [address] Elizabeth Richardson, DO [address] [place] [address] LAPAROSCOPIC CHOLECYSTECTOMY WITH GRAMS [facility] Surgery Comment on above: LAPAROSCOPIC CHOLECY STECTOMY WITH GRAMS Start: 03-06-2024 End: 03-06-2024 Laps surg cholecystectomy w/cholangiography LAPAROSCOPIC CHOLECYSTECTOMY WITH GRAMS Biliary dyskinesia 03/06/2024 9:35 AM EST ME OR Start: 03-06-2024 Subsequent hospital visit by physician 03/06/2024 9:35 AM EST Hospital Encounter [facility] Surgery [address] [place] [address] Elizabeth Richardson, DO [address] [place] [address] Biliary dyskinesia [K82.8] [facility] Surgery Comment on above: Biliary dyskinesia [ K82.8] Start: 02-24-2024 End: 02-24-2024 Patient encounter procedure 02/24/2024 11:30 AM EST Office Visit [facility] [place] [address] [facility] [facility] [address] [facility] [address] [place] [address] Nataly Cisneros APRN - TRACK WELDER [address] [facility] [place] [address] [facility] [place] Start: 02-23-2024 End: 02-23-2024 Patient encounter procedure 02/23/2024 1:00 PM EST Office Visit General Surgery [address] [address] Elizabeth Richardson, DO [address], [place] [id number] follow up General Surgery Comment on above: follow up Start: 02-08-2024 Lipid panel Lipid Screening [facility] Start: 02-08-2024 Screening for malign ant neoplasm of colon [facility] Start: 12-13-2023 End: 12-13-2023 Patient encounter procedure [facility] Breast [facility] Start: 10-09-2023 COVID-19 Vaccine ( season) COVID-19 Vaccine () [facility] Start: 10-09-2023 Influenza vaccination [facility] Start: 06-13-2023 End: 02-13-2024 DBT Breast - bilateral screening Bilateral screening mammogram with tomosynthesis Imaging Routine Encounter for screening mammogram for breast cancer Expected: 06/13/2023 (Approximate), Expires: 02/13/2024 [facility] Work Phone: Comment on above: Expected: 06/13/2023 (Approximate), Expires: 02/13/2024 Start: 06-13-2023 End: 06-13-2023 Patient encounter procedure 06/13/2023 10:30 AM EDT Appointment [facility] [address] [place] [address] [facility] Start: 05-18-2023 Screening for malign ant neoplasm of breast Mammogram [facility] Start: 01-20-2024 Thyroid stimulating hormone measurement TSH Level [facility] Start: 11-19-2022 End: 11-19-2022 Patient encounter procedure 11/19/2022 Office Visit [facility] [address] [place] [address] [facility] Start: 10-08-2022 COVID-19 Vaccine () COVID-19 Vaccine () [facility] Start: 10-08-2022 Influenza vaccination [facility] Start: 05-21-2022 End: 05-21-2022 Patient encounter procedure 05/21/2022 Office Visit Breast Clinic / Breast Center Nataly Cisneros, [facility] [address] [place] [address] [facility] Start: 05-17-2022 End: 05-17-2022 Patient encounter procedure 05/17/2022 Appointment Radiology [facility] Start: 04-27-2022 End: 06-28-2023 MG Breast - bilateral Diagnostic Bilateral diagnostic mammogram Imaging Routine Breast pain, left Expected: 04/27/2022, Expires: 06/28/2023 [facility] Work Phone: Comment on above: Expected: 04/27/2022 , Expires: 06/28/2023 Start: 04-27-2022 End: 06-28-2023 US Breast - left limited Left breast US limited Imaging Routine Breast pain, left Expected: 04/27/2022, Expires: 06/28/2023 [facility] Comment on above: Expected: 04/27/2022 , Expires: 06/28/2023 Start: 10-08-2021 Influenza vaccination Influenza Vacc ine (#1) [facility] Start: 04-07-2021 COVID-19 Vaccine (4 - Booster for Pfizer series) COVID-19 Vaccine (4 - Booster for Pfizer series) [facility] Start: 04-07-2021 COVID-19 Vaccine (4 - Pfizer series) COVID-19 Vaccine (4 - Pfizer series) [facility] Start: 10-09-2019 Influenza vaccination [place] Start: 09-25-2019 End: 09-25-2019 Office Visit 09/25/2019 Office Visit Obstetrics and Gynecology Toy Burch MD [facility] [address] [place] [phone] [facility] [place] POULTRY INSEMINATOR Start: 2019 Lipid panel Lipid screen [place], [place] Start: 2019 Mammography MAMMOGRAM [facility] Start: 2019 Screening for malign ant neoplasm of breast Mammogram [facility] Start: 08-30-2018 Creatinine measurement Creatinine mo nitoring [place], [place] Start: 08-30-2018 Potassium monitoring Potassium monit oring [place] Start: 02-08-2018 End: 02-08-2018 Appointment Appointment [facility] Work Phone: Start: 2009 HPV TESTING HPV TESTING [facility] Start: 2009 Screening for malign ant neoplasm of cervix [facility] Start: 10-08-2008 PAP TESTING PAP TESTING [facility] Start: 10-08-2006 Screening for malign ant neoplasm of cervix Cervical Cancer Screening [facility] Start: 2006 HPV Vaccine (1 - 3-d ose SCDM series) HPV Vaccine (1 - 3-dose SCDM series) [facility] Start: 10-10-2005 HEPATITIS B (3 of 3 - 19+ 3-dose series) HEPATITIS B (3 of 3 - 19+ 3-dose series) [facility] Start: 07-05-2005 Hepatitis B Vaccine (3 of 3 - 19+ 3-dose series) Hepatitis B Vaccine (3 of 3 - 19+ 3-dose series) [facility] Start: 07-05-2005 Hepatitis B Vaccines (3 of 3 - 19+ 3-dose series) Hepatitis B Vaccines (3 of 3 - 19+ 3-dose series) [facility] Start: 07-05-2005 Hepatitis B Vaccines (3 of 3 - 3-dose series) Hepatitis B Vaccines (3 of 3 - 3-dose series) [facility] Start: 02-08-2000 Screening for malign ant neoplasm of cervix [facility] Start: 1998 DTaP/Tdap/Td vaccine (1 - Tdap) DTaP/Tdap/Td vaccine (1 - Tdap) [place] Start: 1998 Pneumococcal vaccination Pneum ococcal Vaccine (1 of 2 - PCV) [facility] Start: 1998 Pneumococcal Vaccine : Pediatrics (0 to 5 Years) and At-Risk Patients (6 to 49 Years) (1 of 2 - PCV) Pneumococcal Vaccine: Pediatrics (0 to 5 Years) and At-Risk Patients (6 to 49 Years) (1 of 2 - PCV) [facility] Start: 08-08-1997 DTaP/Tdap/Td Vaccine s (2 - Tdap) DTaP/Tdap/Td Vaccines (2 - Tdap) [facility] Start: 08-08-1997 Urine microalbumin profile [facility] Start: 1997 ANNUAL PCP TEAM RN ON SITE DALIA DISEASE VISIT ANNUAL PCP TEAM CHRONIC DISEASE VISIT [facility] Start: 1997 Anxiety Screening Anxiety Screening [facility] Start: 1997 Diabetes mellitus screening Diabetes Screening [facility] Start: 1997 Diabetes: Estimated Glomerular Filtration Rate for Kidney [facility] Diabetes: Estimated Glomerular Filtration Rate for Kidney [facility] Start: 1997 Diabetes: Urine Albumin-Creatinine Ratio for Kidney Health Diabetes: Urine Albumin-Creatinine Ratio for Kidney [facility] Start: 1997 Hepatitis C screening Hepatitis C Sc reening [facility] Start: 1997 HIV SCREENING HIV SCREENING [facility] Start: 1997 HIV screening HIV Screening [facility] Start: 1994 HIV screening HIV [place] Start: 1991 Depression Monitoring Depression Mon itoring [facility] Start: 1991 Depression Screening Depression Scre ening [facility] Start: 1990 Urine microalbumin profile DTAP,TDAP,TD (2 - Tdap) [facility] Start: 1989 Diabetic foot examination Diabetes: Foot Exam [facility] Start: 1989 Glaucoma screening Diabetes: R etinopathy Screening [facility] Start: 1989 Preventive dental service Diabetes: Dental Exam [facility] Start: 1985 PNEUMOCOCCAL (1 - PCV) PNEUMOCOCCAL (1 - PCV) [facility] Start: 1985 Pneumococcal 0-64 ye ars Vaccine (1 of 1 - PPSV23) Pneumococcal 0-64 years Vaccine (1 of 1 - PPSV23) [place] Start: 1985 Pneumococcal Vaccine : Pediatrics (0 to 5 Years) and At-Risk Patients (6 to 64 Years) (1 - PCV) Pneumococcal Vaccine: Pediatrics (0 to 5 Years) and At-Risk Patients (6 to 64 Years) (1 - PCV) [facility] Start: 1985 Pneumococcal Vaccine : Pediatrics (0 to 5 Years) and At-Risk Patients (6 to 64 Years) (1 of 2 - PCV) Pneumococcal Vaccine: Pediatrics (0 to 5 Years) and At-Risk Patients (6 to 64 Years) (1 of 2 - PCV) [facility] Start: 02-08-1980 MMR Vaccines (1 of 1 - Standard series) MMR Vaccines (1 of 1 - Standard series) [facility] Start: 02-08-1980 Varicella vaccine (1 of 2 - 2-dose childhood series) Varicella vaccine (1 of 2 - 2-dose childhood series) [place] Start: 1979 Hemoglobin A1c measurement Diabetes: Hemoglobin A1C [facility] Start: 1979 HIV screening HIV Screening [facility] Start: 1979 Lipid panel Lipid Panel [facility] Start: 1979 Screening for malign ant neoplasm of colon [facility] End: 07-14-2025 CT Abdomen and Pelvis W contrast IV CT ABD/PEL W IVCON Radiology Routine Incisional hernia, without obstruction or gangrene 1 Occurrences starting 06/14/2024 until 07/14/2025 [facility] Work Phone: Comment on above: 1 Occurrences starti ng 06/14/2024 until 07/14/2025 CT Abdomen and Pelvi s W contrast IV CT ABD/PEL W IVCON Radiology Routine Incisional hernia, without obstruction or gangrene 07/06/2024 1:39 PM EDT [facility] Work Phone: End: 10-20-2025 CT Abdomen and Pelvis W contrast IV CT ABD/PEL W IVCON Radiology Routine Acute abdomen 1 Occurrences starting 09/20/2024 until 10/20/2025 [facility] Work Phone: Comment on above: 1 Occurrences starti ng 09/20/2024 until 10/20/2025 CT Abdomen and Pelvi s W contrast IV CT ABD/PEL W IVCON Radiology Routine Acute abdomen 10/05/2024 1:58 PM EDT [facility] Work Phone: End: 09-28-2019 CT Abdomen Pelvis Wo Contrast CT Abdomen Pelvis Wo Contrast Imaging Routine LLQ pain Lt flank pain 1 Occurrences starting 09/28/2019 until 09/28/2019 [place] Comment on above: 1 Occurrences starti ng 09/28/2019 until 09/28/2019 CT Abdomen Pelvis Wo Contrast CT Abdomen Pelvis Wo Contrast Imaging Routine LLQ pain Lt flank pain 09/28/2019 1:02 PM EDT [place] Patient Education \cps-sql1\CPS_ PtEducatio n\quitting_smoking_[id number].pdf, \cps-sql1\CPS_PtEducatio n\quitting_smoking_[id number].pdf, \cps-sql1\CPS_PtEducatio n\htn.pdf [facility] Work Phone: End: 01-04-2024 [facility] Work Phone: Comment on above: Once for 1 Occurrenc es starting 01/04/2024 until 01/04/2024 Immunizations Immunization Date Immunization Notes Care Provider Aram resendiz 02-10-2021 Pfizer SARS-CoV-2 Vaccination Toy Burch MD Work Phone: [facility] 06-07-2020 Pfizer SARS-CoV-2 Vaccination Toy Burch MD Work Phone: [facility] 05-17-2020 Pfizer SARS-CoV-2 Vaccination Toy Burch MD Work Phone: [facility] 05-10-2005 hepatitis B vaccine, adult dosage Jony Finch [facility] 05-10-2005 hepatitis B vaccine, unspecified formulation Xr [facility] 12-02-2004 tuberculin skin test ; purified protein derivative solution, intradermal Elizabeth Richardson DO Work Phone: [facility] 11-18-2004 hepatitis B vaccine, adult dosage Jony [facility] 11-18-2004 tuberculin skin test ; purified protein derivative solution, intradermal Elizabeth Richardson DO Work Phone: [facility] 08-07-1997 tetanus and diphther ia toxoids, adsorbed, preservative free, for adult use (2 Lf of tetanus toxoid and 2 Lf of diphtheria toxoid) Jony [facility] No information available. Iona Brenner TERRI [facility] Work Phone: Payers Date Payer Category Payer Unknown [id number] 2023 Self-pay [id number] 2022 Blue Cross Blue Shield [id number] 2022 Blue Cross Blue Shie ld Managed Care - HMO [id number] 2022 Unknown [id number] 2022 Unknown [id number] 2016 Unknown BCBS BCBS - [place] P PO [id number] 2016-Present [address] [place] [address] [id number] 2016 Unknown [id number] 2001 Unknown MMO ZZZMMO SUPER MED PLUS [id number] 2001-2018 PPO [id number] 2001 Unknown MMO ZZZMMO SUPER MED PLUS [id number] 2001-2017 PPO [id number] Unknown [id number] Unknown [id number] Social History Date Type Detail Facility Start: 02-08-2018 End: 02-08-2018 Assertion Unknown if ever smoked [facility] Work Phone: Start: 08-30-2017 End: 02-10-2024 Tobacco smoking status NHIS Current every day smoker [facility] Start: 1997 History of tobacco use Cigarette Smoker [place], [place] Start: 08-30-2017 End: 03-22-2024 Cigarettes smoked current (pack per day) - Reported [place], [place] Start: 08-30-2017 End: 02-10-2024 Tobacco use and exposure Never used [place], [place] Start: 08-30-2017 End: 09-13-2024 Alcohol intake Current drinker of alcohol (finding) [place] Start: 04-27-2016 Alcohol Comment rarely [place], [place] Sex Assigned At Not on file [place] Start: 05-07-2022 End: 05-21-2022 Exposure to SARS-CoV-2 (event) Not sure [place], [place] Start: 1980 Sex Assigned At Female [facility] Start: 05-21-2022 Alcohol Comment occ [facility] Start: 05-21-2022 End: 03-22-2024 Tobacco use panel [facility] Start: 12-16-2020 Gender identity Identifies as female gender (finding) [facility] Start: 12-16-2020 Sexual orientation Heterosexual (fin jose j) [facility] Start: 09-07-2021 End: 05-29-2024 Sex Female (finding) [facility] Start: 01-09-2012 National Score (1-100), lower number is lower risk 55 [facility] Start: 02-10-2024 Tobacco Comment Pt advised to quit [facility] NEGATED: Highlighted rowStart: 02-08-2018 End: 02-08-2018 Tobacco use and exposure Smokes tobacco daily (finding) [facility] Work Phone: NEGATED: Highlighted row - - [facility] Work Phone: Medical Equipment Procedure Code Equipment Code Equipment Origin al Text Equipment Identifier Dates Mesh Surgical Parietene Ds 12cm Round - [id number] [facility] Start: 08-07-2024 Functional Status Date Assessment Result Facility NEGATED: Highlighted row Functional performance Functional status health issues are not documented Disease [facility] Work Phone: Mental Status Date Assessment Result Facility NEGATED: Highlighted row Cognitive function [Interpretation] Cognitive status health issues are not documented Disease [facility] Work Phone: Clinical Notes 04-27-2022 to 11-21-2024 Jethro Finch, CT - 10/05/2024 2:00 PM Elizabeth Nava, DO - 10/02/2024 11:26 PM Elizabeth Nava, DO - 09/25/2024 8:17 AM EDTPatient InstructionsPatient InstructionsPatient Instructions Note Date & Type Note Facility 11-21-2024 Note HNO ID: [id number] Author: DESTINEE RANGEL RT(R) Service: Nuclear Medicine Author Type: Technologist Type: Progress Notes Filed: 11/21/2024 08:10 Note Text: RADIOLOGY SERVICE PROGRESS NOTE SERVICE DATE: 11/21/2024 SERVICE TIME: 8:09 AM PATIENT IDENTITY VERIFICATION COMPLETED USING TWO (2) STANDARD IDENTIFIERS: Name and Date of confirmed by patient verbally and Name and Date of confirmed by identification band FALL SCREENING: Has the patient had 2 falls in the last year or 1 fall with injury or currently using an Ambulatory Assistive Device (Walker, Cane, Wheelchair, Crutches, etc.)? No PATIENT GENDER DATA: .female : No ALLERGIES: Reviewed and unchanged MEDICATIONS REVIEWED: Not applicable PATIENT RELEVANT IMPLANT DATA REVIEWED: Not Applicable PATIENT PRESENTS WITH AN IMPLANTABLE OR ATTACHED DANCE DIRECTOR: No CREATININE: Creatinine Date Value Ref Range Status 10/05/2024 0.71 0.58 - 0.96 mg/dL Final 08/01/2024 0.74 0.58 - 0.96 mg/dL Final 01/26/2024 0.70 0.58 - 0.96 mg/dL Final Estimated Glomerular Filtration Rate Date Value Ref Range Status 10/05/2024 107 >=60 mL/min/1.73m? Final Comment: Estimated Glomerular Filtration Rate (eGFR) is calculated using the 2020 CKD-EPI creatinine equation. This equation utilizes serum creatinine, sex, and age as parameters. The creatinine assay has traceable calibration to isotope dilution-mass spectrometry. Refer to KDIGO guidelines for clinical interpretation. In patients with unstable renal function, e.g. those with acute kidney injury, the eGFR may not accurately reflect actual GFR. P.O.C.T. RESULTS: N/A November 21, [address] PERFORMED: No IV SITE: SD only - not applicable, oral or physician administered agents given to patient POST EXAM PIV STATUS: Not applicable PROCEDURE TYPE: NM GET: 1.18 mCi Tc99m SULFUR COLLOID was administered orally via 4 oz egg beaters, 2 pieces toast, 8 oz water ADMINISTRATION TIME: 0807 PATIENT DISCHARGED TO: Ambulatory patient, left SD department area. Is this a therapy: No A Diagnostic radioactive procedure has taken place, with no further precautions necessary other than routine body substance precautions. More information regarding radiation safety can be found using this link: [email or web address] SIGNATURE: RT Na(R) PATIENT NAME: Nadia Gonzalez DATE: November 21, 2024 TIME: 8:09 AM PAGER/CONTACT #: [facility] 10-05-2024 History of Present illness Narrative Radiology Service Progress Note DATE OF SERVICE: October 05, 2024 TIME: 2:17 PM PATIENT IDENTITY VERIFICATION COMPLETED USING TWO (2) STANDARD IDENTIFIERS: Name and Date of confirmed by patient verbally. FALL SCREENING: Has the patient had 2 falls in the last year or 1 fall with injury or currently using an Ambulatory Assistive Device (Walker, Cane, Wheelchair, Crutches, etc.)? No PATIENT GENDER DATA: Assigned female at . status: : No status: NO. PATIENT RELEVANT IMPLANT DATA REVIEWED: Not Applicable PATIENT PRESENTS WITH AN IMPLANTABLE OR ATTACHED DANCE DIRECTOR: No ALLERGIES: Reviewed and unchanged CONTRAST ALLERGY: NO. EXAM: CT -CONTRAST INDUCED NEPHROPATHY RISK FACTORS: Not applicable CREATININE: Creatinine Date Value Ref Range Status 10/05/2024 0.71 0.58 - 0.96 mg/dL Final 08/01/2024 0.74 0.58 - 0.96 mg/dL Final 01/26/2024 0.70 0.58 - 0.96 mg/dL Final Estimated Glomerular Filtration Rate Date Value Ref Range Status 10/05/2024 107 >=60 mL/min/1.73m Final Comment: Estimated Glomerular Filtration Rate (eGFR) is calculated using the 2020 CKD-EPI creatinine equation. This equation utilizes serum creatinine, sex, and age as parameters. The creatinine assay has traceable calibration to isotope dilution-mass spectrometry. Refer to KDIGO guidelines for clinical interpretation. In patients with unstable renal function, e.g. those with acute kidney injury, the eGFR may not accurately reflect actual GFR. P.O.C.T. RESULTS: N/A October 05, 2024 TREATMENT: N/A PERIPHERAL IV DATA: Ambulatory: A peripheral IV was started in the Right upper extremity antecubital site with a Angio cath: 22 gauge. RADIOLOGY DEPARTMENT: CT; Exam(s) Completed: Abdomen/Pelvis . Anesthesia: No SIGNATURE: SILVIA Burt PATIENT NAME: Nadia Gonzalez DATE: October 05, 2024 TIME: 2:17 PM documented in this encounter [facility] 10-05-2024 Note HNO ID: [id number] Author: JETHRO FINCH CT Service: Radiology Author Type: Technologist Type: Progress Notes Filed: 10/05/2024 14:17 Note Text: Radiology Service Progress Note DATE OF SERVICE: October 05, 2024 TIME: 2:17 PM PATIENT IDENTITY VERIFICATION COMPLETED USING TWO (2) STANDARD IDENTIFIERS: Name and Date of confirmed by patient verbally. FALL SCREENING: Has the patient had 2 falls in the last year or 1 fall with injury or currently using an Ambulatory Assistive Device (Walker, Cane, Wheelchair, Crutches, etc.)? No PATIENT GENDER DATA: Assigned female at . status: : No status: NO. PATIENT RELEVANT IMPLANT DATA REVIEWED: Not Applicable PATIENT PRESENTS WITH AN IMPLANTABLE OR ATTACHED DANCE DIRECTOR: No ALLERGIES: Reviewed and unchanged CONTRAST ALLERGY: NO. EXAM: CT -CONTRAST INDUCED NEPHROPATHY RISK FACTORS: Not applicable CREATININE: Creatinine Date Value Ref Range Status 10/05/2024 0.71 0.58 - 0.96 mg/dL Final 08/01/2024 0.74 0.58 - 0.96 mg/dL Final 01/26/2024 0.70 0.58 - 0.96 mg/dL Final Estimated Glomerular Filtration Rate Date Value Ref Range Status 10/05/2024 107 >=60 mL/min/1.73m? Final Comment: Estimated Glomerular Filtration Rate (eGFR) is calculated using the 2020 CKD-EPI creatinine equation. This equation utilizes serum creatinine, sex, and age as parameters. The creatinine assay has traceable calibration to isotope dilution-mass spectrometry. Refer to KDIGO guidelines for clinical interpretation. In patients with unstable renal function, e.g. those with acute kidney injury, the eGFR may not accurately reflect actual GFR. P.O.C.T. RESULTS: N/A October 05, 2024 TREATMENT: N/A PERIPHERAL IV DATA: Ambulatory: A peripheral IV was started in the Right upper extremity antecubital site with a Angio cath: 22 gauge. RADIOLOGY DEPARTMENT: CT; Exam(s) Completed: Abdomen/Pelvis . Anesthesia: No SIGNATURE: SILVIA Burt PATIENT NAME: Nadia Gonzalez DATE: October 05, 2024 TIME: 2:17 PM [facility] 10-02-2024 History of Present illness Narrative Established VIRTUAL CONSULT NAME: Nadia Gonzalez CLINIC NO: [id number] DATE OF SERVICE: October 02, 2024 I had a virtual consult with Ms. Gonzalez today. HPI: Nadia Gonzalez is a 44-year-old female presenting for follow-up on abdominal pain. aNdia reports improvement in abdominal pain since last week, attributing relief to Valium use. She completed a 5-day course of Toradol, noting increased pain upon cessation, though not as severe as the previous week. Pain is primarily activity-related rather than associated with eating, and is localized around the umbilical area. She experiences intermittent tenderness, but currently can touch her abdomen without significant discomfort. Appetite varies, with good and bad days. She requests a refill of Valium, having a few doses remaining. REVIEW OF SYSTEMS: Constitutional: (+) appetite changes Gastrointestinal: (+) periumbilical pain, (+) abdominal tenderness PHYSICAL FINDINGS OF NOTE: General - Normal, healthy, cooperative, in no acute distress Able to interact verbally by video conference Pulmonary - respiratory effort normal IMPRESSION/ RECOMMENDATION: 1. Acute post-operative pain (G89.18) Encounter for surgical aftercare following surgery on the digestive system (Z48.815) Post-operative pain has improved since last week, but still present, particularly around the umbilical area. Pain is associated with activity level rather than eating. Pain likely due to inflammation and healing at the sites where the mesh is anchored. - Ordered CT scan to evaluate surgical site and ensure proper healing. - Patient to schedule CT scan with radiology department. - Follow-up after imaging to review results and assess pain improvement. 2. Muscle spasm (M62.838) Muscle spasms have improved with Valium. - Refilled Valium prescription, to be picked up on the at [facility] in [place]. 3. Acute abdomen (R10.0) This encounter was provided via two-way, live video teleconferencing within the guidelines of state licensure rules for new and established patients. I have communicated my name and active licensure. The patient's identity and physical location were verified at the time of this visit. Either the patient or their legal insurance service representative has been informed of the risks and benefits of -- and alternatives to -- treatment through a remote evaluation and consents to proceed with the evaluation remotely. Technical difficulties were not encountered. 10 minutes were spent on the teleconference with the patient. An additional 5 minutes was required for chart review/preparation, documentation, orders, and care coordination. Elizabeth Richardson DO General Surgery PAST HISTORY PAST MEDICAL HISTORY Diagnosis Date Acute gastritis BRCA1 negative BRCA2 negative Chronic pelvic pain in female Depression High blood pressure Hypothyroidism IBS (irritable bowel syndrome) Migraine with aura Migraines Vulvodynia PAST SURGICAL HISTORY Procedure Laterality Date APPENDECTOMY 2012 BX OF BREAST; INCISIONAL benign LAPAROSCOPIC CHOLECYSTECTOMY 03/06/2024 w/ intraoperative cholangiogram Lap. bilateral transversus abdominus plane blockDr. Richardson LIGATE FALLOPIAN TUBE 2010 PAST SURGICAL HISTORY OF 2006 bladder repair, and sling removed in 2007 PAST SURGICAL HISTORY OF 2013 incisional hernia repair PAST SURGICAL HISTORY OF Right 2013 radius and ulna and in 2019 hardware removed REPAIR INCISIONAL HERNIA,REDUCIBLE 08/07/2024 with intraperitoneal mesh placement Dr. Richardson TOOTH EXTRACTION wisdom teeth TOTAL ABDOM HYSTERECTOMY 2013 adenomyosis Robotic LAVH/partial UMBILICAL HERNIA REPAIR 5 OR OLDER 12/16/2020 Dr. Lassiter FAMILY HISTORY Problem Relation Age of Onset Hypertension Mother Thyroid Mother Overactive thyroid GI Sister Anesthesia Problems No Family History Bleeding disorder No Family History Clotting Disorder No Family History SOCIAL HISTORY[1] [1] Social History Tobacco Use Smoking status: Every Day Current packs/day: 0.50 Average packs/day: 0.5 packs/day for 6.0 years (3.0 ttl pk-yrs) Types: Cigarettes Smokeless tobacco: Never Tobacco comments: Pt advised to quit Vaping Use Vaping status: Never Used Substance Use Topics Alcohol use: Yes Comment: A couple of drinks per month Drug use: Yes Types: Marijuana Comment: once in while documented in this encounter [facility] 09-25-2024 Note HNO ID: [id number] Author: ELIZABETH RICHARDSON DO Service: ? Author Type: Physician Type: Progress Notes Filed: 09/25/2024 08:18 Note Text: GENERAL SURGERY FOLLOW UP Recording using [employer] software for draft documentation of the visit was discussed with the patient/authorized insurance service representative; all questions welcomed and answered. Patient/authorized insurance service representative agreed to proceed Nadia Gonzalez is a 44-year-old female presenting for follow-up due to worsening abdominal pain following a laparoscopic incisional hernia repair with mesh placement on 08/18/24. Nadia was seen on 08/24/24 for a routine post-operative follow-up, during which she reported incisional discomfort and a sensation of feeling raw internally. She was advised that she could return to normal activities with lifting restrictions for an additional 2 weeks. Yesterday, she contacted the office reporting increasing pain over the past few days, which has been waking her up at night. Today, she describes the pain as worsening and localized primarily above the umbilicus. She denies pain at the external incision sites. She reports a decrease in appetite and occasional nausea, particularly when the pain intensifies. She denies any changes in bowel habits and reports normal stools. She has been taking Zanaflex, initially prescribed for headaches, occasionally for the pain but does not notice much difference. She notes that it helps her fall asleep at night. She has previously taken Valium post-operatively, which provided some relief, and has also tried Flexeril for headaches, which she reports as ineffective. Constitutional: (+) sleep disturbance Gastrointestinal: (+) abdominal pain zakiya-umbilical, (+) decreased appetite, (+) nausea, (-) change in bowel habits Skin: (-) incisional site pain 10 point review of systems completed and is otherwise negative On exam: There were no vitals filed for this visit. Gen: NAD, well-nourished Lungs: unlabored breathing, bilateral chest rise Abd: Postoperative incisions with some firmness, tenderness to palpation above the umbilicus, evidence of inflammation, no signs of hernia recurrence. Assessment ASSESSMENT Acute post-operative pain (primary encounter diagnosis) Muscle spasm RECOMMENDATION 1. Acute post-operative pain (G89.18) 2. Muscle spasm (M62.838) - Worsening abdominal pain and muscle spasm following laparoscopic incisional hernia repair with mesh placement on 08/07/24; seen for routine post-op follow-up on 08/24/24. - Exam reveals post-op inflammation and fluid around the incision and dissection site; no evidence of hernia recurrence. - Start Toradol PO for 5 days for pain and inflammation. - Start Valium for muscle spasms and to aid sleep. - Educated patient on expected post-op pain duration and inflammation; advised to call if pain persists or worsens in 2 weeks. - Follow-up next week via in-person appointment or phone call; if pain persists, will order CT scan. Elizabeth Richardson, September 25, 2024 8:17 AM [facility] 09-25-2024 History of Present illness Narrative Images from the original note were not included. GENERAL SURGERY FOLLOW UP Recording using [employer] software for draft documentation of the visit was discussed with the patient/authorized insurance service representative; all questions welcomed and answered. Patient/authorized insurance service representative agreed to proceed Nadia Gonzalez is a 44-year-old female presenting for follow-up due to worsening abdominal pain following a laparoscopic incisional hernia repair with mesh placement on 08/18/24. Nadia was seen on 08/24/24 for a routine post-operative follow-up, during which she reported incisional discomfort and a sensation of feeling raw internally. She was advised that she could return to normal activities with lifting restrictions for an additional 2 weeks. Yesterday, she contacted the office reporting increasing pain over the past few days, which has been waking her up at night. Today, she describes the pain as worsening and localized primarily above the umbilicus. She denies pain at the external incision sites. She reports a decrease in appetite and occasional nausea, particularly when the pain intensifies. She denies any changes in bowel habits and reports normal stools. She has been taking Zanaflex, initially prescribed for headaches, occasionally for the pain but does not notice much difference. She notes that it helps her fall asleep at night. She has previously taken Valium post-operatively, which provided some relief, and has also tried Flexeril for headaches, which she reports as ineffective. Constitutional: (+) sleep disturbance Gastrointestinal: (+) abdominal pain zakiya-umbilical, (+) decreased appetite, (+) nausea, (-) change in bowel habits Skin: (-) incisional site pain 10 point review of systems completed and is otherwise negative On exam: There were no vitals filed for this visit. Gen: NAD, well-nourished Lungs: unlabored breathing, bilateral chest rise Abd: Postoperative incisions with some firmness, tenderness to palpation above the umbilicus, evidence of inflammation, no signs of hernia recurrence. Assessment ASSESSMENT Acute post-operative pain (primary encounter diagnosis) Muscle spasm RECOMMENDATION 1. Acute post-operative pain (G89.18) 2. Muscle spasm (M62.838) - Worsening abdominal pain and muscle spasm following laparoscopic incisional hernia repair with mesh placement on 08/07/24; seen for routine post-op follow-up on 08/24/24. - Exam reveals post-op inflammation and fluid around the incision and dissection site; no evidence of hernia recurrence. - Start Toradol PO for 5 days for pain and inflammation. - Start Valium for muscle spasms and to aid sleep. - Educated patient on expected post-op pain duration and inflammation; advised to call if pain persists or worsens in 2 weeks. - Follow-up next week via in-person appointment or phone call; if pain persists, will order CT scan. Elizabeth Richardson DO September 25, 2024 8:17 AM documented in this encounter [facility] 09-13-2024 Instructions Elizabeth Richardson DO - 09/13/2024 1:30 PM EDT We discussed your post-operative abdominal pain following laparoscopic incisional hernia repair with mesh placement: - Your pain is likely due to post-operative inflammation and the healing process, which is normal for this type of surgery. The mesh needs time to incorporate into the tissues, and the dissection area is still inflamed. - I did not find any signs of hernia recurrence or other concerning issues during the exam. - If your pain persists or worsens in the next two weeks, we will consider ordering a CT scan to evaluate further. - Muscle spasms may also be contributing to your discomfort. I have prescribed Valium, which can help with both muscle spasms and sleep. This has been sent to your preferred pharmacy. - I have also prescribed a 5-day course of Toradol to help with pain and inflammation. Please take this as directed and do not exceed the 5-day course, as prolonged use can stress the kidneys. Follow-up instructions: - If your pain continues next week, please call our office to discuss further. At that time, we can decide whether to proceed with a CT scan. - We can schedule a follow-up appointment or phone call next week to check on your progress. Medications: - Valium: Take as prescribed to help with muscle spasms and sleep. - Toradol: Take as prescribed for 5 days to manage pain and inflammation. Do not exceed the 5-day course. Your prescriptions have been sent to your preferred pharmacy at [facility] on . Please let us know if you have any questions or concerns. documented in this encounter [facility] 08-24-2024 Note HNO ID: [id number] Author: LI ORR APRN.SHYAM Service: ? Author Type: Nurse Practitioner Type: Progress Notes Filed: 08/25/2024 09:34 Note Text: IMPRESSION: Patient is s/p Laparoscopic incisional hernia repair with intraperitoneal mesh placement Laparoscopic bilateral transversus abdominus plane block. PLAN: Post-op patient instructions were reviewed with the patient. I have explained to Ms. Gonzalez that she may return to normal activity with the following restrictions: no lifting over 20 lbs, no pulling, and no pushing. I have encouraged her to contact me at any time with any questions or concerns that may arise. Follow up: PRN SUBJECTIVE: On 08/07/2024 she underwent Laparoscopic incisional hernia repair with intraperitoneal mesh placement Laparoscopic bilateral transversus abdominus plane block with Dr. Elizabeth Richardson. Patient presents now for follow up. Patient complaints: having incisional discomfort - she states sometimes raw feeling inside - Patient denies: Nausea, Vomiting, Diarrhea, Constipation, Fever, Chills, Redness around wound, Drainage from incision/s, and Bulges or mass OBJECTIVE: General Appearance: alert, oriented and in no acute distress Abdomen: soft and non-tender Li Orr APRN.TRACK WELDER 08/24/2024 [facility] 08-24-2024 History of Present illness Narrative IMPRESSION: Patient is s/p Laparoscopic incisional hernia repair with intraperitoneal mesh placement Laparoscopic bilateral transversus abdominus plane block. PLAN: Post-op patient instructions were reviewed with the patient. I have explained to Ms. Gonzalez that she may return to normal activity with the following restrictions: no lifting over 20 lbs, no pulling, and no pushing. I have encouraged her to contact me at any time with any questions or concerns that may arise. Follow up: PRN SUBJECTIVE: On 08/07/2024 she underwent Laparoscopic incisional hernia repair with intraperitoneal mesh placement Laparoscopic bilateral transversus abdominus plane block with Dr. Elizabeth Richardson. Patient presents now for follow up. Patient complaints: having incisional discomfort - she states sometimes raw feeling inside - Patient denies: Nausea, Vomiting, Diarrhea, Constipation, Fever, Chills, Redness around wound, Drainage from incision/s, and Bulges or mass OBJECTIVE: General Appearance: alert, oriented and in no acute distress Abdomen: soft and non-tender Li Orr APRN.CNP 08/24/2024 documented in this encounter [facility] 08-13-2024 Telephone encounter Note Rx sent to [facility]. Please review pain regimen if able to tolerate. Tylenol (acetaminophen) up to 1,000mg (2 over the counter 500mg) every 6 hours Motrin (ibuprofen) up to 800mg (4 over the counter 200mg) every 6 hours between tylenol Roxicodone 5mg every 6 hours as needed for pain. [facility] 08-13-2024 Miscellaneous Notes Rx sent to [facility]. Please review pain regimen if able to tolerate. Tylenol (acetaminophen) up to 1,000mg (2 over the counter 500mg) every 6 hours Motrin (ibuprofen) up to 800mg (4 over the counter 200mg) every 6 hours between tylenol Roxicodone 5mg every 6 hours as needed for pain. Per pt MyChart Message: Good morning. I was wondering if there is any chance that I can get a refill of pain medication? I still have a weeks worth of the Valium but only have a couple of the oxycodone tablets left. The pain is getting better but by the afternoon I am needing to take something stronger than the ibuprofen and Tylenol. Thank you for your assistance. Nadia is calling Elizabeth Richardson DO today to request A medication not on current med list Oxycodone IR 5 mg tablet every 6 hrs as needed # 20 0 refills Patient has been identified by name and birthdate. Person calling: self Call patient at: on cell [phone] (home) [phone] (cell) Was an appointment scheduled: No Lauryn Welsh documented in this encounter [facility] 08-13-2024 Telephone encounter Note Per pt MyChart Message: Good morning. I was wondering if there is any chance that I can get a refill of pain medication? I still have a weeks worth of the Valium but only have a couple of the oxycodone tablets left. The pain is getting better but by the afternoon I am needing to take something stronger than the ibuprofen and Tylenol. Thank you for your assistance. [facility] 08-13-2024 Telephone encounter Note Nadia is calling Elizabeth Richardson DO today to request A medication not on current med list Oxycodone IR 5 mg tablet every 6 hrs as needed # 20 0 refills Patient has been identified by name and birthdate. Person calling: self Call patient at: on cell [phone] (home) [phone] (cell) Was an appointment scheduled: No Lauryn Welsh [facility] 08-09-2024 Telephone encounter Note 08/07/24 Procedure: LAPAROSCOPIC HERNIA REPAIR INCISIONAL INITIAL REDUCIBLE W/MESH 3cm-10cm, supraumbilical incisional hernia Procedure Summary Date: 08/07/24 Room / Location: [facility] OR01 / [facility] Anesthesia Start: 732 Anesthesia Stop: 950 Procedure: LAPAROSCOPIC HERNIA REPAIR INCISIONAL INITIAL REDUCIBLE W/MESH 3cm-10cm, supraumbilical incisional hernia (Abdomen) Diagnosis: Incisional hernia, without obstruction or gangrene (Incisional hernia, without obstruction or gangrene [K43.2]) Surgeons: Elizabeth Richardson DO Responsible Provider: Cynthia Ellis MD Anesthesia Type: general ASA Status: 2 Post op 08/24/24 Has been taking valium every 12 hours and tylenol and ibuprofen as needed. Is taking oxycodone every 8 hours. She feels like the valium wears off in 3 hours Advised to wear the binder most or times. Advised to use ice on and off for 20 min interval during day. Advised to remove silverlon dressing early next week. Patient was advised that medication can be constipating. Advised to drink plenty of fluids such as water and fruit juices and to include plenty of fiber in diet, including fruits and vegetables. Is taking metamucil and miralax daily. She is not burping and passing gas. No BM yet - last BM was Tuesday. She does have H/O of stool retention.. Advised to bump up fluid intake. Advised to try milk of magnesia. Advised to take Milk of magnesia as prescribed and repeat in 8 hours if no results. Patient was advised to call office if symptoms become worse: If fevers or chills develop. If increase in pain. If drainage develops or any other concern. Patient verbalizes understanding and has no further questions or concerns at this time. Was advised to call as needed for future problems. Encounter closed. [facility] 08-09-2024 Miscellaneous Notes 08/07/24 Procedure: LAPAROSCOPIC HERNIA REPAIR INCISIONAL INITIAL REDUCIBLE W/MESH 3cm-10cm, supraumbilical incisional hernia Procedure Summary Date: 08/07/24 Room / Location: [facility]01 / [facility] Anesthesia Start: 732 Anesthesia Stop: 950 Procedure: LAPAROSCOPIC HERNIA REPAIR INCISIONAL INITIAL REDUCIBLE W/MESH 3cm-10cm, supraumbilical incisional hernia (Abdomen) Diagnosis: Incisional hernia, without obstruction or gangrene (Incisional hernia, without obstruction or gangrene [K43.2]) Surgeons: Elizabeth Richardson DO Responsible Provider: Cynthia Ellis MD Anesthesia Type: general ASA Status: 2 Post op 08/24/24 Has been taking valium every 12 hours and tylenol and ibuprofen as needed. Is taking oxycodone every 8 hours. She feels like the valium wears off in 3 hours Advised to wear the binder most or times. Advised to use ice on and off for 20 min interval during day. Advised to remove silverlon dressing early next week. Patient was advised that medication can be constipating. Advised to drink plenty of fluids such as water and fruit juices and to include plenty of fiber in diet, including fruits and vegetables. Is taking metamucil and miralax daily. She is not burping and passing gas. No BM yet - last BM was Tuesday. She does have H/O of stool retention.. Advised to bump up fluid intake. Advised to try milk of magnesia. Advised to take Milk of magnesia as prescribed and repeat in 8 hours if no results. Patient was advised to call office if symptoms become worse: If fevers or chills develop. If increase in pain. If drainage develops or any other concern. Patient verbalizes understanding and has no further questions or concerns at this time. Was advised to call as needed for future problems. Encounter closed. documented in this encounter [facility] 08-07-2024 Note HNO ID: [id number] Author: ?, ?, ? Service: Pharmacy Author Type: ? Type: Plan of Care Filed: 08/07/2024 11:06 Note Text: PHARMACY BEDSIDE DELIVERY SERVICE Patient Name: Nadia Gonzalez The marked outpatient medications were Filled at: [place] and delivered to the patient's bedside to pharm p/u Medication List START taking these medications diazePAM 5 mg tablet Commonly known as: VALIUM Take 1 tablet by mouth every 12 hours as needed for muscle spasm or pain for up to 14 days. X oxyCODONE IR 5 mg immediate release tablet Commonly known as: ROXICODONE Take 1 tablet by mouth every 6 hours as needed for up to 5 days. X CONTINUE taking these medications acetaminophen 300 mg-caffeine 40 mg-butalbital 50 mg per capsule Commonly known as: FIORICET buPROPion XL 300 mg 24 hr tablet Commonly known as: WELLBUTRIN XL dicyclomine 20 mg tablet Commonly known as: BENTYL FOCALIN 5 mg tablet Generic drug: dexmethylphenidate HCl hydroCHLOROthiazide 25 mg tablet KlonoPIN 0.5 mg tablet Generic drug: clonazePAM levothyroxine 175 mcg tablet Commonly known as: SYNTHROID metFORMIN 500 mg tablet Commonly known as: GLUCOPHAGE omeprazole 40 mg capsule Commonly known as: PriLOSEC ondansetron 4 mg tablet Commonly known as: ZOFRAN Take 1 tablet by mouth every 8 hours as needed for nausea/vomiting. RisperDAL 1 mg tablet Generic drug: risperiDONE SUMAtriptan 100 mg tablet Commonly known as: IMITREX tiZANidine 4 mg tablet Commonly known as: ZANAFLEX TYLENOL EXTRA STRENGTH 500 mg tablet Generic drug: acetaminophen You might also be taking other medications not listed above. If you have questions about any of your other medications, talk to the person who prescribed them or your Primary Care Provider. Capri Paez PAGER: [phone] August 07, 2024 11:06 AM [facility] 08-07-2024 Note HNO ID: [id number] Author: MARTÍN SURESH APRN.[employer]INTER[employer] DEVIL Service: Anesthesiology Author Type: Nurse Film Crew Member Type: Anesthesia Procedure Notes Filed: 08/07/2024 07:51 Note Text: ANESTHESIOLOGY PROCEDURE NOTE Airway General Information Procedure Start Time/Medication Administration: 08/07/2024 7:38 AM Procedure End Time: 08/07/2024 7:38 AM Patient location during procedure: OR Timeout Performed Pre-procedure: timeout performed Consent Obtained: Yes Patient identity confirmed: 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 Staffing PRINTER[employer] DEVIL: Kandrac, Martín, DESK SERGEANT.[employer]INTER[employer] DEVIL Performed by: PRINTER'S DEVIL Indications and Patient Condition Indications for airway management: anesthesia Preoxygenated: yes anesthesia circuit Patient position: sniffing Method: asleep Cricoid Pressure: No Final Airway Details Final airway type: endotracheal airway Final Endotracheal Airway: ETT Cuffed: yes Successful intubation technique: direct laryngoscopy Devices used: intubating stylet Endotracheal tube insertion site: oral Blade: Toyin Blade size: #3 ETT size (mm): 7.0 Measured from: lips Measurement (cm): 22 Placement verified by: chest auscultation Cormack-Lehane Classification: grade I - full view of glottis Number of attempts at approach: 1 SIGNATURE: Martín Suresh APRN.PRINTER'S DEVIL PATIENT NAME: Nadia Gonzalez DATE: August 07, 2024 TIME: 7:50 AM CSN: [id number] [facility] 08-07-2024 Note HNO ID: [id number] Author: NILA LUEVANO RN Service: Nursing Author Type: Registered Nurse Type: Nursing Progress Note Filed: 08/07/2024 07:00 Note Text: Other: pt ready for OR, call light in reach, Deon called to bedside [facility] 07-30-2024 Instructions Arely Mcgowan APRN.TRACK WELDER - 07/30/2024 2:37 PM EDT Images from the original note were not included. [facility] PATIENT PREOPERATIVE INSTRUCTIONS Elizabeth Richardson DO has scheduled you for your procedure at this surgery center: [facility]: [phone] -- [address] [facility] [address]. Please read below carefully for your personalized instructions. Dietary Restrictions: - No solid food after midnight. - You may have 12 ounces of clear liquids (water, clear juices such as apple juice or gatorade, carbonated beverages, clear tea, black coffee, jello) until 2 hours before scheduled arrival at facility. Medications: Unless instructed differently below, stay on all of your medications until your surgery. If you start any new medications after today's visit, please contact your surgeon. Pre-Surgery Med Instructions Medication Instructions dicyclomine (BENTYL) 20 mg tablet Do not take the day of surgery ondansetron (ZOFRAN) 4 mg tablet Do not take the day of surgery metFORMIN (GLUCOPHAGE) 500 mg tablet Do not take the day of surgery clonazePAM (KLONOPIN) 0.5 mg tablet If you normally take this medication in the morning, take the morning of surgery. risperiDONE (RISPERDAL) 1 mg tablet Continue omeprazole (PRILOSEC) 40 mg capsule If you normally take this medication in the morning, take the morning of surgery. dexmethylphenidate HCl (FOCALIN) 5 mg tablet Do not take the day of surgery levothyroxine (SYNTHROID) 175 mcg tablet If you normally take this medication in the morning, take the morning of surgery. tiZANidine (ZANAFLEX) 4 mg tablet Do not take the day of surgery SUMAtriptan (IMITREX) 100 mg tablet Do not take the day of surgery hydroCHLOROthiazide (HYDRODIURIL, ESIDRIX) 25 mg tablet Do not take the day of surgery acetaminophen 300 mg-caffeine 40 mg-butalbital 50 mg (FIORICET) per capsule Do not take the day of surgery buPROPion XL (WELLBUTRIN XL) 300 mg 24 hr tablet If you normally take this medication in the morning, take the morning of surgery. If you start any new medications after today's visit, please contact the surgeon's office. If you are currently using a [id number] injectable or oral medication for diabetes or weight loss such as Dulaglutide (Trulicity), Exenatide (Byetta, Bydureon), Liraglutide (Victoza, Saxenda), Semaglutide (Ozempic, Wegovy, Rybelsus), or Tirzepatide (Mounjaro), the medicine should be stopped at least 7 days before surgery. These medicines can cause food to remain in your stomach for a very long time and increase the risks from surgery and anesthesia. Not stopping the medication for a long enough time may result in your surgery being rescheduled. Blood Thinning Medications: - Stop NSAIDS (Ibuprofen, Advil, Aleve, Motrin, Celebrex, Mobic, etc.) 7 days before surgery, as directed by your surgeon. - Stop Aspirin 7 days before surgery, as directed by your surgeon. - Stop ALL herbal and dietary supplements 7 days before surgery. - You may take Tylenol (Acetaminophen) or any of your pain medications that do not contain aspirin or NSAIDS as needed. Important Reminders: - Candy, mints, and tobacco products are NOT permitted the morning of surgery. - Hearing aids, dentures and glasses may be worn the morning of surgery. - NO jewelry, body piercings, makeup, hairpins or contacts are to be worn the day of surgery. If you develop symptoms such as a fever, cold, or flu, or have other changes to your health within TWO DAYS of scheduled surgery or the morning of surgery, please contact the surgery center above. Personal Belongings: -Please have photo ID and insurance cards. -If you do not have a copy of advance directives on file with us, please bring a copy with you on the day of surgery. - Leave ALL valuables and money at home or with family members. - Please bring high-quality footwear, such as sneakers, to the hospital for ambulating post-surgery. For Outpatient Procedures: - YOU MUST HAVE A RESPONSIBLE RUBBER WORKER TAKE YOU HOME. A SPORTS EQUIPMENT RACKER OR FLY FINISHER CANNOT BE MADE A RESPONSIBLE RUBBER WORKER. - We recommend that a responsible person stays with you overnight to take care of you. - You cannot stay in a hotel alone after outpatient surgery. You will not be permitted to have your surgery, if you do not have someone to take care of you. Arrival Time for Surgery: - The Surgery Center or hospital where you are having surgery will call the afternoon before surgery (or Tuesday for Tuesday surgery) with a scheduled arrival time. - If you have not heard by 4 pm, please contact the surgery center above. Please be aware that emergency situations arise, which may delay or change your surgical time. If this happens, we will notify you as soon as possible and regret any inconvenience. If you already have an Advance Directive, please fax a copy to [phone] or email to for it to be added to your chart. If you do not have an Advance Directive, you can find the appropriate form and more information at [email or web address]. We recommend that you complete the Advance Directive form found on the website and bring it with you the day of your surgery. It can be witnessed and scanned into your chart that day. Arely Mcgowan, TRUNG.TRACK WELDER documented in this encounter [facility] 07-30-2024 History and physical note Images from the original note were not included. [facility] HISTORY AND PHYSICAL EXAMINATION SERVICE DATE: 07/30/2024 SERVICE TIME: 2:39 PM PRIMARY CARE PHYSICIAN: Dawson Luciano APRN.TRACK WELDER Assessment Patient has the following medical conditions which may affect zakiay-operative course: Cigarette smoker Assessment: - Smoking 0.5ppd - Encouraged cessation Marijuana use Assessment: - Taking gummies BID - Advised to avoid prior to surgery Anxiety and depression Assessment: - Follows with psychiatry - Stable with current Rx ADHD Assessment: - Managed with Focalin Primary hypertension Assessment: - Managed on HCTZ - Follows with PCP - Last 3 Encounter BP Readings: Date: BP: 06/14/2024 119/82 03/06/2024 178/100 02/23/2024 136/85 Migraine Assessment: - Managed with prn Imitrex and Fioricet GERD (gastroesophageal reflux disease) Assessment: - Managed with Omeprazole Prediabetes Assessment: - On Metformin Hypothyroidism Assessment: - Managed with Synthroid - Follows with PCP TSH Date Value Ref Range Status 01/26/2024 2.340 0.270 - 4.200 mIU/L Final Comment: If the patient is , TSH reference range varies by gestational period: First Trimester (weeks 9-12): 0.180-2.990 mIU/L Second Trimester: 0.110-3.980 mIU/L Third Trimester: 0.480-4.710 mIU/L Peter Haque, et al. A Practical Approach for the Verifications and Determination of Site- and Trimester-Specific Reference Intervals for Thyroid Function tests in . Thyroid, 2019:29:3:412-420. Manohar E, et al. 2017 Guidelines of the [place] Thy[employer] Association for the Diagnosis and Management of Thyroid Disease during and the . Thyroid, 2017:27:3:315-389. PONV (postoperative nausea and vomiting) Assessment: . ANESTHESIA FINDINGS: Intubation History: No history of difficult intubation Significant Anesthesia Considerations: potential postop nausea/vomiting Airway History: No history of difficult airway Laura Activity Status Index: METS: Walk indoors, such as around the house (1.75 METs) Do light work around the house, such as dusting or washing dishes (2.70 METs) Take care of self; that is eating, dressing, bathing, using the toilet (2.75 METs) Walk a block or two on level ground (2.75 METs) Do moderate work around the house, such as vacuuming, sweeping floors, or carrying in groceries (3.50 METs) Do yardwork, such as raking leaves, weeding, or pushing a power mower (4.50 METs) Climb a flight of stairs or walk up a hill (5.50 METs) Do heavy work around the house, such as scrubbing floors, lifting or moving heavy furniture (8.00 METs) DASI Score: 31.45 Patient denies any chest pain or undue shortness of breath with the above physical activity. Clinical Frailty Scale: 3. Well, with treated comorbid disease STOP-Bang Score: Snores loudly Has or is being treated for high blood pressure Denies feeling tired, fatigued, or sleepy during the daytime Has not been observed to stop breathing or choking/gasping during sleep BMI less than or equal to 35 kg/m^2 Patient 50 years old or younger Does not have a large neck Non-male patient STOP-Bang Score: 2 I - PHYSICAL EVALUATION AIRWAY Patient intubated: No. Tracheostomy tube not present Mallampati: III. TM distance: >3 FB. Neck ROM: full ROM without neurological symptoms. Mouth opening: adequate. Short neck: no. Thick neck: no Lip Bite Test: II Microretrognathia/Micronagthia/Re cessed Chin: No DENTAL Dental findings: teeth intact. Additional comments: +crowns . II - ANESTHESIA PLAN Anesthetic plan additional comments: *PACC/TCI - anesthesia choice. Beta Renee Monitoring Plan Post Procedure Analgesic Plan Prepared for Surgery: optimally prepared for surgery, pending [see comment]. EKG not indicated for scheduled procedure. Labs pending. CONSULTS: Patient does not require consults for optimization at this time Planned Anesthetic: anesthesia choice The Following Tests/Procedures Have Been Initiated: Orders Placed This Encounter Complete Blood Count and Differential Standing Status: Future Expected Date: 07/30/2024 Expiration Date: 10/29/2024 CMP Standing Status: Future Expected Date: 07/30/2024 Expiration Date: 10/29/2024 This is a virtual visit using [facility] video visit. It required patient-provider interaction for the medical decision making as documented below. REASON FOR VISIT: Nadia Gonzalez is a 44 year old female who is scheduled for Procedure(s) with comments: LAPAROSCOPIC HERNIA REPAIR INCISIONAL INITIAL REDUCIBLE W/MESH 3cm-10cm, supraumbilical incisional hernia (N/A) - LAPAROSCOPIC HERNIA REPAIR INCISIONAL INITIAL REDUCIBLE W/MESH 3cm-10cm, supraumbilical incisional hernia at the request of Dr. Elizabeth Richardson for consultation. My final recommendation will be communicated back to the requesting physician by way of shared medical record or letter. Subjective The patient has the following: COVID-19 Immunization Status Current Care Gaps Covid-19 Vaccine ( season) Overdue since 10/09/2023 02/10/2021 Imm Admin: COVID-19 original vaccine, age 12+ yr, monovalent (PFIZER-BIONTECH - PURPLE TOP) 06/07/2020 Imm Admin: COVID-19 original vaccine, age 12+ yr, monovalent (PFIZER-BIONTECH - PURPLE TOP) 05/17/2020 Imm Admin: COVID-19 original vaccine, age 12+ yr, monovalent (PFIZER-BIONTECH - PURPLE TOP) Only the first 3 history entries have been loaded, but more history exists. CHIEF COMPLAINT: Anesthesia Evaluation HPI: This 44 year old female with a history of Incisional hernia, without obstruction or gangrene is scheduled for the above procedure and presents to the [facility] for pre-operative examination. Patient reports she has intermittent abdominal pain related to her hernia. Per patient, hernia is soft and reducible. Denies CP, SOB, Fevers or Chills. Patient elects to proceed with above procedure. This is a virtual visit. The visit was conducted using [facility] video visit. It required patient-provider interaction for the medical decision making as documented below. I have communicated my name and active licensure. The patient's identity and physical location were verified at the time of this visit. Either the patient or their legal insurance service representative has been informed of the risks and benefits of and alternatives to treatment through a remote evaluation and consents to proceed with the evaluation remotely. REVIEW OF SYSTEMS: General: Negative for: unintentional weight change, malaise and fever. Neurological: Negative for: LIVESTOCK HANDLER tumor, peripheral neuropathy, seizures, TIA and strokes. Respiratory: Positive for: tobacco use. Negative for: asthma, COPD, current cough, dyspnea, pneumonia within 6 weeks and obstructive sleep apnea. Cardiovascular: Positive for: hypertension Negative for: chest pain, CHF, DVT/PE, hyperlipidemia, recent AL, PTCA, PVD and open heart surgery. GI: Positive for: GERD Negative for: dysphagia, GI bleed <30 days, liver disease, nausea, vomiting and ETOH >2 drinks/day. : Negative for: dysuria, frequent urination, hematuria, urinary incontinence, nephrolithiasis and renal failure. 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 Negative for abnormal vaginal bleeding, abnormal vaginal discharge. Endocrine: +prediabetes Positive for: hypothyroidism. Negative for: diabetes mellitus, hyperthyroidism and steroid for chronic problem. Hematology: Negative for: anemia, bruises/bleeds easily, factor V Leiden and chronic anti-coagulation/platelet meds. Oncology: Negative for: CA metastasis, chemo within 30 days, disseminated cancer and radiotherapy within 90 days. Psych: Positive for: ADHD, anxiety, depression and Marijuana Use. Product type: Edible. Route of administration: Oral. Frequency: Daily. Musculoskeletal: Negative for: back pain, joint pain and swelling. Skin: Negative for: lesions and rash. Implanted Devices: No implanted devices. PAST MEDICAL HISTORY Diagnosis Date Acute gastritis BRCA1 negative BRCA2 negative Chronic pelvic pain in female Depression High blood pressure Hypothyroidism IBS (irritable bowel syndrome) Migraine with aura Migraines Vulvodynia PAST SURGICAL HISTORY Procedure Laterality Date APPENDECTOMY 2013 BX OF BREAST; INCISIONAL benign LAPAROSCOPIC CHOLECYSTECTOMY 03/06/2024 w/ intraoperative cholangiogram Lap. bilateral transversus abdominus plane blockDr. Richardson LIGATE FALLOPIAN TUBE 2010 PAST SURGICAL HISTORY OF 2006 bladder repair, and sling removed in 2007 PAST SURGICAL HISTORY OF 2013 incisional hernia repair PAST SURGICAL HISTORY OF Right 2013 radius and ulna and in 2019 hardware removed TOOTH EXTRACTION wisdom teeth TOTAL ABDOM HYSTERECTOMY 2013 adenomyosis Robotic LAVH/partial UMBILICAL HERNIA REPAIR 5 OR OLDER 12/16/2020 Dr. Lassiter FAMILY HISTORY Problem Relation Age of Onset Hypertension Mother Thyroid Mother Overactive thyroid GI Sister Anesthesia Problems No Family History Bleeding disorder No Family History Clotting Disorder No Family History Social History Tobacco Use Smoking status: Every Day Current packs/day: 0.50 Average packs/day: 0.5 packs/day for 6.0 years (3.0 ttl pk-yrs) Types: Cigarettes Smokeless tobacco: Never Tobacco comments: Pt advised to quit Vaping Use Vaping status: Never Used Substance Use Topics Alcohol use: Yes Comment: A couple of drinks per month Drug use: Yes Types: Marijuana Comment: once in while Prior to Admission medications as of 07/30/24 1423 Medication Sig Last Dose Taking dicyclomine (BENTYL) 20 mg tablet Take 20 mg by mouth before meals and at bedtime. Take 2 cap. In PM & AM daily Yes ondansetron (ZOFRAN) 4 mg tablet Take 1 tablet by mouth every 8 hours as needed for nausea/vomiting. Yes metFORMIN (GLUCOPHAGE) 500 mg tablet Take 500 mg by mouth two times a day. Yes clonazePAM (KLONOPIN) 0.5 mg tablet Take 0.5 mg by mouth two times a day as needed. Yes risperiDONE (RISPERDAL) 1 mg tablet Take 1 mg by mouth once daily. Yes omeprazole (PRILOSEC) 40 mg capsule Take 40 mg by mouth once daily. Yes dexmethylphenidate HCl (FOCALIN) 5 mg tablet Take 5 mg by mouth once daily. Yes levothyroxine (SYNTHROID) 175 mcg tablet Take 175 mcg by mouth once daily. Yes tiZANidine (ZANAFLEX) 4 mg tablet Take 4 mg by mouth three times daily as needed. Take 4 mg by mouth three times daily as needed. Yes SUMAtriptan (IMITREX) 100 mg tablet TAKE 1 TABLET BY MOUTH at onset of headache, if no relief may repeat in 2 (TWO) HOURS. Yes hydroCHLOROthiazide (HYDRODIURIL, ESIDRIX) 25 mg tablet Take 25 mg by mouth every morning. Yes acetaminophen 300 mg-caffeine 40 mg-butalbital 50 mg (FIORICET) per capsule TAKE 1 CAPSULE BY MOUTH EVERY 4 HOURS NEEDED for headaches Yes buPROPion XL (WELLBUTRIN XL) 300 mg 24 hr tablet once daily. Yes No medication comments found. ALLERGIES Allergen Reactions Gabapentin Other: See Comments, Intolerance Topiramate Intolerance Other reaction(s): totally out of it Objective PHYSICAL EXAM: (if completed, exam performed via video enabled technology) General: alert and oriented and healthy appearance. Skin: normal color, no rash or lesions. HEENT: Normocephalic, atraumatic No notable cervical lymph nodes . Cardiovascular: Self palpated radial pulse, regular when counted aloud by patient . Respiratory: Equal chest rise BL, no audible wheezing No respiratory distress. Abdomen: Extremities: no deformity, no edema or tenderness, no joint swelling or clubbing. Neurological: normal cognition and motor skills. PAIN ASSESSMENT: VITALS: Pulse 60[per pt report[ Ht 5' 4[per pt report[ (1.63m) Wt 160 lb (72.6kg) BMI 27.45 kg/(m^2). Diagnostic tests reviewed for today's visit: Lab Value Units Date High Low HB No results within date range. HCT No results within date range. WBC No results within date range. PLT No results within date range. NA No results within date range. K No results within date range. GLUC No results within date range. BUN No results within date range. CREAT No results within date range. PTSEC No results within date range. INR No results within date range. APTT No results within date range. ALT No results within date range. AST No results within date range. TBILI No results within date range. TSH No results within date range. Lab Value Units Date High Low HCGQT No results within date range. UHCG No results within date range. HCG, BODY* No results within date range. Lab Value Units Date High Low ABORHD No results within date range. ABSCREEN No results within date range. No results found for: HBA1C No results found for this or any previous visit (from the past 8760 hours). No results found for this or any previous visit (from the past 90279 hours). Instructions Given to Patient: Instructions located in the after visit summary. Patient given verbal and written preop instructions and voices comprehension and compliance. SIGNATURE: Arely Mcgowan APRN.CNP PATIENT NAME: Nadia Gonzalez DATE: July 30, 2024 TIME: 2:24 PM PAGER/CONTACT #: [facility] 07-30-2024 History and physical note Images from the original note were not included. [facility] HISTORY AND PHYSICAL EXAMINATION SERVICE DATE: 07/30/2024 SERVICE TIME: 2:39 PM PRIMARY CARE PHYSICIAN: Dawson Luciano APRN.TRACK WELDER Assessment Patient has the following medical conditions which may affect zakiya-operative course: Cigarette smoker Assessment: - Smoking 0.5ppd - Encouraged cessation Marijuana use Assessment: - Taking gummies BID - Advised to avoid prior to surgery Anxiety and depression Assessment: - Follows with psychiatry - Stable with current Rx ADHD Assessment: - Managed with Focalin Primary hypertension Assessment: - Managed on HCTZ - Follows with PCP - Last 3 Encounter BP Readings: Date: BP: 06/14/2024 119/82 03/06/2024 178/100 02/23/2024 136/85 Migraine Assessment: - Managed with prn Imitrex and Fioricet GERD (gastroesophageal reflux disease) Assessment: - Managed with Omeprazole Prediabetes Assessment: - On Metformin Hypothyroidism Assessment: - Managed with Synthroid - Follows with PCP TSH Date Value Ref Range Status 01/26/2024 2.340 0.270 - 4.200 mIU/L Final Comment: If the patient is , TSH reference range varies by gestational period: First Trimester (weeks 9-12): 0.180-2.990 mIU/L Second Trimester: 0.110-3.980 mIU/L Third Trimester: 0.480-4.710 mIU/L Peter Haque, et al. A Practical Approach for the Verifications and Determination of Site- and Trimester-Specific Reference Intervals for Thyroid Function tests in . Thyroid, 2019:29:3:412-420. Manohar Schmitz, et al. 2017 Guidelines of the [place] Thyroid Association for the Diagnosis and Management of Thyroid Disease during and the . Thyroid, 2017:27:3:315-389. PONV (postoperative nausea and vomiting) Assessment: . ANESTHESIA FINDINGS: Intubation History: No history of difficult intubation Significant Anesthesia Considerations: potential postop nausea/vomiting Airway History: No history of difficult airway Laura Activity Status Index: METS: Walk indoors, such as around the house (1.75 METs) Do light work around the house, such as dusting or washing dishes (2.70 METs) Take care of self; that is eating, dressing, bathing, using the toilet (2.75 METs) Walk a block or two on level ground (2.75 METs) Do moderate work around the house, such as vacuuming, sweeping floors, or carrying in groceries (3.50 METs) Do yardwork, such as raking leaves, weeding, or pushing a power mower (4.50 METs) Climb a flight of stairs or walk up a hill (5.50 METs) Do heavy work around the house, such as scrubbing floors, lifting or moving heavy furniture (8.00 METs) DASI Score: 31.45 Patient denies any chest pain or undue shortness of breath with the above physical activity. Clinical Frailty Scale: 3. Well, with treated comorbid disease STOP-Bang Score: Snores loudly Has or is being treated for high blood pressure Denies feeling tired, fatigued, or sleepy during the daytime Has not been observed to stop breathing or choking/gasping during sleep BMI less than or equal to 35 kg/m^2 Patient 50 years old or younger Does not have a large neck Non-male patient STOP-Bang Score: 2 I - PHYSICAL EVALUATION AIRWAY Patient intubated: No. Tracheostomy tube not present Mallampati: III. TM distance: >3 FB. Neck ROM: full ROM without neurological symptoms. Mouth opening: adequate. Short neck: no. Thick neck: no Lip Bite Test: II Microretrognathia/Micronagthia/Re cessed Chin: No DENTAL Dental findings: teeth intact. Additional comments: +crowns . II - ANESTHESIA PLAN Anesthetic plan additional comments: *PACC/TCI - anesthesia choice. Beta Renee Monitoring Plan Post Procedure Analgesic Plan Prepared for Surgery: optimally prepared for surgery, pending [see comment]. EKG not indicated for scheduled procedure. Labs pending. CONSULTS: Patient does not require consults for optimization at this time Planned Anesthetic: anesthesia choice The Following Tests/Procedures Have Been Initiated: Orders Placed This Encounter Complete Blood Count and Differential Standing Status: Future Expected Date: 07/30/2024 Expiration Date: 10/29/2024 CMP Standing Status: Future Expected Date: 07/30/2024 Expiration Date: 10/29/2024 This is a virtual visit using [facility] video visit. It required patient-provider interaction for the medical decision making as documented below. REASON FOR VISIT: Nadia Gonzalez is a 44 year old female who is scheduled for Procedure(s) with comments: LAPAROSCOPIC HERNIA REPAIR INCISIONAL INITIAL REDUCIBLE W/MESH 3cm-10cm, supraumbilical incisional hernia (N/A) - LAPAROSCOPIC HERNIA REPAIR INCISIONAL INITIAL REDUCIBLE W/MESH 3cm-10cm, supraumbilical incisional hernia at the request of Dr. Elizabeth Richardson for consultation. My final recommendation will be communicated back to the requesting physician by way of shared medical record or letter. Subjective The patient has the following: COVID-19 Immunization Status Current Care Gaps Covid-19 Vaccine ( season) Overdue since 10/09/2023 02/10/2021 Imm Admin: COVID-19 original vaccine, age 12+ yr, monovalent (PFIZER-BIONTECH - PURPLE TOP) 06/07/2020 Imm Admin: COVID-19 original vaccine, age 12+ yr, monovalent (PFIZER-BIONTECH - PURPLE TOP) 05/17/2020 Imm Admin: COVID-19 original vaccine, age 12+ yr, monovalent (PFIZER-BIONTECH - PURPLE TOP) Only the first 3 history entries have been loaded, but more history exists. CHIEF COMPLAINT: Anesthesia Evaluation HPI: This 44 year old female with a history of Incisional hernia, without obstruction or gangrene is scheduled for the above procedure and presents to the [facility] for pre-operative examination. Patient reports she has intermittent abdominal pain related to her hernia. Per patient, hernia is soft and reducible. Denies CP, SOB, Fevers or Chills. Patient elects to proceed with above procedure. This is a virtual visit. The visit was conducted using [facility] video visit. It required patient-provider interaction for the medical decision making as documented below. I have communicated my name and active licensure. The patient's identity and physical location were verified at the time of this visit. Either the patient or their legal insurance service representative has been informed of the risks and benefits of and alternatives to treatment through a remote evaluation and consents to proceed with the evaluation remotely. REVIEW OF SYSTEMS: General: Negative for: unintentional weight change, malaise and fever. Neurological: Negative for: LIVESTOCK HANDLER tumor, peripheral neuropathy, seizures, TIA and strokes. Respiratory: Positive for: tobacco use. Negative for: asthma, COPD, current cough, dyspnea, pneumonia within 6 weeks and obstructive sleep apnea. Cardiovascular: Positive for: hypertension Negative for: chest pain, CHF, DVT/PE, hyperlipidemia, recent AL, PTCA, PVD and open heart surgery. GI: Positive for: GERD Negative for: dysphagia, GI bleed <30 days, liver disease, nausea, vomiting and ETOH >2 drinks/day. : Negative for: dysuria, frequent urination, hematuria, urinary incontinence, nephrolithiasis and renal failure. 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 Negative for abnormal vaginal bleeding, abnormal vaginal discharge. Endocrine: +prediabetes Positive for: hypothyroidism. Negative for: diabetes mellitus, hyperthyroidism and steroid for chronic problem. Hematology: Negative for: anemia, bruises/bleeds easily, factor V Leiden and chronic anti-coagulation/platelet meds. Oncology: Negative for: CA metastasis, chemo within 30 days, disseminated cancer and radiotherapy within 90 days. Psych: Positive for: ADHD, anxiety, depression and Marijuana Use. Product type: Edible. Route of administration: Oral. Frequency: Daily. Musculoskeletal: Negative for: back pain, joint pain and swelling. Skin: Negative for: lesions and rash. Implanted Devices: No implanted devices. PAST MEDICAL HISTORY Diagnosis Date Acute gastritis BRCA1 negative BRCA2 negative Chronic pelvic pain in female Depression High blood pressure Hypothyroidism IBS (irritable bowel syndrome) Migraine with aura Migraines Vulvodynia PAST SURGICAL HISTORY Procedure Laterality Date APPENDECTOMY 2013 BX OF BREAST; INCISIONAL benign LAPAROSCOPIC CHOLECYSTECTOMY 03/06/2024 w/ intraoperative cholangiogram Lap. bilateral transversus abdominus plane blockDr. Richardson LIGATE FALLOPIAN TUBE 2010 PAST SURGICAL HISTORY OF 2006 bladder repair, and sling removed in 2007 PAST SURGICAL HISTORY OF 2013 incisional hernia repair PAST SURGICAL HISTORY OF Right 2013 radius and ulna and in 2019 hardware removed TOOTH EXTRACTION wisdom teeth TOTAL ABDOM HYSTERECTOMY 2013 adenomyosis Robotic LAVH/partial UMBILICAL HERNIA REPAIR 5 OR OLDER 12/16/2020 Dr. Lassiter FAMILY HISTORY Problem Relation Age of Onset Hypertension Mother Thyroid Mother Overactive thyroid GI Sister Anesthesia Problems No Family History Bleeding disorder No Family History Clotting Disorder No Family History Social History Tobacco Use Smoking status: Every Day Current packs/day: 0.50 Average packs/day: 0.5 packs/day for 6.0 years (3.0 ttl pk-yrs) Types: Cigarettes Smokeless tobacco: Never Tobacco comments: Pt advised to quit Vaping Use Vaping status: Never Used Substance Use Topics Alcohol use: Yes Comment: A couple of drinks per month Drug use: Yes Types: Marijuana Comment: once in while Prior to Admission medications as of 07/30/24 1423 Medication Sig Last Dose Taking dicyclomine (BENTYL) 20 mg tablet Take 20 mg by mouth before meals and at bedtime. Take 2 cap. In PM & AM daily Yes ondansetron (ZOFRAN) 4 mg tablet Take 1 tablet by mouth every 8 hours as needed for nausea/vomiting. Yes metFORMIN (GLUCOPHAGE) 500 mg tablet Take 500 mg by mouth two times a day. Yes clonazePAM (KLONOPIN) 0.5 mg tablet Take 0.5 mg by mouth two times a day as needed. Yes risperiDONE (RISPERDAL) 1 mg tablet Take 1 mg by mouth once daily. Yes omeprazole (PRILOSEC) 40 mg capsule Take 40 mg by mouth once daily. Yes dexmethylphenidate HCl (FOCALIN) 5 mg tablet Take 5 mg by mouth once daily. Yes levothyroxine (SYNTHROID) 175 mcg tablet Take 175 mcg by mouth once daily. Yes tiZANidine (ZANAFLEX) 4 mg tablet Take 4 mg by mouth three times daily as needed. Take 4 mg by mouth three times daily as needed. Yes SUMAtriptan (IMITREX) 100 mg tablet TAKE 1 TABLET BY MOUTH at onset of headache, if no relief may repeat in 2 (TWO) HOURS. Yes hydroCHLOROthiazide (HYDRODIURIL, ESIDRIX) 25 mg tablet Take 25 mg by mouth every morning. Yes acetaminophen 300 mg-caffeine 40 mg-butalbital 50 mg (FIORICET) per capsule TAKE 1 CAPSULE BY MOUTH EVERY 4 HOURS NEEDED for headaches Yes buPROPion XL (WELLBUTRIN XL) 300 mg 24 hr tablet once daily. Yes No medication comments found. ALLERGIES Allergen Reactions Gabapentin Other: See Comments, Intolerance Topiramate Intolerance Other reaction(s): totally out of it Objective PHYSICAL EXAM: (if completed, exam performed via video enabled technology) General: alert and oriented and healthy appearance. Skin: normal color, no rash or lesions. HEENT: Normocephalic, atraumatic No notable cervical lymph nodes . Cardiovascular: Self palpated radial pulse, regular when counted aloud by patient . Respiratory: Equal chest rise BL, no audible wheezing No respiratory distress. Abdomen: Extremities: no deformity, no edema or tenderness, no joint swelling or clubbing. Neurological: normal cognition and motor skills. PAIN ASSESSMENT: VITALS: Pulse 60[per pt report[ Ht 5' 4[per pt report[ (1.63m) Wt 160 lb (72.6kg) BMI 27.45 kg/(m^2). Diagnostic tests reviewed for today's visit: Lab Value Units Date High Low HB No results within date range. HCT No results within date range. WBC No results within date range. PLT No results within date range. NA No results within date range. K No results within date range. GLUC No results within date range. BUN No results within date range. CREAT No results within date range. PTSEC No results within date range. INR No results within date range. APTT No results within date range. ALT No results within date range. AST No results within date range. TBILI No results within date range. TSH No results within date range. Lab Value Units Date High Low HCGQT No results within date range. UHCG No results within date range. HCG, BODY* No results within date range. Lab Value Units Date High Low ABORHD No results within date range. ABSCREEN No results within date range. No results found for: HBA1C No results found for this or any previous visit (from the past 8760 hours). No results found for this or any previous visit (from the past 06583 hours). Instructions Given to Patient: Instructions located in the after visit summary. Patient given verbal and written preop instructions and voices comprehension and compliance. SIGNATURE: Arely Mcgowan APRN.CNP PATIENT NAME: Nadia Gonzalez DATE: July 30, 2024 TIME: 2:24 PM PAGER/CONTACT #: documented in this encounter [facility] 07-28-2024 Note HNO ID: [id number] Author: ELIZABETH RICHARDSON, DO Service: ? Author Type: Physician Type: Progress Notes Filed: 07/28/2024 14:57 Note Text: Established VIRTUAL CONSULT NAME: Nadia Gonzalez [facility] NO: [id number] DATE OF SERVICE: July 28, 2024 I had a virtual consult with Ms. Gonzalez today. CC: Follow up incisional hernia HPI: 44 year old female with PMHx/PSHx of hypothyroidism, migraine, dysthymic disorder, gastritis and s/p laparoscopic cholecystectomy on 03/06/2024. She was last seen in office on 06/14 for evaluation of pain around her umbilical incision suspicious for an incisional hernia. A CT Ab/P was obtained 07/07/24 which showed a small supraumbilical ventral hernia, containing omental fat and diastasis recti. We reviewed the CT images virtually and discussed a laparoscopic repair. REVIEW OF SYSTEMS: General: No weight loss, malaise or fevers. Respiratory: No history of respiratory/pulmonary symptoms or problems Cardiovascular: No chest pain, palpitations, or leg swelling GI: Still having pain at umbilical site PHYSICAL FINDINGS OF NOTE: General - Normal, healthy, cooperative, in no acute distress Able to interact verbally by video conference Pulmonary - respiratory effort normal IMPRESSION/ RECOMMENDATION: Assessment and Plan: This is a 44 year old female s/p laparoscopic cholecystectomy with intraoperative cholangiogram on 06/14/24 presenting with incisional hernia. -Schedule for laparoscopic recurrent ventral/incisional hernia repair with mesh placement. This encounter was provided via two-way, live video teleconferencing within the guidelines of state licensure rules for new and established patients. I have communicated my name and active licensure. The patient's identity and physical location were verified at the time of this visit. Either the patient or their legal insurance service representative has been informed of the risks and benefits of -- and alternatives to -- treatment through a remote evaluation and consents to proceed with the evaluation remotely. Technical difficulties were not encountered. 10 minutes were spent on the teleconference with the patient. An additional 10 minutes was required for chart review/preparation, documentation, orders, and care coordination. Elizabeth Richardson, DO General Surgery PAST HISTORY PAST MEDICAL HISTORY Diagnosis Date Acute gastritis BRCA1 negative BRCA2 negative Chronic pelvic pain in female Depression High blood pressure Hypothyroidism IBS (irritable bowel syndrome) Migraine with aura Migraines Vulvodynia PAST SURGICAL HISTORY Procedure Laterality Date APPENDECTOMY 2012 BX OF BREAST; INCISIONAL benign LAPAROSCOPIC CHOLECYSTECTOMY 03/06/2024 w/ intraoperative cholangiogram Lap. bilateral transversus abdominus plane blockDr. Richardson LIGATE FALLOPIAN TUBE 2010 PAST SURGICAL HISTORY OF 2005 bladder repair, and sling removed in 2007 PAST SURGICAL HISTORY OF 2013 incisional hernia repair PAST SURGICAL HISTORY OF Right 2013 radius and ulna and in 2019 hardware removed TOOTH EXTRACTION wisdom teeth TOTAL ABDOM HYSTERECTOMY 2013 adenomyosis Robotic LAVH/partial UMBILICAL HERNIA REPAIR 5 OR OLDER 12/16/2020 Dr. Lassiter FAMILY HISTORY Problem Relation Age of Onset Hypertension Mother Thyroid Mother Overactive thyroid GI Sister Social History Tobacco Use Smoking status: Every Day Current packs/day: 0.50 Average packs/day: 0.5 packs/day for 6.0 years (3.0 ttl pk-yrs) Types: Cigarettes Smokeless tobacco: Never Tobacco comments: Pt advised to quit Vaping Use Vaping status: Never Used Substance Use Topics Alcohol use: Yes Comment: A couple of drinks per month Drug use: Yes Types: Marijuana Comment: once in while Elizabeth Richardson DO July 28, 2024 2:50 PM [facility] 07-28-2024 History of Present illness Narrative Images from the original note were not included. Established VIRTUAL CONSULT NAME: Nadia Gonzalez [facility] NO: [id number] DATE OF SERVICE: July 28, 2024 I had a virtual consult with Lance Lisa today. CC: Follow up incisional hernia HPI: 44 year old female with PMHx/PSHx of hypothyroidism, migraine, dysthymic disorder, gastritis and s/p laparoscopic cholecystectomy on 03/06/2024. She was last seen in office on 06/14 for evaluation of pain around her umbilical incision suspicious for an incisional hernia. A CT Ab/P was obtained 07/07/24 which showed a small supraumbilical ventral hernia, containing omental fat and diastasis recti. We reviewed the CT images virtually and discussed a laparoscopic repair. REVIEW OF SYSTEMS: General: No weight loss, malaise or fevers. Respiratory: No history of respiratory/pulmonary symptoms or problems Cardiovascular: No chest pain, palpitations, or leg swelling GI: Still having pain at umbilical site PHYSICAL FINDINGS OF NOTE: General - Normal, healthy, cooperative, in no acute distress Able to interact verbally by video conference Pulmonary - respiratory effort normal IMPRESSION/ RECOMMENDATION: Assessment and Plan: This is a 44 year old female s/p laparoscopic cholecystectomy with intraoperative cholangiogram on 06/14/24 presenting with incisional hernia. -Schedule for laparoscopic recurrent ventral/incisional hernia repair with mesh placement. This encounter was provided via two-way, live video teleconferencing within the guidelines of state licensure rules for new and established patients. I have communicated my name and active licensure. The patient's identity and physical location were verified at the time of this visit. Either the patient or their legal insurance service representative has been informed of the risks and benefits of -- and alternatives to -- treatment through a remote evaluation and consents to proceed with the evaluation remotely. Technical difficulties were not encountered. 10 minutes were spent on the teleconference with the patient. An additional 10 minutes was required for chart review/preparation, documentation, orders, and care coordination. Elizabeth Richardson DO General Surgery PAST HISTORY PAST MEDICAL HISTORY Diagnosis Date Acute gastritis BRCA1 negative BRCA2 negative Chronic pelvic pain in female Depression High blood pressure Hypothyroidism IBS (irritable bowel syndrome) Migraine with aura Migraines Vulvodynia PAST SURGICAL HISTORY Procedure Laterality Date APPENDECTOMY 2012 BX OF BREAST; INCISIONAL benign LAPAROSCOPIC CHOLECYSTECTOMY 03/06/2024 w/ intraoperative cholangiogram Lap. bilateral transversus abdominus plane blockDr. Richardson LIGATE FALLOPIAN TUBE 2010 PAST SURGICAL HISTORY OF 2006 bladder repair, and sling removed in 2007 PAST SURGICAL HISTORY OF 2013 incisional hernia repair PAST SURGICAL HISTORY OF Right 2013 radius and ulna and in 2019 hardware removed TOOTH EXTRACTION wisdom teeth TOTAL ABDOM HYSTERECTOMY 2013 adenomyosis Robotic LAVH/partial UMBILICAL HERNIA REPAIR 5 OR OLDER 12/16/2020 Dr. Lassiter FAMILY HISTORY Problem Relation Age of Onset Hypertension Mother Thyroid Mother Overactive thyroid GI Sister Social History Tobacco Use Smoking status: Every Day Current packs/day: 0.50 Average packs/day: 0.5 packs/day for 6.0 years (3.0 ttl pk-yrs) Types: Cigarettes Smokeless tobacco: Never Tobacco comments: Pt advised to quit Vaping Use Vaping status: Never Used Substance Use Topics Alcohol use: Yes Comment: A couple of drinks per month Drug use: Yes Types: Marijuana Comment: once in while Elizabeth Richardson DO July 28, 2024 2:50 PM documented in this encounter [facility] 07-06-2024 Miscellaneous Notes Radiology Service Progress Note PATIENT NAME: Nadia Gonzalez DATE OF SERVICE: July 06, 2024 TIME: 1:37 PM PATIENT IDENTITY VERIFICATION COMPLETED USING TWO (2) IDENTIFIERS: Name and Date of confirmed by patient verbally. FALL SCREENING: Has the patient had 2 falls in the last year or 1 fall with injury or currently using an Ambulatory Assistive Device (Walker, Cane, Wheelchair, Crutches, etc.)? No PATIENT GENDER DATA: Assigned female at . status: : No status: NO. PATIENT RELEVANT IMPLANT DATA REVIEWED: Not Applicable PATIENT PRESENTS WITH AN IMPLANTABLE OR ATTACHED DANCE DIRECTOR: No RADIOLOGY DEPARTMENT: CT; Exam(s) Completed: Abdomen/Pelvis PERIPHERAL IV DATA: Site assessment: Clean,Dry and Intact, Site disposition Discontinued SIGNED BY: SILIVA Cheung July 06, 2024 1:37 PM documented in this encounter [facility] 07-06-2024 Nurse Note Radiology Service Progress Note DATE OF SERVICE: July 06, 2024 TIME: 1:27 PM PATIENT WEIGHT: 136LBS PATIENT IDENTITY VERIFICATION COMPLETED USING TWO (2) STANDARD IDENTIFIERS: Name and Date of confirmed by patient verbally and Name and Date of confirmed by identification band. FALL SCREENING: Has the patient had 2 falls in the last year or 1 fall with injury or currently using an Ambulatory Assistive Device (Walker, Cane, Wheelchair, Crutches, etc.)? No PATIENT GENDER DATA: ALLERGIES: Reviewed and unchanged CONTRAST ALLERGY: No EXAM: CT -CONTRAST INDUCED NEPHROPATHY RISK FACTORS: Not applicable CREATININE: Creatinine Date Value Ref Range Status 01/26/2024 0.70 0.58 - 0.96 mg/dL Final 07/25/2012 0.56 0.51 - 0.95 mg/dL Final Estimated Glomerular Filtration Rate Date Value Ref Range Status 01/26/2024 110 >=60 mL/min/1.73m Final Comment: Estimated Glomerular Filtration Rate (eGFR) is calculated using the 2020 CKD-EPI creatinine equation. This equation utilizes serum creatinine, sex, and age as parameters. The creatinine assay has traceable calibration to isotope dilution-mass spectrometry. Refer to KDIGO guidelines for clinical interpretation. In patients with unstable renal function, e.g. those with acute kidney injury, the eGFR may not accurately reflect actual GFR. P.O.C.T. RESULTS: N/A July 06, 2024 TREATMENT: N/A IV SITE: Ambulatory: A peripheral IV was started in the Right with a Angio cath: 22 gauge. IV SITE APPEARANCE: Clean,Dry and Intact SIGNATURE: Sumaya Looney RN PATIENT NAME: Nadia Gonzalez DATE: July 06, 2024 TIME: 1:27 PM [facility] 07-06-2024 Nurse Note Radiology Service Progress Note DATE OF SERVICE: July 06, 2024 TIME: 1:27 PM PATIENT WEIGHT: 136LBS PATIENT IDENTITY VERIFICATION COMPLETED USING TWO (2) STANDARD IDENTIFIERS: Name and Date of confirmed by patient verbally and Name and Date of confirmed by identification band. FALL SCREENING: Has the patient had 2 falls in the last year or 1 fall with injury or currently using an Ambulatory Assistive Device (Walker, Cane, Wheelchair, Crutches, etc.)? No PATIENT GENDER DATA: ALLERGIES: Reviewed and unchanged CONTRAST ALLERGY: No EXAM: CT -CONTRAST INDUCED NEPHROPATHY RISK FACTORS: Not applicable CREATININE: Creatinine Date Value Ref Range Status 01/26/2024 0.70 0.58 - 0.96 mg/dL Final 07/25/2012 0.56 0.51 - 0.95 mg/dL Final Estimated Glomerular Filtration Rate Date Value Ref Range Status 01/26/2024 110 >=60 mL/min/1.73m Final Comment: Estimated Glomerular Filtration Rate (eGFR) is calculated using the 2020 CKD-EPI creatinine equation. This equation utilizes serum creatinine, sex, and age as parameters. The creatinine assay has traceable calibration to isotope dilution-mass spectrometry. Refer to KDIGO guidelines for clinical interpretation. In patients with unstable renal function, e.g. those with acute kidney injury, the eGFR may not accurately reflect actual GFR. P.O.C.T. RESULTS: N/A July 06, 2024 TREATMENT: N/A IV SITE: Ambulatory: A peripheral IV was started in the Right with a Angio cath: 22 gauge. IV SITE APPEARANCE: Clean,Dry and Intact SIGNATURE: Sumaya Looney RN PATIENT NAME: Nadia Gonzalez DATE: July 06, 2024 TIME: 1:27 PM documented in this encounter [facility] 07-06-2024 Progress note Formatting of t his note might be different from the original. Radiology Service Progress Note PATIENT NAME: Nadia Gonzalez DATE OF SERVICE: July 06, 2024 TIME: 1:37 PM PATIENT IDENTITY VERIFICATION COMPLETED USING TWO (2) IDENTIFIERS: Name and Date of confirmed by patient verbally. FALL SCREENING: Has the patient had 2 falls in the last year or 1 fall with injury or currently using an Ambulatory Assistive Device (Walker, Cane, Wheelchair, Crutches, etc.)? No PATIENT GENDER DATA: Assigned female at . status: : No status: NO. PATIENT RELEVANT IMPLANT DATA REVIEWED: Not Applicable PATIENT PRESENTS WITH AN IMPLANTABLE OR ATTACHED DANCE DIRECTOR: No RADIOLOGY DEPARTMENT: CT; Exam(s) Completed: Abdomen/Pelvis PERIPHERAL IV DATA: Site assessment: Clean,Dry and Intact, Site disposition Discontinued SIGNED BY: SILVIA Cheung July 06, 2024 1:37 PM [facility] 06-14-2024 Note HNO ID: [id number] Author: ELIZABETH RICHARDSON DO Service: ? Author Type: Physician Type: Progress Notes Filed: 06/14/2024 14:12 Note Text: GENERAL SURGERY FOLLOW UP Nadia is a 44-year-old female presenting for evaluation of a suspected recurrent umbilical/incisional hernia. Nadia has a history of multiple umbilical hernia repairs. The first repair was in 2012 in combination with a hysterectomy. She then underwent a primary repair of recurrent umbilical/incisional hernia with Dr. Lassiter in 2020. Most recently, she underwent a laparoscopic cholecystectomy with sd on 03/06/2024 for biliary dyskinesia. She reports intermittent pain around the umbilical incision site since the most recent surgery, but has not noticed a bulge until approximately 2 weeks ago. At that time, she began experiencing significant pressure and pain at the site, which has worsened over the past 2 weeks. The pain is exacerbated by prolonged standing and sitting, and is relieved by lying down. She also notes that wearing regular pants increases her discomfort, and she prefers to avoid them when possible. Nadia has been using an abdominal binder, which provides some relief, especially when she is bloated. She has a history of a reaction to mesh used in a previous bladder surgery in 2006, which caused pain and discomfort due to tissue ingrowth. Additionally, she reports experiencing large intestine cramping and intermittent diarrhea since her cholecystectomy. She was prescribed Bentyl by her nurse practitioner, which initially caused constipation but has since improved her symptoms. She denies pain when sleeping on her back or stomach. 10 point review of systems completed and is otherwise negative On exam: 06/14/24 1331 BP: 119/82 BP Site: Left Arm BP Position: Sitting BP Cuff Size: Large Adult Pulse: 89 SpO2: 100% Weight: 73.2 kg (161 lb 4.8 oz) Height: 162.6 cm (5' 4) Gen: NAD, well-nourished Lungs: unlabored breathing, bilateral chest rise Abd: Supraumbilical incision well healed. There is a reducible incisional hernia present on exam with a palpable fascial defect measuring approximately 1.5-2cm in greatest diameter. There are no overlying skin changes. No signs of incarceration or strangulation. Area is ttp. Participation of a fellow, resident, medical student, or advanced practice provider student in performing the sensitive examination was discussed with the patient or authorized insurance service representative. The patient or authorized insurance service representative has agreed to proceed with the sensitive examination. Assessment ASSESSMENT Incisional hernia, without obstruction or gangrene (primary encounter diagnosis) Diarrhea, unspecified type Encounter for surgical aftercare following surgery on the digestive system Constipation, unspecified constipation type RECOMMENDATION 1. Incisional hernia, without obstruction or gangrene (K43.2) - Physical examination reveals a palpable hernia defect approximately 1.5 to 2cm in size along the linea alba. - Discussed the anatomical considerations of the abdominal wall and the potential for hernia recurrence due to previous surgical interventions. - Ordered a CT scan of the abdomen to assess the size and location of the hernia defect and to aid in surgical planning. - Discussed surgical repair options, including the use of mesh and the potential for laparoscopic versus open repair. - Patient has a history of adverse reaction to mesh used in a previous bladder sling surgery; will attempt to obtain operative reports from [facility] or [facility] for further details on the type of mesh used. - Advised patient to continue wearing an abdominal binder, especially during activities that may exacerbate the hernia, such as standing for prolonged periods or lifting heavy objects. - Educated patient on signs of hernia incarceration or strangulation, including firmness, skin discoloration, and severe pain, and instructed to seek immediate medical attention if these occur. - Will follow up with patient via phone call to discuss CT scan results and finalize surgical plan. 2. Diarrhea, unspecified type (R19.7) 3. Constipation, unspecified constipation type (K59.00) - Patient reports intermittent diarrhea and constipation following recent cholecystectomy for biliary dyskinesia on 03/06/2024. - Currently managed with Bentyl, which has shown some improvement in cramping. - Monitor symptoms and adjust medication as needed. 4. Encounter for surgical aftercare following surgery on the digestive system (Z48.815) - Patient is recovering from a laparoscopic cholecystectomy performed on 03/06/2024. - No major complications reported; patient experiencing some gastrointestinal symptoms as noted above. - Continue current management and follow up as needed. Elizabeth Richardson, June 14, 2024 2:07 PM [facility] 06-14-2024 History of Present illness Narrative Images from the original note were not included. GENERAL SURGERY FOLLOW UP Nadia is a 44-year-old female presenting for evaluation of a suspected recurrent umbilical/incisional hernia. Nadia has a history of multiple umbilical hernia repairs. The first repair was in 2012 in combination with a hysterectomy. She then underwent a primary repair of recurrent umbilical/incisional hernia with Dr. Lassiter in 2020. Most recently, she underwent a laparoscopic cholecystectomy with sd on 03/06/2024 for biliary dyskinesia. She reports intermittent pain around the umbilical incision site since the most recent surgery, but has not noticed a bulge until approximately 2 weeks ago. At that time, she began experiencing significant pressure and pain at the site, which has worsened over the past 2 weeks. The pain is exacerbated by prolonged standing and sitting, and is relieved by lying down. She also notes that wearing regular pants increases her discomfort, and she prefers to avoid them when possible. Nadia has been using an abdominal binder, which provides some relief, especially when she is bloated. She has a history of a reaction to mesh used in a previous bladder surgery in 2006, which caused pain and discomfort due to tissue ingrowth. Additionally, she reports experiencing large intestine cramping and intermittent diarrhea since her cholecystectomy. She was prescribed Bentyl by her nurse practitioner, which initially caused constipation but has since improved her symptoms. She denies pain when sleeping on her back or stomach. 10 point review of systems completed and is otherwise negative On exam: 06/14/24 1331 BP: 119/82 BP Site: Left Arm BP Position: Sitting BP Cuff Size: Large Adult Pulse: 89 SpO2: 100% Weight: 73.2 kg (161 lb 4.8 oz) Height: 162.6 cm (5' 4) Gen: NAD, well-nourished Lungs: unlabored breathing, bilateral chest rise Abd: Supraumbilical incision well healed. There is a reducible incisional hernia present on exam with a palpable fascial defect measuring approximately 1.5-2cm in greatest diameter. There are no overlying skin changes. No signs of incarceration or strangulation. Area is ttp. Participation of a fellow, resident, medical student, or advanced practice provider student in performing the sensitive examination was discussed with the patient or authorized insurance service representative. The patient or authorized insurance service representative has agreed to proceed with the sensitive examination. Assessment ASSESSMENT Incisional hernia, without obstruction or gangrene (primary encounter diagnosis) Diarrhea, unspecified type Encounter for surgical aftercare following surgery on the digestive system Constipation, unspecified constipation type RECOMMENDATION 1. Incisional hernia, without obstruction or gangrene (K43.2) - Physical examination reveals a palpable hernia defect approximately 1.5 to 2cm in size along the linea alba. - Discussed the anatomical considerations of the abdominal wall and the potential for hernia recurrence due to previous surgical interventions. - Ordered a CT scan of the abdomen to assess the size and location of the hernia defect and to aid in surgical planning. - Discussed surgical repair options, including the use of mesh and the potential for laparoscopic versus open repair. - Patient has a history of adverse reaction to mesh used in a previous bladder sling surgery; will attempt to obtain operative reports from [facility] or [facility] for further details on the type of mesh used. - Advised patient to continue wearing an abdominal binder, especially during activities that may exacerbate the hernia, such as standing for prolonged periods or lifting heavy objects. - Educated patient on signs of hernia incarceration or strangulation, including firmness, skin discoloration, and severe pain, and instructed to seek immediate medical attention if these occur. - Will follow up with patient via phone call to discuss CT scan results and finalize surgical plan. 2. Diarrhea, unspecified type (R19.7) 3. Constipation, unspecified constipation type (K59.00) - Patient reports intermittent diarrhea and constipation following recent cholecystectomy for biliary dyskinesia on 03/06/2024. - Currently managed with Bentyl, which has shown some improvement in cramping. - Monitor symptoms and adjust medication as needed. 4. Encounter for surgical aftercare following surgery on the digestive system (Z48.815) - Patient is recovering from a laparoscopic cholecystectomy performed on 03/06/2024. - No major complications reported; patient experiencing some gastrointestinal symptoms as noted above. - Continue current management and follow up as needed. Elizabeth Richardson DO June 14, 2024 2:07 PM documented in this encounter [facility] 06-14-2024 Instructions Elizabeth Richardson DO - 06/14/2024 1:51 PM EDT We discussed your incisional hernia: - You have a recurrence of an incisional hernia along the linea alba. This was confirmed during the physical exam, where I felt a small hernia approximately 1.5 to 2 finger-breadths in size. - I recommend a CT scan of your abdomen to better assess the size and location of the hernia and to help plan the best surgical approach. This will also help determine whether a laparoscopic or open repair is more appropriate and whether mesh will be needed. - You do not need oral contrast for the CT scan. The supervisor front staff will assist you with scheduling this test. - For now, you may continue wearing your abdominal binder, especially during activities that involve standing for long periods, lifting, or traveling. This can help reduce discomfort and provide support. If needed, I can provide a prescription for a new binder, though they are also available over the counter. - If the hernia becomes hard, firm, or you notice bruising over the area, this could indicate that the tissue is stuck (incarcerated or strangulated), and you should seek urgent medical attention. We discussed your upcoming surgery: - After the CT scan, I will review the results and contact you to discuss the best surgical plan. We can do this over the phone unless you prefer an in-person visit. - Following surgery, you should plan to take at least 4-5 days off work (e.g., Tuesday through Tuesday) if your job involves sitting at a desk. You can return to work the following week as tolerated, but avoid heavy lifting or strenuous activities. We discussed your symptoms of abdominal cramping and diarrhea: - You are currently taking Bentyl, which appears to be helping with your symptoms. Continue this medication as prescribed. - If your symptoms worsen or do not improve, please let me know. Follow-Up: - Schedule your CT scan of the abdomen as soon as possible. - I will contact you after the CT scan to discuss the results and next steps. - If you have any questions or concerns in the meantime, please call our office. documented in this encounter [facility] 05-24-2024 Evaluation note Diagnosis Onset Date Resolution Depression acute May 24 5:25pm Diarrhea acute May 24 5:25pm Nausea & vomiting acute May 082024 5:25pm [facility] Work Phone: 1([phone]) 245-494302-27-2025 NoteHNO ID: [id number] Author: ELIZABETH RICHARDSON DO Service: ? Author Type: Physician Type: Progress Notes Filed: 04/05/2024 12:54 Note Text: GENERAL SURGERY POST OP FOLLOW UP Patient seen and examined in the clinic for post-operative evaluation following laparoscopic cholecystectomy with intraoperative cholangiogram on 03/06/2024. She was seen in office by Gerardo Lobo PA-C on 03/22/24 for routine post-op follow up. At that time, she reported that her 105lb dog had jumped on her the day prior and it caused significant pain at the umbilical incision. She was also having nausea and diarrhea. She was adjusting her diet to see what foods triggered the diarrhea and avoiding or limiting those foods. Since office visit, she is still having pain at the incision sites. 10 point review of systems completed and is otherwise negative On exam: There were no vitals filed for this visit. Gen: NAD, well-nourished Lungs: unlabored breathing, bilateral chest rise Abd: Soft, non-distended, incisions healing well. No palpable incisional hernia. Ttp in periumbilical region Participation of a fellow, resident, medical student, or advanced practice provider student in performing the sensitive examination was discussed with the patient or authorized insurance service representative. The patient or authorized insurance service representative has agreed to proceed with the sensitive examination. (Sensitive examination includes inspection and/or palpation of the breasts, pelvis, prostate and anorectal regions) Pathology: Component FINAL DIAGNOSIS Gallbladder, cholecystectomy: - Cholesterolosis. Gross Description A. Gallbladder Received in formalin, labeled as gallbladder is a partially collapsed gallbladder measuring 6.3 x 3.5 x 2.5 cm. No defects are noted. The serosa is pink-purple carbajal, smooth and glistening. Nguyen-brown viscous bile is present in the lumen. No calculi are noted, the cystic duct is not impacted. The mucosa is nguyen-brown and velvety in appearance. The wall averages 0.3 cm in thickness. [employer] Worker sections to include gallbladder wall and cystic duct margin are submitted in cassette A1. CG March 06, 2024 4:06 PM Gross examination performed at [facility], [address] [place] [address] Assessment ASSESSMENT Acute post-operative pain (primary encounter diagnosis) Cholesterolosis of gallbladder S/p laparoscopic cholecystectomy RECOMMENDATION -Prescribed PRN pain regimen for continued post-op pain -Recommend avoiding fatty/greasy meals -Continue with weight restrictions (no lifting, pushing, pulling, or squatting >20lbs) for 4 weeks after surgery -Return to clinic in ~3 weeks if symptoms have not improved Elizabeth Richardson DO April 05, 2024 12:53 [facility]02-27-2025 History of Present illness Narrative* Elziabeth Richardson DO - 04/05/2024 12:48 PM EST Images from the original note were not included. GENERAL SURGERY POST OP FOLLOW UP Patient seen and examined in the clinic for post-operative evaluation following laparoscopic cholecystectomy with intraoperative cholangiogram on 03/06/2024. She was seen in office by Malvin Mendez 03/22/24 for routine post-op follow up. At that time, she reported that her 105lb dog had jumped on her the day prior and it caused significant pain at the umbilical incision. She was also having na usea and diarrhea. She was adjusting her diet to see what foods triggered the diarrhea and avoidingor limiting those foods. Since office visit, she is still having pain at the incision sites. 10 point review of systems completed and is otherwise negative On exam: There were no vitals filed for this visit. Gen: NAD, well-nourished Lungs: unlabored breathing, bilateral chest rise Abd: Soft, non-distended, incisions healing well. No palpable incisional hernia. Ttp in periumbilical region Participation of a fellow, resident, medical student, or advanced practice provider student in performing the sensitive examination was discussed with the patient or authorized insurance service representative. The patient or authorized insurance service representative has agreed to proceed with the sensitive examination. (Sensitive examination includes inspection and/or palpation of the breasts, pelvis, prostate and anorectal regions) Pathology: Component FINAL DIAGNOSIS Gallbladder, cholecystectomy: - Cholesterolosis. Gross Description A. Gallbladder Received in formalin, labeled as gallbladder is a partially collapsed gallbladder measuring 6.3 x3.5 x 2.5 cm. No defects are noted. The serosa is pink-purple carbajal, smooth and glistening. Nguyen-brown viscous bile is present in the lumen. No calculi are noted, the cystic duct is not impacted. The mucosa is nguyen-brown and velvety in appearance. The wall averages 0.3 cm in thickness. [employer] Worker sections to include gallbladder wall and cystic duct margin are submitted in cassette A1. CG March 06, 2024 4:06 PM Gross examination performed at [facility], [address] [place], [place] [id number] Assessment ASSESSMENT Acute post-operative pain (primary encounter diagnosis) Cholesterolosis of gallbladder S/p laparoscopic cholecystectomy RECOMMENDATION -Prescribed PRN pain regimen for continued post-op pain -Recommend avoiding fatty/greasy meals -Continue with weight restrictions (no lifting, pushing, pulling, or squatting >20lbs) for 4 weeks after surgery -Return to clinic in ~3 weeks if symptoms have not improved Elizabeth Richardson DO April 05, 2024 12:53 PM [facility] NoteHNO ID: [id number] Author: LI ORR APRN.CNP Service: ? Author Type: Nurse Practitioner Type: Progress Notes Filed: 03/22/2024 13:44 Note Text: IMPRESSION: PLAN: Patient seen with Gerardo ARAMBULA. Plan: Post-op patient instructions were reviewed with the patient. I have explained to Ms. Gonzalez that she may return to normal activity with the following restrictions: no lifting over 20 lbs, no soaking in tub, pool or hot tub, no pulling, and no pushing. I have encouraged her to contact me at any time with any questions or concerns that may arise. Follow up:1-2 weeks SUBJECTIVE: On 03/06/2024 she underwent Laparoscopic cholecystectomy with intraoperative cholangiogram Laparoscopic bilateral transversus abdominus plane block with Dr. Elizabeth Richardson. Patient presents now for follow up. Patient complaints: Nausea, Diarrhea. She is watching what she eats and eating smaller meals. Has noticed diarrhea occurring after fatty meals. Pain periumbilical after 105lb dog jumped on her yesterday. Reports pain 5/10 using ibuprofen 800mg still having discomfort. Patient denies: Vomiting, Constipation, Fever, Chills, Redness around wound, Drainage from incision/s, and Bulges or mass OBJECTIVE: General Appearance: alert, oriented and in no acute distress, well nourished, cooperative Abdomen: soft and tender periumbilical area Surgical Pathology FINAL DIAGNOSIS Gallbladder, cholecystectomy: - Cholesterolosis. Li Orr APRN.CNP 03/22/2024[facility]02-13-2025 History of Present illness Narrative* Li Orr APRN.SHYAM - 03/22/2024 1:01 PM EST IMPRESSION: PLAN: Patient seen with Gerardo ARAMBULA. Plan: Post-op patient instructions were reviewed with the patient. I have explained to Ms. Blaha that she may return to normal activity with the following restrictions: no lifting over 20 lbs, no soaking in tub, pool or hot tub, no pulling, and no pushing. I have encouraged her to contact me at any time with any questions or concerns that may arise. Follow up:1-2 weeks SUBJECTIVE: On 03/06/2024 she underwent Laparoscopic cholecystectomy with intraoperative cholangiogram Laparoscopic bilateral transversus abdominus plane block with Dr. Elizabeth Richardson. Patient presents now for follow up. Patient complaints: Nausea, Diarrhea. She is watching what she eats and eating smaller meals. Has noticed diarrhea occurring after fatty meals. Pain periumbilical after 105lb dog jumped on her yesterday. Reports pain 5/10 using ibuprofen 800mg still having discomfort. Patient denies: Vomiting, Constipation, Fever, Chills, Redness around wound, Drainage from incision/s, and Bulges or mass OBJECTIVE: General Appearance: alert, oriented and in no acute distress, well nourished, cooperative Abdomen: soft and tender periumbilical area Surgical Pathology FINAL DIAGNOSIS Gallbladder, cholecystectomy: - Cholesterolosis. Li Orr APRN.CNP 03/22/2024 [facility] NoteHNO ID: [id number] Author: MARIO RICK SRNA Service: ? Author Type: Student Type: Anesthesia Procedure Notes Filed: 03/06/2024 08:41 Note Text: ANESTHESIOLOGY PROCEDURE NOTE Airway General Information Procedure Start Time/Medication Administration: 03/06/2024 8:32 AM Procedure End Time: 03/06/2024 8:32 AM Patient location during procedure: OR Timeout Performed Pre-procedure: timeout performed Consent Obtained: Yes Patient identity confirmed: arm band, care java development team lead and patient Staffing Anesthesiologist: Supa Otto MD PRINTER'S DEVIL: Yanelis Vazquez APRN.PRINTER'S DEVIL SRNA: Mario Rick SRNA Performed by: FRANKIE Indications and Patient Condition Indications for airway management: anesthesia Preoxygenated: yes anesthesia circuit Patient position: sniffing Method: asleep Difficult Mask: No Final Airway Details Final airway type: endotracheal airway Final Endotracheal Airway: ETT Cuffed: yes Successful intubation technique: video laryngoscopy Devices used: Dobbins Endotracheal tube insertion site: oral Blade: Toyin Blade size: #3 ETT size (mm): 7.5 Measured from: lips Measurement (cm): 21 Placement verified by: capnometry Cormack-Lehane Classification: grade I - full view of glottis Number of attempts at approach: 1 Airway not difficult SIGNATURE: FRANKIE Russo PATIENT NAME: Nadia Gonzalez DATE: March 06, 2024 TIME: 8:40 AM CSN: [id number] History and physical note * Elizabeth Richardson, - 03/04/2024 10:57 PM EST Images from the original note were not included. General Surgery New Patient REASON FOR VISIT Nadia Gonzalez is a 44 year old female who is scheduled for a consult at the request of Self for Consult (follow up 01/25 [facility] RUQ pain N/V 01/03 US ABD COMPLETE 01/25 [facility]/). My final recommendations will be communicated back to the requesting physician by the way of the shared medical record, fax, or via US Mail History of Present Illness: Nadia Gonzalez is a 44 year old female with contributing past medical and surgical history significant for migraine, hypothyroidism, gastritis, and dysthymic disorder. The patient presents as ED follow-up for RUQ pain, N/V. She had a RUQ US completed in December which showed no acute process and hep atomegaly. Gallbladder appeared normal. No bile duct dilation. HIDA scan obtained in January showed no evidence of acute cholecystitis or CBD obstruction. There was a normal gallbladder ejection fraction at 75% following administration of CCK. Of note, there was enterogastric reflux noted. She takes Zofran PRN. She underwent EGD at OSH and results were normal with no significant signs of gastritis. She continues to have some RUQ pain. PAST MEDICAL HISTORY Diagnosis Date Acute gastritis BRCA1 negative BRCA2 negative Chronic pelvic pain in female Depression High blood pressure Hypothyroidism IBS (irritable bowel syndrome) Migraine with aura Migraines Vulvodynia PAST SURGICAL HISTORY Procedure Laterality Date APPENDECTOMY 2012 BX OF BREAST; INCISIONAL benign LIGATE FALLOPIAN TUBE 2010 PAST SURGICAL HISTORY OF 2006 bladder repair, and sling removed in 2008 PAST SURGICAL HISTORY OF 2013 incisional hernia repair PAST SURGICAL HISTORY OF Right 2013 radius and ulna and in 2019 hardware removed TOOTH EXTRACTION wisdom teeth TOTAL ABDOM HYSTERECTOMY 2013 adenomyosis Robotic LAVH/partial UMBILICAL HERNIA REPAIR 5 OR OLDER 12/16/2020 Dr. Lassiter FAMILY HISTORY Problem Relation Age of Onset Hypertension Mother Thyroid Mother Overactive thyroid GI Sister Social History Tobacco Use Smoking status: Every Day Current packs/day: 0.50 Average packs/day: 0.5 packs/day for 6.0 years (3.0 ttl pk-yrs) Types: Cigarettes Smokeless tobacco: Never Tobacco comments: Pt advised to quit Vaping Use Vaping status: Never Used Substance Use Topics Alcohol use: Yes Comment: A couple of drinks per month Drug use: Yes Types: Marijuana The patient has the following: Problem List Noted Noted By Resolved Resolved By Hypothyroidism 01/27/2010 Jose Juarez MD No Dysthymic disorder 03/04/2003 Jennifer Sánchez No Migraine with aura 08/08/2002 Jennifer Sánchez No Acute gastritis 08/08/2002 Jennifer Sánchez No MEDICATIONS Current Outpatient Medications Medication Sig Dispense Refill ondansetron (ZOFRAN) 4 mg tablet Take 1 tablet by mouth every 8 hours as needed for nausea/vomiting. 30 tablet 0 levothyroxine (SYNTHROID) 175 mcg tablet Take 175 mcg by mouth once daily. tiZANidine (ZANAFLEX) 4 mg tablet Take 4 mg by mouth three times daily as needed. Take 4 mg by mouth three times daily as needed. SUMAtriptan (IMITREX) 100 mg tablet TAKE 1 TABLET BY MOUTH at onset of headache, if no relief may repeat in 2 (TWO) HOURS. ibuprofen (MOTRIN) 800 mg tablet Take by mouth as directed. FLUoxetine HCl (PROZAC) 40 mg capsule once daily. hydroCHLOROthiazide (HYDRODIURIL, ESIDRIX) 25 mg tablet Take 25 mg by mouth every morning. acetaminophen 300 mg-caffeine 40 mg-butalbital 50 mg (FIORICET) per capsule TAKE 1 CAPSULE BY MOUTHEVERY 4 HOURS NEEDED for headaches buPROPion XL (WELLBUTRIN XL) 300 mg 24 hr tablet once daily. No current facility-administered medications for this visit. CURRENT ALLERGIES ALLERGIES Allergen Reactions Gabapentin Other: See Comments, Intolerance Topiramate Intolerance Other reaction(s): totally out of it REVIEW OF SYSTEMS PAIN ASSESSMENT: Pain Pain Level: 2 Pain Location: Abdomen-Right Upper Quadrant Description: Sharp, Dull, Aching Duration Amount of Time: 6 Duration Units: Months Frequency: Intermittent Intervention/Comfort measure: Medication, Reposition, Distractions, Emotional Support/Reassurance, Heat GENERAL: No weight loss, malaise or fevers. RESPIRATORY: Negative for cough, wheezing, or shortness of breath. CARDIOVASCULAR: Negative for chest pain, leg swelling, or palpitations. GI: Abdominal pain as detailed above. Some nausea and vomiting. No diarrhea or constipation. PHYSICAL EXAMINATION BP 133/85 Pulse 92 Ht 5' 4 (1.63m) Wt 170 lb 4.8 oz (77.2kg) SpO2 100% BMI 29.22 kg/(m^2). General Appearance: Well appearing, alert, in no acute distress, well-hydrated, well nourished. Lungs: Lungs clear to auscultation. No wheezing, rhonchi, rales Heart: RRR without murmur, gallop, or rubs. No ectopy Abdomen: Soft, non-distended, mild ttp with deep palpation of right upper quadrant. No guarding or rebound tenderness. No signs of peritonitis. The sensitive examination was discussed with the Patient or Patient's Authorized [place] Worker. Asapplicable, any other physician, advance practice provider, medical student, or other health professional student that will be observing or involved in the sensitive examination for educational or training purposes was discussed with the Patient or Authorized [place] Worker. The Patient or Authorized [place] Worker has agreed to proceed with the sensitive examination. (Sensitive examination includes inspection and/or palpation of the breasts, pelvis, prostate and anorectal regions) Diagnostic tests reviewed for today's visit: RUQ US FINDINGS: Pancreas: The visualized portions of the pancreatic head and body are unremarkable. The remainder of the pancreas is obscured by bowel gas Liver: Normal echogenicity and contours but mildly enlarged. No focal lesion identified. Gallbladder: Normal. Per the ambulatory technologist, the sonographic Botello's sign was negative. Bile ducts: No intrahepatic and extrahepatic biliary dilatation Common bile duct: 2 mm Right kidney: Normal size measuring 10.1 cm. Normal parenchymal echogenicity without solid mass or hydronephrosis. Left kidney: Normal size measuring 11.3 cm. Normal parenchymal echogenicity without solid mass or hydronephrosis. Spleen: Normal size measuring 8.5 x 4.2 x 7.1 cm. Normal echogenicity without a lesion. Aorta and Inferior vena cava: Visualized portions are normal Ascites: None HIDA FINDINGS: Normal radiopharmaceutical uptake is demonstrated within the liver, with excretion into the biliarytree. Activity is demonstrated within the gallbladder within 45 minutes. Tracer also passes into the small bowel. Enterogastric reflux is noted. Using TASHI activity, the gallbladder ejection fraction was calculated at 75 percent following CCK administration (normal above 35%). Exam End: 01/26/24 12:49 PM Assessment ASSESSMENT Biliary dyskinesia (primary encounter diagnosis) RECOMMENDATION -We discussed the EGD findings and reviewed her current imaging. We also reviewed the timing of hersymptoms and overall clinical picture could be due to biliary dyskinesia. We discussed lifestyle management and surgical options. We reviewed laparoscopic cholecystectomy with intraoperative cholangiogram, and she would like to proceed with surgery -Schedule for laparoscopic cholecystectomy with IOC Medical Decision Making: Medical Decision Making Level: 1 - N/A Elizabeth Richardson DO DATE: March 04, 2024 TIME: 10:58 PM CC: Dawson Luciano APRN.TRACK WELDER CC: [facility]01-26-2025 History and physical note* Elizabeth Richardson DO - 03/04/2024 10:57 PM EST Images from the original note were not included. General Surgery New Patient REASON FOR VISIT Nadia Gonzalez is a 44 year old female who is scheduled for a consult at the request of Self for Consult (follow up 01/25 [facility] RUQ pain N/V 01/03 US ABD COMPLETE 01/25 [facility]/). My final recommendations will be communicated back to the requesting physician by the way of the shared medical record, fax, or via US Mail History of Present Illness: Nadia Gonzalez is a 44 year old female with contributing past medical and surgical history significant for migraine, hypothyroidism, gastritis, and dysthymic disorder. The patient presents as ED follow-up for RUQ pain, N/V. She had a RUQ US completed in December which showed no acute process and hep atomegaly. Gallbladder appeared normal. No bile duct dilation. HIDA scan obtained in January showed no evidence of acute cholecystitis or CBD obstruction. There was a normal gallbladder ejection fraction at 75% following administration of CCK. Of note, there was enterogastric reflux noted. She takes Zofran PRN. She underwent EGD at OSH and results were normal with no significant signs of gastritis. She continues to have some RUQ pain. PAST MEDICAL HISTORY Diagnosis Date Acute gastritis BRCA1 negative BRCA2 negative Chronic pelvic pain in female Depression High blood pressure Hypothyroidism IBS (irritable bowel syndrome) Migraine with aura Migraines Vulvodynia PAST SURGICAL HISTORY Procedure Laterality Date APPENDECTOMY 2012 BX OF BREAST; INCISIONAL benign LIGATE FALLOPIAN TUBE 2010 PAST SURGICAL HISTORY OF 2005 bladder repair, and sling removed in 2007 PAST SURGICAL HISTORY OF 2012 incisional hernia repair PAST SURGICAL HISTORY OF Right 2013 radius and ulna and in 2018 hardware removed TOOTH EXTRACTION wisdom teeth TOTAL ABDOM HYSTERECTOMY 2013 adenomyosis Robotic LAVH/partial UMBILICAL HERNIA REPAIR 5 OR OLDER 12/16/2020 Dr. Lassiter FAMILY HISTORY Problem Relation Age of Onset Hypertension Mother Thyroid Mother Overactive thyroid GI Sister Social History Tobacco Use Smoking status: Every Day Current packs/day: 0.50 Average packs/day: 0.5 packs/day for 6.0 years (3.0 ttl pk-yrs) Types: Cigarettes Smokeless tobacco: Never Tobacco comments: Pt advised to quit Vaping Use Vaping status: Never Used Substance Use Topics Alcohol use: Yes Comment: A couple of drinks per month Drug use: Yes Types: Marijuana The patient has the following: Problem List Noted Noted By Resolved Resolved By Hypothyroidism 01/27/2010 Jose Juarez MD No Dysthymic disorder 03/04/2003 Jennifer Sánchez No Migraine with aura 08/08/2002 Jennifer Sánchez No Acute gastritis 08/08/2002 Jennifer Sánchez No MEDICATIONS Current Outpatient Medications Medication Sig Dispense Refill ondansetron (ZOFRAN) 4 mg tablet Take 1 tablet by mouth every 8 hours as needed for nausea/vomiting. 30 tablet 0 levothyroxine (SYNTHROID) 175 mcg tablet Take 175 mcg by mouth once daily. tiZANidine (ZANAFLEX) 4 mg tablet Take 4 mg by mouth three times daily as needed. Take 4 mg by mouth three times daily as needed. SUMAtriptan (IMITREX) 100 mg tablet TAKE 1 TABLET BY MOUTH at onset of headache, if no relief may repeat in 2 (TWO) HOURS. ibuprofen (MOTRIN) 800 mg tablet Take by mouth as directed. FLUoxetine HCl (PROZAC) 40 mg capsule once daily. hydroCHLOROthiazide (HYDRODIURIL, ESIDRIX) 25 mg tablet Take 25 mg by mouth every morning. acetaminophen 300 mg-caffeine 40 mg-butalbital 50 mg (FIORICET) per capsule TAKE 1 CAPSULE BY MOUTHEVERY 4 HOURS NEEDED for headaches buPROPion XL (WELLBUTRIN XL) 300 mg 24 hr tablet once daily. No current facility-administered medications for this visit. CURRENT ALLERGIES ALLERGIES Allergen Reactions Gabapentin Other: See Comments, Intolerance Topiramate Intolerance Other reaction(s): totally out of it REVIEW OF SYSTEMS PAIN ASSESSMENT: Pain Pain Level: 2 Pain Location: Abdomen-Right Upper Quadrant Description: Sharp, Dull, Aching Duration Amount of Time: 6 Duration Units: Months Frequency: Intermittent Intervention/Comfort measure: Medication, Reposition, Distractions, Emotional Support/Reassurance, Heat GENERAL: No weight loss, malaise or fevers. RESPIRATORY: Negative for cough, wheezing, or shortness of breath. CARDIOVASCULAR: Negative for chest pain, leg swelling, or palpitations. GI: Abdominal pain as detailed above. Some nausea and vomiting. No diarrhea or constipation. PHYSICAL EXAMINATION BP 133/85 Pulse 92 Ht 5' 4 (1.63m) Wt 170 lb 4.8 oz (77.2kg) SpO2 100% BMI 29.22 kg/(m^2). General Appearance: Well appearing, alert, in no acute distress, well-hydrated, well nourished. Lungs: Lungs clear to auscultation. No wheezing, rhonchi, rales Heart: RRR without murmur, gallop, or rubs. No ectopy Abdomen: Soft, non-distended, mild ttp with deep palpation of right upper quadrant. No guarding or rebound tenderness. No signs of peritonitis. The sensitive examination was discussed with the Patient or Patient's Authorized [place]house Worker. Asapplicable, any other physician, advance practice provider, medical student, or other health professional student that will be observing or involved in the sensitive examination for educational or training purposes was discussed with the Patient or Authorized Limehouse Worker. The Patient or Authorized Limehouse Worker has agreed to proceed with the sensitive examination. (Sensitive examination includes inspection and/or palpation of the breasts, pelvis, prostate and anorectal regions) Diagnostic tests reviewed for today's visit: RUQ US FINDINGS: Pancreas: The visualized portions of the pancreatic head and body are unremarkable. The remainder of the pancreas is obscured by bowel gas Liver: Normal echogenicity and contours but mildly enlarged. No focal lesion identified. Gallbladder: Normal. Per the ambulatory technologist, the sonographic Botello's sign was negative. Bile ducts: No intrahepatic and extrahepatic biliary dilatation Common bile duct: 2 mm Right kidney: Normal size measuring 10.1 cm. Normal parenchymal echogenicity without solid mass or hydronephrosis. Left kidney: Normal size measuring 11.3 cm. Normal parenchymal echogenicity without solid mass or hydronephrosis. Spleen: Normal size measuring 8.5 x 4.2 x 7.1 cm. Normal echogenicity without a lesion. Aorta and Inferior vena cava: Visualized portions are normal Ascites: None HIDA FINDINGS: Normal radiopharmaceutical uptake is demonstrated within the liver, with excretion into the biliarytree. Activity is demonstrated within the gallbladder within 45 minutes. Tracer also passes into the small bowel. Enterogastric reflux is noted. Using TASHI activity, the gallbladder ejection fraction was calculated at 75 percent following CCK administration (normal above 35%). Exam End: 01/26/24 12:49 PM Assessment ASSESSMENT Biliary dyskinesia (primary encounter diagnosis) RECOMMENDATION -We discussed the EGD findings and reviewed her current imaging. We also reviewed the timing of hersymptoms and overall clinical picture could be due to biliary dyskinesia. We discussed lifestyle management and surgical options. We reviewed laparoscopic cholecystectomy with intraoperative cholangiogram, and she would like to proceed with surgery -Schedule for laparoscopic cholecystectomy with [facility] Medical Decision Making: Medical Decision Making Level: 1 - N/A Elizabeth Richardson DO DATE: March 04, 2024 TIME: 10:58 PM CC: Dawson Luciano APRN.TRACK WELDER CC: [facility] History and physical note * Elizabeth Richardson DO - 02/19/2024 9:49 PM EST Images from the original note were not included. General Surgery New Patient REASON FOR VISIT Nadia Gonzalez is a 44 year old female who is scheduled for a consult at the request of self for Consult (Gallbladder 01/25 [facility] RUQ pain N/V 01/03 US ABD COMPLETE 01/25 [facility]/). My final recommendations will be communicated back to the requesting physician by the way of the shared medical record, fax, or via US Mail History of Present Illness: Nadia Gonzalez is a 44 year old female with contributing past medical and surgical history significant for hypothyroidism, migraine, dysthymic disorder, and gastritis. The patient presents with rightupper quadrant pain, nausea, and vomiting. She reports that these symptoms started around Thanksgiving and has been intermittent since. Since completing the US in December and the HIDA scan in January she has implemented various lifestyle and diet changes and the pain has improved but not completely resolved. PAST MEDICAL HISTORY Diagnosis Date Acute gastritis Migraine with aura PAST SURGICAL HISTORY Procedure Laterality Date APPENDECTOMY 2012 LIGATE FALLOPIAN TUBE 2010 PAST SURGICAL HISTORY OF 2006 bladder repair, and sling removed in 2007 PAST SURGICAL HISTORY OF 2013 incisional hernia repair PAST SURGICAL HISTORY OF Right 2013 radius and ulna and in 2019 hardware removed TOOTH EXTRACTION wisdom teeth TOTAL ABDOM HYSTERECTOMY 2013 UMBILICAL HERNIA REPAIR 5 OR OLDER 12/16/2020 Dr. Lassiter FAMILY HISTORY Problem Relation Age of Onset Hypertension Mother Thyroid Mother Overactive thyroid GI Sister Social History Tobacco Use Smoking status: Every Day Current packs/day: 0.50 Average packs/day: 0.5 packs/day for 6.0 years (3.0 ttl pk-yrs) Types: Cigarettes Smokeless tobacco: Never Tobacco comments: Pt advised to quit Vaping Use Vaping status: Never Used Substance Use Topics Alcohol use: Yes Comment: A couple of drinks per month Drug use: Yes Types: Marijuana The patient has the following: Problem List Noted Noted By Resolved Resolved By Hypothyroidism 01/27/2010 Jose Juarez MD No Dysthymic disorder 03/04/2003 Jennifer Sánchez No Migraine with aura 08/08/2002 Jennifer Sánchez No Acute gastritis 08/08/2002 Jennifer Sánchez No MEDICATIONS Current Outpatient Medications Medication Sig Dispense Refill ondansetron (ZOFRAN) 4 mg tablet Take 1 tablet by mouth every 8 hours as needed for nausea/vomiting. 30 tablet 0 levothyroxine (SYNTHROID) 175 mcg tablet Take 175 mcg by mouth once daily. tiZANidine (ZANAFLEX) 4 mg tablet Take 4 mg by mouth three times daily as needed. Take 4 mg by mouth three times daily as needed. SUMAtriptan (IMITREX) 100 mg tablet TAKE 1 TABLET BY MOUTH at onset of headache, if no relief may repeat in 2 (TWO) HOURS. ibuprofen (MOTRIN) 800 mg tablet Take by mouth as directed. FLUoxetine HCl (PROZAC) 40 mg capsule once daily. hydroCHLOROthiazide (HYDRODIURIL, ESIDRIX) 25 mg tablet Take 25 mg by mouth every morning. acetaminophen 300 mg-caffeine 40 mg-butalbital 50 mg (FIORICET) per capsule TAKE 1 CAPSULE BY MOUTHEVERY 4 HOURS NEEDED for headaches buPROPion XL (WELLBUTRIN XL) 300 mg 24 hr tablet once daily. No current facility-administered medications for this visit. CURRENT ALLERGIES ALLERGIES Allergen Reactions Gabapentin Other: See Comments, Intolerance Topiramate Intolerance Other reaction(s): totally out of it REVIEW OF SYSTEMS PAIN ASSESSMENT: Pain Pain Level: 4 Pain Location: Abdomen-Right Upper Quadrant Description: Sharp (twisting) Duration Amount of Time: 10 Duration Units: Years Frequency: Intermittent Intervention/Comfort measure: Medication, Reposition, Distractions, Heat, Positioning GENERAL: No weight loss, malaise or fevers. RESPIRATORY: Negative for cough, wheezing, or shortness of breath. CARDIOVASCULAR: Negative for chest pain, leg swelling, or palpitations. GI:mild right upper quadrant pain, no current nausea, vomiting, diarrhea, or constipation. PHYSICAL EXAMINATION BP 125/84 Pulse 88 Ht 5' 4 (1.63m) Wt 170 lb 3.2 oz (77.2kg) SpO2 100% BMI 29.20 kg/(m^2). General Appearance: Well appearing, alert, in no acute distress, well-hydrated, well nourished. Lungs: Lungs clear to auscultation. No wheezing, rhonchi, rales Heart: RRR without murmur, gallop, or rubs. No ectopy Abdomen: Abdomen soft, non-tender. Bowel sounds normal. No masses, organomegaly The sensitive examination was discussed with the Patient or Patient's Authorized [place] Worker. Asapplicable, any other physician, advance practice provider, medical student, or other health professional student that will be observing or involved in the sensitive examination for educational or training purposes was discussed with the Patient or Authorized [place]imehouse Worker. The Patient or Authorized Limehouse Worker has agreed to proceed with the sensitive examination. (Sensitive examination includes inspection and/or palpation of the breasts, pelvis, prostate and anorectal regions) Diagnostic tests reviewed for today's visit: RUQ US 01/04/24 Impression 1. No acute process. 2. Hepatomegaly. Report Dictated on Electronically Signed By: Supa Bolaños MD Electronically Signed Date/Time: 01/06/2024 10:41 AM EST HIDA Scan 01/26/24 Impression No evidence of acute cholecystitis or common bile duct obstruction. Normal gallbladder ejection fraction following CCK administration. Enterogastric reflux is noted. Using TASHI activity, the gallbladder ejection fraction was calculated at 75 percent following CCK administration (normal above 35%). Report Dictated on Electronically Signed By: Radhames Coffman MD Electronically Signed Date/Time: 01/26/2024 1:07 PM EST Assessment ASSESSMENT Nausea (primary encounter diagnosis) RECOMMENDATION -We reviewed the various etiologies for RUQ pain, nausea, and vomiting including biliary and gastric causes. We also reviewed her imaging (RUQ US and HIDA) which were obtained at an OSH. There were no sign of acute cholecystitis. Normal EF on HIDA. Suspect gastric or duodenal cause for her symptoms. -Encouraged patient continue with lifestyle changes -Already has an outpatient EGD scheduled with GI later this month -Ordered zofran for additional symptom management. -Return to clinic after EGD completed to review findings and check in with symptoms Medical Decision Making: Medical Decision Making Level: 1 - N/A Elizabeth Richardson DO DATE: February 19, 2024 TIME: 9:49 PM CC: Dawson Luciano APRN.TRACK WELDER CC: [facility]01-12-2025 History and physical note* Elizabeth Richardson DO - 02/19/2024 9:49 PM EST Images from the original note were not included. General Surgery New Patient REASON FOR VISIT Nadia Gonzalez is a 44 year old female who is scheduled for a consult at the request of self for Consult (Gallbladder 01/25 [facility] RUQ pain N/V 01/03 US ABD COMPLETE 01/25 [facility]/). My final recommendations will be communicated back to the requesting physician by the way of the shared medical record, fax, or via US Mail History of Present Illness: Nadia Gonzalez is a 44 year old female with contributing past medical and surgical history significant for hypothyroidism, migraine, dysthymic disorder, and gastritis. The patient presents with rightupper quadrant pain, nausea, and vomiting. She reports that these symptoms started around Thanksgiving and has been intermittent since. Since completing the US in December and the HIDA scan in January she has implemented various lifestyle and diet changes and the pain has improved but not completely resolved. PAST MEDICAL HISTORY Diagnosis Date Acute gastritis Migraine with aura PAST SURGICAL HISTORY Procedure Laterality Date APPENDECTOMY 2012 LIGATE FALLOPIAN TUBE 2010 PAST SURGICAL HISTORY OF 2006 bladder repair, and sling removed in 2007 PAST SURGICAL HISTORY OF 2013 incisional hernia repair PAST SURGICAL HISTORY OF Right 2013 radius and ulna and in 2018 hardware removed TOOTH EXTRACTION wisdom teeth TOTAL ABDOM HYSTERECTOMY 2013 UMBILICAL HERNIA REPAIR 5 OR OLDER 12/16/2020 Dr. Lassiter FAMILY HISTORY Problem Relation Age of Onset Hypertension Mother Thyroid Mother Overactive thyroid GI Sister Social History Tobacco Use Smoking status: Every Day Current packs/day: 0.50 Average packs/day: 0.5 packs/day for 6.0 years (3.0 ttl pk-yrs) Types: Cigarettes Smokeless tobacco: Never Tobacco comments: Pt advised to quit Vaping Use Vaping status: Never Used Substance Use Topics Alcohol use: Yes Comment: A couple of drinks per month Drug use: Yes Types: Marijuana The patient has the following: Problem List Noted Noted By Resolved Resolved By Hypothyroidism 01/27/2010 Jose Juarez MD No Dysthymic disorder 03/04/2003 Jennifer Sánchez No Migraine with aura 08/08/2002 Jennifer Sánchez No Acute gastritis 08/08/2002 Jennifer Sánchez No MEDICATIONS Current Outpatient Medications Medication Sig Dispense Refill ondansetron (ZOFRAN) 4 mg tablet Take 1 tablet by mouth every 8 hours as needed for nausea/vomiting. 30 tablet 0 levothyroxine (SYNTHROID) 175 mcg tablet Take 175 mcg by mouth once daily. tiZANidine (ZANAFLEX) 4 mg tablet Take 4 mg by mouth three times daily as needed. Take 4 mg by mouth three times daily as needed. SUMAtriptan (IMITREX) 100 mg tablet TAKE 1 TABLET BY MOUTH at onset of headache, if no relief may repeat in 2 (TWO) HOURS. ibuprofen (MOTRIN) 800 mg tablet Take by mouth as directed. FLUoxetine HCl (PROZAC) 40 mg capsule once daily. hydroCHLOROthiazide (HYDRODIURIL, ESIDRIX) 25 mg tablet Take 25 mg by mouth every morning. acetaminophen 300 mg-caffeine 40 mg-butalbital 50 mg (FIORICET) per capsule TAKE 1 CAPSULE BY MOUTHEVERY 4 HOURS NEEDED for headaches buPROPion XL (WELLBUTRIN XL) 300 mg 24 hr tablet once daily. No current facility-administered medications for this visit. CURRENT ALLERGIES ALLERGIES Allergen Reactions Gabapentin Other: See Comments, Intolerance Topiramate Intolerance Other reaction(s): totally out of it REVIEW OF SYSTEMS PAIN ASSESSMENT: Pain Pain Level: 4 Pain Location: Abdomen-Right Upper Quadrant Description: Sharp (twisting) Duration Amount of Time: 10 Duration Units: Years Frequency: Intermittent Intervention/Comfort measure: Medication, Reposition, Distractions, Heat, Positioning GENERAL: No weight loss, malaise or fevers. RESPIRATORY: Negative for cough, wheezing, or shortness of breath. CARDIOVASCULAR: Negative for chest pain, leg swelling, or palpitations. GI:mild right upper quadrant pain, no current nausea, vomiting, diarrhea, or constipation. PHYSICAL EXAMINATION BP 125/84 Pulse 88 Ht 5' 4 (1.63m) Wt 170 lb 3.2 oz (77.2kg) SpO2 100% BMI 29.20 kg/(m^2). General Appearance: Well appearing, alert, in no acute distress, well-hydrated, well nourished. Lungs: Lungs clear to auscultation. No wheezing, rhonchi, rales Heart: RRR without murmur, gallop, or rubs. No ectopy Abdomen: Abdomen soft, non-tender. Bowel sounds normal. No masses, organomegaly The sensitive examination was discussed with the Patient or Patient's Authorized [place] Worker. Asapplicable, any other physician, advance practice provider, medical student, or other health professional student that will be observing or involved in the sensitive examination for educational or training purposes was discussed with the Patient or Authorized [place] Worker. The Patient or Authorized Limehouse Worker has agreed to proceed with the sensitive examination. (Sensitive examination includes inspection and/or palpation of the breasts, pelvis, prostate and anorectal regions) Diagnostic tests reviewed for today's visit: RUQ US 01/04/24 Impression 1. No acute process. 2. Hepatomegaly. Report Dictated on Electronically Signed By: Supa Bolaños MD Electronically Signed Date/Time: 01/06/2024 10:41 AM EST HIDA Scan 01/26/24 Impression No evidence of acute cholecystitis or common bile duct obstruction. Normal gallbladder ejection fraction following CCK administration. Enterogastric reflux is noted. Using TASHI activity, the gallbladder ejection fraction was calculated at 75 percent following CCK administration (normal above 35%). Report Dictated on Electronically Signed By: Radhames Coffman MD Electronically Signed Date/Time: 01/26/2024 1:07 PM EST Assessment ASSESSMENT Nausea (primary encounter diagnosis) RECOMMENDATION -We reviewed the various etiologies for RUQ pain, nausea, and vomiting including biliary and gastric causes. We also reviewed her imaging (RUQ US and HIDA) which were obtained at an OSH. There were no sign of acute cholecystitis. Normal EF on HIDA. Suspect gastric or duodenal cause for her symptoms. -Encouraged patient continue with lifestyle changes -Already has an outpatient EGD scheduled with GI later this month -Ordered zofran for additional symptom management. -Return to clinic after EGD completed to review findings and check in with symptoms Medical Decision Making: Medical Decision Making Level: 1 - N/A Elizabeth Richardson DO DATE: February 19, 2024 TIME: 9:49 PM CC: Dawson Luciano APRN.TRACK WELDER CC: [facility] History of Present illness Narrative* Nataly Cisneros APRN - SH[facility] - 12/13/2022 2:00 PM EST Images from the original note were not [...] not feel it is cyclic in nature. Shedescribes the pain as twinges that last for a short time. We again reviewed different etiologies for breast pain. We did discuss re- imaging the left breast versus monitoring this area. [...] history section of this note. She had [employer] expanded panel genetic testing 05/2022 which was negative for deleterious mutation. Results scanned into media dated 06/01/2022. Her lifetime risk of breast cancer estimated by Tyrer-[id number] model (recalculated, adding in negative genetic testing) [...] left breast was performed by a registered detective lieutenant with Doppler. Extensive scanning of the subareolar region of the left breast demonstrates no focal abnormality orsuspicious findings. IMPRESSION: No mammographic or targeted sonographic correlate for patient's left breast pain. Clinical follow-up is recommended. No mammographic evidence of malignancy in either breast. Patient to return to annual screening. Markings on images: BB's = Nipples; skin lesions Open inupiat = Palpable Line = Scar ASSESSMENT: Category [...] XL) 300 MG 24 hr tablet daily. cwtwrzbqgi-iznijlulbbope-vprhzwil (Fioricet) 50-300-40 MG capsule TAKE 1 CAPSULE [...] using voice recognition software. documented in this [facility]04-14-2023 History of Present illness Narrative* TRUNG Hampton CNP - 05/21/2022 2:00 PM EDT Images from the original note were not [...] bra aggravates the pain. She has taken Adviland used heat at this area which did help with the pain. She denies recent breast trauma. She did have a medication change approximately 2 months ago. She switched from Adderall to Focalin. She had ahysterectomy at age 32 but retains her ovaries. [...] and breast pain. We discussed that if sheexperiences any chest pain/pressure, she should go to the Emergency Department immediately. We alsodiscussed following up with her primary care provider [...] change, nipple change, nipple discharge. No prior br east surgery. Breast Imaging: Bilateral diagnostic mammogram/left breast [...] left breast was performed by a registered detective lieutenant with Doppler. Extensive scanning of the subareolar region of the left breast demonstrates no focal abnormality orsuspicious findings. IMPRESSION: No mammographic or targeted sonographic correlate for patient's left breast pain. Clinical follow-up is recommended. No mammographic evidence of malignancy in either breast. Patient to return to annual screening. Markings on images: BB's = Nipples; skin lesions Open inupiat = Palpable Line = Scar ASSESSMENT: Category [...] for analysis of family history, pedigree construction, discussionof genetic principles and familial cancer patterns. We [...] cost for genetic testing done here at [facility] through [employer] is $250. [employer] will reach out to patient if out of pocket cost is more than $100. Patient verbalized understanding. The patient expressed understanding of the information provided and decided to proceed with genetictesting. She signed consent for genetic testing. Her [...] XL) 300 MG 24 hr tablet daily. [id number]-czgupzolwxcgg-panelhei (Fioricet) 50-300-40 MG capsule TAKE 1 CAPSULE [...] breast pain including OTC analgesics, heat/ice, and wearinga supportive bra. -Follow-up 6 months or sooner with any new/worsening symptoms. 2. Family history of breast cancer -Her blood was drawn today for genetic testing -Call with results 3. Family history of ovarian cancer -Her blood was drawn today for genetic testing -Call with results 4. Genetic testing -Call with results Call with any breast concerns or questions TRUNG Hampotn CNP Please disregard any typographical errors. This note was dictated using voice recognition software. documented in this [facility]03-21-2023 History of Present illness Narrative* Shyam Stallworth MA - 04/27/2022 11:30 AM EDT A town manager was offered to be present during her exam. The patient: declined * Toy Burch MD - 04/27/2022 11:30 AM EDT Nadia Gonzalez 42 y.o. HPI Pt c/o [...] to person, place, and time. She appears well- developed and well-nourished. Head: Normocephalic and atraumatic. Neck: [...] and US. Ref[facility] placed. [facility] Diagnosis Onset Date Resolution Status Hypothyroidism acute Migraine acute Tension headache acute Hypertension chronic Depression acute Hypothyroidism acute Hypertension [facility] Work Phone: Evaluation note* Diagnosis Encounter for gynecological examination without abnormal finding- Primary Breast pain, left documented in this encounter [facility] note* Diagnosis Breast pain, left documented in this encounter [facility] note* Diagnosis Family history of breast cancer- Primary Family history of malignant neoplasm of breast Breast pain, left Family history of ovarian cancer Family history of malignant neoplasm of ovary Genetic testing Other investigation and testing for procreative management documented in this encounter [facility] note* Diagnosis Onset Date Resolution Status Lumbar back pain with radicu lopathy affecting lower extremity acute Neck pain, chronic chronic Depression acute Hypothyroidism acute Hypertension [facility] Work Phone: Evaluation note* Diagnosis Onset Date Resolution Status Depression acute Hypothyroidism acute Hypertension chronic Cystitis acute Left flank pain acute [facility] Work Phone: [facility] note* Diagnosis Encounter for screening mammogram for breast cancer- Primary Breast pain, left Family history of breast cancer Family history of malignant neoplasm of breast Family history of prostate cancer Family history of malignant neoplasm of prostate documented in this encounter [facility] note* Diagnosis Encounter for screening mammogram for breast cancer documented in this encounter [facility] note* Diagnosis Right upper quadrant pain Abdominal pain, right upper quadrant Nausea with vomiting, unspecified documented in this encounter [facility] note* Diagnosis Nausea & vomiting Nausea with vomiting RUQ abdominal pain Abdominal pain, right upper quadrant documented in this encounter [facility] note* Diagnosis RUQ pain- Primary Abdominal pain, right upper quadrant Nausea Nausea alone documented in this encounter [facility] note* Diagnosis Biliary dyskinesia- Primary Other specified disorder of gallbladder Biliary dyskinesia Other specified disorder of gallbladder documented in this encounter [facility] note* Diagnosis S/P laparoscopic cholecystectomy- Primary Other postprocedural status Post-operative nausea and vomiting Nausea with vomiting documented in this encounter [facility] note* Diagnosis Right upper quadrant pain- Primary Abdominal pain, right upper quadrant Nausea with vomiting, unspecified Right upper quadrant pain Abdominal pain, right upper quadrant Nausea with vomiting, unspecified documented in this encounter [facility] note* Diagnosis Acute post-operative pain- Primary Cholesterolosis of gallbladder S/P laparoscopic cholecystectomy Other postprocedural status documented in this encounter [facility] note* Diagnosis Nausea & vomiting- Primary Nausea with vomiting RUQ abdominal pain Abdominal pain, right upper quadrant Nausea & vomiting Nausea with vomiting RUQ abdominal pain Abdominal pain, right upper quadrant documented in this encounter [facility] note* Diagnosis Incisional hernia, without obstruction or gangrene- Primary Incisional hernia without mention of obstruction or gangrene Diarrhea, unspecified type Encounter for surgical aftercare following surgery on the digestive system Constipation, unspecified constipation type documented in this encounter [facility] note* Diagnosis Encounter for screening mammogram for malignant neoplasm of breast documented in this encounter [facility] note* Diagnosis Incisional hernia, without obstruction or gangrene Incisional hernia without mention of obstruction or gangrene documented in this encounter [facility] note* Diagnosis Incisional hernia, without obstruction or gangrene- Primary Incisional hernia without mention of obstruction or gangrene Incisional hernia, without obstruction or gangrene Incisional hernia without mention of obstruction or gangrene [facility] Pre-op evaluation- Primary Preoperative examination, unspecified Cigarette smoker Tobacco use disorder Marijuana use Cannabis abuse, unspecified Anxiety and depression Dysthymic disorder Attention deficit hyperactivity disorder (ADHD), unspecified ADHD type Primary hypertension Unspecified essential hypertension Intractable migraine without status migrainosus, unspecified migraine type Gastroesophageal reflux disease, unspecified whether esophagitis present Prediabetes Other abnormal glucose Hypothyroidism, unspecified type PONV (postoperative nausea and vomiting) Nausea with vomiting Incisional hernia, without obstruction or gangrene Incisional hernia without mention of obstruction or gangrene * Assessment & Plan Note - Arely Mcgowan APRN.CNP - 07/30/2024 2:33 PM EDTAssociated Problem(s): PONV (postoperative nausea and vomiting) Assessment: . * Assessment & Plan Note - Arely Mcgowan APRN.CNP - 07/30/2024 2:32 PM EDTAssociated Problem(s): Hypothyroidism Assessment: - Managed with Synthroid - Follows with PCP TSH Date Value Ref Range Status 01/26/2024 2.340 0.270 - 4.200 mIU/L Final Comment: If the patient is , TSH reference range varies by gestational period: First Trimester (weeks 9-12): 0.180-2.990 mIU/L Second Trimester: 0.110-3.980 mIU/L Third Trimester: 0.480-4.710 mIU/L Peter Haque et al. A Practical Approach for the Verifications and Determination of Site- and Trimester-Specific Reference Intervals for Thyroid Function tests in . Thyroid, 2019:29:3:412-420.Manohar Schmitz et al. 2017 Guidelines of the [place] Thy[employer] for the Diagnosis and Management of Thyroid Disease during and the . Thyroid, 2017:27:3:315-389. * Assessment & Plan Note - Arely Mcgowan APRN.CNP - 07/30/2024 2:31 PM EDTAssociated Problem(s): Prediabetes Assessment: - On Metformin * Assessment & Plan Note - Arely Mcgowan APRN.CNP - 07/30/2024 2:30 PM EDTAssociated Problem(s): GERD (gastroesophageal reflux disease) Assessment: - Managed with Omeprazole * Assessment & Plan Note - Arely Mcgowan APRN.CNP - 07/30/2024 2:29 PM EDTAssociated Problem(s): Migraine Assessment: - Managed with prn Imitrex and Fioricet * Assessment & Plan Note - Arely Mcgowan APRN.CNP - 07/30/2024 2:29 PM EDTAssociated Problem(s): Primary hypertension Assessment: - Managed on HCTZ - Follows with PCP - Last 3 Encounter BP Readings: Date: BP: 06/14/2024 119/82 03/06/2024 178/100 02/23/2024 136/85 * Assessment & Plan Note - Arely Mcgowan APRN.CNP - 07/30/2024 2:28 PM EDTAssociated Problem(s): ADHD Assessment: - Managed with Focalin * Assessment & Plan Note - Arely Mcgowan APRN.CNP - 07/30/2024 2:27 PM EDTAssociated Problem(s): Anxiety and depression Assessment: - Follows with psychiatry - Stable with current Rx * Assessment & Plan Note - Arely Mcgowan APRN.CNP - 07/30/2024 2:27 PM EDTAssociated Problem(s): Marijuana use Assessment: - Taking gummies BID - Advised to avoid prior to surgery * Assessment & Plan Note - Arely Mcgowan APRN.CNP - 07/30/2024 2:24 PM EDTAssociated Problem(s): Cigarette smoker Assessment: - Smoking 0.5ppd - Encouraged cessation [facility] Diagnosis Pre-op evaluation- Primary Preoperative examination, unspecified Cigarette smoker Tobacco use disorder Marijuana use Cannabis abuse, unspecified Anxiety and depression Dysthymic disorder Attention deficit hyperactivity disorder (ADHD), unspecified ADHD type Primary hypertension Unspecified essential hypertension Intractable migraine without status migrainosus, unspecified migraine type Gastroesophageal reflux disease, unspecified whether esophagitis present Prediabetes Other abnormal glucose Hypothyroidism, unspecified type PONV (postoperative nausea and vomiting) Nausea with vomiting Acute post-operative pain [facility]* Diagnosis Pre-op evaluation- Primary Preoperative examination, unspecified Cigarette smoker Tobacco use disorder Marijuana use Cannabis abuse, unspecified Anxiety and depression Dysthymic disorder Attention deficit hyperactivity disorder (ADHD), unspecified ADHD type Primary hypertension Unspecified essential hypertension Intractable migraine without status migrainosus, unspecified migraine type Gastroesophageal reflux disease, unspecified whether esophagitis present Prediabetes Other abnormal glucose Hypothyroidism, unspecified type PONV (postoperative nausea and vomiting) Nausea with vomiting S/P hernia repair- Primary Other postprocedural status documented in this encounter [facility] note* Diagnosis Encounter for screening mammogram for malignant neoplasm of breast- Primary Encounter for screening mammogram for malignant neoplasm of breast documented in this encounter [facility] note* Diagnosis Pre-op evaluation- Primary Preoperative examination, unspecified Cigarette smoker Tobacco use disorder Marijuana use Cannabis abuse, unspecified Anxiety and depression Dysthymic disorder Attention deficit hyperactivity disorder (ADHD), unspecified ADHD type Primary hypertension Unspecified essential hypertension Intractable migraine without status migrainosus, unspecified migraine type Gastroesophageal reflux disease, unspecified whether esophagitis present Prediabetes Other abnormal glucose Hypothyroidism, unspecified type PONV (postoperative nausea and vomiting) Nausea with vomiting Acute post-operative pain- Primary Muscle spasm Spasm of muscle documented in this encounter [facility] note* Diagnosis Pre-op evaluation- Primary Preoperative examination, unspecified Cigarette smoker Tobacco use disorder Marijuana use Cannabis abuse, unspecified Anxiety and depression Dysthymic disorder Attention deficit hyperactivity disorder (ADHD), unspecified ADHD type Primary hypertension Unspecified essential hypertension Intractable migraine without status migrainosus, unspecified migraine type Gastroesophageal reflux disease, unspecified whether esophagitis present Prediabetes Other abnormal glucose Hypothyroidism, unspecified type PONV (postoperative nausea and vomiting) Nausea with vomiting Acute abdomen- Primary Abdominal pain, unspecified site Acute post-operative pain Muscle spasm Spasm of muscle Encounter for surgical aftercare following surgery on the digestive system documented in this encounter [facility] note* Diagnosis Pre-op evaluation- Primary Preoperative examination, unspecified Cigarette smoker Tobacco use disorder Marijuana use Cannabis abuse, unspecified Anxiety and depression Dysthymic disorder Attention deficit hyperactivity disorder (ADHD), unspecified ADHD type Primary hypertension Unspecified essential hypertension Intractable migraine without status migrainosus, unspecified migraine type Gastroesophageal reflux disease, unspecified whether esophagitis present Prediabetes Other abnormal glucose Hypothyroidism, unspecified type PONV (postoperative nausea and vomiting) Nausea with vomiting Acute abdomen Abdominal pain, unspecified site documented in this encounter [facility] for referral (narrative)* Consultation (Routine) - Pending Review Specialty Diagnoses / Procedures Referred By Fish lima Referred To Contact Breast Surgery / Breast Clinic / Breast Center Diagnoses Breast pain, left Procedures [place] OFFICE/OUTPATIENT [facility] 60-74 MINUTES Toy Burch MD [facility] [address] [place] [address] [facility] [address] [place] [address] Referral ID Status Reason Start Date Expiration Date Visits Requested Visits Authorized [id number] Pending Review Specialty Services Required 04/27/2022 04/27/2023 1 1 [facility] for referral (narrative)No reason for referral information [facility] Work Phone: Reason for visit Narrative* Imaging (Routine) - Authorized Specialty Diagnoses / Procedures Referred By Contalessandro t Referred To Contact Radiology Diagnoses Nausea & vomiting RUQ abdominal pain Procedures NM hepatobiliary scan with pharm agent w/cck Abel Lundberg, DESK SERGEANT - TRACK WELDER [address] [place] [address] Phone: tel: Referral ID Status Reason Start Date Expiration Date V isits Requested Visits Authorized [id number] Authorized 01/20/2024 01/19/2025 3 3 [facility] for visit Narrative* MRI/CT (Routine) - Closed Specialty Diagnoses / Procedures Referred By Contac t Referred To Contact CT IMAGING Diagnoses Incisional hernia, without obstruction or gangrene Procedures CT ABD/PEL W IVCON CT ABD & PELVIS W/CONTRAST Finelli, Elizabeth C, DO [address] [place] [address] Phone: tel: fax: [place] [id number] Referral ID Status Reason Start Date Expiration Date V isits Requested Visits Authorized [id number] Closed Auto-Generate d Referral 06/22/2024 09/19/2024 2 2 [facility] for visit Narrative* MRI/CT (Routine) - Closed Specialty Diagnoses / Procedures Referred By Contac t Referred To Contact CT IMAGING Diagnoses Acute abdomen Procedures CT ABD/PEL W IVCON CT ABD & PELVIS W/CONTRAST Finelli, Elizabeth C, DO [address] [place] [address] Phone: tel: fax:[phone] [place] [id number] Referral ID Status Reason Start Date Expiration Date V isits Requested Visits Authorized [id number] Closed Auto-Generate d Referral 09/24/2024 02/06/2025 1 1 [facility] Chief Complaint Chief Complaint Description Start Date right wrist post Removal of hardware and right forearm ulnar shortening osteotomy hardware on 01/27/2018 Preliminary chief co mplaint data, not yet signed by the author as of Instructions Instruction Description Start Date Please follow-up with Primar y Care Physician or Genetics Teacher for treatment or adjustment of medication regarding elevated blood pressure.Patient advised to follow-up with Primary Care Physician for BMI management. Name Dates Details Instructions not documented Advance Directives No Advanced Directives Records FoundDocuments on File Type Date Recorded Patient Limehouse Worker Expl anation Advance Directives and Living Will Power of Bucket Chucker Documents on File Type Date Recorded Patient Limehouse Worker Expl anation ACP-Advance Directive ACP-Power of Bucket Chucker Assessments Diagnosis LLQ pain Abdominal pain, left lower quadrant Lt flank pain Abdominal pain, unspecified site Review of System There may be information available, but it has not been provided by the sender. Family History No Family History Records Found Relationship Condition Age at Onset Recorded Date/T odin Not Specified Malignant neoplasm of ovary Unknown Diabetes mellitus Unknown High blood cholesterol Unknown Hypertension Unknown Disorder of thyroid Unknown mother Malignant neoplasm of colon Unknown Relationship Condition Age at Onset Recorded Date/T odin Not Specified High blood cholesterol Unknown Hypertension Unknown Disorder of thyroid Unknown mother Malignant neoplasm of colon Unknown grandmother Diabetes mellitus Unknown Malignant neoplasm of breast Unknown Malignant neoplasm of colon Unknown aunt Malignant neoplasm of ovary Unknown History of Present Illness There may be information available, but it has not been provided by the sender. Summary Purpose Reason for Referral Status Reason Specialty Diagnoses / Procedures Referred By Contact Referred To Contact Not Required - [facility] Radiology Diagnoses LLQ pain Lt flank pain Procedures CT Abdomen Pelvis Wo Contrast Toy Burch MD [address] [address] Chief Complaint and Reason for Visit Chief Complaint medication refills F/up W/medication & labs Reason for Visit Hypothyroidism Migraine Tension headache Hypertension Depression Hypothyroidism Hypertension Chief Complaint Back pain medication refills & Labs Reason for Visit Lumbar back pain wit h radiculopathy affecting lower extremity Neck pain, chronic Depression Hypothyroidism Hypertension Chief Complaint medication refills & Labs Urinary tract infection/Bladder infection Reason for Visit Depression Hypothyroidism Hypertension Cystitis Left flank pain Chief Complaint Admit Date Abdominal pain May 24, 2024 5:2 5pm Reason for Visit Admit Date Depression May 24, 2024 5:2 5pm Diarrhea May 24, 2024 5:2 5pm Nausea & vomiting May 24, 2024 5:2 5pm Additional Source Comments Reason for Visit (unrecogniz ed section and content) Reason For Visit Description Postop - 1st visit Preliminary reason f or visit data, not yet signed by the author as of right wrist post Removal of hardware and right forearm ulnar shortening osteotomy hardware on 01/27/2018 Reason Comments Gynecologic Exam Reason Comments New Patient Left breast, denies any swelling or nipple discharge. Specialty Diagnoses / Procedures Referred By Fish lima Referred To Contact Breast Surgery / Breast Clinic / Breast Center Diagnoses Breast pain, left Procedures [place] OFFICE/OUTPATIENT [facility] 60-74 MINUTES Toy Burch MD [facility] [address] [place] [address] [facility] [address] [place] [address] Referral ID Status Reason Start Date Expiration Date Visits Requested Visits Authorized [id number] Pending Review Specialty Services Required 04/27/2022 04/27/2023 1 1 Reason Comments 6 Month Follow-up Still having left br east pain. Describes it as an achy feeling. Feeling it in a new spot to the left of the nipple. 2/10 pain that comes and goes. Reason Comments Consult Gallbladder 01/25 [facility] RUQ pain N/V 01/03 US ABD COMPLETE 01/25 [facility] Reason Comments Consult follow up 01/25 [facility] RUQ pain N/V 01/03 US ABD COMPLETE 01/25 [facility] Reason Comments Post-Op Visit 03/06 CF LC w/C Reason Comments Post-Op Visit 1-2 week follow up Specialty Diagnoses / Procedures Referred By Fish lima Referred To Contact General Surgery / GENERAL SURGERY Diagnoses 1-2 week follow up Procedures EST DDI PATIENT [facility] [address] [place] [address] Phone: tel: Elizabeth Richardson, DO [address] [place] [address] Phone: tel: fax: Referral ID Status Reason Start Date Expiration Date V isits Requested Visits Authorized [id number] Closed Patient Cleared - Qualified 100% FAS 03/29/2024 06/27/2024 99 99 Reason Comments Consult ncisional hernia. HX UHR 12/16/20 SW 06/08 Dawson Luciano [facility]. Reason Comments Hernia Reason Comments Pre-Op Visit Reason Comments Post-Op Visit 01JUL Incarcerated h ernia repair w/ mesh by Dr. Richardson Reason Comments Follow Up Increase pain graphics intern ally near umbilical site w/ palpable pains that feel like bruising for x5 days Reason Comments Post Op Follow Up INFORMATION SOURCE (unrecogn ized section and content) DATE CREATED AUTHOR 07/26/2018 Javan De Souza [facility] DATE CREATED AUTHOR AUTHOR'S ORGANIZ ATION 09/12/2019 [facility] DATE CREATED AUTHOR AUTHOR'S ORGANIZ ATION 10/04/2019 [facility] DATE CREATED AUTHOR AUTHOR'S ORGANIZ ATION 01/02/2020 [facility] DATE CREATED AUTHOR AUTHOR'S ORGANIZ ATION 01/02/2020 [employer] DATE CREATED AUTHOR AUTHOR'S ORGANIZ ATION 05/31/2024 [facility] DATE CREATED AUTHOR AUTHOR'S ORGANIZ ATION 07/05/2024 [facility] DATE CREATED AUTHOR AUTHOR'S ORGANIZ ATION 08/12/2024 [facility] DATE CREATED AUTHOR AUTHOR'S ORGANIZ ATION 09/26/2024 [facility] DATE CREATED AUTHOR AUTHOR'S ORGANIZ ATION 11/22/2024 [facility] De [facility] Source Comments (unrecognize d section and content) In the event this informatio n is protected by the Federal Confidentiality of Alcohol and Drug Abuse Patient Records regulations: The Federal rules restrict any use of the information to criminally investigate or prosecute any alcohol or drug abuse patient.[facility] the event this information is protected by the Federal Confidentiality of Alcohol and Drug Abuse Patient Records regulations: The Federal rules restrict any use of the information to criminally investigate or prosecute any alcohol or drug abuse patient.[facility] the event this information is protected by the Federal Confidentiality of Alcohol and Drug Abuse Patient Records regulations: The Federal rules restrict any use of the information to criminally investigate or prosecute any alcohol or drug abuse patient.[facility] the event this information is protected by the Federal Confidentiality of Alcohol and Drug Abuse Patient Records regulations: The Federal rules restrict any use of the information to criminally investigate or prosecute any alcohol or drug abuse patient.[facility] the event this information is protected by the Federal Confidentiality of Alcohol and Drug Abuse Patient Records regulations: The Federal rules restrict any use of the information to criminally investigate or prosecute any alcohol or drug abuse patient.[facility] the event this information is protected by the Federal Confidentiality of Alcohol and Drug Abuse Patient Records regulations: The Federal rules restrict any use of the information to criminally investigate or prosecute any alcohol or drug abuse patient.[facility] the event this information is protected by the Federal Confidentiality of Alcohol and Drug Abuse Patient Records regulations: The Federal rules restrict any use of the information to criminally investigate or prosecute any alcohol or drug abuse patient.[facility] the event this information is protected by the Federal Confidentiality of Alcohol and Drug Abuse Patient Records regulations: The Federal rules restrict any use of the information to criminally investigate or prosecute any alcohol or drug abuse patient.[facility] the event this information is protected by the Federal Confidentiality of Alcohol and Drug Abuse Patient Records regulations: The Federal rules restrict any use of the information to criminally investigate or prosecute any alcohol or drug abuse patient.[facility] the event this information is protected by the Federal Confidentiality of Alcohol and Drug Abuse Patient Records regulations: The Federal rules restrict any use of the information to criminally investigate or prosecute any alcohol or drug abuse patient.[facility] the event this information is protected by the Federal Confidentiality of Alcohol and Drug Abuse Patient Records regulations: The Federal rules restrict any use of the information to criminally investigate or prosecute any alcohol or drug abuse patient.[facility] the event this information is protected by the Federal Confidentiality of Alcohol and Drug Abuse Patient Records regulations: The Federal rules restrict any use of the information to criminally investigate or prosecute any alcohol or drug abuse patient.[facility]In the event this information is protected by the Federal Confidentiality of Alcohol and Drug Abuse Patient Records regulations: The Federal rules restrict any use of the information to criminally investigate or prosecute any alcohol or drug abuse patient.[facility]In the event this information is protected by the Federal Confidentiality of Alcohol and Drug Abuse Patient Records regulations: The Federal rules restrict any use of the information to criminally investigate or prosecute any alcohol or drug abuse patient.[facility]In the event this information is protected by the Federal Confidentiality of Alcohol and Drug Abuse Patient Records regulations: The Federal rules restrict any use of the information to criminally investigate or prosecute any alcohol or drug abuse patient.[facility] the event this information is protected by the Federal Confidentiality of Alcohol and Drug Abuse Patient Records regulations: The Federal rules restrict any use of the information to criminally investigate or prosecute any alcohol or drug abuse patient.[facility]In the event this information is protected by the Federal Confidentiality of Alcohol and Drug Abuse Patient Records regulations: The Federal rules restrict any use of the information to criminally investigate or prosecute any alcohol or drug abuse patient.[facility]In the event this information is protected by the Federal Confidentiality of Alcohol and Drug Abuse Patient Records regulations: The Federal rules restrict any use of the information to criminally investigate or prosecute any alcohol or drug abuse patient.[facility]In the event this information is protected by the Federal Confidentiality of Alcohol and Drug Abuse Patient Records regulations: The Federal rules restrict any use of the information to criminally investigate or prosecute any alcohol or drug abuse patient.[facility]In the event this information is protected by the Federal Confidentiality of Alcohol and Drug Abuse Patient Records regulations: The Federal rules restrict any use of the information to criminally investigate or prosecute any alcohol or drug abuse patient.[facility] Goals (unrecognized section and content) Goals may be documented in a n alternate sectionGoals may be documented in an alternate sectionGoals may be documented in an alternate sectionGoals may be documented in an alternate section Care Teams (unrecognized sec tion and content) Manager Lighting Relationship Specialty Start Date End Date Luciano Dawson [address] [place], [place] [id number] PCP - General 01/14/15 Manager Lighting Relationship Specialty Start Date End Date LucianoGuichoa [address] [place], [place] [id number] PCP - General 01/14/15 Manager Lighting Relationship Specialty Start Date End Date Luciano Dawson [address] [place], [place] [id number] PCP - General 01/14/15 Manager Lighting Relationship Specialty Start Date End Date Dawson Luciano APRN.TRACK WELDER [address] [place] [address] PCP - General Family Medicine 06/28/18 Manager Lighting Relationship Specialty Start Date End Date Dawson Luciano APRN.TRACK WELDER [address] [place] [address] PCP - General Family Medicine 06/28/18 Team Status: Active Member Role Status Dates Dawson Luciano SAP 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, SAP 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-C Family Provider Active Team Status: Inactive Member Role Status Dates Dawson Luciano SAP 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, SAP 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-C Attending Provider Active Team Status: Inactive Member Role Status Dates Dawson Luciano SAP 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, SAP 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-C Attending Provider, Referring Provider Active Manager Lighting Relationship Specialty Start Date End Date Dawson Luciano [address] [place], [place] [id number] PCP - General 01/14/15 Manager Lighting Relationship Specialty Start Date End Date Luciano, Dora [address] [place] [address] PCP - General 01/14/15 Manager Lighting Relationship Specialty Start Date End Date LucianoDawson [address] [place] [address] PCP - General 01/14/15 Manager Lighting Relationship Specialty Start Date End Date Dawson Luciano [address] [place] [address] PCP - General 01/14/15 Manager Lighting Relationship Specialty Start Date End Date Dawson Luciano, DESK SERGEANT.TRACK WELDER [address] [place], [place] [phone] PCP - General Family Medicine 06/28/18 Manager Lighting Relationship Specialty Start Date End Date Dawson Luciano, DESK SERGEANT.TRACK WELDER [address] [place] [address] PCP - General Family Medicine 06/28/18 Manager Lighting Relationship Specialty Start Date End Date Dawson Luciano, DESK SERGEANT.TRACK WELDER [address] [place], [place] [phone] PCP - General Family Medicine 06/28/18 Manager Lighting Relationship Specialty Start Date End Date LucianoDawson [address] [place] [address] PCP - General 01/14/15 Manager Lighting Relationship Specialty Start Date End Date Dawson Luciano, DESK SERGEANT.TRACK WELDER [address] [facility] [place] [id number] PCP - General Family Medicine 06/28/18 Manager Lighting Relationship Specialty Start Date End Date Dawson Luciano [address] [place], [place] [id number] PCP - General 01/14/15 Manager Lighting Relationship Specialty Start Date End Date Dawson Luciano, DESK SERGEANT.TRACK WELDER [address] [place], [place] [phone] PCP - General Family Medicine 06/28/18 Team Status: Active Member Role Status Dates Dawson Luciano SAP 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, SAP 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-C Family Provider Active Dawson Luciano SAP 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, SAP 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-C Primary Care Provider Active Team Status: Inactive Member Role Status Dates Dawson Luciano SAP 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, SAP 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-C Primary Care Provider Active Start: May 24, 2024 End: May 24, 2024 Dawson Luciano SAP 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, SAP 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-C Attending Provider Active Start: May 24, 2024 End: May 24, 2024 Dawson Luciano SAP 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, SAP 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-C Referring Provider Active Start: May 24, 2024 End: May 24, 2024 Manager Lighting Relationship Specialty Start Date End Date Dawson Luciano, DESK SERGEANT.TRACK WELDER [address] [place] [address] PCP - General Family Medicine 06/28/18 Manager Lighting Relationship Specialty Start Date End Date Dawson Luciano [address] [place] [address] PCP - General 01/14/15 Manager Lighting Relationship Specialty Start Date End Date Dawson Luciano, DESK SERGEANT.TRACK WELDER [address] [place], [place] [phone] PCP - General Family Medicine 06/28/18 Manager Lighting Relationship Specialty Start Date End Date Dawson Luciano, DESK SERGEANT.TRACK WELDER [address] [place] [address] PCP - General Family Medicine 06/28/18 Manager Lighting Relationship Specialty Start Date End Date Dawson Luciano, DESK SERGEANT.TRACK WELDER [address] [place] [address] PCP - General Family Medicine 06/28/18 Manager Lighting Relationship Specialty Start Date End Date Dawson Luciano, DESK SERGEANT.TRACK WELDER [address] [place] [address] PCP - General Family Medicine 06/28/18 Manager Lighting Relationship Specialty Start Date End Date Dawson Luciano, DESK SERGEANT.TRACK WELDER [address] [place] [address] PCP - General Family Medicine 06/28/18 Manager Lighting Relationship Specialty Start Date End Date Dawson Luciano, DESK SERGEANT.TRACK WELDER [address] [place] [address] PCP - General Family Medicine 06/28/18 Manager Lighting Relationship Specialty Start Date End Date Guicho Lucianoa [address] [place] [address] PCP - General 01/14/15 Manager Lighting Relationship Specialty Start Date End Date Dawson Luciano [address] [place] [address] PCP - General 01/14/15 Manager Lighting Relationship Specialty Start Date End Date Dawson Luciano, DESK SERGEANT.TRACK WELDER [address] [place] [address] PCP - General Family Medicine 06/28/18 Manager Lighting Relationship Specialty Start Date End Date Dawson Luciano APRN.TRACK WELDER [address] [place], [place] [phone] PCP - General Family Medicine 06/28/18 Manager Lighting Relationship Specialty Start Date End Date Dawson Luciano APRN.TRACK WELDER [address] [place], [place] [phone] PCP - General Family Medicine 06/28/18 FOR RECORDS PERTAINING TO PATIENTS WHO ARE [...] BE BASED ON THE PRIMARY CLINICAL RECORDS. [employer] provides no warranty or guarantee of the accuracy or completeness of information in this document.
--- OUTSIDE RECORDS SUMMARY | 2024-11-27 21:32 | XMS RPT_ITS | CCD ---
Author Organization [facility] Care Team Providers Care Senior Financial Reporting Analyst Name Role Phone Reddy VILLEGAS, Alessandro Murillo Unavailable Dawson Luciano Primary Care Provider [phone] Jennifer Sánchez Primary Care Provider Esdras Morton Primary Care Provider Dawson Luciano Primary Care Provider Personal Health Record, Admin Unavailable Unavailable Sylvia Simpson Unavailable Unavailable Update Needed Unavailable Unavailable Mustapha Dwason Primary Care Provider Luciano DIVIDEND CLERK.MILL CONTROLLER Dawson L Primary Care Provide r Mustapha Dawson Primary Care Provider [phone] Luciano DIVIDEND CLERK.MILL CONTROLLER, Dawson L Primary Care Provide r Luciano LABORER CHEESEMAKING-C, Dawson Primary Care Provider Luciano LABORER CHEESEMAKING-C, Dawson Attending Provider [phone] Luciano LABORER CHEESEMAKING-C, Dawson Referring Provider Luciano LABORER CHEESEMAKING, Dawson Referring Unavailable Luciano LABORER CHEESEMAKING, Dawson Primary Care Unavailable Luciano LABORER CHEESEMAKING, Dawson Attending Unavailable Luciano LABORER CHEESEMAKING, Dawson Referring Unavailable Luciano LABORER CHEESEMAKING, Dawson Primary Care Unavailable Luciano LABORER CHEESEMAKING, Dawson Attending Unavailable TOY BURCH Referring Unavailable [...] Facility (1 source) gabapentin Drug Allergy 4 [facility] Work Phone: (4 sources) Seasonal allergy; Translations: [SEASONAL] allergy to substance 4 [facility] Work Phone: (20 sources) gabapentin; Translations: [GABAPENTIN] Drug Allergy 4 Nausea And Vomiting, Dermatitis, Dizziness, Headache, Nausea Only, Other: See Comments, [facility]; Translations: [TOPIRAMATE] Drug Allergy 8 [facility] Comment on above: TOTALLY OUT OF IT (3 sources) Acetaminophen / HYDROcodone Drug Allergy 7 [facility] (18 sources) Topiramate Allergy to substance 8 [facility] (1 source) gabapentin Drug Allergy 8 [facility] Repository (1 source) topiramate Drug Allergy 2 [facility] Repository Medications Current Medications Medication Drug [...] 1 tablet at the onset of headache QQNEAUAILN-VHAJ-VMBNFRMT [id number] Alessandro Blakely MD Start: 07-14-2009 End: 01-30-2024 take 1 capsule by mouth every four hours as needed for headache acetaminophen 300 mg-caffeine 40 mg-butalbital 50 mg (FIORICET) per capsule TAKE 1 CAPSULE BY MOUTH EVERY 4 HOURS NEEDED for headaches 11/25/2020 Active Fioricet 50-325- 40 MG TABS Refills: 0 Active Comment on above: TAKE 1 CAPSULE BY MO [facility] EVERY 4 HOURS NEEDED for headaches amitriptyline [...] Start: 05-11-2010 take 2 tablets by mo [facility] once daily levothyroxine 112 mcg ORAL tablet [...] mg oral tablet (1 source) Opioid Agonist [place] 5-325 MG Oral Tablet Refills: 0 Active acetaminophen 325 mg / oxyCODONE hydrochloride 5 mg oral tablet (2 sources) Opioid Agonist Start: 02-08-2018 End: 02-14-2018 take 1 tablet by mouth every four to six hours as needed for pain PERCOCET 5-325 MG TABS Take 1 tablet by mouth every 4 - 6 hours as needed for pain OXYCODONE-ACETAM INOPHEN [id number] Alessandro Blakely MD Start: 02-08-2018 PERCOCET 5-325 MG TABS one tablet 2-3 times daily as needed OXYCODONE-ACETAMINOPHEN [id number] Alessandro Blakely MD 200 actuat albuterol 0.09 [...] ZYRTEC ALLERGY CAPS daily CETIRIZINE HCL CAPS [id number] Alessandro Blakely MD ciprofloxacin 500 mg oral [...] 800 MG TABS three times daily IBUPROFEN [id number] Graciela Ulrich Comment on above: Take by [...] DATE OF EXAM: Nov 21 2024 12:19PM [facility] 0017 - NE GASTRIC EMPTYING SOLID / PROCEDURE REASON: R11.0, [...] gastroparesis (>50% gastric retention at 4 hours). Envelope Folder: TANISHA Transcribe Date/Time: Nov 21 2024 12:36P Dictated by : ALEXA PACHECO MD This examination was interpreted and the report reviewed and electronically signed by: ALEXA PACHECO MD on Nov 21 2024 12:37PM EST [id number] Normal [facility] CT ABD/PEL W IVCONon 025 CT ABD/PEL W IVCON * * *Final Report* * * DATE OF EXAM: Oct 05 2024 1:58PM [facility] 0530 - CT ABD/PEL W IVCON / [...] in the abdomen or pelvis is seen Envelope Folder: TANISHA Transcribe Date/Time: Oct 11 2024 5:41P Dictated by : NORBERTO VILLEGAS MD This examination was interpreted and the report reviewed and electronically signed by: NORBERTO VILLEGAS MD on Oct 11 2024 5:49PM EST [id number] Normal [facility] Creatinine and Glomerular fi ltration rate.predicted panel (S/P/Bld)on 10-05-2024 Creatinine [Mass/Vol] 0.71 mg/dL Normal 0.58-0.96 [facility] Comment on above: Order Comment: Speci men Type: BLOOD SPECIMEN Ordering Facility: [facility] Address: [address] [place] [address] Performed By: #### 4 5066-8 #### [facility] CLIA [id number] [address] [place], [place] [id number] [facility] eGFRcr SerPlBld CKD-EPI 2020 107 mL/min/1.73m??? Normal >=60 [facility] Comment on above: Order Comment: Specashley zuñiga Type: BLOOD SPECIMEN Ordering Facility: [facility] Address: [address] [place] [address] Result Comment: Mary mated Glomerular Filtration Rate [...] GFR. Performed By: #### 4 5066-8 #### [facility] CLIA [id number] [address] [place] [id number] [facility] CNOVjaylan 09-13-2024 CNOV Office Visit (GENSME ) ----- NADIA GONZALEZ ([id number]) 1980 F Date Time Provider Department 09/13/24 [...] been sent to your preferred pharmacy at [facility]. Please let us know if you have any questions or concerns. Elizabeth Richardson DO 09/25/2024 8:18 AM Signed GENERAL SURGERY FOLLOW UP Recording using Conjecta software for draft documentation of the visit was discussed with the patient/authorized inside sales account representative; all questions welcomed and answered. Patient/authorized inside sales account representative agreed to proceed Nadia Gonzalez is [...] Other: See (more content not included)... Normal [facility] CNOVon 08-24-2024 CNOV Office Visit (GENSME ) ----- NADIA GONZALEZ ([id number]) 1980 F Date Time Provider Department 08/24/24 [...] distress Abdomen: soft and non-tender Li Orr APRN.MILL CONTROLLER 08/24/2024 Allergies As of Date: 08/24/2024 Noted [...] Status:Closed by LI ORR on 08/25/24 Normal [facility] ANES POSTPROC EVALon 025 ANES POSTPROC EVAL HNO ID: [id number] Author: CYNTHIA ELLIS MD Service: Anesthesiology Author Type: Anesthesiologist Type: Anesthesia Postprocedure Evaluation Filed: 08/07/2024 10:32 Note Text: POST ANESTHESIA EVALUATION NOTE : 1980 Procedure Summary Date: 08/07/24 Room / Location: [place] [address] / MD OR Anesthesia Start: 732 Anesthesia Stop: 950 [...] August 07, 2024 TIME: 10:32 AM CSN: [id number] [facility] ANES PRE-OPon 08-07-2024 ANES PRE-OP HNO ID: [id number] Author: CYNTHIA ELLIS MD Service: Anesthesiology Author Type: Anesthesiologist Type: Anesthesia Preprocedure Evaluation Filed: 08/07/2024 06:54 Note Text: ANESTHESIOLOGY DAY OF SURGERY NOTE : 1980 Procedure Information Date/Time: 08/07/24729 Procedure: LAPAROSCOPIC HERNIA REPAIR INCISIONAL INITIAL REDUCIBLE W/MESH 3cm-10cm, supraumbilical incisional hernia (Abdomen) - LAPAROSCOPIC HERNIA REPAIR INCISIONAL INITIAL REDUCIBLE W/MESH 3cm-10cm, supraumbilical incisional hernia Location: MD OR01 / MD OR Surgeons: Elizabeth Richardson DO Estimated body [...] This contains updat (more content not included)... [facility] OPERATIVE NOon 08-07-2024 OPERATIVE NO HNO ID: [id number] Author: ELIZABETH RICHARDSON DO Service: General Surgery Author Type: Physician Type: Operative Report Filed: 08/10/2024 22:53 Note Text: OPERATIVE/PROCEDURE REPORT LOG ID: [id number] SURGERY/PROCEDURE DATE: 08/07/2024 INCISION/PROCEDURE START TIME: 8:04 AM INCISION CLOSE/PROCEDURE END TIME: 9:36 AM SURGEON(S)/PROCEDURALIST( S) AND EGG CASER(S): Surgeons and Role: * Elizabeth Richardson DO - Primary Physician Crop Farm Helper: Rosemarie Garnica PA-C SURGERY/PROCEDURE(S): Laparoscopic incisional hernia [...] repair with mesh placement. A sign in [facility] was performed. The patient was transported to [...] approximated using 0 Vicryl suture in multiple ygbpib-fk-plxcz interrupted fashion utilizing a laparoscopic suture passer. [...] Implant Name Type Inv. Item Serial No. Mental Health Assistant Lot No. LRB No. Used Action MESH SURGICAL PARIETENE DS 12CM ROUND - [id number] Mesh MESH SURGICAL PARIETENE DS 12CM ROUND [employer] [id number] N/A 1 Implanted DRAINS: None COMPLICATIONS: None CLOSURE TECHNIQUE: Primary PARTICIPATION IN SURGERY/PROCEDURE: I/primary surgeon/proceduralist performed the procedure with assistance from Rosemarie Garnica PA-C who assisted with retraction, camera driving, and wound closure. No qualified resident/fellow was available. SIGNATURE: Elizabeth Richardson DO PATIENT NAME: Nadia Gonzalez DATE: August 07, 2024 TIME: 9:27 AM Normal [facility] CBC W Auto Differential pane l (Bld)on 08-01-2024 Basophils (Bld) [#/Vol] 0.03 10*3/uL Normal <0.11 [facility] Comment on above: Order Comment: Speci men Type: BLOOD SPECIMEN Ordering Facility: [facility] Address: [address] [place] [address] Performed By: #### 5 7021-8 #### [facility] [place] [facility] CLIA [id number] [address] [place] [address] [place] [facility] Basophils/100 WBC (Bld) 0.4 % Normal [facility] Comment on above: Order Comment: Speci men Type: BLOOD SPECIMEN Ordering Facility: [facility] Address: [address] [place] [address] Performed By: #### 5 7021-8 #### [facility] [place] [facility] CLIA [id number] [address] [place] [phone] [place] [facility] Differential cell count method Nom (Bld) Auto Normal [facility] Comment on above: Order Comment: Speci men Type: BLOOD SPECIMEN Ordering Facility: [facility] Address: [address] [place] [address] Performed By: #### 5 7021-8 #### [facility] [place] [facility] CLIA [id number] [address] [place] [address] [place] Eosinophils (Bld) [#/Vol] 0.09 10*3/uL Normal <0.46 [facility] Comment on above: Order Comment: Speci men Type: BLOOD SPECIMEN Ordering Facility: [facility] Address: [address] [place] [address] Performed By: #### 5 7021-8 #### [facility] [place] [facility] CLIA [id number] [address] [place] [address] [place] Eosinophils/100 WBC (Bld) 1.3 % Normal [facility] Comment on above: Order Comment: Speci men Type: BLOOD SPECIMEN Ordering Facility: [facility] Address: [address] [place] [address] Performed By: #### 5 7021-8 #### [facility] [place] [facility] CLIA [id number] [address] [place] [address] [place] Erythrocyte distribution width (RBC) [Ratio] 15.6 % High 11.5-15.0 [facility] Comment on above: Order Comment: Speci men Type: BLOOD SPECIMEN Ordering Facility: [facility] Address: [address] [place] [address] Performed By: #### 5 7021-8 #### [facility] [place] [facility] CLIA [id number] [address] [place] [phone] [place] Hematocrit (Bld) [Volume fraction] 39.5 % Normal 36.0-46.0 [facility] Comment on above: Order Comment: Speci men Type: BLOOD SPECIMEN Ordering Facility: [facility] Address: [address] [place] [address] Performed By: #### 5 7021-8 #### [facility] [place] [facility] CLIA [id number] [address] [place] [phone] [place] Hemoglobin (Bld) [Mass/Vol] 12.9 g/dL Normal 11.5-15.5 [facility] Comment on above: Order Comment: Speci men Type: BLOOD SPECIMEN Ordering Facility: [facility] Address: [address] [place] [address] Performed By: #### 5 7021-8 #### [facility] [place] [facility] CLIA [id number] [address] [place] [address] [place] Immature granulocytes (Bld) [#/Vol] 10*3/uL Normal <0.10 [facility] Comment on above: Order Comment: Speci men Type: BLOOD SPECIMEN Ordering Facility: [facility] Address: [address] [place] [address] Performed By: #### 5 7021-8 #### [facility] [place] [facility] CLIA [id number] [address] [place] [address] [place] Immature granulocytes/100 WBC (Bld) 0.3 % Normal [facility] Comment on above: Order Comment: Speci men Type: BLOOD SPECIMEN Ordering Facility: [facility] Address: [address] [place] [address] Performed By: #### 5 7021-8 #### [facility] [place] [facility] CLIA [id number] [address] [place] [address] [place] Lymphocytes (Bld) [#/Vol] 1.66 10*3/uL Normal 1.00-4.00 [facility] Comment on above: Order Comment: Speci men Type: BLOOD SPECIMEN Ordering Facility: [facility] Address: [address] [place] [address] Performed By: #### 5 7021-8 #### [facility] [place] [facility] CLIA [id number] [address] [place] [address] [place] Lymphocytes/100 WBC (Bld) 23.7 % Normal [facility] Comment on above: Order Comment: Speci men Type: BLOOD SPECIMEN Ordering Facility: [facility] Address: [address] [place] [address] Performed By: #### 5 7021-8 #### [facility] [place] [facility] CLIA [id number] [address] [place] [address] [place] MCH (RBC) [Entitic mass] 28.7 pg Normal 26.0-34.0 [facility] Comment on above: Order Comment: Speci men Type: BLOOD SPECIMEN Ordering Facility: [facility] Address: [address] [place] [address] Performed By: #### 5 7021-8 #### [facility] [place] [facility] CLIA [id number] [address] [place], [place] [address] [place] [address] MCHC (RBC) [Mass/Vol] 32.7 g/dL Normal 30.5-36.0 [facility] Comment on above: Order Comment: Speci men Type: BLOOD SPECIMEN Ordering Facility: [facility] Address: [address] [place] [address] Performed By: #### 5 7021-8 #### [facility] [place] [facility] CLIA [id number] [address] [place] MCV (RBC) [Entitic vol] 88.0 fL Normal 80.0-100.0 [facility] Comment on above: Order Comment: Speci men Type: BLOOD SPECIMEN Ordering Facility: [facility] Address: [address] [place] [address] Performed By: #### 5 7021-8 #### [facility] [place] [facility] CLIA [id number] [address] Monocytes (Bld) [#/Vol] 0.66 10*3/uL Normal <0.87 [facility] Comment on above: Order Comment: Speci men Type: BLOOD SPECIMEN Ordering Facility: [facility] Address: [address] [place] [address] Performed By: #### 5 7021-8 #### [facility] [place] [facility] CLIA [id number] [address] Monocytes/100 WBC (Bld) 9.4 % Normal [facility] Comment on above: Order Comment: Speci men Type: BLOOD SPECIMEN Ordering Facility: [facility] Address: [address] [place] [address] Performed By: #### 5 7021-8 #### [facility] [place] [facility] CLIA [id number] [address] [place] [address] [place] Neutrophils (Bld) [#/Vol] 4.53 10*3/uL Normal 1.45-7.50 [facility] Comment on above: Order Comment: Speci men Type: BLOOD SPECIMEN Ordering Facility: [facility] Address: [address] [place] [address] Performed By: #### 5 7021-8 #### [facility] [place] [facility] CLIA [id number] [address] [place] [address] [place] Neutrophils/100 WBC (Bld) 64.9 % Normal [facility] Comment on above: Order Comment: Speci men Type: BLOOD SPECIMEN Ordering Facility: [facility] Address: [address] [place] [address] Performed By: #### 5 7021-8 #### [facility] [place] [facility] CLIA [id number] [address] [place] [address] [place] Nucleated RBC (Bld) [#/Vol] Normal [facility] Comment on above: Order Comment: Speci men Type: BLOOD SPECIMEN Ordering Facility: [facility] Address: [address] [place] [address] Performed By: #### 5 7021-8 #### [facility] [place] [facility] CLIA [id number] [address] [place] [address] [place] Nucleated RBC/100 WBC (Bld) [Ratio] Normal [facility] Comment on above: Order Comment: Speci men Type: BLOOD SPECIMEN Ordering Facility: [facility] Address: [address] [place] [address] Performed By: #### 5 7021-8 #### [facility] [place] [facility] CLIA [id number] [address] [place] [address] [place] Platelet mean volume (Bld) [Entitic vol] 10.8 fL Normal 9.0-12.7 [facility] Comment on above: Order Comment: Speci men Type: BLOOD SPECIMEN Ordering Facility: [facility] Address: [address] [place] [address] Performed By: #### 5 7021-8 #### [facility] [place] [facility] CLIA [id number] [address] [place] [address] [place] Platelets (Bld) [#/Vol] 352 10*3/uL Normal 150-400 [facility] Comment on above: Order Comment: Speci men Type: BLOOD SPECIMEN Ordering Facility: [facility] Address: [address] [place] [address] Performed By: #### 5 7021-8 #### [facility] [place] [facility] CLIA [id number] [address] [place] [address] [place] RBC (Bld) [#/Vol] 4.49 10*6/uL Normal 3.90-5.20 [facility] Comment on above: Order Comment: Speci men Type: BLOOD SPECIMEN Ordering Facility: [facility] Address: [address] [place] [address] Performed By: #### 5 7021-8 #### [facility] [place] [facility] CLIA [id number] [address] [place], [place] [address] [place] [address] [place] OF [facility] WBC (Bld) [#/Vol] 6.99 10*3/uL Normal 3.70-11.00 [facility] Comment on above: Order Comment: Speci men Type: BLOOD SPECIMEN Ordering Facility: [facility] Address: [address] [place] [address] Performed By: #### 5 7021-8 #### [facility] [place] [facility] CLIA [id number] [address] [place] [address] [facility] Comprehensive metabolic 2000 panelon 08-01-2024 Albumin [Mass/Vol] 4.6 g/dL Normal 3.9-4.9 [facility] Comment on above: Order Comment: Speci men Type: BLOOD SPECIMEN Ordering Facility: [facility] Address: [address] [place] [address] Performed By: #### 3 016-3, 78249-6 #### [facility] [place] [facility] CLIA [id number] [address] [place] [address] [place] ALP [Catalytic activity/Vol] 69 U/L Normal 34-123 [facility] Comment on above: Order Comment: Speci men Type: BLOOD SPECIMEN Ordering Facility: [facility] Address: [address] [place] [address] Performed By: #### 3 016-3, #### [facility] [place] [facility] CLIA [id number] [address] [place] [address] [facility] ALT With P-5'-P [Catalytic activity/Vol] 10 U/L Normal 7-38 [facility] Comment on above: Order Comment: Speci men Type: BLOOD SPECIMEN Ordering Facility: [facility] Address: [address] [place] [address] Performed By: #### 3 016-3, #### [facility] [place] [facility] CLIA [id number] [address] [place] [address] [facility] OF [place] Anion gap [Moles/Vol] 12 mmol/L Normal 8-15 [facility] Comment on above: Order Comment: Speci men Type: BLOOD SPECIMEN Ordering Facility: [facility] Address: [address] [place] [address] Performed By: #### 3 016-3, 56007-0 #### [facility] [place] [facility] CLIA [id number] [address] [place] [address] [facility] OF [place] AST With P-5'-P [Catalytic activity/Vol] 15 U/L Normal 13-35 [facility] Comment on above: Order Comment: Speci men Type: BLOOD SPECIMEN Ordering Facility: [facility] Address: [address] [place] [address] Performed By: #### 3 016-3, 58947-5 #### [facility] [place] [facility] CLIA [id number] [address] [place] [address] [place] Bilirubin [Mass/Vol] mg/dL Low 0.2-1.3 [facility] Comment on above: Order Comment: Speci men Type: BLOOD SPECIMEN Ordering Facility: [facility] Address: [address] [place] [address] Performed By: #### 3 016-3, 84155-9 #### [facility] [place] [facility] CLIA [id number] [address] [place] [address] [place] Calcium [Mass/Vol] 9.8 mg/dL Normal 8.5-10.2 [facility] Comment on above: Order Comment: Speci men Type: BLOOD SPECIMEN Ordering Facility: [facility] Address: [address] [place] [address] Performed By: #### 3 016-3, 05183-9 #### [facility] [place] [facility] CLIA [id number] [address] [place] [address] [place] Chloride [Moles/Vol] 100 mmol/L Normal 98-107 [facility] Comment on above: Order Comment: Speci men Type: BLOOD SPECIMEN Ordering Facility: [facility] Address: [address] [place] [address] Performed By: #### 3 016-3, 00384-8 #### [facility] [place] [facility] CLIA [id number] [address] [place] [address] [place] CO2 [Moles/Vol] 25 mmol/L Normal 22-30 [facility] Comment on above: Order Comment: Speci men Type: BLOOD SPECIMEN Ordering Facility: [facility] Address: [address] [place] [address] Performed By: #### 3 016-3, 12440-4 #### [facility] [place] [facility] CLIA [id number] [address] [place] [address] [place] Creatinine [Mass/Vol] 0.74 mg/dL Normal 0.58-0.96 [facility] Comment on above: Order Comment: Speci men Type: BLOOD SPECIMEN Ordering Facility: [facility] Address: [address] [place] [address] Performed By: #### 3 016-3, 14583-8 #### [facility] [place] [facility] CLIA [id number] [address] [place] [address] [place] Creatinine and Glomerular filtration rate.predicted panel (S/P/Bld) 102 mL/min/1.73m??? Normal >=60 [facility] Comment on above: Order Comment: Livan zuñiga Type: BLOOD SPECIMEN Ordering Facility: [facility] Address: [address] [place] [address] Result Comment: Mary mated Glomerular Filtration Rate [...] actual GFR. Performed By: #### 3 016-3, 78817-3 #### [facility] CLIA [id number] [address] [place] [address] [place] Glucose [Mass/Vol] 96 mg/dL Normal 74-99 [facility] Comment on above: Order Comment: Livan zuñiga Type: BLOOD SPECIMEN Ordering Facility: [facility] Address: [address] [place] [address] Result Comment: The [place] [employer] (ADA) provides guidance for cutoff [...] Standards of Medical Care in Diabetes 2016, [place] [employer]. Diabetes Care. 2016.39(Suppl 1). Performed By: #### 3 016-3, 25663-8 #### [facility] CLIA [id number] [address] [place] [address] [place] Potassium [Moles/Vol] 4.0 mmol/L Normal 3.7-5.1 [facility] Comment on above: Order Comment: Livan zuñiga Type: BLOOD SPECIMEN Ordering Facility: [facility] Address: [address] [place] [address] Performed By: #### 3 016-3, 93491-9 #### [facility] [place] [facility] CLIA [id number] [address] [place] [address] [place] Protein [Mass/Vol] 7.9 g/dL Normal 6.3-8.0 [facility] Comment on above: Order Comment: Speci men Type: BLOOD SPECIMEN Ordering Facility: [facility] Address: [address] [place] [address] Performed By: #### 3 016-3, 82683-5 #### [facility] [place] [facility] CLIA [id number] [address] [place] [address] [place] Sodium [Moles/Vol] 137 mmol/L Normal 136-144 [facility] Comment on above: Order Comment: Speci men Type: BLOOD SPECIMEN Ordering Facility: [facility] Address: [address] [place] [address] Performed By: #### 3 016-3, 52474-5 #### [facility] [place] [facility] CLIA [id number] [address] [id number] [place] Urea nitrogen [Mass/Vol] 10 mg/dL Normal 7-21 [facility] Comment on above: Order Comment: Speci men Type: BLOOD SPECIMEN Ordering Facility: [facility] Address: [address] [place] [address] Performed By: #### 3 016-3, 30280-4 #### [facility] CLIA [id number] [address] [place] [address] [place] Cortjake Hornl-Jeffreyon 08-02-19 25 Cortisol [Mass/Vol] 8.1 ug/dL Normal 4.8-19.5 [facility] Comment on above: Order Comment: Speci men Type: BLOOD SPECIMEN Ordering Facility: [facility] Address: [address] [place], [place] [id number] Result Comment: Prov ided reference range is from 6-10 AM sample collection time. Cortisol Reference Range: 6-10 AM = 4.8-19.5 ug/dL, 4-8 PM = 2.5-11.9 ug/dL Performed By: #### 2 143-6 #### [facility] CLIA [id number] [address] [place] Ferritin SerPl-mCncon 2024 Ferritin [Mass/Vol] 28.3 ng/mL Normal 14.7-205.1 [facility] Comment on above: Order Comment: Speci men Type: BLOOD SPECIMEN Ordering Facility: [facility] Address: [address] [place] [address] Performed By: #### 2 276-4, 24379-4, 3033-6 #### [facility] CLIA [id number] [address] [place] Iron and Iron binding capaci ty panelon 08-01-2024 Iron [Mass/Vol] 73 ug/dL Normal 41-186 [facility] Comment on above: Order Comment: Speci men Type: BLOOD SPECIMEN Ordering Facility: [facility] Address: [address] [place] [address] Performed By: #### 2 276-4, 20222-4, 3033-6 #### [facility] CLIA [id number] [address] Iron binding capacity [Mass/Vol] 339 ug/dL Normal 232-386 [facility] Comment on above: Order Comment: Speci men Type: BLOOD SPECIMEN Ordering Facility: [facility] Address: [address] [place] [address] Performed By: #### 2 276-4, 25294-8, 3033-6 #### [facility] CLIA [id number] [address] Iron saturation [Mass fraction] 21.5 % Normal 15.0-57.0 [facility] Comment on above: Order Comment: Speci men Type: BLOOD SPECIMEN Ordering Facility: [facility] Address: [address] [place] [address] Performed By: #### 2 276-4, 24797-7, 3033-6 #### [facility] CLIA [id number] [address] [place] TSH SerPl-aCncon 08-01-2024 TSH Qn 2.920 m[IU]/L Normal 0.270-4.20 0 [facility] Comment on above: Order Comment: Livan zuñiga Type: BLOOD SPECIMEN Ordering Facility: [facility] Address: [address] [place] [address] Result Comment: If t he patient is , TSH reference range varies by gestational period: First Trimester (weeks 9-12): 0.180-2.990 mIU/L Second Trimester: 0.110-3.980 mIU/L Third Trimester: 0.480-4.710 mIU/L Peter Haque et al. A Practical Approach for the Verifications and Determination of Site- and Trimester-Specific Reference Intervals for Thyroid Function tests in . Thyroid, 2019:29:3:412-420. Manohar Schmitz, et al. 2017 Guidelines of the [place] Thyroid Association for the Diagnosis and Management of Thyroid Disease during and the . Thyroid, 2017:27:3:315-389. Performed By: #### 3 016-3, 41472-1 #### [facility] CLIA [id number] [address] [place] [address] [place] Transferrin SerPl-ncon Transferrin [Mass/Vol] 295 mg/dL Normal 200-360 [facility] Comment on above: Order Comment: Liavn zuñiga Type: BLOOD SPECIMEN Ordering Facility: [facility] Address: [address] [place] [address] Performed By: #### 2 276-4, 34771-3, 3034-6 #### [facility] CLIA [id number] [address] OF [facility] HISTORY PHYSICALon HISTORY PHYSICAL HNO ID: [id number] Author: ARELY MCGOWAN APRN.CNP Service: ? Author Type: Nurse Practitioner Type: H&P Filed: 08/02/2024 07:13 Note Text: [facility] HISTORY AND PHYSICAL EXAMINATION SERVICE DATE: 07/30/2024 SERVICE TIME: 7:13 AM PRIMARY CARE PHYSICIAN: Dawson Luciano APRN.MILL CONTROLLER Assessment Patient has the following medical conditions [...] Schmitz, et al. 2017 Guidelines of the [place] Thyroid Association for the Diagnosis and Management [...] 10/29/2024 This is a virtual visit using Touch[employer] video visit. It required patient-provider interaction for the medical decision making as documented below. REASON FOR VISIT: Nadia Gonzalez is a 44 year old female who is scheduled for Procedure(s) with comments: LAPAROSCOPIC HERNIA REPAIR INCISIONAL INITIAL REDUCIBLE W/MESH 3cm-10cm, supraumbilical incisional hernia (N/A) - LAPAROSCOPI (more content not included)... [facility] HNO ID: [id number] Author: DEE ALFARO CT Service: Radiology Author [...] PATIENT PRESENTS WITH AN IMPLANTABLE OR ATTACHED HIGHWAY MAINTAINER: No RADIOLOGY DEPARTMENT: CT; Exam(s) Completed: Abdomen/Pelvis PERIPHERAL IV DATA: Site assessment: Clean,Dry and Intact, Site disposition Discontinued SIGNED BY: SILVIA Cheung July 06, 2024 1:[address] [facility] CT ABD/PEL W IVCONon 025 CT ABD/PEL W IVCON * * *Final Report* * * DATE OF EXAM: Jul 06 2024 1:39PM [facility] [facility] [place]/PEL W IVCON / [...] relate to underdistention, cystitis is not excluded. Envelope Folder: PSCB Transcribe Date/Time: Jul 07 2024 9:11A Dictated by : KORI JADE MD This examination was interpreted and the report reviewed and electronically signed by: KORI JADE MD on Jul 07 2024 9:20AM EST [id number] [facility] NURSING PROGon 07-06-2024 NURSING PROG HNO ID: [id number] Author: SUMAYA LOONEY RN Service: Radiology Author [...] July 06, 2024 TIME: 1:27 PM Normal [facility] Office Visiton 06-29-2024 Follow-up visit [id number] Christine Gonzalez 1980 F Date Provider Department Center 06/29/2024 [id number]-AJBNVUNATALY [facility] None Family History Problem Relation Age of Onset High Blood Pressure Mother Prostate cancer Father 63 Ovarian cancer Mother's Sister 44 Colon cancer Maternal Grandmother 70 Breast cancer Maternal Grandmother 70 Family Status - Relation Status Age at Mother Alive Father Alive Mother's Sister Maternal Grandmother Level of Service:[address] [place] OFFICE/OUTPATIENT ESTABLISHED LOW MDM 20 MIN Reason for Visit and Comments: 1 Year Follow-up [670] - HR follow up [facility] Progress Noteon 06-29-2024 Progress Note Chief Complaint [...] history section of this note. She had [employer] expanded panel genetic testing 05/2022 which was [...] Physical Activity: She walks. We discussed the [place] [employer] recommends that adults get at [...] and time. (more content not included)... Normal [facility] DBT Breast - bilateral scree [...] MD Electronically Signed Date/Time: 06/25/2024 3:10 PM [facility] Patient Name: NADIA GONZALEZ : 1980 [facility]#: [id number] Exam Date/Time: 06/25/2024 11:17 Procedure: BI MAMMOGRAM SCREENING TOMOSYNTHESIS BILATERAL Ordering Provider: CISNEROS ELIZABETH Reason For Exam: This exam was performed at [address] [facility] [address] RISK ALERT: The Cancer Risk Assessment scores [...] images: BB's = Nipples; skin lesions Open [place] = Palpable Line = Scar COMPARISON: 06/13/2023 [...] For Exam: This exam was performed at [address] [address] RISK ALERT: The Cancer Risk Assessment scores [...] images: BB's = Nipples; skin lesions [place] = Palpable Line = Scar COMPARISON: 06/13/2023 [...] Electronically Signed Date/Time: 06/25/2024 3:10 PM EDT [employer] [facility] Radiology Study observation (narrative) [employer] [facility] DBT Breast - bilateral scree ningOrdered By: Gerardo Fisher on 06-25-2024 [employer] [facility] Work Phone: CNOVon 06-14-2024 CNOV Office Visit (GENSME ) ----- NADIA GONZALEZ ([id number]) 1980 F Date Time Provider Department 06/14/24 [...] oral contrast for the CT scan. The commercial front load operator staff will assist you with scheduling this [...] was discussed with the patient or authorized inside sales account representative. The patient or authorized inside sales account representative has agreed to proceed (more content not included)... Normal [facility] Celiac AB,Comprehensiveon ANTIGLIADIN IGA 3 units Normal 0-19 [facility] Comment on above: Result Comment: Nega tive 0 - 19 Weak Positive 20 - 30 Moderate to Strong Positive >30 Performed By: #### L 501.9520, L3410.2350, L100.0100, L500.4050, L501.9985 #### [facility] [address] [place], [address] ANTIGLIADIN IGG <1 Normal 0-19 [facility] Comment on above: Result Comment: Nega tive 0 - 19 Weak Positive 20 - 30 Moderate to Strong Positive >30 Performed By: #### L 501.9520, L3410.2350, L100.0100, L500.4050, L501.9985 #### [facility] [address] [place], [place], [id number] ENDOMYSIAL IGA Negative Normal Negative [facility] Comment on above: Performed By: #### L 501.9520, L3410.2350, L100.0100, L500.4050, L501.9985 #### [facility] [address] [place], [place], [id number] IMMUNOGLOB A QN 246 mg/dL Normal 87-352 [facility] Comment on above: Result Comment: Perf ormed at: [facility] [address] [id number] Flame Planer: Jhoan Steel PhD, Phone: [phone] Performed By: #### L 501.9520, L3410.2350, L100.0100, L500.4050, L501.9985 #### [facility] [address] [place], [address] tTG IGA <2 Normal 0-3 [facility] Comment on above: Result Comment: Nega tive 0 - 3 Weak Positive 4 - 10 Positive >10 Tissue Transglutaminase (tTG) has been identified as the endomysial antigen. Studies have demonstr- ated that endomysial IgA antibodies have over 99% specificity for gluten sensitive enteropathy. Performed By: #### L 501.9520, L3410.2350, L100.0100, L500.4050, L501.9985 #### [facility] [address] [place], [place], [id number] tTG IGG 2 U/mL Normal 0-5 [facility] Comment on above: Result Comment: Nega tive 0 - 5 Weak Positive 6 - 9 Positive >9 Performed By: #### L 501.9520, L3410.2350, L100.0100, L500.4050, L501.9985 #### [facility] [address] [place], [address] Absolute neutrophil countOrd ered By: Dawson Luciano on 05-24-2024 Neutrophils (Bld) [#/Vol] 3.6 10*3/uL 2.0-7.7 [facility] Anion gap in Serum or Plasma Ordered By: Dawson Luciano on 05-24-2024 Anion gap [Moles/Vol] 13 mmol/L - [facility] BUN/creatinine ratioOrdered By: Dawson Luciano on 05-24-2024 Urea nitrogen/Creatinine [Mass ratio] 16.8 mg/mg - [facility] Basophil percentageOrdered B y: Dawson Luciano on 05-24-2024 Basophils/100 WBC (Bld) 0.7 % 0-1 [facility] Bilirubin, totalOrdered By: Dawson Luciano on 05-24-2024 Bilirubin [Mass/Vol] mg/dL 0.00-1.30 [facility] CBC W/Diff, Automatedon 05-08 Absolute Lymph 1.85 X10 3/uL Normal 0.83-4.51 [facility] Comment on above: Performed By: #### L 501.9520, L3410.2350, L100.0100, L500.4050, L501.9985 #### [facility] [address] [place], [address] Absolute Neut 3.6 X10 3/uL Normal 2.0-7.7 [facility] Comment on above: Performed By: #### L 501.9520, L3410.2350, L100.0100, L500.4050, L501.9985 #### [facility] [address] [place], [address] Basophils/100 WBC (Bld) 0.7 % Normal 0-1 [facility] Comment on above: Performed By: #### L 501.9520, L3410.2350, L100.0100, L500.4050, L501.9985 #### [facility] [address] [place], [address] Eosinophils/100 WBC (Bld) 2.3 % Normal 0-5 [facility] Comment on above: Performed By: #### L 501.9520, L3410.2350, L100.0100, L500.4050, L501.9985 #### [facility] [address] [place], [address] Erythrocyte distribution width (RBC) [Ratio] 15.3 % High 11.6-14.6 [facility] Comment on above: Performed By: #### L 501.9520, L3410.2350, L100.0100, L500.4050, L501.9985 #### [facility] [address] [place], [address] Hematocrit (Bld) [Volume fraction] 31.2 % Low 37-47 [facility] Comment on above: Performed By: #### L 501.9520, L3410.2350, L100.0100, L500.4050, L501.9985 #### [facility] [address] [place], [address] Hemoglobin (Bld) [Mass/Vol] 10.7 g/dL Low 12.0-15.0 [facility] Comment on above: Performed By: #### L 501.9520, L3410.2350, L100.0100, L500.4050, L501.9985 #### [facility] [address] [place], [address] IG% 0.300 Normal 0.0-0.9 [facility] Comment on above: Result Comment: IG% - Immature Granulocytes (promyelocytes, myelocytes and metamyelocytes) > 1% indicates that a LEFT SHIFT is Present. Performed By: #### L 501.9520, L3410.2350, L100.0100, L500.4050, L501.9985 #### [facility] [address] [place], [address] Lymphocytes/100 WBC (Bld) 30.1 % Normal 19-41 [facility] Comment on above: Performed By: #### L 501.9520, L3410.2350, L100.0100, L500.4050, L501.9985 #### [facility] [address] [place], [address] MCH (RBC) [Entitic mass] 28.4 pg Normal 27.0-32.0 [facility] Comment on above: Performed By: #### L 501.9520, L3410.2350, L100.0100, L500.4050, L501.9985 #### [facility] [address] [place], [address] MCHC (RBC) [Mass/Vol] 34.3 g/dL Normal 32-36 [facility] Comment on above: Performed By: #### L 501.9520, L3410.2350, L100.0100, L500.4050, L501.9985 #### [facility] [address] [place], [address] MCV (RBC) [Entitic vol] 82.8 fL Normal 81-99 [facility] Comment on above: Performed By: #### L 501.9520, L3410.2350, L100.0100, L500.4050, L501.9985 #### [facility] [address] [place], [address] Monocytes/100 WBC (Bld) 8.5 % Normal 0-10 [facility] Comment on above: Performed By: #### L 501.9520, L3410.2350, L100.0100, L500.4050, L501.9985 #### [facility] [address] [place], [address] Neutrophils/100 WBC (Bld) 58.1 % Normal 47-70 [facility] Comment on above: Performed By: #### L 501.9520, L3410.2350, L100.0100, L500.4050, L501.9985 #### [facility] [address] [place], [address] Nucleated RBC (Bld) [#/Vol] 0 10*3/uL Normal 0-5 [facility] Comment on above: Performed By: #### L 501.9520, L3410.2350, L100.0100, L500.4050, L501.9985 #### [facility] [address] [place], [address] Platelet mean volume (Bld) [Entitic vol] 11.2 fL Normal 6.2-12.0 [facility] Comment on above: Performed By: #### L 501.9520, L3410.2350, L100.0100, L500.4050, L501.9985 #### [facility] [address] [place], [address] Platelets (Bld) [#/Vol] 323 10*3/uL Normal 150-450 [facility] Comment on above: Performed By: #### L 501.9520, L3410.2350, L100.0100, L500.4050, L501.9985 #### [facility] [address] [place], [address] RBC (Bld) [#/Vol] 3.77 10*6/uL Low 4.2-5.4 [facility] Comment on above: Performed By: #### L 501.9520, L3410.2350, L100.0100, L500.4050, L501.9985 #### [facility] [address] [place], [address] RDW SD 46.4 fl High 35.1-43.9 [facility] Comment on above: Performed By: #### L 501.9520, L3410.2350, L100.0100, L500.4050, L501.9985 #### [facility] [address] [place], [address] WBC (Bld) [#/Vol] 6.2 10*3/uL Normal 4.4-11.0 [facility] Comment on above: Performed By: #### L 501.9520, L3410.2350, L100.0100, L500.4050, L501.9985 #### [facility] [address] [place], [address] Carbon dioxide, total [Moles /volume] in Central venous bloodOrdered By: Dawson Luciano on 05-24-2024 CO2 [Moles/Vol] 22.0 mmol/L 21.0-32.0 [facility] Chloride assayOrdered By: Do ra Luciano on 05-24-2024 Chloride [Moles/Vol] 101 mmol/L 98-108 [facility] Comprehensive Metabolic Prof ilon 05-24-2024 Albumin [Mass/Vol] 4.1 g/dL Normal 3.5-5.0 [facility] Comment on above: Performed By: #### L 501.9520, L3410.2350, L100.0100, L500.4050, L501.9985 #### [facility] [address] [place], [address] Albumin/Globulin [Mass ratio] 1.4 {ratio} Normal 0.9-2.4 [facility] Comment on above: Performed By: #### L 501.9520, L3410.2350, L100.0100, L500.4050, L501.9985 #### [facility] [address] [place], [address] ALK PHOS 68 U/L Normal 35-104 [facility] Comment on above: Performed By: #### L 501.9520, L3410.2350, L100.0100, L500.4050, L501.9985 #### [facility] [address] [place], [address] ALT [Catalytic activity/Vol] 12 U/L Normal <=34 [facility] Comment on above: Performed By: #### L 501.9520, L3410.2350, L100.0100, L500.4050, L501.9985 #### [facility] [address] [place], [address] AST [Catalytic activity/Vol] 18 U/L Normal <=31 [facility] Comment on above: Performed By: #### L 501.9520, L3410.2350, L100.0100, L500.4050, L501.9985 #### [facility] [address] [place], [address] BUN/CRE 16.8 RATIO Normal 10-20 [facility] Comment on above: Performed By: #### L 501.9520, L3410.2350, L100.0100, L500.4050, L501.9985 #### [facility] [address] [place], [address] Calcium [Mass/Vol] 9.3 mg/dL Normal 7.6-11.0 [facility] Comment on above: Performed By: #### L 501.9520, L3410.2350, L100.0100, L500.4050, L501.9985 #### [facility] [address] [place], [address] Chloride [Moles/Vol] 101 mmol/L Normal 98-108 [facility] Comment on above: Performed By: #### L 501.9520, L3410.2350, L100.0100, L500.4050, L501.9985 #### [facility] [address] [place], [address] CO2 [Moles/Vol] 22.0 mmol/L Normal 21.0-32.0 [facility] Comment on above: Performed By: #### L 501.9520, L3410.2350, L100.0100, L500.4050, L501.9985 #### [facility] [address] [place], [address] Creatinine [Mass/Vol] 0.76 mg/dL Normal 0.70-1.20 [facility] Comment on above: Performed By: #### L 501.9520, L3410.2350, L100.0100, L500.4050, L501.9985 #### [facility] [address] [place], [address] GAP 13 Normal 5-15 [facility] Comment on above: Performed By: #### L 501.9520, L3410.2350, L100.0100, L500.4050, L501.9985 #### [facility] [address] [place], [address] GFR/1.73 sq M.predicted among non-blacks MDRD (S/P/Bld) [Vol rate/Area] 98 mL/min/{1.73_m2} Normal >60 [facility] Comment on above: Result Comment: mL/m in/1.73m2 CKD-EPI Creatinine Equation (2020) Performed By: #### L 501.9520, L3410.2350, L100.0100, L500.4050, L501.9985 #### [facility] [address] [place], [address] Globulin (S) [Mass/Vol] 2.9 g/dL Normal 2.2-4.2 [facility] Comment on above: Performed By: #### L 501.9520, L3410.2350, L100.0100, L500.4050, L501.9985 #### [facility] [address] [place], [address] Glucose [Mass/Vol] 73 mg/dL Normal 70-99 [facility] Comment on above: Performed By: #### L 501.9520, L3410.2350, L100.0100, L500.4050, L501.9985 #### [facility] [address] [place], [address] Potassium [Moles/Vol] 3.3 mmol/L Normal 3.3-5.1 [facility] Comment on above: Performed By: #### L 501.9520, L3410.2350, L100.0100, L500.4050, L501.9985 #### [facility] [address] [place], [address] Sodium [Moles/Vol] 136 mmol/L Normal 133-145 [facility] Comment on above: Performed By: #### L 501.9520, L3410.2350, L100.0100, L500.4050, L501.9985 #### [facility] [address] [place], [address] T BILI < 0.15 Normal 0.00-1.30 [facility] Comment on above: Performed By: #### L 501.9520, L3410.2350, L100.0100, L500.4050, L501.9985 #### [facility] [address] [place], [address] T PROT 7.0 g/dL Normal 5.9-8.4 [facility] Comment on above: Performed By: #### L 501.9520, L3410.2350, L100.0100, L500.4050, L501.9985 #### [facility] [address] [place], [place], [address] Urea nitrogen [Mass/Vol] 13 mg/dL Normal 4-19 [facility] Comment on above: Performed By: #### L 501.9520, L3410.2350, L100.0100, L500.4050, L501.9967 #### [facility] [address] [place], [place], [address] Deamidated gliadin IgA antib rowdy assayOrdered By: Dawson Luciano on 05-24-2024 Anti-Gliadin IgA Antibody 3 units 0-19 [facility] Comment on above: Negative 0 - 19 Weak Positive 20 - 30 Moderate to Strong Positive >30 Deamidated gliadin IgG antib rowdy assayOrdered By: Dawson Luciano on 05-24-2024 Anti-Gliadin IgG Antibody <1 units 0-19 [facility] Comment on above: Negative 0 - 19 Weak Positive 20 - 30 Moderate to Strong Positive >30 Endomysial IgA antibody assa yOrdered By: Dawson Luciano on 05-24-2024 Endomysial IgA Antibody Negative Negative [facility] Eosinophil percentageOrdered By: Dawson Luciano on 05-24-2024 Eosinophils/100 WBC (Bld) 2.3 % 0-5 [facility] Erythrocyte distribution wid th (RBC) [Ratio]Ordered By: Dawson Luciano on 05-24-2024 Erythrocyte distribution width (RBC) [Entitic vol] 46.4 fL High 35.1-43.9 [facility] Erythrocyte distribution wid th ratioOrdered By: Dawson Luciano on 05-24-2024 Erythrocyte distribution width (RBC) [Ratio] 15.3 % High 11.6-14.6 [facility] GFR/1.73 sq M.predicted stefani g non-blacks MDRD (S/P/Bld) [Vol rate/Area]Ordered By: Dawson Luciano on 05-24-2024 Estimated GFR (MDRD) Non-Af Amer 98 >60 [facility] Comment on above: mL/min/1.73m2 CKD-EP I Creatinine Equation (2020) Hematocrit Auto (Bld) [Volum e fraction]Ordered By: Dawson Luciano on 05-24-2024 Hematocrit (Bld) [Volume fraction] 31.2 % Low 37-47 [facility] Hemoglobin A1con 05-24-2024 HbA1c (Bld) [Mass fraction] 5.4 % Normal <=5.6 [facility] Comment on above: Result Comment: Norm al < 5.7 % Prediabetic 5.7 - 6.4 % Diabetic >or= 6.5 % Please note range changes. Performed By: #### L 501.9520, L3410.2350, L100.0100, L500.4050, L501.9985 #### [facility] [address] [place], [place], [address] Hemoglobin A1c percentageOrd ered By: Dawson Luciano on 05-24-2024 HbA1c (Bld) [Mass fraction] 5.4 % <5.7 [facility] Comment on above: Normal < 5.7 % Predi abetic 5.7 - 6.4 % Diabetic >or= 6.5 % Please note range changes. Hemoglobin measurementOrdere d By: Dawson Luciano on 05-24-2024 Hemoglobin (Bld) [Mass/Vol] 10.7 g/dL Low 12.0-15.0 [facility] Immature granulocytes/100 WB C Auto (Bld)Ordered By: Dawson Luciano on 05-24-2024 Immature granulocytes/100 WBC (Bld) 0.300 % 0.0-0.9 [facility] Comment on above: IG% - Immature Granu locytes (promyelocytes, myelocytes and metamyelocytes) > 1% indicates that a LEFT SHIFT is Present. Laboratory - Chemistry and C hemistry - challengeOrdered By: Dawson Luciano on 05-24-2024 AST [Catalytic activity/Vol] 18 U/L <32 [facility] Lymphocytes Auto (Unsp spec) [#/Vol]Ordered By: Dawson Luciano on 05-24-2024 Lymphocytes (Bld) [#/Vol] 1.85 10*3/uL 0.83-4.51 [facility] Lymphocytes/100 WBC Auto (Un sp spec)Ordered By: Dawson Luciano on 05-24-2024 Lymphocytes/100 WBC (Bld) 30.1 % 19-41 [facility] MCV (mean corpuscular volume ) determinationOrdered By: Dawson Luciano on 05-24-2024 MCV (RBC) [Entitic vol] 82.8 fL 81-99 [facility] Mean corpuscular hemoglobin (MCH) determinationOrdered By: Dawson Luciano on 05-24-2024 MCH (RBC) [Entitic mass] 28.4 pg 27.0-32.0 [facility] Mean corpuscular hemoglobin concentration (MCHC) determinationOrdered By: Dawson Luciano on 05-24-2024 MCHC (RBC) [Mass/Vol] 34.3 g/dL 32-36 [facility] Mean platelet volume determi nationOrdered By: Dawson Luciano on 05-24-2024 Platelet mean volume (Bld) [Entitic vol] 11.2 fL 6.2-12.0 [facility] Monocyte percentageOrdered B y: Dawson Luciano on 05-24-2024 Monocytes/100 WBC (Bld) 8.5 % 0-10 [facility] Neutrophil percentageOrdered By: Dawson Luciano on 05-24-2024 Neutrophils/100 WBC (Bld) 58.1 % 47-70 [facility] No Panel InformationOrdered By: Dawson Luciano on 05-24-2024 Tissue Transglutaminase IgG Ab 2 U/mL 0-5 [facility] Comment on above: Negative 0 - 5 Weak Positive 6 - 9 Positive >9 Nucleated red blood cell per centageOrdered By: Dawson Luciano on 05-24-2024 Nucleated RBC/100 WBC (Bld) [Ratio] 0 % 0-5 [facility] Platelet countOrdered By: Do ra Luciano on 05-24-2024 Platelets (Bld) [#/Vol] 323 10*3/uL 150-450 [facility] Potassium (Unsp spec) [Mass/ Vol]Ordered By: Dawson Luciano on 05-24-2024 Potassium [Moles/Vol] 3.3 mmol/L 3.3-5.1 [facility] RBC Auto (Bld) [#/Vol]Ordere d By: Dawson Luciano on 05-24-2024 RBC (Bld) [#/Vol] 3.77 10*6/uL Low 4.2-5.4 [facility] Serum creatinine measurement (mass/volume)Ordered By: Dawson Luciano on 05-24-2024 Creatinine [Mass/Vol] 0.76 mg/dL 0.70-1.20 [facility] Serum globulin measurementOr dered By: Dawson Luciano on 05-24-2024 Globulin (S) [Mass/Vol] 2.9 g/dL 2.2-4.2 [facility] Serum glucose measurement (m ass/volume)Ordered By: Dawson Luciano on 05-24-2024 Glucose [Mass/Vol] 73 mg/dL 70-99 [facility] Serum immunoglobulin A measu rementOrdered By: Dawson Luciano on 05-24-2024 Immunoglobulin A 246 mg/dL 87-352 [facility] Comment on above: Performed at: [place] [id number] Director: Jhoan Steel PhD, Phone: [phone] Serum or plasma alanine olvera otransferase (ALT) measurementOrdered By: Dawson Luciano on 05-24-2024 ALT [Catalytic activity/Vol] 12 U/L <35 [facility] Serum or plasma albumin gil urement (mass/volume)Ordered By: Dawson Luciano on 05-24-2024 Albumin [Mass/Vol] 4.1 g/dL 3.5-5.0 [facility] Serum or plasma albumin/glob ulin mass ratioOrdered By: Dawson Luciano on 05-24-2024 Albumin/Globulin [Mass ratio] 1.4 {ratio} 0.9-2.4 [facility] Serum or plasma alkaline tiarra sphatase measurementOrdered By: Dawson Luciano on 05-24-2024 ALP [Catalytic activity/Vol] 68 U/L 35-104 [facility] Serum or plasma calcium gil urement (mass/volume)Ordered By: Dawson Luciano on 05-24-2024 Calcium [Mass/Vol] 9.3 mg/dL 7.6-11.0 [facility] Serum or plasma urea nitroge n measurement (mass/volume)Ordered By: Dawson Luciano on 05-24-2024 Urea nitrogen [Mass/Vol] 13 mg/dL 4-19 [facility] Sodium levelOrdered By: Dawson Luciano on 05-24-2024 Sodium [Moles/Vol] 136 mmol/L 133-145 [facility] TSH DL <= 0.005 mIU/L QnOrde red By: Dawson Luciano on 05-24-2024 Thyroid Stimulating Hormone (TSH) 1.790 uIU/mL 0.300-4.20 0 [facility] Thyroid Stim Hormone (TSH)on 05-24-2024 TSH 1.790 uIU/mL Normal 0.300-4.20 0 [facility] Comment on above: Performed By: #### L 501.9520, L3410.2350, L100.0100, L500.4050, L501.9985 #### [facility] [address] [place], [address] Total proteinOrdered By: Guicho Luciano on 05-24-2024 Protein [Mass/Vol] 7.0 g/dL 5.9-8.4 [facility] White blood cell (WBC) count Ordered By: Dawson Luciano on 05-24-2024 WBC (Bld) [#/Vol] 6.2 10*3/uL 4.4-11.0 [facility] tTG IgA Qn (S)Ordered By: Do ra Luciano on 05-24-2024 Tissue Transglutaminase IgA Ab <2 U/mL 0-3 [facility] Comment on above: Negative 0 - 3 Weak Positive 4 - 10 Positive >10 Tissue Transglutaminase (tTG) has been identified as the endomysial antigen. Studies have demonstr- ated that endomysial IgA antibodies have over 99% specificity for gluten sensitive enteropathy. CNOVon 03-29-2024 CNOV Office Visit (GENNadir ) ----- NADIA GONZALEZ ([id number]) 1980 F Date Time Provider Department 03/29/24 [...] was discussed with the patient or authorized inside sales account representative. The patient or authorized inside sales account representative has agreed to proceed with the [...] The wall averages 0.3 cm in thickness. Seismograph Chief sections to include gallbladder wall and cystic duct margin are submitted in cassette A1. CG March 06, 2024 4:06 PM Gross examination performed at [facility], [address] [place] [address] Assessment ASSESSMENT Acute post-operative pain (primary encounter [...] in 2 (more content not included)... Normal [facility] CNOVon 03-22-2024 CNOV Office Visit (BRANDON ) ----- NADIA GONZALEZ ([id number]) 1980 F Date Time Provider Department 03/22/24 1:15 PM GERARDO LOBO During your visit today, we recorded the following information about you: Li Orr APRN.[facility] 03/22/2024 1:44 PM Signed IMPRESSION: PLAN: [...] DIAGNOSIS Gallbladder, cholecystectomy: - Cholesterolosis. Li Orr APRN.[employer] 03/22/2024 Allergies As of Date: 03/22/2024 Noted [...] for Encounter Date Provider Department Center 03/22/20[id number] Encounter Status:Closed by LI ORR on 03/22/24 [facility] ANES POSTPROC EVALon 025 ANES POSTPROC EVAL HNO ID: [id number] Author: SUPA OTTO MD Service: Anesthesiology Author Type: Anesthesiologist Type: Anesthesia Postprocedure Evaluation Filed: 03/06/2024 10:33 Note Text: POST ANESTHESIA EVALUATION NOTE : 1980 Procedure Summary Date: 03/06/24 Room / Location: [place] [address] / MD OR Anesthesia Start: 824 Anesthesia Stop: 100 [...] March 06, 2024 TIME: 10:33 AM CSN: [id number] [facility] ANES PRE-OPon 03-06-2024 ANES PRE-OP HNO ID: [id number] Author: SUPA OTTO MD Service: Anesthesiology Author Type: Anesthesiologist Type: Anesthesia Preprocedure Evaluation Filed: 03/06/2024 08:19 Note Text: ANESTHESIOLOGY DAY OF SURGERY NOTE : 1980 Procedure Information Date/Time: 03/06/24 0935 Procedure: LAPAROSCOPIC CHOLECYSTECTOMY WITH GRAMS (Abdomen) - LAPAROSCOPIC CHOLECYSTECTOMY WITH GRAMS [2390] Location: [place] [address] / MD OR Surgeons: Finelli, Elizabeth C, DO Estimated [...] information obtained (more content not included)... Normal [facility] NURSING PROGon 03-06-2024 NURSING PROG HNO ID: [id number] Author: BETTY SHELTON, RN Service: ? Author Type: Registered Nurse Type: Nursing Progress Note Filed: 03/06/2024 11:24 Note Text: Dr otto notified and viewed rash to right hand and right groin. Pt denies itching or burning. Pt and of with discharge with rash and to follow up if gets worse or shortness of breath occurs Normal [facility] OPERATIVE NOon 03-06-2024 OPERATIVE NO HNO ID: [id number] Author: ELIZABETH RICHARDSON DO Service: General Surgery Author Type: Physician Type: Operative Report Filed: 03/06/2024 10:17 Note Text: OPERATIVE/PROCEDURE REPORT LOG ID: [id number] SURGERY/PROCEDURE DATE: 03/06/2024 INCISION/PROCEDURE START TIME: 8:47 AM INCISION CLOSE/PROCEDURE END TIME: 9:58 AM SURGEON(S)/PROCEDURALIST( S) AND EGG CASER(S): Surgeons and Role: * Elizabeth Richardson DO - Primary Physician Crop Farm Helper: Sarah Schuster PA-C SURGERY/PROCEDURE(S): Laparoscopic cholecystectomy with [...] TECHNIQUE: Pr (more content not included)... Normal [facility] SURGICAL PATHOLOGYon 025 CASE REPORT Normal [facility] Comment on above: Order Comment: Livan zuñiga Type: TISSUE SPECIMENOrdering Facility: [facility] Address: [address] [place] [address] Result Comment: Surg ica Pathology Report Case: [id number] Authorizing Provider: Elizabeth Richardson DO Collected: 03/06/2024 08:55 AM Ordering Location: [facility] Surgery Received: 03/06/2024 11:27 AM Pathologist: Simba Noble MD Specimen: Gallbladder Performed By: #### S ####[facility] LABCLIA [id number] [place] [address] [place] CLINICAL HISTORY Normal [facility] Comment on above: Order Comment: Livan zuiñga Type: TISSUE SPECIMENOrdering Facility: [facility] Address: [address] [place] [address] Result Comment: Pre- op diagnosis: Biliary dyskinesia [K82.8] Performed By: #### S ####[facility] LABCLIA [id number] [place] [address] [place] FINAL DIAGNOSIS Normal [facility] Comment on above: Order Comment: Livan zuñiga Type: TISSUE SPECIMENOrdering Facility: [facility] Address: [address] [place] [address] Result Comment: Gall bladder, cholecystectomy: - Cholesterolosis. Performed By: #### S ####[facility] LABCLIA [id number] [place] [address] [place] FINAL PERFORMING LAB Normal [facility] Comment on above: Order Comment: Speci men Type: TISSUE SPECIMENOrdering Facility: [facility] Address: [address] [place] [address] Result Comment: Diag nostic interpretation performed at: [facility], [address] [place] [address] CLIA# [id number] Psychiatry Physician: Randell Romero MD Performed By: #### S ####[facility] LABCLIA [id number] [place] [address] [place] GROSS DESCRIPTION A. Gallbladder Normal [facility] Comment on above: Order Comment: Speci men Type: TISSUE SPECIMENOrdering Facility: [facility] Address: [address] [place] [address] Result Comment: Rece ived in formalin, labeled [...] The wall averages 0.3 cm in thickness. Seismograph Chief sections to include gallbladder wall and cystic duct margin are submitted in cassette A1. CG March 06, 2024 4:06 PM Gross examination performed at [facility], [address] [place] [address] Performed By: #### S ####[facility] LABCLIA [id number] [place] [address] [place] HISTORY PHYSICALon HISTORY PHYSICAL HNO ID: [id number] Author: ELIZABETH RICHARDSON, DO Service: ? Author Type: Physician Type: H&P Filed: 03/04/2024 23:07 Note Text: General Surgery New Patient REASON FOR VISIT Nadia Gonzalez is a 44 year old female who is scheduled for a consult at the request of Self for Consult (follow up 01/25 [facility] RUQ pain N/V 01/03 US ABD COMPLETE [...] without mur (more content not included)... Normal [facility] NADIA GONZALEZ ([id number]) 1980 F Date Time Provider Department 02/24/24 [...] Encounter Status:Closed by SAWYER TATUM on 05/16/24 [facility] CNOVon 02-23-2024 MUNA Office Visit (BRANDON ) ----- NADIA GONZALEZ ([id number]) 1980 F Date Time Provider Department 02/23/24 [...] of Self for Consult (follow up 01/25 [facility] RUQ pain N/V 01/03 US ABD COMPLETE [...] BP 133/85 (more content not included)... Normal [facility] HISTORY PHYSICALon HISTORY PHYSICAL HNO ID: [id number] Author: ELIZABETH RICHARDSON, DO Service: ? Author Type: Physician Type: H&P Filed: 02/19/2024 22:16 Note Text: General Surgery New Patient REASON FOR VISIT Nadia Gonzalez is a 44 year old female who is scheduled for a consult at the request of self for Consult (Gallbladder 01/25 [facility] RUQ pain N/V 01/03 US ABD COMPLETE [...] discussed with the Patient or Patient's Authorized Seismograph Chief. As applicable, any other physician, advance practice provider, medical student, or other health professional student that will be observing or involved in the sensitive examination for educational or training purposes was discussed with the Patient or Authorized Seismograph Chief. Th (more content not included)... Normal [facility] CNOVon 02-10-2024 CNOV Office Visit (GENE ) ----- NADIA GONZALEZ ([id number]) 1980 F Date Time Provider Department 02/10/24 [...] request of self for Consult (Gallbladder 01/25 [facility] REHAPP RUQ pain N/V 01/03 US ABD COMPLETE [...] discussed with the Patient or Patient's Authorized Seismograph Chief. As appl (more content not included)... Normal [facility] metabolic 2000 panelon 01-26-2024 Albumin [Mass/Vol] 4.3 g/dL Normal 3.9-4.9 [facility] Comment on above: Order Comment: Speci yogesh Type: BLOOD SPECIMENOrdering Facility: [facility] Address: [address] [place] [address] Performed By: #### 2 4323-8, 3016-3 ####[facility] LABCLIA [id number] [place] [address] [place] ALP [Catalytic activity/Vol] 70 U/L Normal 34-123 [facility] Comment on above: Order Comment: Livan zuñiga Type: BLOOD SPECIMENOrdering Facility: [facility] Address: [address] [place] [address] Performed By: #### 2 4323-8, 3016-3 ####[facility] LABCL[facility] [id number] [place] [address] [place] ALT With P-5'-P [Catalytic activity/Vol] 12 U/L Normal 7-38 [facility] Comment on above: Order Comment: Livan zuñiga Type: BLOOD SPECIMENOrdering Facility: [facility] Address: [address] [place] [address] Performed By: #### 2 4323-8, 3016-3 ####[facility] LABCLIA [id number] [place] [address] [place] Anion gap [Moles/Vol] 10 mmol/L Normal 8-15 [facility] Comment on above: Order Comment: Speci men Type: BLOOD SPECIMENOrdering Facility: [facility] Address: [address] [place] [address] Performed By: #### 2 4323-8, 3016-3 ####[facility] LABCLIA [id number] [facility] [place] [address] [place] AST With P-5'-P [Catalytic activity/Vol] 17 U/L Normal 13-35 [facility] Comment on above: Order Comment: Speci men Type: BLOOD SPECIMENOrdering Facility: [facility] Address: [address] [place] [address] Performed By: #### 2 4323-8, 3016-3 ####[facility] LABCLIA [id number] [facility] [address] [place] Bilirubin [Mass/Vol] 0.2 mg/dL Normal 0.2-1.3 [facility] Comment on above: Order Comment: Speci men Type: BLOOD SPECIMENOrdering Facility: [facility] Address: [address] [place] [address] Performed By: #### 2 4323-8, 6-3 ####[facility] LABCLIA [id number] [facility] [place] [address] [place] Calcium [Mass/Vol] 9.7 mg/dL Normal 8.5-10.2 [facility] Comment on above: Order Comment: Speci men Type: BLOOD SPECIMENOrdering Facility: [facility] Address: [address] [place] [address] Performed By: #### 2 4323-8, 3016-3 ####[facility] LABCLIA [id number] [facility] [address] [place] Chloride [Moles/Vol] 99 mmol/L Normal 98-107 [facility] Comment on above: Order Comment: Speci men Type: BLOOD SPECIMENOrdering Facility: [facility] Address: [address] [place] [address] Performed By: #### 2 4323-8, 3015-3 ####[facility] LABCLIA [id number] [place] [address] [place] CO2 [Moles/Vol] 28 mmol/L Normal 22-30 [facility] Comment on above: Order Comment: Speci men Type: BLOOD SPECIMENOrdering Facility: [facility] Address: [address] [place] [address] Performed By: #### 2 4323-8, 3015-3 ####[facility] LABCLIA [id number] [place] [address] [place] [facility] Creatinine [Mass/Vol] 0.70 mg/dL Normal 0.58-0.96 [facility] Comment on above: Order Comment: Speci men Type: BLOOD SPECIMENOrdering Facility: [facility] Address: [address] [place] [address] Performed By: #### 2 4323-8, 3015-3 ####[facility] LABCLIA [id number] [place] [address] [facility] Creatinine and Glomerular filtration rate.predicted panel (S/P/Bld) 110 mL/min/1.73m??? Normal >=60 [facility] Comment on above: Order Comment: Speci men Type: BLOOD SPECIMENOrdering Facility: [facility] Address: [address] [place] [address] Result Comment: Mary mated Glomerular Filtration Rate [...] Performed By: #### 2 4323-8, 3015-3 ####[facility] LABCLIA [id number] [place] [address] [place] Glucose [Mass/Vol] 112 mg/dL High 74-99 [facility] Comment on above: Order Comment: Speci men Type: BLOOD SPECIMENOrdering Facility: [facility] Address: [address] [place] [address] Result Comment: The [place] Diabetes Association (ADA) provides guidance for cutoff [...] Standards of Medical Care in Diabetes 2016, [place] [employer] Association. Diabetes Care. 2016.39(Suppl 1). Performed By: #### 2 4323-8, 6-3 ####[facility] LABCLIA [id number] [place] [address] [place] Potassium [Moles/Vol] 3.5 mmol/L Low 3.7-5.1 [facility] Comment on above: Order Comment: Livan zuñiga Type: BLOOD SPECIMENOrdering Facility: [facility] Address: [address] [place] [address] Performed By: #### 2 4323-8, 3015-3 ####[facility] LABCLIA [id number] [place] [address] [place] Protein [Mass/Vol] 7.3 g/dL Normal 6.3-8.0 [facility] Comment on above: Order Comment: Livan zuñiga Type: BLOOD SPECIMENOrdering Facility: [facility] Address: [address] [place], [place] [address] Performed By: #### 2 4323-8, 6-3 ####[facility] LABCLIA [id number] [place] [address] [place] Sodium [Moles/Vol] 137 mmol/L Normal 136-144 [facility] Comment on above: Order Comment: Livan men Type: BLOOD SPECIMENOrdering Facility: [facility] Address: [address] [place] [address] Performed By: #### 2 4323-8, 3016-3 ####[facility] LABCLIA [id number] [place] [address] [place] Urea nitrogen [Mass/Vol] 9 mg/dL Normal 7-21 [facility] Comment on above: Order Comment: Speci men Type: BLOOD SPECIMENOrdering Facility: [facility] Address: [address] [place] [address] Performed By: #### 2 4323-8, 3016-3 ####[facility] LABCLIA [id number] [place] [address] [place] NM Gallbladder Views W carlin cystokinin and W radionuclide Naima 01-26-2024 No evidence of acute cholecystitis or common bile duct obstruction. Normal gallbladder ejection fraction following CCK administration. Enterogastric reflux is noted. Report Dictated on Electronically Signed By: Radhames Coffman MD Electronically Signed Date/Time: 01/26/2024 1:07 PM [facility] [employer] Patient Name: NADIA GONZALEZ : 1980 [...] percent following CCK administration (normal above 35%). [employer] Radhames Coffman MD - 01/26/2024 Patient Name: NAD[facility]ALE[facility] : 1980 [id number] Exam Date/Time: 01/26/2024 11:01 Procedure: NM HEPATOBILIARY [...] Electronically Signed Date/Time: 01/26/2024 1:[address] [facility] Radiology Study observation (narrative) [facility] NM Gallbladder Views W carlin cystokinin and W radionuclide IVOrdered By: Radhames Coffman on 01-26-2024 [facility] TSH SerPl-aCncon 01-26-2024 TSH Qn 2.340 m[IU]/L Normal 0.270-4.20 0 [facility] Comment on above: Order Comment: Speci men Type: BLOOD SPECIMENOrdering Facility: [facility] Address: [address] [place] [address] Result Comment: If t he patient is , TSH reference range varies by gestational period: First Trimester (weeks 9-12): 0.180-2.990 mIU/L Second Trimester: 0.110-3.980 mIU/L Third Trimester: 0.480-4.710 mIU/L Peter Haque et al. A Practical Approach for the Verifications and Determination of Site- and Trimester-Specific Reference Intervals for Thyroid Function tests in . Thyroid, 2019:29:3:412-420. Manohar Schmitz, et al. 2017 Guidelines of the [place] Thyroid Association for the Diagnosis and Management of Thyroid Disease during and the . Thyroid, 2017:27:3:315-389. Performed By: #### 2 4323-8, 3016-3 ####[facility] LABIA [id number] [place] [address] [facility] US ABDOMEN COMPLETEon 2023 US ABDOMEN COMPLETE [...] focal lesion identified. Gallbladder: Normal. Per the senior cytotechnologist, the sonographic Botello's sign was negative. Bile [...] Electronically Signed Date/Time: 01/06/2024 10:41 AM EST [facility] US Abdomenon 01-06-2024 1. No acute process. 2. Hepatomegaly. Report Dictated on Electronically Signed By: Supa Bolaños MD Electronically Signed Date/Time: 01/06/2024 10:41 AM [facility] Patient Name: NADIA GONZALEZ : 1980 Exam [...] focal lesion identified. Gallbladder: Normal. Per the senior cytotechnologist, the sonographic Botello's sign was negative. Bile [...] cava: Visualized portions are normal Ascites: None [facility] Supa Bolaños MD - 01/06/2024 Patient Name: [...] focal lesion identified. Gallbladder: Normal. Per the senior cytotechnologist, the sonographic Botello's sign was negative. Bile [...] Electronically Signed Date/Time: 01/06/2024 10:41 AM EST [facility] [employer] US AbdomenOrdered By: Lauren Bolaños on 01-06-2024 [facility] Work Phone: US Abdomenon 01-04-2024 Radiology Study observation (narrative) [facility] CBC W/Diff, Automatedon - Absolute Lymph 1.83 X10 3/uL Normal 0.83-4.51 [facility] Comment on above: Performed By: #### L 501.9985, L501.9520, L500.4100, L100.0100, L500.4050 #### [facility] [address] [place], [address] Absolute Neut 3.5 X10 3/uL Normal 2.0-7.7 [facility] Comment on above: Performed By: #### L 501.9985, L501.9520, L500.4100, L100.0100, L500.4050 #### [facility] [address] [place], [address] Basophils/100 WBC (Bld) 0.5 % Normal 0-1 [facility] Comment on above: Performed By: #### L [id number], L501.9520, L500.4100, L100.0100, L500.4050 #### [facility] [address] [place], [address] Eosinophils/100 WBC (Bld) 1.5 % Normal 0-5 [facility] Comment on above: Performed By: #### L [id number], L501.9520, L500.4100, L100.0100, L500.4050 #### [facility] [address] [place], [address] Erythrocyte distribution width (RBC) [Ratio] 16.7 % High 11.6-14.6 [facility] Comment on above: Performed By: #### L [id number], [id number], L500.4100, L100.0100, L500.4050 #### [facility] [address] [place], [address] Hematocrit (Bld) [Volume fraction] 35.4 % Low 37-47 [facility] Comment on above: Performed By: #### L [id number], [id number], L500.4100, L100.0100, L500.4050 #### [facility] [address] [place], [address] Hemoglobin (Bld) [Mass/Vol] 11.8 g/dL Low 12.0-15.0 [facility] Comment on above: Performed By: #### L [id number], [id number], L500.4100, L100.0100, L500.4050 #### [facility] [address] [place], [address] IG% 0.300 Normal 0.0-0.9 [facility] Comment on above: Result Comment: IG% - Immature Granulocytes (promyelocytes, myelocytes and metamyelocytes) > 1% indicates that a LEFT SHIFT is Present. Performed By: #### L 501.9985, L501.9520, L500.4100, L100.0100, L500.4050 #### [facility] [address] [place], [address] Lymphocytes/100 WBC (Bld) 30.6 % Normal 19-41 [facility] Comment on above: Performed By: #### L 501.9985, [id number], L500.4100, L100.0100, L500.4050 #### [facility] [address] [place], [address] MCH (RBC) [Entitic mass] 27.2 pg Normal 27.0-32.0 [facility] Comment on above: Performed By: #### L [id number], [id number], L500.4100, L100.0100, L500.4050 #### [facility] [address] [place], [address] MCHC (RBC) [Mass/Vol] 33.3 g/dL Normal 32-36 [facility] Comment on above: Performed By: #### L [id number], [id number], L500.4100, L100.0100, L500.4050 #### [facility] [address] [place], [address] MCV (RBC) [Entitic vol] 81.6 fL Normal 81-99 [facility] Comment on above: Performed By: #### L 501.9985, [id number], L500.4100, L100.0100, L500.4050 #### [facility] [address] [place], [address] Monocytes/100 WBC (Bld) 8.5 % Normal 0-10 [facility] Comment on above: Performed By: #### L 501.9985, [id number], L500.4100, L100.0100, L500.4050 #### [facility] [address] [place], [address] Neutrophils/100 WBC (Bld) 58.6 % Normal 47-70 [facility] Comment on above: Performed By: #### L 501.9985, [id number], L500.4100, L100.0100, L500.4050 #### [facility] [address] [place], [address] Nucleated RBC (Bld) [#/Vol] 0 10*3/uL Normal 0-5 [facility] Comment on above: Performed By: #### L 501.9985, [id number], L500.4100, L100.0100, L500.4050 #### [facility] [address] [place], [address] Platelet mean volume (Bld) [Entitic vol] 11.2 fL Normal 6.2-12.0 [facility] Comment on above: Performed By: #### L 501.9985, [id number], L500.4100, L100.0100, L500.4050 #### [facility] [address] [place], [address] Platelets (Bld) [#/Vol] 325 10*3/uL Normal 150-450 [facility] Comment on above: Performed By: #### L 501.9985, [id number], L500.4100, L100.0100, L500.4050 #### [facility] [address] [place], [address] RBC (Bld) [#/Vol] 4.34 10*6/uL Normal 4.2-5.4 [facility] Comment on above: Performed By: #### L [id number], [id number], L500.4100, L100.0100, L500.4050 #### [facility] [address] [place], [address] RDW SD 49.5 fl High 35.1-43.9 [facility] Comment on above: Performed By: #### L 501.9985, [id number], L500.4100, L100.0100, L500.4050 #### [facility] [address] [place], [address] WBC (Bld) [#/Vol] 6.0 10*3/uL Normal 4.4-11.0 [facility] Comment on above: Performed By: #### L 501.9985, [id number], L500.4100, L100.0100, L500.4050 #### [facility] [address] [place], [address] Comprehensive Metabolic [facility] 08-24-2023 Albumin [Mass/Vol] 3.6 g/dL Normal 3.2-5.0 [facility] Comment on above: Performed By: #### L 501.9985, [id number], L500.4100, L100.0100, L500.4050 #### [facility] [address] [place], [address] Albumin/Globulin [Mass ratio] 0.9 {ratio} Normal 0.9-2.4 [facility] Comment on above: Performed By: #### L 501.9985, [id number], L500.4100, L100.0100, L500.4050 #### [facility] [address] [place], [address] ALK P 63 U/L Normal 45-117 [facility] Comment on above: Performed By: #### L 501.9985, [id number], L500.4100, L100.0100, L500.4050 #### [facility] [address] [place], [address] ALT [Catalytic activity/Vol] 19 U/L Normal 13-56 [facility] Comment on above: Performed By: #### L 501.9985, [id number], L500.4100, L100.0100, L500.4050 #### [facility] [address] [place], [address] AST [Catalytic activity/Vol] 15 U/L Normal 15-37 [facility] Comment on above: Performed By: #### L 501.9985, [id number], L500.4100, L100.0100, L500.4050 #### [facility] [address] [place], [address] Bilirubin [Mass/Vol] 0.20 mg/dL Normal 0.20-1.00 [facility] Comment on above: Result Comment: For patients on eltrombopag therapy, use of Dimension [place] TBIL is not recommended. Performed By: #### L 501.9985, [id number], L500.4100, L100.0100, L500.4050 #### [facility] [address] [place], [address] BUN/CRE 13.1 RATIO Normal 10-20 [facility] Comment on above: Performed By: #### L 501.9985, [id number], L500.4100, L100.0100, L500.4050 #### [facility] [address] [place], [address] CA,Total 8.8 mg/dL Normal 8.5-10.1 [facility] Comment on above: Performed By: #### L 501.9985, [id number], L500.4100, L100.0100, L500.4050 #### [facility] [address] [place], [address] Chloride [Moles/Vol] 102 mmol/L Normal 98-107 [facility] Comment on above: Performed By: #### L 501.9985, [id number], L500.4100, L100.0100, L500.4050 #### [facility] [address] [place], [address] CO2 [Moles/Vol] 26.0 mmol/L Normal 21.0-32.0 [facility] Comment on above: Performed By: #### L 501.9985, L501.9520, L500.4100, L100.0100, L500.4050 #### [facility] [address] [place], [address] Creatinine [Mass/Vol] 0.69 mg/dL Normal 0.55-1.02 [facility] Comment on above: Result Comment: The validity of the calculated GFR GFRAA in patients over 70 years has not been determined. Clinical correlation is essential. Performed By: #### L 501.9985, L501.9520, L500.4100, L100.0100, L500.4050 #### [facility] [address] [place], [address] EST GFR - AA 119 mL/min Normal >60 [facility] Comment on above: Result Comment: Afri can Tongan GFR Calc Performed By: #### L 501.9985, L501.9520, L500.4100, L100.0100, L500.4050 #### [facility] [address] [place], [address] GAP 7 Normal 5-15 [facility] Comment on above: Performed By: #### L 501.9985, L501.9520, L500.4100, L100.0100, L500.4050 #### [facility] [address] [place], [address] GFR/1.73 sq M.predicted among non-blacks MDRD (S/P/Bld) [Vol rate/Area] 98 mL/min/{1.73_m2} Normal >60 [facility] Comment on above: Result Comment: Non- GFR Calc Performed By: #### L 501.9985, L501.9520, L500.4100, L100.0100, L500.4050 #### [facility] [address] [place], [address] Globulin (S) [Mass/Vol] 3.9 g/dL Normal 2.2-4.2 [facility] Comment on above: Performed By: #### L 501.9985, [id number], L500.4100, L100.0100, L500.4050 #### [facility] [address] [place], [address] Glucose [Mass/Vol] 91 mg/dL Normal 74-106 [facility] Comment on above: Performed By: #### L 501.9985, [id number], L500.4100, L100.0100, L500.4050 #### [facility] [address] [place], [address] Potassium [Moles/Vol] 3.1 mmol/L Low 3.5-5.1 [facility] Comment on above: Performed By: #### L 501.9985, [id number], L500.4100, L100.0100, L500.4050 #### [facility] [address] [place], [address] Sodium [Moles/Vol] 135 mmol/L Low 136-145 [facility] Comment on above: Performed By: #### L 501.9985, [id number], L500.4100, L100.0100, L500.4050 #### [facility] [address] [place], [address] T PROT 7.5 g/dL Normal 6.4-8.2 [facility] Comment on above: Performed By: #### L 501.9985, L501.9520, L500.4100, L100.0100, L500.4050 #### [facility] [address] [place], [address] Urea nitrogen [Mass/Vol] 9 mg/dL Normal 7-18 [facility] Comment on above: Performed By: #### L 501.9985, [id number], L500.4100, L100.0100, L500.4050 #### [facility] [address] [place], [address] Hemoglobin A1con 08-24-2023 HbA1c (Bld) [Mass fraction] 5.1 % Normal 3.8-5.6 [facility] Comment on above: Result Comment: Norm al < 5.7 % Prediabetic 5.7 - 6.4 % Diabetic >or= 6.5 % Please note range changes. Performed By: #### L 501.9985, L501.9520, L500.4100, L100.0100, L500.4050 #### [facility] [address] [place], [address] Lipid Profileon 08-24-2023 Cholesterol [Mass/Vol] 184 mg/dL Normal 200 [facility] Comment on above: Result Comment: <200 mg/dL Desirable 200-240 mg/dL Borderline >240 mg/dL High Risk Performed By: #### L 501.9985, L501.9520, L500.4100, L100.0100, L500.4050 #### [facility] [address] [place], [address] Cholesterol in HDL [Mass/Vol] 53 mg/dL Normal [facility] Comment on above: Result Comment: The drugs N-Acetylcysteine and Metamizole may falsely depress this assay. Reference Range HDL <40 mg/dL Low HDL Cholesterol HDL >or= 60 mg/dL High HDL Cholesterol Performed By: #### L 501.9985, L501.9520, L500.4100, L100.0100, L500.4050 #### [facility] [address] [place], [address] Cholesterol in LDL [Mass/Vol] 110 mg/dL Normal 0-130 [facility] Comment on above: Performed By: #### L 501.9985, L501.9520, L500.4100, L100.0100, L500.4050 #### [facility] [address] [place], [address] Cholesterol in VLDL [Mass/Vol] 21 mg/dL Normal 5-40 [facility] Comment on above: Performed By: #### L 501.9985, L501.9520, L500.4100, L100.0100, L500.4050 #### [facility] [address] [place], [address] Triglyceride [Mass/Vol] 105 mg/dL Normal [facility] Comment on above: Result Comment: The drugs N-Acetylcysteine and Metamizole may falsely depress this assay. Serum Triglycerides Reference Interval Normal <150 mg/dL Borderline high 150 - 199 mg/dL High 200 - 499 mg/dL Very High > or = 500 mg/dL Performed By: #### L 501.9985, L501.9520, L500.4100, L100.0100, L500.4050 #### [facility] [address] [place], [address] Thyroid Stim Hormone (TSH)on 08-24-2023 TSH 0.47 uIU/mL Normal 0.358-3.74 [facility] Comment on above: Performed By: #### L 501.9985, L501.9520, L500.4100, L100.0100, L500.4050 #### [facility] [address] [place], [address] DBT Breast - bilateral scree quintin 06-13-2023 [...] Electronically Signed Date/Time: 06/13/2023 12:41 PM EDT [facility] Patient Name: NADIA GONZALEZ : 1980 Exam Date/Time: 06/13/2023 10:49 Procedure: BI MAMMOGRAM SCREENING TOMOSYNTHESIS BILATERAL Ordering Provider: CISNEROS ELIZABETH Reason For Exam: screening Image views: 2D Bilateral CC and MLO views were acquired. 3D Bilateral CC and MLO views were acquired. Images were reviewed with CAD. Markings on images: BB's = Nipples; skin lesions Open [place] = Palpable Line = Scar COMPARISON: 05/17/2022 TISSUE DENSITY: BIRADS B - There are scattered fibroglandular densities. FINDINGS: No suspicious masses, architectural distortions or suspiciously clustered microcalcifications are identified. There is no evidence of skin thickening or nipple retraction. There are stable prominent left axillary lymph nodes. There are no significant changes when compared with prior studies. [facility] Gerardo Fisher MD - 06/13/2023 Patient Name: NADIA GONZALEZ : 1980 Exam Date/Time: 06/13/2023 10:49 Procedure: BI MAMMOGRAM SCREENING TOMOSYNTHESIS BILATERAL Ordering Provider: CISNEROS ELIZABETH Reason For Exam: screening Image views: 2D Bilateral CC and MLO views were acquired. 3D Bilateral CC and MLO views were acquired. Images were reviewed with CAD. Markings on images: BB's = Nipples; skin lesions [place] = Palpable Line = Scar COMPARISON: 05/17/2022 [...] Electronically Signed Date/Time: 06/13/2023 12:[address] [facility] Radiology Study observation (narrative) [facility] DBT Breast - bilateral scree ningOrdered By: Gerardo Fisher on 06-13-2023 [facility] Culture, urineOrdered By: Do ra Luciano on 11-03-2022 Bacteria identified Cx Nom (U) Escherichia coli [facility] - Chemistry and C hemistry - challengeon 11-03-2022 Bilirubin Ql (U) Negative [facility] Glucose Ql (U) Negative [facility] Ketones Ql (U) Negative [facility] pH (U) 6.5 [pH] [facility] Specific gravity (U) [Rel density] 1.015 [facility] Urobilinogen (U) [Mass/Vol] 0.5977052 mg/dL [facility] - Hematology and Cell countson 11-03-2022 Hemoglobin Ql (U) Large [facility] - Specimen inform ationon 11-03-2022 Clarity (U) Clear [facility] Color (U) STRAW [facility] - Urinalysison Nitrite Ql (U) Negative [facility] Protein Ql (U) 2+ [facility] No Panel Informationon 11-03 Urine Leukocytes Positive [facility] Urine Non-Hemolyzed Blood [facility] Absolute lymphocyte countOrd ered By: Dawson Luciano on 09-01-2022 Lymphocytes Auto (Unsp spec) [#/Vol] 1.82 10*3/uL 0.83-4.51 [facility] Basophil percentageOrdered B y: Dawson Luciano on 09-01-2022 Basophils/100 WBC (Bld) 0.9 % 0-1 [facility] Bilirubin [Mass/Vol] 0.10 mg/dL 0.20-1.00 [facility] Comment on above: For patients on eltr ombopag therapy, use of Dimension [place] TBIL is not recommended. Chloride [Moles/Vol] 104 mmol/L 98-107 [facility] Cholesterol [Mass/Vol] 193 mg/dL <200 [facility] Comment on above: <200 mg/dL Desirable 200-240 mg/dL Borderline >240 mg/dL High Risk Eosinophils/100 WBC (Bld) 1.9 % 0-5 [facility] Glucose [Mass/Vol] 89 mg/dL 74-106 [facility] Neutrophils (Bld) [#/Vol] 4.3 10*3/uL 2.0-7.7 [facility] Neutrophils/100 WBC (Bld) 62.9 % 47-70 [facility] Potassium [Moles/Vol] 3.2 mmol/L 3.5-5.1 [facility] Protein [Mass/Vol] 7.8 g/dL 6.4-8.2 [facility] Sodium [Moles/Vol] 138 mmol/L 136-145 [facility] Triglyceride [Mass/Vol] 162 mg/dL <199 [facility] Comment on above: The drugs N-Acetylcy steine and Metamizole may falsely depress this assay.Serum Triglycerides Reference Interval Normal <150 mg/dL Borderline high 150 - 199 mg/dL High 200 - 499 mg/dL Very High > or = 500 mg/dL WBC (Bld) [#/Vol] 6.9 10*3/uL 4.4-11.0 [facility] Blood erythrocytes count (nu mber/volume)Ordered By: Dawson Luciano on 09-01-2022 RBC (Bld) [#/Vol] 4.48 10*6/uL 4.2-5.4 [facility] Blood hemoglobin measurement (mass/volume)Ordered By: Dawson Luciano on 09-01-2022 Hemoglobin (Bld) [Mass/Vol] 12.0 g/dL 12.0-15.0 [facility] Blood lymphocytes/100 leukoc ytesOrdered By: Dawson Luciano on 09-01-2022 Lymphocytes/100 WBC (Bld) 26.6 % 19-41 [facility] Blood monocytes/100 leukocyt esOrdered By: Dawson Luciano on 09-01-2022 Monocytes/100 WBC (Bld) 7.4 % 0-10 [facility] Blood platelet mean volumeOr dered By: Dawson Luciano on 09-01-2022 Platelet mean volume (Bld) [Entitic vol] 11.2 fL 6.2-12.0 [facility] Determination of erythrocyte mean corpuscular volume (MCV)Ordered By: Dawson Luciano on 09-01-2022 MCV (RBC) [Entitic vol] 82.6 fL 81-99 [facility] Hematocrit Auto (Bld) [Volum e fraction]Ordered By: Dawson Luciano on 09-01-2022 Hematocrit (Bld) [Volume fraction] 37.0 % 37-47 [facility] - Chemistry and C hemistry - challengeOrdered By: Dawson Luciano on 09-01-2022 ALP [Catalytic activity/Vol] 77 U/L 45-117 [facility] ALT [Catalytic activity/Vol] 22 U/L 13-56 [facility] CO2 [Moles/Vol] 26.0 mmol/L 21.0-32.0 [facility] Free T4 [Mass/Vol] 1.31 ng/dL 0.76-1.46 [facility] Globulin (S) [Mass/Vol] 4.2 g/dL 2.2-4.2 [facility] Urea nitrogen/Creatinine [Mass ratio] 10.7 mg/mg 10-20 [facility] - Hematology and Cell countsOrdered By: Dawson Luciano on 09-01-2022 Erythrocyte distribution width (RBC) [Entitic vol] 47.7 fL 35.1-43.9 [facility] Erythrocyte distribution width (RBC) [Ratio] 15.8 % 11.6-14.6 [facility] Immature granulocytes/100 WBC (Bld) 0.300 % 0.0-0.9 [facility] Comment on above: IG% - Immature Granu locytes (promyelocytes, myelocytes and metamyelocytes) > 1% indicates that a LEFT SHIFT is Present. MCH (RBC) [Entitic mass] 26.8 pg 27.0-32.0 [facility] Nucleated RBC/100 WBC (Bld) [Ratio] 0 % 0-5 [facility] MCHC Auto (RBC) [Mass/Vol]Or dered By: Dawson Luciano on 09-01-2022 MCHC (RBC) [Mass/Vol] 32.4 g/dL 32-36 [facility] No Panel InformationOrdered By: Dawson Luciano on 09-01-2022 C-Reactive Protein High Sensitivity 7.85 mg/L <3.00 [facility] Comment on above: Low Relative Risk of CVD <1.0 mg/L Average Relative Risk of CVD 1.0 - 3.0 mg/L High Relative Risk of CVD >3.0 mg/L Estimated GFR (MDRD) Amer 95 mL/min >60 [facility] Comment on above: GFR Calc Estimated GFR (MDRD) Non-Af Amer 79 mL/min >60 [facility] Comment on above: Non- GFR Calc Thyroid Stimulating Hormone (TSH) 1.24 uIU/mL 0.358-3.74 [facility] Platelets bldOrdered By: Guicho Luciano on 09-01-2022 Platelets (Bld) [#/Vol] 337 10*3/uL 150-450 [facility] Serum or plasma albumin gil urement (mass/volume)Ordered By: Dawson Luciano on 09-01-2022 Albumin [Mass/Vol] 3.6 g/dL 3.2-5.0 [facility] Serum or plasma albumin/glob ulin mass ratioOrdered By: Dawson Luciano on 09-01-2022 Albumin/Globulin [Mass ratio] 0.9 {ratio} 0.9-2.4 [facility] Serum or plasma calcium gil urement (mass/volume)Ordered By: Dawson Luciano on 09-01-2022 Calcium [Mass/Vol] 8.8 mg/dL 8.5-10.1 [facility] Serum or plasma cholesterol in HDL measurement (mass/volume)Ordered By: Dawson Luciano on 09-01-2022 Cholesterol in HDL [Mass/Vol] 51 mg/dL >40 [facility] Comment on above: The drugs N-Acetylcy steine and Metamizole may falsely depress this assay. Reference Range HDL <40 mg/dL Low HDL Cholesterol HDL >or= 60 mg/dL High HDL Cholesterol Serum or plasma cholesterol in VLDL measurement (mass/volume)Ordered By: Dawson Luciano on 09-01-2022 Cholesterol in VLDL [Mass/Vol] 32 mg/dL 5-40 [facility] Serum or plasma creatinine m easurement (mass/volume)Ordered By: Dawson Luciano on 09-01-2022 Creatinine [Mass/Vol] 0.84 mg/dL 0.55-1.02 [facility] Comment on above: The validity of the calculated GFR & GFRAA in patients over 70 years has not been determined. Clinical correlation is essential. Serum or plasma low density lipoprotein (LDL) cholesterol measurement (mass/volume)Ordered By: Dawson Luciano on 09-01-2022 Cholesterol in LDL [Mass/Vol] 110 mg/dL 0-130 [facility] Serum or plasma urea nitroge n measurement (mass/volume)Ordered By: Dawson Luciano on 09-01-2022 Urea nitrogen [Mass/Vol] 9 mg/dL 7-18 [facility] Thin prep Papanicolaou smear with manual screeningOrdered By: Dawson Luciano on 09-01-2022 Thin prep Papanicolaou smear with manual screening 16 U/L 15-37 [facility] Thin prep Papanicolaou smear with manual screening 8 5-15 [facility] Whole blood hemoglobin A1c/t otal hemoglobin ratio (mass fraction)Ordered By: Dawson Luciano on 09-01-2022 HbA1c (Bld) [Mass fraction] 5.7 % 3.8-5.6 [facility] Comment on above: Normal < 5.7 % Predi abetic 5.7 - 6.4 % Diabetic >or= 6.5 % Please note range changes. No Panel Informationon 06-08 [facility] DBT Breast - bilateral diagn osticon [...] left breast was performed by a registered intranet developer with Doppler. Extensive scanning of the subareolar [...] left breast was performed by a registered intranet developer with Doppler. Extensive scanning of the subareolar region of the left breast demonstrates no focal abnormality or suspicious findings. IMPRESSION: No mammographic or targeted sonographic correlate for patient's left breast pain. Clinical follow-up is recommended. No mammographic evidence of malignancy in either breast. Patient to return to annual screening. Markings on images: BB's = Nipples; skin lesions [place] = Palpable Line = Scar ASSESSMENT: Category 1 Negative RECOMMENDATION: Clinical correlation Left Routine screening mammogram in 1 year. Bilateral Report Dictated on Electronically Signed By: Ulices Johansen Electronically Signed Date/Time: 05/17/2022 9:[address] [facility] Panel Informationon 05-17 No mammographic or targeted sonographic correlate for patient's left breast pain. Clinical follow-up is recommended. No mammographic evidence of malignancy in either breast. Patient to return to annual screening. Markings on images: BB's = Nipples; skin lesions [place] = Palpable Line = Scar ASSESSMENT: Category 1 Negative RECOMMENDATION: Clinical correlation Left Routine screening mammogram in 1 year. Bilateral Report Dictated on Electronically Signed By: Ulices Johansen Electronically Signed Date/Time: 05/17/2022 9:25 AM T [facility] No Panel InformationOrdered By: Ulices Johansen on 05-17-2022 [employer] Work Phone: US Breast - left limitedon [...] left breast was performed by a registered intranet developer with Doppler. Extensive scanning of the subareolar region of the left breast demonstrates no focal abnormality or suspicious findings. [facility] Ulices Johansen MD - 05/17/2022 Patient [...] left breast was performed by a registered intranet developer with Doppler. Extensive scanning of the subareolar region of the left breast demonstrates no focal abnormality or suspicious findings. IMPRESSION: No mammographic or targeted sonographic correlate for patient's left breast pain. Clinical follow-up is recommended. No mammographic evidence of malignancy in either breast. Patient to return to annual screening. Markings on images: BB's = Nipples; skin lesions Open [place] = Palpable Line = Scar ASSESSMENT: Category 1 Negative RECOMMENDATION: Clinical correlation Left Routine screening mammogram in 1 year. Bilateral Report Dictated on Electronically Signed By: Ulices Johansen Electronically Signed Date/Time: 05/17/2022 9:25 AM EDT [employer] Radiology Study observation (narrative) [facility] Absolute lymphocyte counton 11-06-2021 Lymphocytes Auto (Unsp spec) [#/Vol] 1.13 10*3/uL 0.83-4.51 [facility] Work Phone: Basophil percentageon 2021 Basophils/100 WBC (Bld) 0.4 % 0-1 [facility] Work Phone: Bilirubin [Mass/Vol] 0.40 mg/dL 0.20-1.00 [facility] Work Phone: Comment on above: For patients on eltr ombopag therapy, use of Dimension [place] TBIL is not recommended. Chloride [Moles/Vol] 102 mmol/L 98-107 [facility] Work Phone: Cholesterol [Mass/Vol] 208 mg/dL <200 [facility] Work Phone: Comment on above: <200 mg/dL Desirable 200-240 mg/dL Borderline >240 mg/dL High Risk Eosinophils/100 WBC (Bld) 1.5 % 0-5 [facility] Work Phone: Glucose [Mass/Vol] 122 mg/dL 74-106 [facility] Work Phone: Comment on above: Fasting Glucose resu lt from 100 to 125 mg/dL suggests IMPAIRED HOMEOSTASIS per A.D.A. criteria. Neutrophils (Bld) [#/Vol] 4.9 10*3/uL 2.0-7.7 [facility] Work Phone: Neutrophils/100 WBC (Bld) 73.5 % 47-70 [facility] Work Phone: Potassium [Moles/Vol] 3.1 mmol/L 3.5-5.1 [facility] Work Phone: Protein [Mass/Vol] 8.3 g/dL 6.4-8.2 [facility] Work Phone: Sodium [Moles/Vol] 136 mmol/L 136-145 [facility] Work Phone: Triglyceride [Mass/Vol] 111 mg/dL <199 [facility] Work Phone: [phone] Comment on above: The drugs N-Acetylcy steine and Metamizole may falsely depress this assay.Serum Triglycerides Reference Interval Normal <150 mg/dL Borderline high 150 - 199 mg/dL High 200 - 499 mg/dL Very High > or = 500 mg/dL WBC (Bld) [#/Vol] 6.7 10*3/uL 4.4-11.0 [facility] Work Phone: [phone] Blood erythrocytes count (nu mber/volume)on 11-06-2021 RBC (Bld) [#/Vol] 4.73 10*6/uL 4.2-5.4 [facility] Work Phone: [phone] Blood hemoglobin measurement (mass/volume)on 11-06-2021 Hemoglobin (Bld) [Mass/Vol] 13.2 g/dL 12.0-15.0 [facility] Work Phone: [phone] Blood lymphocytes/100 leukoc yteson 11-06-2021 Lymphocytes/100 WBC (Bld) 16.9 % 19-41 [facility] Work Phone: [phone] Blood monocytes/100 leukocyt eson 11-06-2021 Monocytes/100 WBC (Bld) 7.6 % 0-10 [facility] Work Phone: [phone] Blood platelet mean volumeon 11-06-2021 Platelet mean volume (Bld) [Entitic vol] 11.4 fL 6.2-12.0 [facility] Work Phone: [phone] Determination of erythrocyte mean corpuscular volume (MCV)on 11-06-2021 MCV (RBC) [Entitic vol] 83.1 fL 81-99 [facility] Work Phone: [phone] Hematocrit Auto (Bld) [Volum e fraction]on 11-06-2021 Hematocrit (Bld) [Volume fraction] 39.3 % 37-47 [facility] Work Phone: [phone] Laboratory - Chemistry and C hemistry - challengeon 11-06-2021 ALP [Catalytic activity/Vol] 78 U/L 45-117 [facility] Work Phone: [phone] ALT [Catalytic activity/Vol] 20 U/L 13-56 [facility] Work Phone: [phone] CO2 [Moles/Vol] 24.0 mmol/L 21.0-32.0 [facility] Work Phone: [phone] Globulin (S) [Mass/Vol] 4.5 g/dL 2.2-4.2 [facility] Work Phone: [phone] Urea nitrogen/Creatinine [Mass ratio] 13.2 mg/mg 10-20 [facility] Work Phone: [phone] Laboratory - Hematology and Cell countson 11-06-2021 Erythrocyte distribution width (RBC) [Entitic vol] 49.3 fL 35.1-43.9 [facility] Work Phone: [phone] Erythrocyte distribution width (RBC) [Ratio] 16.3 % 11.6-14.6 [facility] Work Phone: [phone] Immature granulocytes/100 WBC (Bld) 0.100 % 0.0-0.9 [facility] Work Phone: [phone] Comment on above: IG% - Immature Granu locytes (promyelocytes, myelocytes and metamyelocytes) > 1% indicates that a LEFT SHIFT is Present. MCH (RBC) [Entitic mass] 27.9 pg 27.0-32.0 [facility] Work Phone: [phone] Nucleated RBC/100 WBC (Bld) [Ratio] 0 % 0-5 [facility] Work Phone: [phone] MCHC Auto (RBC) [Mass/Vol]on 11-06-2021 MCHC (RBC) [Mass/Vol] 33.6 g/dL 32-36 [facility] Work Phone: [phone] Panel Informationon 11-06 Estimated GFR (MDRD) Amer 87 mL/min >60 [facility] Work Phone: [phone] Comment on above: GFR Calc Estimated GFR (MDRD) Non-Af Amer 72 mL/min >60 [facility] Work Phone: [phone] Comment on above: Non- GFR Calc Thyroid Stimulating Hormone (TSH) 0.35 uIU/mL 0.358-3.74 [facility] Work Phone: Platelets bldon 09-30-2022 Platelets (Bld) [#/Vol] 304 10*3/uL 150-450 [facility] Work Phone: Serum or plasma albumin gil urement (mass/volume)on 11-06-2021 Albumin [Mass/Vol] 3.8 g/dL 3.2-5.0 [facility] Work Phone: Serum or plasma albumin/glob ulin mass ratioon 11-06-2021 Albumin/Globulin [Mass ratio] 0.8 {ratio} 0.9-2.4 [facility] Work Phone: [phone] Serum or plasma calcium gil urement (mass/volume)on 11-06-2021 Calcium [Mass/Vol] 9.4 mg/dL 8.5-10.1 [facility] Work Phone: Serum or plasma cholesterol in HDL measurement (mass/volume)on 11-06-2021 Cholesterol in HDL [Mass/Vol] 47 mg/dL >40 [facility] Work Phone: Comment on above: The drugs N-Acetylcy steine and Metamizole may falsely depress this assay. Reference Range HDL <40 mg/dL Low HDL Cholesterol HDL >or= 60 mg/dL High HDL Cholesterol Serum or plasma cholesterol in VLDL measurement (mass/volume)on 11-06-2021 Cholesterol in VLDL [Mass/Vol] 22 mg/dL 5-40 [facility] Work Phone: Serum or plasma creatinine m easurement (mass/volume)on 11-06-2021 Creatinine [Mass/Vol] 0.91 mg/dL 0.55-1.02 [facility] Work Phone: Comment on above: The validity of the calculated GFR & GFRAA in patients over 70 years has not been determined. Clinical correlation is essential. Serum or plasma low density lipoprotein (LDL) cholesterol measurement (mass/volume)on 11-06-2021 Cholesterol in LDL [Mass/Vol] 139 mg/dL 0-130 [facility] Work Phone: Serum or plasma urea nitroge n measurement (mass/volume)on 11-06-2021 Urea nitrogen [Mass/Vol] 12 mg/dL 7-18 [facility] Work Phone: Thin prep Papanicolaou smear with manual screeningon 11-06-2021 Thin prep Papanicolaou smear with manual screening 15 U/L 15-37 [facility] Work Phone: Thin prep Papanicolaou smear with manual screening 10 5-15 [facility] Work Phone: CORONAVIRUS 2019 BY PCRon CORONAVIRUS 2019,PCR NOT DETECTED Normal Not Detected [facility]3] Comment on above: Result Comment: . This [...] this test method. Fact sheet for providers: https://www.fda.gov/media/247480/download Fact sheet for patients: https://www.fda.gov/media/907064/download This test has received FDA Emergency Use Authorization [EUA] and has been verified by [facility] ([facility]). This test is only authorized for the duration of time that circumstances exist to justify the authorization of the emergency use of in vitro diagnostic tests for the detection of SARS-CoV-2 virus and/or diagnosis of COVID-19 infection under section 564(b)(1) of the Act, 21 U.S.C. 360bbb-3(b)(1), unless the authorization is terminated or revoked sooner. [facility] is certified under CLIA-88 as qualified to perform high complexity testing. Testing is performed in the [facility] laboratories located at [address] [place] [address]. Performed By: #### C OV19 #### [address] [place] [address] DATE OF SYMPTOM ONSET [YYYYMMDD]? [id number] Normal [facility]3] Comment on above: Performed By: #### C OV19 #### [address] [place] [address] EMPLOYED IN HEALTHCARE? No Normal [facility]3] Comment on above: Performed By: #### C OV19 #### [facility] [address] [place] [address] FIRST COVID NASAL SWAB TEST? Yes Normal [facility]3] Comment on above: Performed By: #### C OV19 #### [facility] [address] [place] [address] HOSPITALIZED (OR PLANNED TO BE ADMITTED)? No Normal [facility]3] Comment on above: Performed By: #### C OV19 #### [facility] [address] [place] [address] ICU? No Normal [facility]3] Comment on above: Performed By: #### C OV19 #### [facility] [address] [place] [address] ? No Normal [facility]3] Comment on above: Performed By: #### C OV19 #### [facility] [address] [place] [address] RESIDENT IN CONGREGATE CARE SETTING? No Normal [facility]3] Comment on above: Performed By: #### C OV19 #### [facility] [address] [place] [address] SYMPTOMATIC DEFINED BY CDC? Yes Normal [facility]3] Comment on above: Performed By: #### C OV19 #### [facility] [address] [place] [address] CORONAVIRUS 2019 BY PCRon Lab Specimen Source Nasal, Nasopharyngeal Normal [facility]3] Comment on above: Performed By: #### C OV19 #### [facility] [address] [place] [address] Coronavirus 2019 RNA by PCR, Symptomaticon 01-01-2020 [...] this test method. Fact sheet for providers: https://www.fda.gov/media/281123/downloadFact sheet for patients: https://www.fda.gov/media/283973/downloadThis test has received FDA Emergency Use Authorization [EUA] and has been verified by [facility] ([facility]). This test is only authorized for the duration of time that circumstances exist to justify the authorization of the emergency use of in vitro diagnostic tests for the detection of SARS-CoV-2 virus and/or diagnosis of COVID-19 infection under section 564(b)(1) of the Act, 21 U.S.C. 360bbb-3(b)(1), unless the authorization is terminated or revoked sooner. [facility] is certified under CLIA-88 as qualified to perform high complexity testing. Testing is performed in the [facility] laboratories located at [address] [place] [address]. CT Abdomen/Pelvis w/o Contra jelani 10-01-2019 CT Abdomen/Pelvis w/o Contrast Patient Name: NADIA GONZALEZ CT Exam Date/Time 09/28/2019 13:13:[address] Abdomen/Pelvis (No PO, No IV) Ordering Physician TOY BURCH Accession Number [id number] CPT4 Codes 61265 (CT Abdomen/Pelvis (No PO, No IV)) Reason [...] Transcribed Date and Time: 10/01/2019 8:26 Normal [facility] US ABDOMEN COMPLETEon 2019 Patient Name: NADIA GONZALEZ ---Ultrasound--- Exam Date/Time 09/07/2019 11:48:52 EDT Exam US Abdomen Complete Ordering Physician SHYAM LUCIANO DORA L Accession Number [id number] CPT4 Codes 40401 () Reason For Exam R10.32 Report Indication: [...] ANTHONY Transcribed Date and Time: 09/07/2019 11:58 [facility] Incoming Radiology Results From [facility] - 09/07/2019 12:01 PM EDT Patient Name: NADIA GONZALEZ ---Ultrasound--- Exam Date/Time 09/07/2019 11:48:52 EDT Exam US Abdomen Complete Ordering Physician SHYAM LUCIANO DORA L Accession Number [id number] CPT4 Codes 09791 () Reason For Exam R10.32 Report Indication: [...] ANTHONY Transcribed Date and Time: 09/07/2019 11:58 [place], [place] US Abdomen Completeon 2019 US Abdomen Complete Patient Name: NADIA GONZALEZ Ultrasound Exam Date/Time 09/07/2019 11:48:52 EDT Exam US Abdomen Complete Ordering Physician SHYAM LUCIANO DORA L Accession Number [id number] CPT4 Codes 89648 () Reason For Exam R10.32 Report Indication: [...] Transcribed Date and Time: 09/07/2019 11:58 Normal [facility] US PELVIS COMPLETEon Patient Name: NADIA GONZALEZ ---Ultrasound--- Exam Date/Time 09/07/2019 11:48:06 EDT Exam US Pelvis Complete Ordering Physician SHYAM LUCIANO DORA L Accession Number [id number] CPT4 Codes 79683 () Reason For Exam R10.32; LLQ pain [...] No acute process. Report Dictated on Workstation: [employer] --- Final --- Dictated: 09/07/2019 11:59 am Dictating Physician: MD CHAPMAN RISA Signed Date and Time: 09/07/2019 12:00 pm Signed by: MD CHAPMAN RISA Transcribed Date and Time: 09/07/2019 11:59 [facility] Incoming Radiology Results From [facility] - 09/07/2019 12:02 PM EDT Patient Name: NADIA GONZALEZ ---Ultrasound--- Exam Date/Time 09/07/2019 11:48:06 EDT Exam US Pelvis Complete Ordering Physician SHYAM LUCIANO DORA L Accession Number [id number] CPT4 Codes 12658 () Reason For Exam R10.32; LLQ pain [...] No acute process. Report Dictated on Workstation: [employer] --- Final --- Dictated: 09/07/2019 11:59 am Dictating Physician: MD CHAPMAN RISA Signed Date and Time: 09/07/2019 12:00 pm Signed by: MD CHAPMAN RISA Transcribed Date and Time: 09/07/2019 11:59 [place], [place] US Pelvis Completeon 020 US Pelvis Complete Patient Name: NADIA GONZALEZ Ultrasound Exam Date/Time 09/07/2019 11:48:06 EDT Exam US Pelvis Complete Ordering Physician SHYAM LUCIANO DORA L Accession Number [id number] CPT4 Codes 04182 () Reason For Exam R10.32; LLQ pain [...] Transcribed Date and Time: 09/07/2019 11:59 Normal [facility] Hepatitis Acute Panelon 07-08 HAV Ab IgM Negative Normal Negative [facility] Comment on above: Performed By: #### H EPP #### [place] [address] HB Core Ab IgM Negative Normal Negative [facility] Comment on above: Performed By: #### H EPP #### [place] [address] Hepatitis C Ab Negative Normal Negative [facility] Comment on above: Performed By: #### H EPP #### [place] [address] Hep.B Surface Ag Negative Normal Negative [facility] Comment on above: Performed By: #### H EPP #### [facility] [address] [place] [address] TSHon 07-25-2018 Thyrotropin Qn 1.92 uIU/mL Normal 0.34-4.82 [facility] Comment on above: Performed By: #### L TSH #### [place] [address] Clinical Summary: HMSPatient IDon 02-08-2018 WOP Invalid Interpretation Code [facility] Work Phone: Office Visit: Postop - 1st v isit, Rm: 2on 02-08-2018 NEGATED: Highlighted rowProtein mass conc Done Invalid Interpretation Code [facility] Work Phone: NEGATED: Highlighted rowProtein mass conc Yes Invalid Interpretation Code [facility] Work Phone: Hematologyon 07-13-2011 Lymphocytes (Bld) [#/Vol] FINAL DIAGNOSIS: LEFT AXILLARY, LYMPH NODE, CORE BIOPSY - FRAGMENTS OF BENIGN LYMPH NODE. COMMENT: Sections reviewed by Dr. Smalls. SPECIMEN: LYMPH NODE [facility] 07-13-2011 CONVERTED CLINICAL HISTORY OPERATIVE PROCEDURE: U/S-guided left axillary LN bx CLINICAL INFORMATION: Lt axillary node enlargement; obtained 10:00, formalin 10:05 [facility] CONVERTED GROSS DESCRIPTION GROSS DESCRIPTION: Four 18g cores Container labeled with the patient's name. Received in formalin are several minute strands of soft white tissue measuring 0.7 x 0.1 x 0.1 cm in aggregate. The specimen is totally submitted in a single cassette x3. SMS:hlm MICROSCOPIC DESCRIPTION: Slides reviewed. 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 SPECIMEN: POC [facility] CONVERTED GROSS DESCRIPTION GROSS DESCRIPTION: Products of conception The specimen is received in a container labeled products of conception. Received in a suction device are portions of membranous to feathery red-nguyen tissue and clotted blood measuring 6 x 6 x 4 cm in aggregate. tissue is not identified. Seismograph Chief sample submitted in three cassettes. EDS/SMS/gpl MICROSCOPIC DESCRIPTION: Slides reviewed. SDS/gpl [facility] CONVERTED ORDERING PROVIDER Ordering Provider: JENNIFER ROSAS [facility] Thyroidon 02-27-2009 TSH Db PRINCE M.D., PATHOLOGIST (Electronic signature on file) Final Signed Out: 02/27/2009 14:26 [facility] Otheron 07-19-2007 CONVERTED ELECTRONIC SIGNATURE LINDA JENKINS M.D. (Electronic signature on file) Final Signed Out: 07/19/2007 16:41 [facility] CONVERTED FINAL DIAGNOSIS HYMENECTOMY WITH VESTIBULECTOMY - SQUAMOUS MUCOSA AND VESTIBULAR GLANDS WITH CHRONIC INFLAMMATION AND REACTIVE LYMPHOID NODULES. [facility] CONVERTED ORDERING PROVIDER Ordering Provider: JONY FINCH [facility] Vital Signs Date Time Vital Sign Value Performing Clinician Facility 07-30-2024 14:21-0400 Body height 162.6 cm [facility] Comment on above: per pt report 07-30-2024 14:21-0400 Body mass index (BMI) [Ratio] 27.46 kg/m2 [facility] 07-30-2024 14:21-0400 Body weight 72.58 kg [facility] Comment on above: per pt report 07-30-2024 14:21-0400 Heart rate 60 /min [facility] Comment on above: per pt report 06-25-2024 11:24-0400 Body height 162.6 cm Nataly Brunson CNP Work Phone: [facility] 06-25-2024 11:24-0400 Body mass index (BMI) [Ratio] 27.46 kg/m2 Nataly Brunson CNP Work Phone: [facility] 06-25-2024 11:24-0400 Body weight 72.58 kg Nataly Brunson CNP Work Phone: [facility] 06-14-2024 13:31-0400 Body height 162.6 cm Elizabeth Finelli DO Work Phone: [facility] 06-14-2024 13:31-0400 Body mass index (BMI) [Ratio] 27.69 kg/m2 Elizabeth Finelli DO Work Phone: [facility] 06-14-2024 13:31-0400 Body weight 73.17 kg Elizabeth Finelli DO Work Phone: [facility] 06-14-2024 13:31-0400 Diastolic blood pressure 82 mm[Hg] Elizabeth Finelli DO Work Phone: [facility] 06-14-2024 13:31-0400 Heart rate 89 /min Elizabeth Finelli DO Work Phone: [facility] 06-14-2024 13:31-0400 SaO2% (BldA) [Mass fraction] 100 % Elizabeth Finelli DO Work Phone: [facility] 06-14-2024 13:31-0400 Systolic blood pressure 119 mm[Hg] Elizabeth Finelli DO Work Phone: [facility] 05-24-2024 18:06-0400 Body height 162.56 cm Dawson Luciano [employer]ER [employer] Work Phone: [facility] 05-24-2024 18:06-0400 Body mass index (BMI) [Ratio] 27.8 kg/m2 Dawson Luciano [employer] Work Phone: [facility] 05-24-2024 18:06-0400 Body temperature 97.7 [degF] Dawson Luciano [employer]ER [employer] Work Phone: [facility] 05-24-2024 18:06-0400 Body weight 73.48 kg Dawson Luciano [employer]ER [employer] Work Phone: [facility] 05-24-2024 18:06-0400 Diastolic blood pressure 60 mm[Hg] Dawson Luciano [employer]ORER [employer] Work Phone: [facility] 05-24-2024 18:06-0400 Heart rate 89 /min Dawson Luciano [employer]ER [employer] Work Phone: [facility] 05-24-2024 18:06-0400 Respiratory rate 18 /min Dawson Luciano [employer] Work Phone: [facility] 05-24-2024 18:06-0400 SaO2% (BldA) [Mass fraction] 99 % Dawson Luciano [employer] Work Phone: [facility] 05-24-2024 18:06-0400 Systolic blood pressure 118 mm[Hg] Dawson Luciano [employer]ER [employer] Work Phone: [facility] 02-23-2024 12:49-0500 Body height 162.6 cm Elizabeth Finelli DO Work Phone: [facility] 02-23-2024 12:49-0500 Body mass index (BMI) [Ratio] 29.23 kg/m2 Elizabeth Finelli DO Work Phone: [facility] 02-23-2024 12:49-0500 Body weight 77.25 kg Elizabeth Finelli DO Work Phone: [facility] 02-23-2024 12:49-0500 Diastolic blood pressure 85 mm[Hg] Elizabeth Finelli DO Work Phone: [facility] 02-23-2024 12:49-0500 Heart rate 92 /min Elizabeth Finelli DO Work Phone: [facility] 02-23-2024 12:49-0500 SaO2% (BldA) [Mass fraction] 100 % Elizabeth Finelli DO Work Phone: [facility] 02-23-2024 12:49-0500 Systolic blood pressure 133 mm[Hg] Elizabeth Finelli DO Work Phone: [facility] 02-10-2024 12:59-0500 Body height 162.6 cm Elizabeth Finelli DO Work Phone: [facility] 02-10-2024 12:59-0500 Body mass index (BMI) [Ratio] 29.21 kg/m2 Elizabeth Finelli DO Work Phone: [facility] 02-10-2024 12:59-0500 Body weight 77.2 kg Elizabeth Finelli DO Work Phone: [facility] 02-10-2024 12:59-0500 Diastolic blood pressure 84 mm[Hg] Elizabeth Finelli DO Work Phone: [facility] 02-10-2024 12:59-0500 Heart rate 88 /min Elizabeth Finelli DO Work Phone: [facility] 02-10-2024 12:59-0500 SaO2% (BldA) [Mass fraction] 100 % Elizabeth Finelli DO Work Phone: [facility] 02-10-2024 12:59-0500 Systolic blood pressure 125 mm[Hg] Elizabeth Finelli DO Work Phone: [facility] 06-13-2023 10:35-0400 Body height 162.6 cm Ach 4 [facility] [employer] 06-13-2023 10:35-0400 Body mass index (BMI) [Ratio] 30.9 kg/m2 Ach 4 [facility] [employer] 06-13-2023 10:35-0400 Body weight 81.65 kg Ach 4 [facility] [employer] 12-13-2022 14:03-0500 Body height 162.6 cm Nataly Brunson CNP Work Phone: [employer] 12-13-2022 14:03-0500 Body mass index (BMI) [Ratio] 32.44 kg/m2 Nataly Brunson CNP Work Phone: [facility] [employer] 12-13-2022 14:03-0500 Body temperature 98.01 [degF] Nataly Brunson CNP Work Phone: [facility] 12-13-2022 14:03-0500 Body weight 85.73 kg Nataly Cisneros DIVIDEND CLERK - [employer] Work Phone: [facility] 12-13-2022 14:03-0500 Diastolic blood pressure 90 mm[Hg] Nataly Cisneros DIVIDEND CLERK - [employer] Work Phone: [facility] 12-13-2022 14:03-0500 Heart rate 83 /min Nataly Cisneros DIVIDEND CLERK - [employer] Work Phone: [facility] 12-13-2022 14:03-0500 Respiratory rate 12 /min Nataly Cisneros DIVIDEND CLERK - [employer] Work Phone: [facility] 12-13-2022 14:03-0500 Systolic blood pressure 141 mm[Hg] Nataly Cisneros DIVIDEND CLERK - MILL [employer]ER Work Phone: [facility] 11-03-2022 20:09-0400 Body height 162.56 cm [facility] 11-03-2022 20:09-0400 Body mass index (BMI) [Ratio] 32.9 kg/m2 [facility] 11-03-2022 20:09-0400 Body temperature 97.5 [degF] [facility] 11-03-2022 20:09-0400 Body weight 87.08 kg [facility] 11-03-2022 20:09-0400 Diastolic blood pressure 60 mm[Hg] [facility] 11-03-2022 20:09-0400 Heart rate 83 /min [facility] 11-03-2022 20:09-0400 Respiratory rate 18 /min [facility] 11-03-2022 20:09-0400 SaO2% (BldA) [Mass fraction] 96 % [facility] 11-03-2022 20:09-0400 Systolic blood pressure 100 mm[Hg] [facility] 09-01-2022 15:17-0400 Body height 162.56 cm [facility] 09-01-2022 15:17-0400 Body mass index (BMI) [Ratio] 34.1 kg/m2 [facility] 09-01-2022 15:17-0400 Body temperature 98.1 [degF] [facility] 09-01-2022 15:17-0400 Body weight 90.26 kg [facility] 09-01-2022 15:17-0400 Diastolic blood pressure 80 mm[Hg] [facility] 09-01-2022 15:17-0400 Heart rate 88 /min [facility] 09-01-2022 15:17-0400 Respiratory rate 18 /min [facility] 09-01-2022 15:17-0400 SaO2% (BldA) [Mass fraction] 97 % [facility] 09-01-2022 15:17-0400 Systolic blood pressure 120 mm[Hg] [facility] 06-02-2022 15:49-0400 Body mass index (BMI) [Ratio] 34.3 kg/m2 [facility] 06-02-2022 15:49-0400 Body temperature 98.1 [degF] [facility] 06-02-2022 15:49-0400 Body weight 90.71 kg [facility] 06-02-2022 15:49-0400 Diastolic blood pressure 80 mm[Hg] [facility] 06-02-2022 15:49-0400 Heart rate 89 /min [facility] 06-02-2022 15:49-0400 Respiratory rate 18 /min [facility] 06-02-2022 15:49-0400 SaO2% (BldA) [Mass fraction] 98 % [facility] 06-02-2022 15:49-0400 Systolic blood pressure 140 mm[Hg] [facility] 05-21-2022 14:55-0400 Diastolic blood pressure 93 mm[Hg] Nataly Brunson CNP Work Phone: [facility] 05-21-2022 14:55-0400 Systolic blood pressure 141 mm[Hg] Nataly Brunson CNP Work Phone: [facility] 05-21-2022 14:04-0400 Body height 162.6 cm Nataly Brunson CNP Work Phone: [facility] [employer] 05-21-2022 14:04-0400 Body mass index (BMI) [Ratio] 33.81 kg/m2 Nataly Cisneros DIVIDEND CLERK - MILL CONTROLLER Work Phone: [facility] 05-21-2022 14:04-0400 Body temperature 98.6 [degF] Nataly Cisneros DIVIDEND CLERK - MILL CONTROLLER Work Phone: [facility] 05-21-2022 14:04-0400 Body weight 89.36 kg Nataly Cisneros DIVIDEND CLERK - MILL CONTROLLER Work Phone: [facility] 05-21-2022 14:04-0400 Heart rate 89 /min Nataly Cisneros APRN - MILL CONTROLLER Work Phone: [facility] 05-21-2022 14:04-0400 Respiratory rate 12 /min Nataly Cisneros APRN - MILL CONTROLLER Work Phone: [facility] 04-27-2022 11:20-0400 Body height 162.6 cm Toy Burch MD Work Phone: [facility] 04-27-2022 11:20-0400 Body mass index (BMI) [Ratio] 33.64 kg/m2 Toy Burch MD Work Phone: [facility] 04-27-2022 11:20-0400 Body weight 88.91 kg Toy Burch MD Work Phone: [facility] 04-27-2022 11:20-0400 Diastolic blood pressure 110 mm[Hg] Toy Burch MD Work Phone: [facility] 04-27-2022 11:20-0400 Systolic blood pressure 160 mm[Hg] Toy Burch MD Work Phone: [facility] 11-06-2021 15:00-0400 Body height 162.56 cm [facility] Work Phone: 11-06-2021 15:00-0400 Body mass index (BMI) [Ratio] 32.8 kg/m2 [facility] Work Phone: 11-06-2021 15:00-0400 Body temperature 97.9 [degF] [facility] Work Phone: 11-06-2021 15:00-0400 Body weight 86.63 kg [facility] Work Phone: 11-06-2021 15:00-0400 Diastolic blood pressure 80 mm[Hg] [facility] Work Phone: 11-06-2021 15:00-0400 Heart rate 104 /min [facility] Work Phone: 11-06-2021 15:00-0400 Respiratory rate 18 /min [facility] Work Phone: 11-06-2021 15:00-0400 SaO2% (BldA) [Mass fraction] 97 % [facility] Work Phone: 11-06-2021 15:00-0400 Systolic blood pressure 136 mm[Hg] [facility] Work Phone: 09-30-2021 14:43-0400 Body mass index (BMI) [Ratio] 34 kg/m2 [facility] Work Phone: 09-30-2021 14:43-0400 Body temperature 97.9 [degF] [facility] Work Phone: 09-30-2021 14:43-0400 Body weight 89.81 kg [facility] Work Phone: 09-30-2021 14:43-0400 Diastolic blood pressure 80 mm[Hg] [facility] Work Phone: 09-30-2021 14:43-0400 Heart rate 94 /min [facility] Work Phone: 09-30-2021 14:43-0400 Respiratory rate 18 /min [facility] Work Phone: 09-30-2021 14:43-0400 SaO2% (BldA) [Mass fraction] 98 % [facility] Work Phone: 09-30-2021 14:43-0400 Systolic blood pressure 138 mm[Hg] [facility] Work Phone: 01-01-2020 19:15-0500 BMI (Body [...] Comment on above: Pain Scale NEGATED: Highlighted [id number] 13:49-0500 BMI (Body Mass Index) 28.77 kg/m2 Iona Brenner LPN [facility] Work Phone: NEGATED: Highlighted [id number] 13:49-0500 BP Diastolic 90 mm[Hg] Iona Brenner LPN [facility] Work Phone: NEGATED: Highlighted [id number] 13:49-0500 BP Systolic 153 mm[Hg] Iona Brenner BASKET MENDER [facility] Work Phone: NEGATED: Highlighted [id number] 13:49-0500 BP Systolic 150 mm[Hg] Iona Brenner BASKET MENDER [facility] Work Phone: NEGATED: Highlighted [id number] 13:49-0500 Height 162.56 cm Iona Brenner LPN [facility] Work Phone: NEGATED: Highlighted [id number] 13:49-0500 Height 163 cm Iona Elidia LIANGN [facility] Work Phone: NEGATED: Highlighted [id number] 13:49-0500 Pulse (Heart Rate) 87 /min Iona Brenner [facility]PN [facility] Work Phone: NEGATED: Highlighted [id number] 13:49-0500 Weight 75.75 kg Iona Brenner LPN [facility] Work Phone: NEGATED: Highlighted [id number] 13:49-0500 Weight 76 kg Iona Brenner BASKET MENDER [facility] Work Phone: Encounters Encounter Date Encounter Type Care Provider Facility Start: 11-21-2024 ambulatory DAWSON Ly [facility] Start: 10-05-2024 End: 10-05-2024 Subsequent hospital visit by physician [facility] Work Phone: [facility] Comment on above: Acute abdomen [R10.0 ] Start: 10-05-2024 End: 10-05-2024 ambulatory DAWSON LUCIANO Facility:[facility] Start: 10-05-2024 Encounter for preprocedural laboratory examination ELIZABETH RICHARDSON [facility] Start: 09-20-2024 End: 09-20-2024 Postop follow up visit related to original px Elizabeth C Finelli DO Work Phone: General Surgery Comment on above: Acute abdomen (Prima ry Dx); Acute post-operative pain; Muscle spasm; Encounter for surgical aftercare following surgery on the digestive system Start: 09-20-2024 End: 09-20-2024 ambulatory ELIZABETH Michel IBARRAI Facility:[facility] Start: 09-13-2024 End: 09-13-2024 Office outpatient visit 15 minutes Elizabeth C Nicolettelli DO Work Phone: General Surgery Comment on above: Acute post-operative pain (Primary Dx); Muscle spasm Start: 09-13-2024 End: 09-13-2024 ambulatory ELIZABETH C NICOLETTELLI Facility:[facility] Start: 08-24-2024 End: 08-24-2024 Patient encounter procedure Li Orr APRN.MILL CONTROLLER Work Phone: General Surgery Comment on above: S/P hernia repair (P rimary Dx) Start: 08-24-2024 End: 08-24-2024 ambulatory LI ORR Facility:[facility] Start: 08-13-2024 End: 08-13-2024 Refill Elizabeth C Finelli DO Work Phone: [facility] Start: 08-09-2024 End: 08-13-2024 Admission to same day surgery center Elizabeth C Nicolettelli DO Work Phone: General Surgery Comment on above: Post Op Questions Start: 08-09-2024 End: 08-13-2024 ambulatory Elizabeth C Finelli DO Work Phone: General Surgery Start: 08-07-2024 End: 08-07-2024 ambulatory ELIZABETH RICHARDSON Facility:[facility] Start: 08-01-2024 End: 08-01-2024 ambulatory DAWSONThais LUCIANO Facility:[facility] Start: 08-01-2024 Encounter for other preprocedural examination ELIZABETH RICHARDSON [facility] Start: 07-30-2024 End: 07-30-2024 Preprocedural examination done Pacc [facility] Work Phone: Start: 07-30-2024 Encounter for other preprocedural examination ELIZABETH RICHARDSON [facility] Start: 07-30-2024 End: 07-30-2024 PAT [facility] Virtual Pre Anesthesia Comment on above: Pre-op evaluation (P rimary Dx); Cigarette smoker; Marijuana use; Anxiety and depression; Attention deficit hyperactivity disorder (ADHD), unspecified ADHD type; Primary hypertension; Intractable migraine without status migrainosus, unspecified migraine type; Gastroesophageal reflux disease, unspecified whether esophagitis present; Prediabetes; Hypothyroidism, unspecified type; PONV (postoperative nausea and vomiting) Start: 07-13-2024 End: 07-13-2024 ambulatory DAWSON LUCIANO Facility:[facility] Start: 07-11-2024 End: 07-11-2024 ambulatory ELIZABETH RICHARDSON Facility:[facility] Start: 07-11-2024 End: 07-11-2024 Admission to same day surgery center Elizabeth Richardson DO Work Phone: General Surgery Comment on above: Incisional hernia, w ithout obstruction or gangrene (Primary Dx) Start: 07-11-2024 End: 07-11-2024 Telemedicine consultation with patient Elizabeth Richardson DO Work Phone: General Surgery Start: 07-06-2024 ambulatory ELIZABETH RICHARDSON Facil ity:[facility] Start: 07-06-2024 End: 07-06-2024 Subsequent hospital visit by physician [facility] Comment on above: Incisional hernia, w ithout obstruction or gangrene [K43.2] Start: 06-29-2024 End: 06-29-2024 ambulatory TOY BURCH [facility] Start: 06-25-2024 End: 08-25-2024 Follow-up encounter Nataly Brunson CNP Work Phone: [facility] Comment on above: Bilateral screening mammogram with tomosynthesis Start: 06-25-2024 End: 06-25-2024 Subsequent hospital visit by physician Nataly Brunson CNP Work Phone: [facility] Comment on above: Encounter for screen ing mammogram for malignant neoplasm of breast Start: 06-25-2024 End: 06-25-2024 ambulatory DAWSON LUCIANO [facility] Start: 06-18-2024 End: 09-17-2024 Transcribe Orders Nataly Brunson CNP Work Phone: [facility] Comment on above: Encounter for [...] Start: 06-14-2024 End: 06-14-2024 ambulatory ELIZABETH RICHARDSON Facility:[facility] Start: 05-24-2024 End: 05-24-2024 ambulatory Dawson Luciano LABORER CHEESEMAKING-C Work Phone: [facility] Work Phone: Start: 05-24-2024 End: 05-24-2024 Patient encounter procedure Dawson Luciano NP-C -Laboratory, Specimen Work Phone: Start: 05-24-2024 End: 05-24-2024 ambulatory Dawson Luciano NP Facility:[facility] Start: 03-29-2024 End: 03-29-2024 ambulatory ELIZABETHDONOVAN RICHARDSON Facility:[facility] Start: 03-29-2024 End: 03-29-2024 Postop follow up visit related to original px Elizabeth C Finelli DO Work Phone: General Surgery Comment on above: Acute post-operative pain (Primary Dx); Cholesterolosis of gallbladder; S/P laparoscopic cholecystectomy Start: 03-22-2024 End: 03-22-2024 ambulatory ELIZABETH C FINELLI Facility:[facility] Start: 03-22-2024 End: 03-22-2024 Patient encounter procedure Gerardo Lobo PA-C Work Phone: General Surgery Comment on above: S/P laparoscopic cho lecystectomy (Primary Dx); Post-operative nausea and vomiting Start: 03-06-2024 End: 03-06-2024 ambulatory ELIZABETH C FINELLI Facility:[facility] Start: 02-24-2024 End: 05-16-2024 Telephone encounter Elizabeth C Finelli DO Work Phone: Pre Anesthesia Start: 02-23-2024 End: 02-23-2024 ambulatory ELIZABETH C FINELLI Facility:[facility] Start: 02-23-2024 End: 02-23-2024 Office outpatient visit 10 minutes Elizabeth C Finelli DO Work Phone: General Surgery Comment on above: Biliary dyskinesia ( Primary Dx) Start: 02-10-2024 End: 02-10-2024 ambulatory ELIZABETH C FINELLI Facility:[facility] Start: 02-10-2024 End: 02-10-2024 Office outpatient new 30 minutes Elizabeth C Finelli DO Work Phone: General Surgery Comment on above: RUQ pain (Primary Dx ); Nausea Start: 01-26-2024 End: 01-26-2024 ambulatory DAWSON LUCIANO Facility:[facility] Start: 01-26-2024 End: 01-26-2024 Subsequent hospital visit by physician Abel Lundberg DIVIDEND CLERK - MILL CONTROLLER Work Phone: [facility] Comment on above: Nausea & vomiting; RUQ abdominal pain Start: 01-26-2024 End: 01-26-2024 ambulatory ABEL [facility] Start: 01-20-2024 End: 04-20-2024 Transcribe Orders Abel Lundberg DIVIDEND CLERK - MILL CONTROLLER Work Phone: [facility] Comment on above: Nausea & vomiting (P rimary Dx); RUQ abdominal pain Start: 01-04-2024 End: 01-04-2024 Subsequent hospital visit by physician Abel Lundberg DIVIDEND CLERK - MILL CONTROLLER Work Phone: [facility] Comment on above: Right upper quadrant pain; Nausea with vomiting, unspecified Start: 01-04-2024 End: 01-04-2024 ambulatory ABEL LUNDBERG [facility] Start: 12-30-2023 End: 03-30-2024 Transcribe Orders Abel Lundberg DIVIDEND CLERK - MILL CONTROLLER Work Phone: [facility] Comment on above: Right upper quadrant pain (Primary Dx); Nausea with vomiting, unspecified Start: 08-24-2023 End: 08-24-2023 ambulatory Dawson Luciano LABORER CHEESEMAKING Facility:[facility] Start: 06-13-2023 End: 06-13-2023 Subsequent hospital visit by physician Agata Ex[facility] Room 4 [facility] Comment on above: Encounter for screen ing mammogram for breast cancer Start: 12-13-2022 End: 12-13-2022 Office outpatient visit 15 minutes Nataly Cisneros APRN - MILL CONTROLLER Work Phone: [facility] [place] Comment on above: Encounter for screen ing mammogram for breast cancer (Primary Dx); Breast pain, left; Family history of breast cancer; Family history of prostate cancer Start: 11-03-2022 End: 11-03-2022 ambulatory [facility] Work Phone: Start: 11-03-2022 End: 11-03-2022 Patient encounter procedure [facility]-Laboratory, Specimen Work Phone: Start: 09-01-2022 End: 09-01-2022 ambulatory [facility] Work Phone: Start: 09-01-2022 End: 09-01-2022 Patient encounter procedure [facility]-Laboratory, Specimen Work Phone: Start: 06-08-2022 End: 06-08-2022 Subsequent hospital visit by physician [facility] Comment on above: Cervicalgia [M54.2] Start: 05-21-2022 End: 05-21-2022 Office outpatient new 30 minutes Nataly Cisneros DIVIDEND CLERK - MILL CONTROLLER Work Phone: [facility] Comment on above: Family history of br east cancer (Primary Dx); Breast pain, left; Family history of ovarian cancer; Genetic testing Start: 05-17-2022 End: 05-17-2022 Subsequent hospital visit by physician Toy Burch MD Work Phone: [facility] Comment on above: Breast pain, left Start: 04-27-2022 End: 04-27-2022 Patient encounter status Toy Burch MD Work Phone: [facility] Start: 04-27-2022 End: 04-27-2022 Periodic preventive med est patient 40-64yrs Toy Burch MD Work Phone: [facility] Comment on above: Encounter for gyneco logical examination without abnormal finding (Primary Dx); Breast pain, left Start: 11-06-2021 End: 11-06-2021 ambulatory [facility] Work Phone: Start: 11-06-2021 End: 11-06-2021 Patient encounter procedure [facility]-Laboratory, Specimen Start: 09-28-2019 End: 09-28-2019 Subsequent hospital visit by physician Toy Burch Work Phone: [facility] Comment on above: LLQ pain; Lt flank pain Start: 09-07-2019 End: 09-07-2019 Subsequent hospital visit by physician Dawson Luciano Work Phone: [facility] Comment on above: Arrived Start: 02-08-2018 End: 02-08-2018 Patient encounter procedure Alessandro Blakely MD Work Phone: [facility] Work Phone: Start: 07-12-2011 End: 07-12-2011 Patient encounter procedure Zaina Golden Work Phone: [facility] Start: 07-12-2011 Results Only Zaina Mic Mikey harper Work Phone: [facility] Start: 02-25-2009 End: 02-25-2009 Patient encounter procedure Jennifer Rosas Work Phone: [facility] Start: 02-25-2009 Results Only Jennifer joseph Work Phone: [facility] Start: 07-18-2007 End: 07-18-2007 Patient encounter procedure Jony Finch Work Phone: [facility] Start: 07-18-2007 Results Only Jony rahman Work Phone: [facility] Procedures Date Procedure Procedure Detail Performing Clinician Start: 06-25-2024 End: 06-25-2024 Screening digital breast tomosynthesis bi Nataly Cisneros DIVIDEND CLERK - MILL CONTROLLER Work Phone: Start: 01-26-2024 Hepatobil syst imag inc gb w/pharma intervenj Abel Lundberg DIVIDEND CLERK - MILL CONTROLLER Work Phone: Start: 01-26-2024 Thyrotropin [Units/volume] in Serum or Plasma Abel Lundberg DIVIDEND CLERK - MILL CONTROLLER Work Phone: Start: 06-13-2023 End: 06-13-2023 Screening digital breast tomosynthesis bi Nataly Cisneros DIVIDEND CLERK - MILL CONTROLLER Work Phone: Start: 11-03-2022 Urine culture Start: 06-08-2022 Radex spine cervical 2 or 3 views Dawson Luciano DIVIDEND CLERK.MILL CONTROLLER Work Phone: Start: 05-17-2022 Us breast uni [...] for Adults (1 - 1-dose 75+ series) [facility] Start: 2039 RSV Immunization age d 60 or older (1 - 1-dose 60+ series) RSV Immunization aged 60 or older (1 - 1-dose 60+ series) [facility] Start: 2029 Zoster Vaccines (1 of 2) Zoster Vacc nasim (1 of 2) [facility] Start: 08-02-2027 [facility] Start: 01-25-2027 [facility] Start: 06-28-2025 End: 06-28-2025 Patient encounter procedure [facility] Start: 06-25-2025 Screening for malign ant neoplasm of breast [facility] Start: 01-25-2025 Diabetes: Estimated Glomerular Filtration Rate for [facility] Diabetes: Estimated Glomerular Filtration Rate for [facility] Start: 01-25-2025 Thyroid stimulating hormone measurement TSH Level [facility] Start: 10-08-2024 Influenza vaccination [facility] Start: 10-05-2024 End: 10-05-2024 Patient encounter procedure 10/05/2024 2:00 PM EDT Appointment [facility] [address] [place] [id number] Acute abdomen [R10.0] [facility] Comment on above: Acute abdomen [R10.0 ] Start: 08-24-2024 End: 08-24-2024 Patient encounter procedure 08/24/2024 2:00 PM EDT Office Visit General Surgery [address] [address] Li Orr, DIVIDEND CLERK.MILL CONTROLLER [address] [address] Follow up LAPAROSCOPIC HERNIA REPAIR INCISIONAL INITIAL REDUCIBLE W/MESH 3cm-10cm, supraumbilical incisional hernia 08/07 General Surgery Comment on above: Follow up LAPAROSCOP IC HERNIA REPAIR INCISIONAL INITIAL REDUCIBLE W/MESH 3cm-10cm, supraumbilical incisional hernia 08/07 Start: 08-07-2024 End: 08-07-2024 Admission to same day surgery center 08/07/2024 9:21 AM EDT - 08/07/2024 12:32 PM EDT Surgery [facility] [address] [place] [id number] Elizabeth Richardson, DO [address] [place] [address] LAPAROSCOPIC HERNIA REPAIR INCISIONAL INITIAL REDUCIBLE W/MESH 3cm-10cm, supraumbilical incisional hernia [facility] Comment on above: LAPAROSCOPIC HERNIA REPAIR INCISIONAL INITIAL REDUCIBLE W/MESH 3cm-10cm, supraumbilical incisional hernia Start: 08-07-2024 End: 08-07-2024 LAPAROSCOPIC HERNIA REPAIR INCISIONAL INITIAL REDUCIBLE W/MESH 3cm-10cm LAPAROSCOPIC HERNIA REPAIR INCISIONAL INITIAL REDUCIBLE W/MESH 3cm-10cm Incisional hernia, without obstruction or gangrene 08/07/2024 9:21 AM EDT [facility] OR Start: 08-07-2024 Subsequent hospital visit by physician 08/07/2024 9:21 AM EDT Hospital Encounter [facility] [address] [place] [id number] Elizabeth Richardson, DO [address] [place] [address] Incisional hernia, without obstruction or gangrene [K43.2] [facility] Comment on above: Incisional hernia, w ithout obstruction or gangrene [K43.2] Start: 07-30-2024 End: 07-30-2024 Anesthesia consultation 07/30/2024 2:30 PM EDT PAT Pre Anesthesia [address] [id number] DOS: 08/07/2024 DR DYLAN CHESTER Pre Anesthesia Comment on above: DOS: 08/07/2024 DR Rl CHESTER Start: 07-30-2024 End: 10-29-2024 CBC W Auto Differential panel - Blood COMPLETE BLOOD COUNT AND DIFFERENTIAL Lab Routine Pre-op evaluation Expected: 07/30/2024, Expires: 10/29/2024 [facility] Work Phone: Comment on above: Expected: 07/30/2024 , Expires: 10/29/2024 Start: 07-30-2024 End: 10-29-2024 Comprehensive metabolic 2000 panel - Serum or Plasma COMPREHENSIVE METABOLIC PANEL Lab Routine Pre-op evaluation Expected: 07/30/2024, Expires: 10/29/2024 [facility] Comment on above: Expected: 07/30/2024 , Expires: 10/29/2024 Start: 07-11-2024 End: 07-11-2024 Telephone follow-up 07/11/2024 3:30 PM EDT [facility] General Surgery [address] [address] Elziabeth Richardson, DO [address] [place], [place] [id number] follow up from CT and surg plan [...] procedure 06/29/2024 1:00 PM EDT Office Visit [facility] [address] [place] [id number] Nataly Cisneros, TRUNG - MILL CONTROLLER [address] [place] [address] [facility] Start: 06-12-2024 Screening for malign ant neoplasm of breast [facility] Start: 03-29-2024 End: 03-29-2024 Patient encounter procedure 03/29/2024 1:00 PM EST Office Visit General Surgery [address] [address] Elizabeth Richardson, DO [address] [place] [address] 1-2 week follow up General Surgery Comment on above: 1-2 week follow up Start: 03-22-2024 End: 03-22-2024 Patient encounter procedure 03/22/2024 1:15 PM EST Office Visit General Surgery [address] [address] Elizabeth Richardson, DO [address] [place] [address] LAPAROSCOPIC CHOLECYSTECTOMY WITH GRAMS [2390] General Surgery Comment on above: LAPAROSCOPIC CHOLECY STECTOMY WITH GRAMS [2390] Start: 03-06-2024 End: 03-06-2024 Admission to same day surgery center 03/06/2024 9:35 AM EST - 03/06/2024 11:54 AM EST Surgery [facility] Surgery [address] [place] [address] Elizabeth Richardson, DO [address] [place] [address] LAPAROSCOPIC CHOLECYSTECTOMY WITH GRAMS [facility] Surgery Comment on above: LAPAROSCOPIC CHOLECY STECTOMY WITH GRAMS Start: 03-06-2024 End: 03-06-2024 Laps surg cholecystectomy w/cholangiography LAPAROSCOPIC CHOLECYSTECTOMY WITH GRAMS Biliary dyskinesia 03/06/2024 9:35 AM EST ME OR Start: 03-06-2024 Subsequent hospital visit by physician 03/06/2024 9:35 AM EST Hospital Encounter [facility] Surgery [address] [place] [address] Elizabeth Richardson, DO [address] [place] [address] Biliary dyskinesia [K82.8] [facility] Surgery Comment on above: Biliary dyskinesia [ K82.8] Start: 02-24-2024 End: 02-24-2024 Patient encounter procedure 02/24/2024 11:30 AM EST Office Visit [facility] [address] [place] [address] Nataly Cisneros APRN - MILL CONTROLLER [address] [place] [address] [facility] Start: 02-23-2024 End: 02-23-2024 Patient encounter procedure 02/23/2024 1:00 PM EST Office Visit General Surgery [address] [address] Elizabeth Richardson, DO [address] [place], [place] [id number] follow up General Surgery Comment on above: follow up Start: 02-08-2024 Lipid panel Lipid Screening [facility] Start: 02-08-2024 Screening for malign ant neoplasm of colon [facility] Start: 12-13-2023 End: 12-13-2023 Patient encounter procedure [facility] Start: 10-09-2023 COVID-19 Vaccine ( season) COVID-19 Vaccine () [facility] Start: 10-09-2023 Influenza vaccination [facility] Start: 06-13-2023 End: 02-13-2024 DBT Breast - bilateral screening Bilateral screening mammogram with tomosynthesis Imaging Routine Encounter for screening mammogram for breast cancer Expected: 06/13/2023 (Approximate), Expires: 02/13/2024 [facility] Work Phone: Comment on above: Expected: 06/13/2023 (Approximate), Expires: 02/13/2024 Start: 06-13-2023 End: 06-13-2023 Patient encounter procedure 06/13/2023 10:30 AM EDT Appointment [facility] [address] [place] [address] [facility] Start: 05-18-2023 Screening for malign ant neoplasm of breast Mammogram [facility] Start: 01-20-2024 Thyroid stimulating hormone measurement TSH Level [facility] Start: 11-19-2022 End: 11-19-2022 Patient encounter procedure 11/19/2022 Office Visit [facility] [address] [place] [address] [facility] Start: 10-08-2022 COVID-19 Vaccine () COVID-19 Vaccine () [facility] Start: 10-08-2022 Influenza vaccination [facility] Start: 05-21-2022 End: 05-21-2022 Patient encounter procedure 05/21/2022 Office Visit Breast Clinic / Breast Center Nataly Cisneros, [facility] [address] [place] [address] [facility] Start: 05-17-2022 End: 05-17-2022 Patient encounter procedure 05/17/2022 Appointment Radiology [facility] Start: 04-27-2022 End: 06-28-2023 MG Breast - bilateral Diagnostic Bilateral diagnostic mammogram Imaging Routine Breast pain, left Expected: 04/27/2022, Expires: 06/28/2023 [facility] Work Phone: Comment on above: Expected: 04/27/2022 , Expires: 06/28/2023 Start: 04-27-2022 End: 06-28-2023 US Breast - left limited Left breast US limited Imaging Routine Breast pain, left Expected: 04/27/2022, Expires: 06/28/2023 [facility] Comment on above: Expected: 04/27/2022 , Expires: 06/28/2023 Start: 10-08-2021 Influenza vaccination Influenza Vacc ine (#1) [facility] Start: 04-07-2021 COVID-19 Vaccine (4 - Booster for Pfizer series) COVID-19 Vaccine (4 - Booster for Pfizer series) [facility] Start: 04-07-2021 COVID-19 Vaccine (4 - Pfizer series) COVID-19 Vaccine (4 - Pfizer series) [facility] Start: 10-09-2019 Influenza vaccination [place] Start: 09-25-2019 End: 09-25-2019 Office Visit 09/25/2019 Office Visit Obstetrics and Gynecology Toy Burch MD [facility] [place] [address] [place] [id number] [facility] [place] [employer]PER[employer] Start: 2019 Lipid panel Lipid screen [place], [place] Start: 2019 Mammography MAMMOGRAM [facility] Start: 2019 Screening for malign ant neoplasm of breast Mammogram [facility] Start: 08-30-2018 Creatinine measurement Creatinine mo nitoring [place], [place] Start: 08-30-2018 Potassium monitoring Potassium monit oring [place] Start: 02-08-2018 End: 02-08-2018 Appointment Appointment [facility] Work Phone: Start: 2009 HPV TESTING HPV TESTING [facility] Start: 2009 Screening for malign ant neoplasm of cervix [facility] Start: 10-08-2008 PAP TESTING PAP TESTING [facility] Start: 10-08-2006 Screening for malign ant neoplasm of cervix Cervical Cancer Screening [facility] Start: 2006 HPV Vaccine (1 - 3-d ose SCDM series) HPV Vaccine (1 - 3-dose SCDM series) [facility] Start: 10-10-2005 HEPATITIS B (3 of 3 - 19+ 3-dose series) HEPATITIS B (3 of 3 - 19+ 3-dose series) [facility] Start: 07-05-2005 Hepatitis B Vaccine (3 of 3 - 19+ 3-dose series) Hepatitis B Vaccine (3 of 3 - 19+ 3-dose series) [facility] Start: 07-05-2005 Hepatitis B Vaccines (3 of 3 - 19+ 3-dose series) Hepatitis B Vaccines (3 of 3 - 19+ 3-dose series) [facility] Start: 07-05-2005 Hepatitis B Vaccines (3 of 3 - 3-dose series) Hepatitis B Vaccines (3 of 3 - 3-dose series) [facility] Start: 02-08-2000 Screening for malign ant neoplasm of cervix [facility] Start: 1998 DTaP/Tdap/Td vaccine (1 - Tdap) DTaP/Tdap/Td vaccine (1 - Tdap) [place] Start: 1998 Pneumococcal vaccination Pneum ococcal Vaccine (1 of 2 - PCV) [facility] Start: 1998 Pneumococcal Vaccine : Pediatrics (0 to 5 Years) and At-Risk Patients (6 to 49 Years) (1 of 2 - PCV) Pneumococcal Vaccine: Pediatrics (0 to 5 Years) and At-Risk Patients (6 to 49 Years) (1 of 2 - PCV) [facility] Start: 08-08-1997 DTaP/Tdap/Td Vaccine s (2 - Tdap) DTaP/Tdap/Td Vaccines (2 - Tdap) [facility] Start: 08-08-1997 Urine microalbumin profile [facility] Start: 1997 ANNUAL PCP TEAM CLEANING SPECIALIST DALIA DISEASE VISIT ANNUAL PCP TEAM CHRONIC DISEASE VISIT [facility] Start: 1997 Anxiety Screening Anxiety Screening [facility] Start: 1997 Diabetes mellitus screening Diabetes Screening [facility] Start: 1997 Diabetes: Estimated Glomerular Filtration Rate for Kidney [facility] Diabetes: Estimated Glomerular Filtration Rate for Kidney [facility] Start: 1997 Diabetes: Urine Albumin-Creatinine Ratio for Kidney Health Diabetes: Urine Albumin-Creatinine Ratio for Kidney [facility] Start: 1997 Hepatitis C screening Hepatitis C Sc reening [facility] Start: 1997 HIV SCREENING HIV SCREENING [facility] Start: 1997 HIV screening HIV Screening [facility] Start: 1994 HIV screening HIV screen [place] Start: 1991 Depression Monitoring Depression Mon itoring [facility] Start: 1991 Depression Screening Depression Scre ening [facility] Start: 1990 Urine microalbumin profile DTAP,TDAP,TD (2 - Tdap) [facility] Start: 1989 Diabetic foot examination Diabetes: Foot Exam [facility] Start: 1989 Glaucoma screening Diabetes: R etinopathy Screening [facility] Start: 1989 Preventive dental service Diabetes: Dental Exam [facility] Start: 1985 PNEUMOCOCCAL (1 - PCV) PNEUMOCOCCAL (1 - PCV) [facility] Start: 1985 Pneumococcal 0-64 ye ars Vaccine (1 of 1 - PPSV23) Pneumococcal 0-64 years Vaccine (1 of 1 - PPSV23) [place], [place] Start: 1985 Pneumococcal Vaccine : Pediatrics (0 to 5 Years) and At-Risk Patients (6 to 64 Years) (1 - PCV) Pneumococcal Vaccine: Pediatrics (0 to 5 Years) and At-Risk Patients (6 to 64 Years) (1 - PCV) [facility] Start: 1985 Pneumococcal Vaccine : Pediatrics (0 to 5 Years) and At-Risk Patients (6 to 64 Years) (1 of 2 - PCV) Pneumococcal Vaccine: Pediatrics (0 to 5 Years) and At-Risk Patients (6 to 64 Years) (1 of 2 - PCV) [facility] Start: 02-08-1980 MMR Vaccines (1 of 1 - Standard series) MMR Vaccines (1 of 1 - Standard series) [facility] Start: 02-08-1980 Varicella vaccine (1 of 2 - 2-dose childhood series) Varicella vaccine (1 of 2 - 2-dose childhood series) [place] Start: 1979 Hemoglobin A1c measurement Diabetes: Hemoglobin A1C [facility] Start: 1979 HIV screening HIV Screening [facility] Start: 1979 Lipid panel Lipid Panel [facility] Start: 1979 Screening for malign ant neoplasm of colon [facility] End: 07-14-2025 CT Abdomen and Pelvis W contrast IV CT ABD/PEL W IVCON Radiology Routine Incisional hernia, without obstruction or gangrene 1 Occurrences starting 06/14/2024 until 07/14/2025 [facility] Work Phone: Comment on above: 1 Occurrences starti ng 06/14/2024 until 07/14/2025 CT Abdomen and Pelvi s W contrast IV CT ABD/PEL W IVCON Radiology Routine Incisional hernia, without obstruction or gangrene 07/06/2024 1:39 PM EDT [facility] Work Phone: End: 10-20-2025 CT Abdomen and Pelvis W contrast IV CT ABD/PEL W IVCON Radiology Routine Acute abdomen 1 Occurrences starting 09/20/2024 until 10/20/2025 [facility] Work Phone: Comment on above: 1 Occurrences starti ng 09/20/2024 until 10/20/2025 CT Abdomen and Pelvi s W contrast IV CT ABD/PEL W IVCON Radiology Routine Acute abdomen 10/05/2024 1:58 PM EDT [facility] Work Phone: End: 09-28-2019 CT Abdomen Pelvis Wo Contrast CT Abdomen Pelvis Wo Contrast Imaging Routine LLQ pain Lt flank pain 1 Occurrences starting 09/28/2019 until 09/28/2019 [place], [place] Comment on above: 1 Occurrences starti ng 09/28/2019 until 09/28/2019 CT Abdomen Pelvis Wo Contrast CT Abdomen Pelvis Wo Contrast Imaging Routine LLQ pain Lt flank pain 09/28/2019 1:02 PM EDT [place] Patient Education \cps-sql1\CPS_ PtEducatio n\quitting_smoking_[id number].pdf, \cps-sql1\CPS_PtEducatio n\quitting_smoking_[id number].pdf, \cps-sql1\CPS_PtEducatio n\htn.pdf [facility] Work Phone: End: 01-04-2024 [facility] Work Phone: Comment on above: Once for 1 Occurrenc es starting 01/04/2024 until 01/04/2024 Immunizations Immunization Date Immunization Notes Care Provider Aram resendiz 02-10-2021 Pfizer SARS-CoV-2 Vaccination Toy Burch MD Work Phone: [facility] 06-07-2020 Pfizer SARS-CoV-2 Vaccination Toy Burch MD Work Phone: [facility] 05-17-2020 Pfizer SARS-CoV-2 Vaccination Toy Burch MD Work Phone: [facility] 05-10-2005 hepatitis B vaccine, adult dosage Jony Finch [facility] 05-10-2005 hepatitis B vaccine, unspecified formulation Xr Hosp [facility] 12-02-2004 tuberculin skin test ; purified protein derivative solution, intradermal Elizabeth Richardson DO Work Phone: [facility] 11-18-2004 hepatitis B vaccine, adult dosage Jony [facility] 11-18-2004 tuberculin skin test ; purified protein derivative solution, intradermal Elizabeth Richardson DO Work Phone: [facility] 08-07-1997 tetanus and diphther ia toxoids, adsorbed, preservative free, for adult use (2 Lf of tetanus toxoid and 2 Lf of diphtheria toxoid) Jony [facility] No information available. Iona Brenner TERRI [facility] Work Phone: Payers Date Payer Category Payer Unknown [id number] 2023 Self-pay [id number] 2022 Blue Cross Blue Shield [id number] 2022 Blue Cross Blue Shie ld Managed Care - HMO [id number] 2022 Unknown [id number] 2022 Unknown [id number] 2016 Unknown BCBS BCBS - [place] P PO [id number] 2016-Present [address] [place] [address] [id number] 2016 Unknown [id number] 2001 Unknown MMO ZZZMMO SUPER MED PLUS [id number] 2001-2018 PPO [id number] 2001 Unknown MMO ZZZMMO SUPER MED PLUS [id number] 2001-2017 PPO [id number] Unknown [id number] Unknown [id number] Social History Date Type Detail Facility Start: 02-08-2018 End: 02-08-2018 Assertion Unknown if ever smoked [facility] Work Phone: Start: 08-30-2017 End: 02-10-2024 Tobacco smoking status NHIS Current every day smoker [facility] Start: 1997 History of tobacco use Cigarette Smoker [place], [place] Start: 08-30-2017 End: 03-22-2024 Cigarettes smoked current (pack per day) - Reported [place], [place] Start: 08-30-2017 End: 02-10-2024 Tobacco use and exposure Never used [place], [place] Start: 08-30-2017 End: 09-13-2024 Alcohol intake Current drinker of alcohol (finding) [place] Start: 04-27-2016 Alcohol Comment rarely [place], [place] Sex Assigned At Not on file [place] Start: 05-07-2022 End: 05-21-2022 Exposure to SARS-CoV-2 (event) Not sure [place], [place] Start: 1979 Sex Assigned At Female [facility] Start: 05-21-2022 Alcohol Comment occ [facility] Start: 05-21-2022 End: 03-22-[address] [facility] Start: 12-16-2020 Gender identity Identifies as female gender (finding) [facility] Start: 12-16-2020 Sexual orientation Heterosexual (fin jose j) [facility] Start: 09-07-2021 End: 05-29-2024 Sex Female (finding) [facility] Start: 01-09-2012 National Score (1-100), lower number is lower risk 55 [facility] Start: 02-10-2024 Tobacco Comment Pt advised to quit C [facility] NEGATED: Highlighted rowStart: 02-08-2018 End: 02-08-2018 Tobacco use and exposure Smokes tobacco daily (finding) [facility] Work Phone: NEGATED: Highlighted row - - [facility] Work Phone: Medical Equipment Procedure Code Equipment Code Equipment Origin al Text Equipment Identifier Dates Mesh Surgical Parietene Ds 12cm Round - [id number] Start: 08-07-2024 Functional Status Date Assessment Result [...] Type Note Facility 11-21-2024 Note HNO ID: [id number] Author: DESTINEE RANGEL RT(R) Service: Nuclear Medicine [...] PATIENT PRESENTS WITH AN IMPLANTABLE OR ATTACHED HIGHWAY MAINTAINER: No CREATININE: Creatinine Date Value Ref Range [...] [address] PERFORMED: No IV SITE: NE only - not applicable, oral or physician administered agents given to patient POST EXAM PIV STATUS: Not applicable PROCEDURE TYPE: NM GET: 1.18 mCi Tc99m SULFUR COLLOID was administered orally via 4 oz egg beaters, 2 pieces toast, 8 oz water ADMINISTRATION TIME: 0807 PATIENT DISCHARGED TO: Ambulatory patient, left NE department area. Is this a therapy: No A Diagnostic radioactive procedure has taken place, with no further precautions necessary other than routine body substance precautions. More information regarding radiation safety can be found using this link: [email or web address] SIGNATURE: RT Na(R) PATIENT NAME: Nadia Gonzalez DATE: November 21, 2024 TIME: 8:09 AM PAGER/CONTACT #: [facility] 10-05-2024 History of Present illness Narrative [...] PATIENT PRESENTS WITH AN IMPLANTABLE OR ATTACHED HIGHWAY MAINTAINER: No ALLERGIES: Reviewed and unchanged CONTRAST ALLERGY: [...] TIME: 2:17 PM documented in this encounter [facility] 10-05-2024 Note HNO ID: [id number] Author: JETHRO FINCH CT Service: Radiology Author [...] PATIENT PRESENTS WITH AN IMPLANTABLE OR ATTACHED HIGHWAY MAINTAINER: No ALLERGIES: Reviewed and unchanged CONTRAST ALLERGY: [...] DATE: October 05, 2024 TIME: 2:17 PM [facility] 10-02-2024 History of Present illness Narrative Established VIRTUAL CONSULT NAME: Nadia Gonzalez CLINIC NO: [id number] DATE OF SERVICE: October 02, 2024 I had a virtual consult with Ms. Gonzalez today. HPI: Nadia Gonzalez is a 44-year-old female presenting for follow-up on abdominal pain. Nadia reports improvement in abdominal pain since last [...] to be picked up on the at [facility] in [place]. 3. Acute abdomen (R10.0) This encounter was provided via two-way, live video teleconferencing within the guidelines of state licensure rules for new and established patients. I have communicated my name and active licensure. The patient's identity and physical location were verified at the time of this visit. Either the patient or their legal inside sales account representative has been informed of the risks [...] once in while documented in this encounter [facility] 09-25-2024 Note HNO ID: [id number] Author: ELIZABETH RICHARDSON DO Service: ? Author Type: Physician Type: Progress Notes Filed: 09/25/2024 08:18 Note Text: GENERAL SURGERY FOLLOW UP Recording using Conjecta software for draft documentation of the visit was discussed with the patient/authorized inside sales account representative; all questions welcomed and answered. Patient/authorized inside sales account representative agreed to proceed Nadia Gonzalez is [...] Elizabeth Richardson, September 25, 2024 8:17 AM [facility] 09-25-2024 History of Present illness Narrative Images from the original note were not included. GENERAL SURGERY FOLLOW UP Recording using ambient Frockadvisor software for draft documentation of the visit was discussed with the patient/authorized inside sales account representative; all questions welcomed and answered. Patient/authorized inside sales account representative agreed to proceed Nadia Gonzalez is [...] 2024 8:17 AM documented in this encounter [facility] 09-13-2024 Instructions Elizabeth Richardson DO - [...] been sent to your preferred pharmacy at [facility] on . Please let us know if you have any questions or concerns. documented in this encounter [facility] 08-24-2024 Note HNO ID: [id number] Author: LI ORR APRN.SHYAM Service: ? Author [...] distress Abdomen: soft and non-tender Li Orr APRN.MILL CONTROLLER 08/24/2024 [facility] 08-24-2024 History of Present illness Narrative IMPRESSION: [...] Orr APRN.CNP 08/24/2024 documented in this encounter [facility] 08-13-2024 Telephone encounter Note Rx sent to [facility]. Please review pain regimen if able to tolerate. Tylenol (acetaminophen) up to 1,000mg (2 over the counter 500mg) every 6 hours Motrin (ibuprofen) up to 800mg (4 over the counter 200mg) every 6 hours between tylenol Roxicodone 5mg every 6 hours as needed for pain. [facility] 08-13-2024 Miscellaneous Notes Rx sent to [facility]. Please review pain regimen if able to [...] calling: self Call patient at: on cell [phone] (home) [phone] (cell) Was an appointment scheduled: No Lauryn Welsh documented in this encounter [facility] 08-13-2024 Telephone encounter Note Per pt [...] and Tylenol. Thank you for your assistance. [facility] 08-13-2024 Telephone encounter Note Nadia is calling Elizabeth Richardson DO today to request A medication not on current med list Oxycodone IR 5 mg tablet every 6 hrs as needed # 20 0 refills Patient has been identified by name and birthdate. Person calling: self Call patient at: on cell [phone] (home) [phone] (cell) Was an appointment scheduled: No Lauryn Welsh [facility] 08-09-2024 Telephone encounter Note 08/07/24 Procedure: LAPAROSCOPIC HERNIA REPAIR INCISIONAL INITIAL REDUCIBLE W/MESH 3cm-10cm, supraumbilical incisional hernia Procedure Summary Date: 08/07/24 Room / Location: MD OR01 / MD OR Anesthesia Start: 732 Anesthesia Stop: 950 [...] as needed for future problems. Encounter closed. [facility] 08-09-2024 Miscellaneous Notes 08/07/24 Procedure: LAPAROSCOPIC HERNIA REPAIR INCISIONAL INITIAL REDUCIBLE W/MESH 3cm-10cm, supraumbilical incisional hernia Procedure Summary Date: 08/07/24 Room / Location: MD OR01 / MD OR Anesthesia Start: 732 Anesthesia Stop: 950 [...] problems. Encounter closed. documented in this encounter [facility] 08-07-2024 Note HNO ID: [id number] Author: ?, ?, ? Service: Pharmacy Author Type: ? Type: Plan of Care Filed: 08/07/2024 11:06 Note Text: PHARMACY BEDSIDE DELIVERY SERVICE Patient Name: Nadia Gonzalez The marked outpatient medications were Filled at: [place] and delivered to the patient's bedside to [...] PAGER: [phone] August 07, 2024 11:06 AM [facility] 08-07-2024 Note HNO ID: [id number] Author: MARTÍN SURESH APRN.DANCE DIRECTOR Service: Anesthesiology Author Type: Nurse Cryptanalyst Type: Anesthesia Procedure Notes Filed: 08/07/2024 07:51 Note Text: ANESTHESIOLOGY PROCEDURE NOTE Airway General Information Procedure Start Time/Medication Administration: 08/07/2024 7:38 AM Procedure End Time: 08/07/2024 7:38 AM Patient location during procedure: OR Timeout Performed Pre-procedure: timeout performed Consent Obtained: Yes 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 Staffing DANCE DIRECTOR: Kandrac, Martín, DIVIDEND CLERK.DANCE DIRECTOR Performed by: DANCE DIRECTOR Indications and Patient Condition Indications for airway [...] attempts at approach: 1 SIGNATURE: Martín Suresh APRN.DANCE DIRECTOR PATIENT NAME: Nadia Gonzalez DATE: August 07, 2024 TIME: 7:50 AM CSN: [id number] [facility] 08-07-2024 Note HNO ID: [id number] Author: NILA LUEVANO RN Service: Nursing Author Type: Registered Nurse Type: Nursing Progress Note Filed: 08/07/2024 07:00 Note Text: Other: pt ready for OR, call light in reach, Deon called to bedside [facility] 07-30-2024 Instructions Arely Mcgowan APRN.MILL CONTROLLER - 07/30/2024 2:37 PM EDT Images from the original note were not included. [facility] PATIENT PREOPERATIVE INSTRUCTIONS Elizabeth Richardson DO has scheduled you for your procedure at this surgery center: [facility]: [phone] -- [address] [facility] [address]. Please read below carefully for your personalized [...] office. If you are currently using a [id number]-vget injectable or oral medication for diabetes or [...] Procedures: - YOU MUST HAVE A RESPONSIBLE GLASS ROLLING MACHINE OPERATOR TAKE YOU HOME. A CLIENT SUCCESS MANAGER OR BUSINESS DEVELOPMENT COORDINATOR CANNOT BE MADE A RESPONSIBLE GLASS ROLLING MACHINE OPERATOR. - We recommend that a responsible person [...] Advance Directive, please fax a copy to [phone] or email to for it to be [...] into your chart that day. Arely Mcgowan, TRUNG.MILL CONTROLLER documented in this encounter [facility] 07-30-2024 History and physical note Images from the original note were not included. [facility] Pre[facility]Anesthesia Consultation Clinic HISTORY AND PHYSICAL EXAMINATION SERVICE DATE: 07/30/2024 SERVICE TIME: 2:39 PM PRIMARY CARE PHYSICIAN: Dawson Luciano APRN.MILL CONTROLLER Assessment Patient has the following medical conditions [...] E, et al. 2017 Guidelines of the [place] [employer] for the Diagnosis and Management [...] 10/29/2024 This is a virtual visit using TouchBistro video visit. It required patient-provider interaction for [...] virtual visit. The visit was conducted using TouchBistro video visit. It required patient-provider interaction for the medical decision making as documented below. I have communicated my name and active licensure. The patient's identity and physical location were verified at the time of this visit. Either the patient or their legal inside sales account representative has been informed of the risks and benefits of and alternatives to treatment through a remote evaluation and consents to proceed with the evaluation remotely. REVIEW OF SYSTEMS: General: Negative for: unintentional weight change, malaise and fever. Neurological: Negative for: INSTALLER METAL FLOORING tumor, peripheral neuropathy, seizures, TIA and strokes. Respiratory: Positive for: tobacco use. Negative for: asthma, COPD, current cough, dyspnea, pneumonia within 6 weeks and obstructive sleep apnea. Cardiovascular: Positive for: hypertension Negative for: chest pain, CHF, DVT/PE, hyperlipidemia, recent IL, PTCA, PVD and open heart surgery. GI: Positive for: GERD Negative for: dysphagia, GI bleed <30 days, liver disease, nausea, vomiting and ETOH >2 drinks/day. : Negative for: dysuria, frequent urination, hematuria, urinary incontinence, nephrolithiasis and renal failure. 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 Negative for abnormal vaginal bleeding, [...] cholangiogram Lap. bilateral transversus abdominus plane blockDr. iRchardson LIGATE FALLOPIAN TUBE 2010 PAST SURGICAL HISTORY [...] or any previous visit (from the past 93789 hours). Instructions Given to Patient: Instructions located in the after visit summary. Patient given verbal and written preop instructions and voices comprehension and compliance. SIGNATURE: Arely Mcgowan APRN.CNP PATIENT NAME: Nadia Gonzalez DATE: July 30, 2024 TIME: 2:24 PM PAGER/CONTACT #: [facility] 07-30-2024 History and physical note Images from the original note were not included. [facility] HISTORY AND PHYSICAL EXAMINATION SERVICE DATE: 07/30/2024 SERVICE TIME: 2:39 PM PRIMARY CARE PHYSICIAN: Dawson Luciano APRN.MILL CONTROLLER Assessment Patient has the following medical conditions [...] Schmitz, et al. 2017 Guidelines of the [place] [employer] for the Diagnosis and Management [...] 10/29/2024 This is a virtual visit using TouchBist[employer] video visit. It required patient-provider interaction for the medical decision making as documented below. REASON FOR VISIT: Nadia Gonzalez is a 44 year old female who is scheduled for Procedure(s) with comments: LAPAROSCOPIC HERNIA REPAIR INCISIONAL INITIAL REDUCIBLE W/MESH 3cm-10cm, supraumbilical incisional hernia (N/A) - LAPAROSCOPIC HERNIA REPAIR INCISIONAL INITIAL REDUCIBLE W/MESH 3cm-10cm, supraumbilical incisional hernia at the request of Dr. Elizabeth Ricahrdson for consultation. My final recommendation will be [...] virtual visit. The visit was conducted using Touch[employer]ist[employer] video visit. It required patient-provider interaction for the medical decision making as documented below. I have communicated my name and active licensure. The patient's identity and physical location were verified at the time of this visit. Either the patient or their legal inside sales account representative has been informed of the risks and benefits of and alternatives to treatment through a remote evaluation and consents to proceed with the evaluation remotely. REVIEW OF SYSTEMS: General: Negative for: unintentional weight change, malaise and fever. Neurological: Negative for: INSTALLER METAL FLOORING tumor, peripheral neuropathy, seizures, TIA and strokes. Respiratory: Positive for: tobacco use. Negative for: asthma, COPD, current cough, dyspnea, pneumonia within 6 weeks and obstructive sleep apnea. Cardiovascular: Positive for: hypertension Negative for: chest pain, CHF, DVT/PE, hyperlipidemia, recent IL, PTCA, PVD and open heart surgery. GI: Positive for: GERD Negative for: dysphagia, GI bleed <30 days, liver disease, nausea, vomiting and ETOH >2 drinks/day. : Negative for: dysuria, frequent urination, hematuria, urinary incontinence, nephrolithiasis and renal failure. 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 Negative for abnormal vaginal bleeding, [...] or any previous visit (from the past 01566 hours). Instructions Given to Patient: Instructions located in the after visit summary. Patient given verbal and written preop instructions and voices comprehension and compliance. SIGNATURE: Arely Mcgowan APRN.CNP PATIENT NAME: Nadia Gonzalez DATE: July 30, 2024 TIME: 2:24 PM PAGER/CONTACT #: documented in this encounter [facility] 07-28-2024 Note HNO ID: [id number] Author: ELIZABETH RICHARDSON, DO Service: ? Author Type: Physician Type: Progress Notes Filed: 07/28/2024 14:57 Note Text: Established VIRTUAL CONSULT NAME: Nadia Gonzalez [facility] NO: [id number] DATE OF SERVICE: July 28, 2024 I [...] visit. Either the patient or their legal inside sales account representative has been informed of the risks [...] Richardson DO July 28, 2024 2:50 PM [facility] 07-28-2024 History of Present illness Narrative Images from the original note were not included. Established VIRTUAL CONSULT NAME: Nadia Gonzalez [facility] NO: [id number] DATE OF SERVICE: July 28, 2024 I [...] visit. Either the patient or their legal inside sales account representative has been informed of the risks [...] 2024 2:50 PM documented in this encounter [facility] 07-06-2024 Miscellaneous Notes Radiology Service Progress [...] PATIENT PRESENTS WITH AN IMPLANTABLE OR ATTACHED HIGHWAY MAINTAINER: No RADIOLOGY DEPARTMENT: CT; Exam(s) Completed: Abdomen/Pelvis PERIPHERAL IV DATA: Site assessment: Clean,Dry and Intact, Site disposition Discontinued SIGNED BY: SILVIA Cheung July 06, 2024 1:37 PM documented in this encounter [facility] 07-06-2024 Nurse Note Radiology Service Progress [...] DATE: July 06, 2024 TIME: 1:27 PM [facility] 07-06-2024 Nurse Note Radiology Service Progress [...] TIME: 1:27 PM documented in this encounter [facility] 07-06-2024 Progress note Formatting of t [...] PATIENT PRESENTS WITH AN IMPLANTABLE OR ATTACHED HIGHWAY MAINTAINER: No RADIOLOGY DEPARTMENT: CT; Exam(s) Completed: Abdomen/Pelvis PERIPHERAL IV DATA: Site assessment: Clean,Dry and Intact, Site disposition Discontinued SIGNED BY: SILVIA Cheung July 06, 2024 1:37 PM [facility] 06-14-2024 Note HNO ID: [id number] Author: ELIZABETH RICHARDSON DO Service: ? Author [...] recently, she underwent a laparoscopic cholecystectomy with nj on 03/06/2024 for biliary dyskinesia. She reports [...] was discussed with the patient or authorized inside sales account representative. The patient or authorized inside sales account representative has agreed to proceed with the [...] will attempt to obtain operative reports from [facility] or [facility] for further details on the type [...] Elizabeth Richardson, June 14, 2024 2:07 PM [facility] 06-14-2024 History of Present illness Narrative Images [...] recently, she underwent a laparoscopic cholecystectomy with nj on 03/06/2024 for biliary dyskinesia. She reports [...] was discussed with the patient or authorized inside sales account representative. The patient or authorized inside sales account representative has agreed to proceed with the [...] will attempt to obtain operative reports from [facility] or [facility] for further details on the type [...] 2024 2:07 PM documented in this encounter [facility] 06-14-2024 Instructions Elizabeth Richardson DO - [...] oral contrast for the CT scan. The commercial front load operator staff will assist you with scheduling this [...] call our office. documented in this encounter [facility] 05-24-2024 Evaluation note Diagnosis Onset Date Resolution Depression acute May 24 5:25pm Diarrhea acute May 24 5:25pm Nausea & vomiting acute May 082024 5:25pm [facility] Work Phone: [phone]) 390-476702-27-2025 NoteHNO ID: [id number] Author: ELIZABETH RICHARDSON DO Service: ? Author [...] was discussed with the patient or authorized inside sales account representative. The patient or authorized inside sales account representative has agreed to proceed with the [...] The wall averages 0.3 cm in thickness. Seismograph Chief sections to include gallbladder wall and cystic duct margin are submitted in cassette A1. CG March 06, 2024 4:06 PM Gross examination performed at [facility], [address] [place] [address] Assessment ASSESSMENT Acute post-operative pain (primary encounter diagnosis) Cholesterolosis of gallbladder S/p laparoscopic cholecystectomy RECOMMENDATION -Prescribed PRN pain regimen for continued post-op pain -Recommend avoiding fatty/greasy meals -Continue with weight restrictions (no lifting, pushing, pulling, or squatting >20lbs) for 4 weeks after surgery -Return to clinic in ~3 weeks if symptoms have not improved Elizabeth Richardson DO April 05, 2024 12:53 [facility]02-27-2025 History of Present illness Narrative* Elizabeth Richardson DO - 04/05/2024 12:48 PM EST [...] was discussed with the patient or authorized inside sales account representative. The patient or authorized inside sales account representative has agreed to proceed with the [...] The wall averages 0.3 cm in thickness. Seismograph Chief sections to include gallbladder wall and cystic duct margin are submitted in cassette A1. CG March 06, 2024 4:06 PM Gross examination performed at [facility], [address] [place], [place] [id number] Assessment ASSESSMENT Acute post-operative pain (primary encounter [...] 05, 2024 12:53 PM [facility] NoteHNO ID: [id number] Author: LI ORR APRN.CNP Service: ? Author [...] Gallbladder, cholecystectomy: - Cholesterolosis. Li Orr APRN.CNP 03/22/2024[facility]02-13-2025 History of Present illness Narrative* [...] Li Orr APRN.CNP 03/22/2024 [facility] NoteHNO ID: [id number] Author: MARIO RICK SRNA Service: ? 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 General Surgery New Patient REASON FOR VISIT Nadia Gonzalez is a 44 year old female who is scheduled for a consult at the request of Self for Consult (follow up 01/25 [facility] RUQ pain N/V 01/03 US ABD COMPLETE [...] discussed with the Patient or Patient's Authorized Seismograph Chief. Asapplicable, any other physician, advance practice provider, medical student, or other health professional student that will be observing or involved in the sensitive examination for educational or training purposes was discussed with the Patient or Authorized Seismograph Chief. The Patient or Authorized Seismograph Chief has agreed to proceed with the sensitive [...] focal lesion identified. Gallbladder: Normal. Per the senior cytotechnologist, the sonographic Botello's sign was negative. Bile [...] 2024 TIME: 10:58 PM CC: Dawson Luciano APRN.MILL CONTROLLER CC: [facility]01-26-2025 History and physical note* Elizabeth Richardson DO - 03/04/2024 10:57 PM EST Images from the original note were not included. General Surgery New Patient REASON FOR VISIT Nadia Gonzalez is a 44 year old female who is scheduled for a consult at the request of Self for Consult (follow up 01/25 [facility] RUQ pain N/V 01/03 US ABD COMPLETE [...] discussed with the Patient or Patient's Authorized Seismograph Chief. Asapplicable, any other physician, advance practice provider, medical student, or other health professional student that will be observing or involved in the sensitive examination for educational or training purposes was discussed with the Patient or Authorized Seismograph Chief. The Patient or Authorized Seismograph Chief has agreed to proceed with the sensitive [...] focal lesion identified. Gallbladder: Normal. Per the senior cytotechnologist, the sonographic Botello's sign was negative. Bile [...] 2024 TIME: 10:58 PM CC: Dawson Luciano APRN.MILL CONTROLLER CC: [facility] History and physical note * Elizabeth Richardson DO - 02/19/2024 9:49 PM EST Images from the original note were not included. General Surgery New Patient REASON FOR VISIT Nadia Gonzalez is a 44 year old female who is scheduled for a consult at the request of self for Consult (Gallbladder 01/25 [facility] RUQ pain N/V 01/03 US ABD COMPLETE [...] discussed with the Patient or Patient's Authorized Seismograph Chief. Asapplicable, any other physician, advance practice provider, medical student, or other health professional student that will be observing or involved in the sensitive examination for educational or training purposes was discussed with the Patient or Authorized Seismograph Chief. The Patient or Authorized Seismograph Chief has agreed to proceed with the sensitive [...] 2024 TIME: 9:49 PM CC: Dawson Luciano APRN.MILL CONTROLLER CC: [facility]01-12-2025 History and physical note* Elizabeth Richardson DO - 02/19/2024 9:49 PM EST Images from the original note were not included. General Surgery New Patient REASON FOR VISIT Nadia Gonzalez is a 44 year old female who is scheduled for a consult at the request of self for Consult (Gallbladder 01/25 [facility] RUQ pain N/V 01/03 US ABD COMPLETE [...] discussed with the Patient or Patient's Authorized Seismograph Chief. Asapplicable, any other physician, advance practice provider, medical student, or other health professional student that will be observing or involved in the sensitive examination for educational or training purposes was discussed with the Patient or Authorized Seismograph Chief. The Patient or Authorized Seismograph Chief has agreed to proceed with the sensitive [...] 2024 TIME: 9:49 PM CC: Dawson Luciano APRN.MILL CONTROLLER CC: [facility] History of Present illness Narrative* Nataly [...] history section of this note. She had [employer] expanded panel genetic testing 05/2022 which was [...] left breast was performed by a registered intranet developer with Doppler. Extensive scanning of the subareolar region of the left breast demonstrates no focal abnormality orsuspicious findings. IMPRESSION: No mammographic or targeted sonographic correlate for patient's left breast pain. Clinical follow-up is recommended. No mammographic evidence of malignancy in either breast. Patient to return to annual screening. Markings on images: BB's = Nipples; skin lesions Open [place] = Palpable Line = Scar ASSESSMENT: Category [...] XL) 300 MG 24 hr tablet daily. [id number]-svbtsddd (Fioricet) 50-300-40 MG capsule TAKE 1 CAPSULE [...] using voice recognition software. documented in this [facility]04-14-2023 History of Present illness Narrative* TRUNG [place] [...] left breast was performed by a registered intranet developer with Doppler. Extensive scanning of the subareolar region of the left breast demonstrates no focal abnormality orsuspicious findings. IMPRESSION: No mammographic or targeted sonographic correlate for patient's left breast pain. Clinical follow-up is recommended. No mammographic evidence of malignancy in either breast. Patient to return to annual screening. Markings on images: BB's = Nipples; skin lesions [place] = Palpable Line = Scar ASSESSMENT: Category [...] cost for genetic testing done here at [facility] through [facility] is $250. REachry will reach out to patient if out [...] XL) 300 MG 24 hr tablet daily. [id number]-fnukocjiuxiwl-lsokjdup (Fioricet) 50-300-40 MG capsule TAKE 1 CAPSULE [...] using voice recognition software. documented in this [facility]03-21-2023 History of Present illness Narrative* Shyam Stallworth MA - 04/27/2022 11:30 AM EDT A coffee roaster was offered to be present during her [...] and US. [facility]. [facility] Diagnosis Onset Date Resolution Status Hypothyroidism acute Migraine acute Tension headache acute Hypertension chronic Depression acute Hypothyroidism acute Hypertension [facility] Work Phone: Evaluation note* Diagnosis Encounter for gynecological examination without abnormal finding- Primary Breast pain, left documented in this encounter [facility] note* Diagnosis Breast pain, left documented in this encounter [facility] note* Diagnosis Family history of breast cancer- Primary Family history of malignant neoplasm of breast Breast pain, left Family history of ovarian cancer Family history of malignant neoplasm of ovary Genetic testing Other investigation and testing for procreative management documented in this encounter [facility] note* Diagnosis Onset Date Resolution Status Lumbar back pain with radicu lopathy affecting lower extremity acute Neck pain, chronic chronic Depression acute Hypothyroidism acute Hypertension [facility] Work Phone: Evaluation note* Diagnosis Onset Date Resolution Status Depression acute Hypothyroidism acute Hypertension chronic Cystitis acute Left flank pain acute [facility] Work Phone: [facility] note* Diagnosis Encounter for screening mammogram for breast cancer- Primary Breast pain, left Family history of breast cancer Family history of malignant neoplasm of breast Family history of prostate cancer Family history of malignant neoplasm of prostate documented in this encounter [facility] note* Diagnosis Encounter for screening mammogram for breast cancer documented in this encounter [facility] note* Diagnosis Right upper quadrant pain Abdominal pain, right upper quadrant Nausea with vomiting, unspecified documented in this encounter [facility] note* Diagnosis Nausea & vomiting Nausea with vomiting RUQ abdominal pain Abdominal pain, right upper quadrant documented in this encounter [facility] note* Diagnosis RUQ pain- Primary Abdominal pain, right upper quadrant Nausea Nausea alone documented in this encounter [facility] note* Diagnosis Biliary dyskinesia- Primary Other specified disorder of gallbladder Biliary dyskinesia Other specified disorder of gallbladder documented in this encounter [facility] note* Diagnosis S/P laparoscopic cholecystectomy- Primary Other postprocedural status Post-operative nausea and vomiting Nausea with vomiting documented in this encounter [facility] note* Diagnosis Right upper quadrant pain- Primary Abdominal pain, right upper quadrant Nausea with vomiting, unspecified Right upper quadrant pain Abdominal pain, right upper quadrant Nausea with vomiting, unspecified documented in this encounter [facility] note* Diagnosis Acute post-operative pain- Primary Cholesterolosis of gallbladder S/P laparoscopic cholecystectomy Other postprocedural status documented in this encounter [facility] note* Diagnosis Nausea & vomiting- Primary Nausea with vomiting RUQ abdominal pain Abdominal pain, right upper quadrant Nausea & vomiting Nausea with vomiting RUQ abdominal pain Abdominal pain, right upper quadrant documented in this encounter [facility] note* Diagnosis Incisional hernia, without obstruction or gangrene- Primary Incisional hernia without mention of obstruction or gangrene Diarrhea, unspecified type Encounter for surgical aftercare following surgery on the digestive system Constipation, unspecified constipation type documented in this encounter [facility] note* Diagnosis Encounter for screening mammogram for malignant neoplasm of breast documented in this encounter [facility] note* Diagnosis Incisional hernia, without obstruction or gangrene Incisional hernia without mention of obstruction or gangrene documented in this encounter [facility] note* Diagnosis Incisional hernia, without obstruction or gangrene- Primary Incisional hernia without mention of obstruction or gangrene Incisional hernia, without obstruction or gangrene Incisional hernia without mention of obstruction or gangrene [facility] Diagnosis Pre-op evaluation- Primary Preoperative [...] Schmitz et al. 2017 Guidelines of the [place] Thy[employer] Association for the Diagnosis and Management [...] - Encouraged cessation [facility] Diagnosis Pre-op evaluation- Primary Preoperative examination, [...] Acute post-operative pain [facility] Diagnosis Pre-op evaluation- Primary Preoperative examination, [...] Other postprocedural status documented in this encounter [facility] note* Diagnosis Encounter for screening mammogram for malignant neoplasm of breast- Primary Encounter for screening mammogram for malignant neoplasm of breast documented in this encounter [facility] note* Diagnosis Pre-op evaluation- Primary Preoperative examination, [...] Spasm of muscle documented in this encounter [facility] note* Diagnosis Pre-op evaluation- Primary Preoperative examination, [...] the digestive system documented in this encounter [facility] note* Diagnosis Pre-op evaluation- Primary Preoperative examination, [...] pain, unspecified site documented in this encounter [facility] for referral (narrative)* Consultation (Routine) - Pending Review Specialty Diagnoses / Procedures Referred By Fish lima Referred To Contact Breast Surgery / Breast Clinic / Breast Center Diagnoses Breast pain, left Procedures [place] OFFICE/OUTPATIENT [facility] 60-74 MINUTES Toy Burch MD [facility] [address] [place] [address] [facility] Ach Breast [address] [place] [address] Referral ID Status Reason Start Date Expiration Date Visits Requested Visits Authorized [id number] Pending Review Specialty Services Required 04/27/2022 04/27/[address] [facility] for referral (narrative)No reason for referral information [facility] Work Phone: Reason for visit Narrative* Imaging (Routine) - Authorized Specialty Diagnoses / Procedures Referred By Contalessandro t Referred To Contact Radiology Diagnoses Nausea & vomiting RUQ abdominal pain Procedures NM hepatobiliary scan with pharm agent w/cck Abel Lundberg, DIVIDEND CLERK - MILL CONTROLLER [address] [place] [address] Phone: tel: Referral ID Status Reason Start Date Expiration Date V isits Requested Visits Authorized [id number] Authorized 01/20/2024 01/19/[address] [facility] for visit Narrative* MRI/CT (Routine) - Closed Specialty Diagnoses / Procedures Referred By Contac t Referred To Contact CT IMAGING Diagnoses Incisional hernia, without obstruction or gangrene Procedures CT ABD/PEL W IVCON CT ABD & PELVIS W/CONTRAST Finelli, Elizabeth C, DO [address] [place] [address] Phone: tel: fax: [place] [id number] Referral ID Status Reason Start Date Expiration Date V isits Requested Visits Authorized [id number] Closed Auto-Generate d Referral 06/22/2024 09/19/[address] [facility] for visit Narrative* MRI/CT (Routine) - Closed Specialty Diagnoses / Procedures Referred By Contac t Referred To Contact CT IMAGING Diagnoses Acute abdomen Procedures CT ABD/PEL W IVCON CT ABD & PELVIS W/CONTRAST Finelli, Elizabeth C, DO [address] [place] [address] Phone: tel: fax:[phone] [place] [id number] Referral ID Status Reason Start Date Expiration Date V isits Requested Visits Authorized [id number] Closed Auto-Generate d Referral 09/24/2024 02/06/2025 1 1 [facility] Chief Complaint Chief Complaint Description Start Date right wrist post Removal of hardware and right forearm ulnar shortening osteotomy hardware on 01/27/2018 Preliminary chief co mplaint data, not yet signed by the author as of Instructions Instruction Description Start Date Please follow-up with Primar y Care Physician or Helicopter Crew Chief for treatment or adjustment of medication regarding elevated blood pressure.Patient advised to follow-up with Primary Care Physician for BMI management. Name Dates Details Instructions not documented Advance Directives No Advanced Directives Records FoundDocuments on File Type Date Recorded Patient Seismograph Chief Expl anation Advance Directives and Living Will Power of Burn Center Nurse Documents on File Type Date Recorded Patient Seismograph Chief Expl anation ACP-Advance Directive ACP-Power of Burn Center Nurse Assessments Diagnosis LLQ pain Abdominal pain, left [...] Abdomen Pelvis Wo Contrast Toy Burch MD [address] [address] Chief Complaint and Reason for Visit Chief [...] Breast Center Diagnoses Breast pain, left Procedures [place] OFFICE/OUTPATIENT [facility] 60-74 MINUTES Toy Burch MD [facility] [address] [place] [address] Sh Ach Breast [address] [place] [address] Referral ID Status Reason Start Date Expiration Date Visits Requested Visits Authorized [id number] Pending Review Specialty Services Required 04/27/2022 04/27/2023 [...] follow up Procedures EST DDI PATIENT REM [facility] [address] [place] [address] Phone: tel: Elizabeth Richardson, DO [address] [place] [address] Phone: tel: fax: Referral ID Status Reason Start Date Expiration Date V isits Requested Visits Authorized [id number] Closed Patient Cleared - Qualified 100% FAS 03/29/2024 06/27/2024 99 99 Reason Comments Consult ncisional hernia. HX UHR 12/16/20 SW 06/08 Dawson Luciano [facility] Reason Comments Hernia Reason Comments Pre-Op Visit Reason Comments Post-Op Visit 01JUL Incarcerated h ernia repair w/ mesh by Dr. Richardson Reason Comments Follow Up Increase pain international project manager ally near umbilical site w/ palpable pains that feel like bruising for x5 days Reason Comments Post Op Follow Up INFORMATION SOURCE (unrecogn ized section and content) DATE CREATED AUTHOR 07/26/2018 Javan De Souza [facility] DATE CREATED AUTHOR AUTHOR'S ORGANIZ ATION 09/12/2019 [facility] DATE CREATED AUTHOR AUTHOR'S ORGANIZ ATION 10/04/2019 [facility] DATE CREATED AUTHOR AUTHOR'S ORGANIZ ATION 01/02/2020 [facility] DATE CREATED AUTHOR AUTHOR'S ORGANIZ ATION 01/02/2020 [facility] DATE CREATED AUTHOR AUTHOR'S ORGANIZ ATION 05/31/2024 [facility] DATE CREATED AUTHOR AUTHOR'S ORGANIZ ATION 07/05/2024 [facility] DATE CREATED AUTHOR AUTHOR'S ORGANIZ ATION 08/12/2024 [facility] DATE CREATED AUTHOR AUTHOR'S ORGANIZ ATION 09/26/2024 [facility] DATE CREATED AUTHOR AUTHOR'S ORGANIZ ATION 11/22/2024 Javan De [facility] Source Comments (unrecognize d section and content) In the event this informatio n is protected by the Federal Confidentiality of Alcohol and Drug Abuse Patient Records regulations: The Federal rules restrict any use of the information to criminally investigate or prosecute any alcohol or drug abuse patient.[facility] the event this information is protected by the Federal Confidentiality of Alcohol and Drug Abuse Patient Records regulations: The Federal rules restrict any use of the information to criminally investigate or prosecute any alcohol or drug abuse patient.[facility] Hospital[facility] the event this information is protected by the Federal Confidentiality of Alcohol and Drug Abuse Patient Records regulations: The Federal rules restrict any use of the information to criminally investigate or prosecute any alcohol or drug abuse patient.[facility] Hospital[facility] the event this information is protected by the Federal Confidentiality of Alcohol and Drug Abuse Patient Records regulations: The Federal rules restrict any use of the information to criminally investigate or prosecute any alcohol or drug abuse patient.[facility] Hospital[facility] the event this information is protected by the Federal Confidentiality of Alcohol and Drug Abuse Patient Records regulations: The Federal rules restrict any use of the information to criminally investigate or prosecute any alcohol or drug abuse patient.[facility] Hospital[facility] the event this information is protected by the Federal Confidentiality of Alcohol and Drug Abuse Patient Records regulations: The Federal rules restrict any use of the information to criminally investigate or prosecute any alcohol or drug abuse patient.[facility] Hospital[facility] the event this information is protected by the Federal Confidentiality of Alcohol and Drug Abuse Patient Records regulations: The Federal rules restrict any use of the information to criminally investigate or prosecute any alcohol or drug abuse patient.[facility] Hospital[facility] the event this information is protected by the Federal Confidentiality of Alcohol and Drug Abuse Patient Records regulations: The Federal rules restrict any use of the information to criminally investigate or prosecute any alcohol or drug abuse patient.[facility] Hospital[facility] the event this information is protected by the Federal Confidentiality of Alcohol and Drug Abuse Patient Records regulations: The Federal rules restrict any use of the information to criminally investigate or prosecute any alcohol or drug abuse patient.[facility] Hospital[facility] the event this information is protected by the Federal Confidentiality of Alcohol and Drug Abuse Patient Records regulations: The Federal rules restrict any use of the information to criminally investigate or prosecute any alcohol or drug abuse patient.[facility] Hospital[facility] the event this information is protected by the Federal Confidentiality of Alcohol and Drug Abuse Patient Records regulations: The Federal rules restrict any use of the information to criminally investigate or prosecute any alcohol or drug abuse patient.[facility] Hospital[facility] the event this information is protected by the Federal Confidentiality of Alcohol and Drug Abuse Patient Records regulations: The Federal rules restrict any use of the information to criminally investigate or prosecute any alcohol or drug abuse patient.[facility] Hospital[facility] the event this information is protected by the Federal Confidentiality of Alcohol and Drug Abuse Patient Records regulations: The Federal rules restrict any use of the information to criminally investigate or prosecute any alcohol or drug abuse patient.[facility] Hospital[facility] the event this information is protected by the Federal Confidentiality of Alcohol and Drug Abuse Patient Records regulations: The Federal rules restrict any use of the information to criminally investigate or prosecute any alcohol or drug abuse patient.[facility] HospitalIn the event this information is protected by the Federal Confidentiality of Alcohol and Drug Abuse Patient Records regulations: The Federal rules restrict any use of the information to criminally investigate or prosecute any alcohol or drug abuse patient.[facility] HospitalIn the event this information is protected by the Federal Confidentiality of Alcohol and Drug Abuse Patient Records regulations: The Federal rules restrict any use of the information to criminally investigate or prosecute any alcohol or drug abuse patient.[facility] HospitalIn the event this information is protected by the Federal Confidentiality of Alcohol and Drug Abuse Patient Records regulations: The Federal rules restrict any use of the information to criminally investigate or prosecute any alcohol or drug abuse patient.[facility] HospitalIn the event this information is protected by the Federal Confidentiality of Alcohol and Drug Abuse Patient Records regulations: The Federal rules restrict any use of the information to criminally investigate or prosecute any alcohol or drug abuse patient.[facility] HospitalIn the event this information is protected by the Federal Confidentiality of Alcohol and Drug Abuse Patient Records regulations: The Federal rules restrict any use of the information to criminally investigate or prosecute any alcohol or drug abuse patient.[facility] HospitalIn the event this information is protected by the Federal Confidentiality of Alcohol and Drug Abuse Patient Records regulations: The Federal rules restrict any use of the information to criminally investigate or prosecute any alcohol or drug abuse patient.[facility] Goals (unrecognized section and content) Goals may be documented in a n alternate sectionGoals may be documented in an alternate sectionGoals may be documented in an alternate sectionGoals may be documented in an alternate section Care Teams (unrecognized sec tion and content) Senior Financial Reporting Analyst Relationship Specialty Start Date End Date Luciano Dawson [address] [place], [place] [id number] PCP - General 01/14/15 Senior Financial Reporting Analyst Relationship Specialty Start Date End Date LucianoGuichoa [address] [place], [place] [id number] PCP - General 01/14/15 Senior Financial Reporting Analyst Relationship Specialty Start Date End Date Luciano Dawson [address] [place], [place] [id number] PCP - General 01/14/15 Senior Financial Reporting Analyst Relationship Specialty Start Date End Date Dawson Luciano APRN.MILL CONTROLLER [address] [place] [address] PCP - General Family Medicine 06/28/18 Senior Financial Reporting Analyst Relationship Specialty Start Date End Date Dawson Luciano APRN.MILL CONTROLLER [address] [place] [address] PCP - General Family Medicine 06/28/18 Team Status: Active Member Role Status Dates Dawson Luciano LABORER CHEESEMAKING, LABORER CHEESEMAKING-C Family Provider Active Team Status: Inactive Member Role Status Dates Dawson Luciano LABORER CHEESEMAKING, LABORER CHEESEMAKING-C Attending Provider Active Team Status: Inactive Member Role Status Dates Dawson Luciano LABORER CHEESEMAKING, LABORER CHEESEMAKING-C Attending Provider, Referring Provider Active Senior Financial Reporting Analyst Relationship Specialty Start Date End Date Dawson Luciano [address] [place], [place] [id number] PCP - General 01/14/15 Senior Financial Reporting Analyst Relationship Specialty Start Date End Date Luciano, Dora [address] [place] [address] PCP - General 01/14/15 Senior Financial Reporting Analyst Relationship Specialty Start Date End Date LucianoDawson [address] [place] [address] PCP - General 01/14/15 Senior Financial Reporting Analyst Relationship Specialty Start Date End Date Dawson Luciano [address] [place] [address] PCP - General 01/14/15 Senior Financial Reporting Analyst Relationship Specialty Start Date End Date Dawson Luciano, DIVIDEND CLERK.MILL CONTROLLER [address] [place], [place] [phone] PCP - General Family Medicine 06/28/18 Senior Financial Reporting Analyst Relationship Specialty Start Date End Date Dawson Luciano, DIVIDEND CLERK.MILL CONTROLLER [address] [place] [address] PCP - General Family Medicine 06/28/18 Senior Financial Reporting Analyst Relationship Specialty Start Date End Date Dawson Luciano, DIVIDEND CLERK.MILL CONTROLLER [address] [place], [place] [id number] PCP - General Family Medicine 06/28/18 Senior Financial Reporting Analyst Relationship Specialty Start Date End Date LucianoDawson [address] [place] [address] PCP - General 01/14/15 Senior Financial Reporting Analyst Relationship Specialty Start Date End Date Dawson Luciano, DIVIDEND CLERK.MILL CONTROLLER [address] [facility] [place] [phone] PCP - General Family Medicine 06/28/18 Senior Financial Reporting Analyst Relationship Specialty Start Date End Date Dawson Luciano [address] [place], [place] [address] PCP - General 01/14/15 Senior Financial Reporting Analyst Relationship Specialty Start Date End Date Dawson Luciano, DIVIDEND CLERK.MILL CONTROLLER [address] [place], [place] [phone] PCP - General Family Medicine 06/28/18 Team Status: Active Member Role Status Dates Dawson Luciano LABORER CHEESEMAKING, LABORER CHEESEMAKING-C Family Provider Active Dawson Luciano LABORER CHEESEMAKING, LABORER CHEESEMAKING-C Primary Care Provider Active Team Status: Inactive Member Role Status Dates Dawson Luciano LABORER CHEESEMAKING, LABORER CHEESEMAKING-C Primary Care Provider Active Start: May 24, 2024 End: May 24, 2024 Dawson Luciano LABORER CHEESEMAKING, LABORER CHEESEMAKING-C Attending Provider Active Start: May 24, 2024 End: May 24, 2024 Dawson Luciano LABORER CHEESEMAKING, LABORER CHEESEMAKING-C Referring Provider Active Start: May 24, 2024 End: May 24, 2024 Senior Financial Reporting Analyst Relationship Specialty Start Date End Date Dawson Luciano, DIVIDEND CLERK.MILL CONTROLLER [address] [place] [address] PCP - General Family Medicine 06/28/18 Senior Financial Reporting Analyst Relationship Specialty Start Date End Date Dawson Luciano [address] [place] [address] PCP - General 01/14/15 Senior Financial Reporting Analyst Relationship Specialty Start Date End Date Dawson Luciano, DIVIDEND CLERK.MILL CONTROLLER [address] [place], [place] [phone] PCP - General Family Medicine 06/28/18 Senior Financial Reporting Analyst Relationship Specialty Start Date End Date Dawson Luciano, DIVIDEND CLERK.MILL CONTROLLER [address] [place] [address] PCP - General Family Medicine 06/28/18 Senior Financial Reporting Analyst Relationship Specialty Start Date End Date Dawson Luciano, DIVIDEND CLERK.MILL CONTROLLER [address] [place] [address] PCP - General Family Medicine 06/28/18 Senior Financial Reporting Analyst Relationship Specialty Start Date End Date Dawson Luciano, DIVIDEND CLERK.MILL CONTROLLER [address] [place] [address] PCP - General Family Medicine 06/28/18 Senior Financial Reporting Analyst Relationship Specialty Start Date End Date Dawson Luciano, DIVIDEND CLERK.MILL CONTROLLER [address] [place] [address] PCP - General Family Medicine 06/28/18 Senior Financial Reporting Analyst Relationship Specialty Start Date End Date Dawson Luciano, DIVIDEND CLERK.MILL CONTROLLER [address] [place] [address] PCP - General Family Medicine 06/28/18 Senior Financial Reporting Analyst Relationship Specialty Start Date End Date Guicho Lucianoa [address] [place] [address] PCP - General 01/14/15 Senior Financial Reporting Analyst Relationship Specialty Start Date End Date Dawson Luciano [address] [place] [address] PCP - General 01/14/15 Senior Financial Reporting Analyst Relationship Specialty Start Date End Date Dawson Luciano, DIVIDEND CLERK.MILL CONTROLLER [address] [place] [address] PCP - General Family Medicine 06/28/18 Senior Financial Reporting Analyst Relationship Specialty Start Date End Date Dawson Luciano APRN.MILL CONTROLLER [address] [place], [place] [phone] PCP - General Family Medicine 06/28/18 Senior Financial Reporting Analyst Relationship Specialty Start Date End Date Dawson Luciano APRN.MILL CONTROLLER [address] [place], [place] [phone] PCP - General Family Medicine 06/28/18 FOR [...] BE BASED ON THE PRIMARY CLINICAL RECORDS. [employer] provides no warranty or guarantee of the accuracy or completeness of information in this document.
[2024-11-27 22:39] LABS: AST(SGOT) 21 U/L (<=31); Alanine Aminotransfer ALT/SGPT 13 U/L (<=34); Albumin, Serum 4.3 g/dL (3.5-5.0); Alkaline Phosphatase 63 U/L (35-104); Anion Gap 12 (5-15); BUN 7 mg/dL (4-19); BUN/Creat Ratio 11.9 RATIO (10-20); Calcium,Total 9.4 mg/dL (7.6-11.0); Carbon Dioxide 26.3 mmol/L (21.0-32.0); Chloride 99 mmol/L (98-108); Globulin 2.7 g/dL (2.2-4.2); Glucose 101 mg/dL (70-99); Potassium 3.1 mmol/L (3.3-5.1)
[2024-11-27 23:18] LABS: Hematocrit 35.9 % (37-47); Hemoglobin 12.2 g/dL (12.0-15.0); Immature Granulocytes Count 0.020 X10^3/uL (0.0-0.0); Mean Corp Hgb Conc 34.0 g/dL (32-36); Mean Corpuscular Volume 88.4 fL (81-99); Mean Platelet Vol. 11.2 fl (6.2-12.0); NRBC Flagged by Analyzer 0 % (0-5); Platelet Count 313 K/mm3 (150-450); RBC Distribution Width CV 13.5 % (11.6-14.6); RBC Distribution Width SD 44.1 fl (35.1-43.9); Red Blood Count 4.06 M/mm3 (4.2-5.4); White Blood Count 8.2 K/mm3 (4.4-11.0)
== END | disposition home or self-care (01) ==
LOC: LABSPEC 21:30
PROVIDERS: PCP Nurse Practitioner; Visit Provider Nurse Practitioner
DX: E11.43 Type 2 diabetes mellitus with diabetic autonomic (poly)neuropathy (principal); E11.65 Type 2 diabetes mellitus with hyperglycemia; K31.84 Gastroparesis; F17.200 Nicotine dependence, unspecified, uncomplicated; E03.9 Hypothyroidism, unspecified
CPT/HCPCS: 80053; 84443; 85025

== ENCOUNTER → 2024-11-28 | Outpatient (CLI) | payer BC, SELFPAY | END | disposition home or self-care (01) | LOC: LABSPEC 09:29 | PROVIDERS: PCP Nurse Practitioner; Referring Provider Nurse Practitioner; Visit Provider Nurse Practitioner | DX: E11.43 Type 2 diabetes mellitus with diabetic autonomic (poly)neuropathy (principal); E11.65 Type 2 diabetes mellitus with hyperglycemia; K31.84 Gastroparesis; F17.200 Nicotine dependence, unspecified, uncomplicated; E03.9 Hypothyroidism, unspecified ==